=== PATIENT | female | born 1935 | race Caucasian/White ===

== ENCOUNTER 2017-01-27 08:43 | Inpatient (IN) | payer MEDICARE, OTHER ==
[2017-01-27] MEDS ORDERED: Albuterol/Ipratropium 3.0-0.5 MG/3 ML Neb Soln NEB ONE (09:00)
--- NOTE | 2017-01-27 09:00 | EDM.PDOC ---
[id number] Complaint: ABDOMINAL PAIN Time Seen by Provider: 01/27/17 08:50 Source of Information: Reports: Patient History Limitations: Reports: No Limitations - History of Present Illness INITIAL COMMENTS - FREE TEXT/NARRATIVE: History of present illness: []Patient ate [employer] last night and started vomiting she denies any diarrhea or complaints of severe epigastric abdominal pain and shortness of breath. Patient has COPD but ran out of her inhalers. Patient denies any bloody diarrhea,fevers, or chest pain. Review of systems: As per history of present illness and below otherwise all systems reviewed and negative. Past medical history: As per history of present illness and as reviewed below otherwise noncontributory. Surgical history: As per history of present illness and as reviewed below otherwise noncontributory. Social history: No reported history of drug or alcohol abuse. Family history: As per history of present illness and as reviewed below otherwise noncontributory. Physical exam: General: Well developed, well nourished in NAD HEENT: Atraumatic, normocephalic, pupils reactive, negative for conjunctival pallor or scleral icterus, mucous membranes moist, throat clear, neck supple, nontender, trachea midline. Lungs: Clear to auscultation, breath sounds equal bilaterally, chest nontender. Heart: S1S2, regular, negative for clicks, rubs, or JVD. Abdomen: Soft, nondistended, epigastric tenderness rebound or guarding. Negative for masses or hepatosplenomegaly. Negative for costovertebral tenderness. Pelvis: Stable nontender. Genitourinary: Deferred. Rectal: Deferred. Extremities: Atraumatic, negative for cords or calf pain. Neurovascular unremarkable. Neuro: Awake, alert, oriented. Cranial nerves II through XII unremarkable. Cerebellum unremarkable. Motor and sensory unremarkable throughout. Exam nonfocal. Diagnostics: []. Labs chest x-ray and CT abdomen showing acute interstitial edematous pancreatitis that is new. She also has an aortic aneurysm that is unchanged thrombus in it. There is no obstruction noted. Therapeutics: []Patient was hydrated and given pain medicines and antiemetics Impression: []Acute pancreatitis Plan: []Admit for further treatment and hydration. Definitive disposition and diagnosis as appropriate pending reevaluation and review of above. abdomen Pain Score (Numeric/FACES): 10 - Related Data Allergies Allergy/AdvReac Type Severity Reaction Status Date / Time shellfish derived Allergy Cannot Verified 01/27/17 11:07 Remember Home Meds: Home Meds Albuterol [Proventil HFA] 2 puff IH QID PRN 01/27/17 [History] Metoprolol Succinate [Toprol XL] 25 mg PO DAILY 01/27/17 [History] Nitroglycerin [Nitrostat] 0.4 mg SL Q5M PRN 01/27/17 [History] ED ROS GENERAL - Review of Systems Review Of Systems: See Below (See history of present illness) ED EXAM, GI/ABD - Physical Exam Exam: See Below (See history of present illness) Course - Vital Signs Last Recorded V/S: Last Vital Signs Temp 36.6 C 01/27/17 08:57 Pulse 71 01/27/17 11:15 Resp 16 01/27/17 09:38 BP 146/55 H 01/27/17 11:15 Pulse Ox 98 01/27/17 12:18 - Orders/Labs/Meds Orders: Active Orders 24 hr Category Date Time Status EKG Documentation Completion [RC] STAT Care 01/27/17 09:01 Active RT Aerosol Therapy [RC] ASDIRECTED Care 01/27/17 09:00 Active Abdomen Pelvis w Cont [CT] Stat Exams 01/27/17 10:50 Taken Chest 1V Frontal [CR] Stat Exams 01/27/17 09:01 Taken Saline Lock Insert [OM.PC] Stat Oth 01/27/17 09:01 Ordered Medication Orders Albuterol (Ventolin Hfa) 2 gm INH QID PRN PRN Reason: Wheezing Docusate Sodium (Colace) 100 mg PO BID PRN PRN Reason: Constipation Enoxaparin Sodium (Lovenox) 40 mg SUBCUT DAILY [facility] Sodium Chloride (Normal Saline) 1,000 mls @ 100 mls/hr IV ASDIRECTED [facility] Last Admin: 01/27/17 16:29 Dose: 100 mls/hr Metoprolol Succinate (Toprol Xl) 25 mg PO DAILY [facility] Morphine Sulfate (Morphine) 2 mg IVPUSH Q2H PRN PRN Reason: Pain (severe 7-10) Stop: 01/28/17 12:28 Ondansetron HCl (Zofran Odt) 4 mg PO Q6H PRN PRN Reason: nausea, able to take PO Last Admin: 01/27/17 13:34 Dose: 4 mg Ondansetron HCl (Zofran) 8 mg IVPUSH Q8H PRN PRN Reason: Nausea/Vomiting Last Admin: 01/27/17 17:47 Dose: 8 mg Temazepam (Restoril) 15 mg PO BEDTIME PRN PRN Reason: Sleep Labs: Laboratory Tests 01/27/17 01/27/17 01/27/17 Range/Units 09:13 09:22 09:22 WBC 8.85 (4.0-11.0) K/uL RBC 4.97 (4.30-5.90) M/uL Hgb 14.5 (12.0-16.0) g/dL Hct 44.5 (36.0-46.0) % MCV 89.5 (80.0-98.0) fL MCH 29.2 (27.0-32.0) pg MCHC 32.6 (31.0-37.0) g/dL RDW Std Deviation 47.9 (28.0-62.0) fl RDW Coeff of Harpreet 15 (11.0-15.0) % Plt Count 274 (150-400) K/uL MPV 10.20 (7.40-12.00) fL Neut % (Auto) 76.3 (48.0-80.0) % Lymph % (Auto) 15.9 L (16.0-40.0) % Mcdonald % (Auto) 7.3 (0.0-15.0) % Eos % (Auto) 0.3 (0.0-7.0) % Baso % (Auto) 0.2 (0.0-1.5) % Neut # (Auto) 6.7 H (1.4-5.7) K/uL Lymph # (Auto) 1.4 (0.6-2.4) K/uL Mcdonald # (Auto) 0.7 (0.0-0.8) K/uL Eos # (Auto) 0.0 (0.0-0.7) K/uL Baso # (Auto) 0.0 (0.0-0.1) K/uL Nucleated RBC % 0.0 /100WBC Nucleated RBCs # 0 K/uL Sodium 142 (136-146) mmol/L Potassium 4.0 (3.5-5.1) mmol/L Chloride 109 (98-110) mmol/L Carbon Dioxide 24 (21-31) mmol/L BUN 18 (6.0-23.0) mg/dL Creatinine 1.0 (0.6-1.5) mg/dL Est Cr Clr Drug Dosing TNP Estimated GFR (MDRD) 53.5 ml/min Glucose 164 H (60-110) mg/dL Calcium 8.9 (8.8-10.8) mg/dL Total Bilirubin 1.8 H (0.1-1.5) mg/dL AST 716 H (5-40) IU/L ALT 663 H (8-54) IU/L Alkaline Phosphatase 149 (40-150) Troponin I < 0.10 (0.0-0.29) NG/ML B-Natriuretic Peptide (<100) PG/ML Total Protein 6.8 (6.0-8.0) g/dL Albumin 3.9 (3.4-4.8) g/dL Globulin 2.9 (2.0-3.5) g/dL Albumin/Globulin Ratio 1.3 (1.3-2.8) Lipase 6642 H (7-80) U/L 01/27/ Range/Units 09:22 WBC (4.0-11.0) K/uL RBC (4.30-5.90) M/uL Hgb (12.0-16.0) g/dL Hct (36.0-46.0) % MCV (80.0-98.0) fL MCH (27.0-32.0) pg MCHC (31.0-37.0) g/dL RDW Std Deviation (28.0-62.0) fl RDW Coeff of Harpreet (11.0-15.0) % Plt Count (150-400) K/uL MPV (7.40-12.00) fL Neut % (Auto) (48.0-80.0) % Lymph % (Auto) (16.0-40.0) % Mcdonald % (Auto) (0.0-15.0) % Eos % (Auto) (0.0-7.0) % Baso % (Auto) (0.0-1.5) % Neut # (Auto) (1.4-5.7) K/uL Lymph # (Auto) (0.6-2.4) K/uL Mcdonald # (Auto) (0.0-0.8) K/uL Eos # (Auto) (0.0-0.7) K/uL Baso # (Auto) (0.0-0.1) K/uL Nucleated RBC % /100WBC Nucleated RBCs # K/uL Sodium (136-146) mmol/L Potassium (3.5-5.1) mmol/L Chloride (98-110) mmol/L Carbon Dioxide (21-31) mmol/L BUN (6.0-23.0) mg/dL Creatinine (0.6-1.5) mg/dL Est Cr Clr Drug Dosing Estimated GFR (MDRD) ml/min Glucose (60-110) mg/dL Calcium (8.8-10.8) mg/dL Total Bilirubin (0.1-1.5) mg/dL AST (5-40) IU/L ALT (8-54) IU/L Alkaline Phosphatase (40-150) Troponin I (0.0-0.29) NG/ML B-Natriuretic Peptide 70 (<100) PG/ML Total Protein (6.0-8.0) g/dL Albumin (3.4-4.8) g/dL Globulin (2.0-3.5) g/dL Albumin/Globulin Ratio (1.3-2.8) Lipase (7-80) U/L Meds: Medications Generic Name Dose Route Start Last Admin Trade Name Freq PRN Reason Stop Dose Admin Albuterol 2 gm 01/27/17 12:29 Ventolin Hfa INH QID PRN Wheezing Docusate Sodium 100 mg 01/27/17 12:25 Colace PO BID PRN Constipation Enoxaparin Sodium 40 mg 01/28/17 09:00 Lovenox SUBCUT DAILY [facility] Sodium Chloride 1,000 mls @ 100 mls/hr 01/27/17 12:30 01/27/17 16:29 Normal Saline IV 100 mls/hr ASDIRECTED [facility] Administration Metoprolol Succinate 25 mg 01/28/17 09:00 Toprol Xl PO DAILY [facility] Morphine Sulfate 2 mg 01/27/17 12:25 Morphine IVPUSH 01/28/17 12:28 Q2H PRN Pain (severe 7-10) Ondansetron HCl 4 mg 01/27/17 12:25 01/27/17 13:34 Zofran Odt PO 4 mg Q6H PRN Administration nausea, able to take PO Ondansetron HCl 8 mg 01/27/17 14:56 01/27/17 17:47 Zofran IVPUSH 8 mg Q8H PRN Administration Nausea/Vomiting Temazepam 15 mg 01/27/17 12:25 Restoril PO BEDTIME PRN Sleep Discontinued Medications Generic Name Dose Route Start Last Admin Trade Name Freq PRN Reason Stop Dose Admin Albuterol/Ipratropium 3 ml 01/27/17 09:00 01/27/17 09:09 Duoneb 3.0-0.5 Mg/3 Ml NEB 01/27/17 09:01 3 ml ONETIME ONE Administration Famotidine 20 mg 01/27/17 09:02 01/27/17 09:21 Pepcid IVPUSH 01/27/17 09:03 20 mg ONETIME ONE Administration Sodium Chloride 250 mls @ 250 mls/hr 01/27/17 11:00 Normal Saline IV ASDIRECTED [facility] Sodium Chloride 1,000 mls @ 250 mls/hr 01/27/17 11:01 01/27/17 11:02 Normal Saline IV 01/27/17 15:00 250 mls/hr ONETIME ONE Administration Iopamidol 80 ml 01/27/17 12:01 01/27/17 12:02 Isovue-300 (61%) IVPUSH 01/27/17 12:02 80 ml ONETIME ONE Administration Morphine Sulfate 2 mg 01/27/17 10:20 01/27/17 10:36 Morphine IVPUSH 01/27/17 10:21 2 mg ONETIME ONE Administration Ondansetron HCl 4 mg 01/27/17 10:27 01/27/17 10:32 Zofran IVPUSH 01/27/17 10:28 4 mg ONETIME ONE Administration Departure - Departure Time of Disposition: 12:15 Disposition: Admitted As Inpatient 68 Condition: Good Clinical Impression: Acute pancreatitis Qualifiers: Pancreatitis type: unspecified pancreatitis type Acute pancreatitis complication: unspecified Qualified Code(s): K85.90 - Acute pancreatitis without necrosis or infection, unspecified - Discharge Information - My Orders Last 24 Hours: My Active Orders 01/27/17 09:00 RT Aerosol Therapy [RC] ASDIRECTED 01/27/17 09:01 EKG Documentation Completion [RC] STAT Chest 1V Frontal [CR] Stat Saline Lock Insert [OM.PC] Stat 01/27/17 10:50 Abdomen Pelvis w Cont [CT] Stat - Assessment/Plan Last 24 Hours: My Active Orders 01/27/17 09:00 RT Aerosol Therapy [RC] ASDIRECTED 01/27/17 09:01 EKG Documentation Completion [RC] STAT Chest 1V Frontal [CR] Stat Saline Lock Insert [OM.PC] Stat 01/27/17 10:50 Abdomen Pelvis w Cont [CT] Stat
[2017-01-27] MEDS ORDERED: Famotidine 20 MG/2 ML SDV IVPUSH ONE (09:02)
[2017-01-27 09:48] LABS: CHLORIDE,CL 109 mmol/L (98-110); SODIUM,NA 142 mmol/L (136-146)
[2017-01-27] MEDS ORDERED: Morphine 2 MG/ML Syringe IVPUSH ONE (10:20)
[2017-01-27] MEDS ORDERED: Ondansetron 4 MG/2 ML SDV IVPUSH ONE (10:27)
[2017-01-27] MEDS ORDERED: Sodium Chloride 0.9% 250 ML IV SCH (11:00)
[2017-01-27] MEDS ORDERED: Sodium Chloride 0.9% 1,000 ML IV ONE (11:01)
[2017-01-27] MEDS ORDERED: Iopamidol 612 MG/ML 100 ML Bottle IVPUSH ONE (12:01)
[2017-01-27] MEDS ORDERED: Morphine 2 MG/ML Syringe IVPUSH PRN (12:25)
[2017-01-27] MEDS ORDERED: Temazepam 15 MG Cap PO PRN (12:25)
[2017-01-27] MEDS: Ondansetron 4 MG Tab.DIS PO PRN (13:34)
[2017-01-27] MEDS ORDERED: Ondansetron 4 MG/2 ML SDV IVPUSH PRN (14:56)
[2017-01-27] MEDS: Sodium Chloride 0.9% 1,000 ML IV SCH (16:29)
--- NOTE | 2017-01-27 16:30 | PCM.HP ---
H&P History of Present Illness - General Date of Service: 01/27/17 Admit Problem/Dx: Admission Diagnosis/Problem Admission Diagnosis/Problem Pancreatitis due to biliary obstruction Source of Information: Patient History Limitations: Reports: No Limitations - History of Present Illness Initial Comments - Free Text/Narative: The patient is a 81-year-old lady who is presented to the emergency department primarily out of concern for upper abdominal pain. Patient reports that she ate pizza yesterday evening started to vomit. She had no diarrhea. Patient also has severe epigastric pain and some shortness of breath associated. The patient has COPD but she does not believe the shortness of breath as a result of this. The patient also has denied any hematochezia or melena. Patient says that the pain is located primarily in the epigastric area and is described as sharp and stabbing and relates to the right and left side. The patient says that the food is been aggravating and medication seems to have relieved this. Up until yesterday evening patient had been doing well. Patient reports that her has had pancreatitis and she is very familiar with the symptoms. The patient also has denied any fever or chills. The patient has been taking medication for hypertension but no other. The patient has been in her usual state of health and she has no other complaints today. Onset of Symptoms: Reports: Today Duration of Symptoms: Reports: Hour(s):, Getting Worse Location: Reports: Abdomen Quality: Reports: Sharp, Stabbing Severity: Moderate Improves with: Reports: Medication Worsens with: Reports: Eating Context: Reports: Sick Contact Associated Symptoms: Reports: No Other Symptoms abdomen Pain Score (Numeric/FACES): 10 - Related Data Allergies/Adverse Reactions: Allergies Allergy/AdvReac Type Severity Reaction Status Date / Time shellfish derived Allergy Cannot Verified 01/27/17 11:07 Remember Home Medications: Home Meds Albuterol [Proventil HFA] 2 puff IH QID PRN 01/27/17 [History] Metoprolol Succinate [Toprol XL] 25 mg PO DAILY 01/27/17 [History] Nitroglycerin [Nitrostat] 0.4 mg SL Q5M PRN 01/27/17 [History] Past Medical History - Past Health History Medical/Surgical History: Denies Medical/Surgical History HEENT History: Reports: Hard of Hearing, Impaired Vision Other HEENT History: wears glasses Cardiovascular History: Reports: High Cholesterol, Hypertension, NC, Stents Respiratory History: Reports: COPD, Pneumonia, Recurrent, Other (See Below) Other Respiratory History: Frequent URIs Gastrointestinal History: Reports: GERD, GI Bleed Genitourinary History: Reports: None [employer] History: Reports: Musculoskeletal History: Reports: Arthritis Psychiatric History: Reports: Anxiety Endocrine/Metabolic History: Reports: Diabetes, Type II Other Endocrine/Metabolic History: "borderline diabetic' Hematologic History: Reports: Anemia - Past Surgical History GI Surgical History: Reports: None Female Surgical History: Reports: Tubal Ligation Social & Family History - Family History Family Medical History: Noncontributory - Tobacco Use Smoking Status *Q: Former Smoker Years of Tobacco use: 50 Used Tobacco, but Quit: Yes Month Tobacco Last Used: 07/2006 Second Hand Smoke Exposure: No - Caffeine Use Caffeine Use: Reports: Coffee, Tea - Alcohol Use Alcohol Use History: No - Recreational Drug Use Recreational Drug Use: No H&P Review of Systems - Review of Systems: Review Of Systems: See Below General: Reports: Weakness, Decreased Appetite HEENT: Reports: No Symptoms Pulmonary: Reports: Shortness of Breath Cardiovascular: Reports: No Symptoms Gastrointestinal: Reports: Abdominal Pain, Decreased Appetite, Nausea, Vomiting. Denies: Hematochezia, Melena Genitourinary: Reports: No Symptoms Musculoskeletal: Reports: No Symptoms Skin: Reports: No Symptoms Psychiatric: Reports: No Symptoms Neurological: Reports: No Symptoms Hematologic/Lymphatic: Reports: No Symptoms Immunologic: Reports: No Symptoms Exam - Exam Exam: See Below - Vital Signs Vital Signs: Last Vital Signs Temp 36.6 C 01/27/17 08:57 Pulse 71 01/27/17 11:15 Resp 16 01/27/17 09:38 BP 146/55 H 01/27/17 11:15 Pulse Ox 98 01/27/17 12:18 Weight: 90 kg - Exam Quality Assessment: No: Supplemental Oxygen General: Alert, Oriented, Cooperative, Mild Distress HEENT: Conjunctiva Clear, EACs Clear, Mucosa Moist & [place], Nares Patent Neck: Supple, Trachea Midline Lungs: Clear to Auscultation, Normal Respiratory Effort Cardiovascular: Regular Rate, Regular Rhythm GI/Abdominal Exam: Normal Bowel Sounds, Soft, Tender. No: Guarding, Rigid Back Exam: Decreased Range of Motion Extremities: Normal Inspection, No Pedal Edema Skin: Warm, Dry Neurological: Cranial Nerves Intact Neuro Extensive - Mental Status: Alert, Oriented x3 Neuro Extensive - Motor, Sensory, Reflexes: CN II-XII Intact Psychiatric: Alert, Normal Affect - Patient Data Lab Results Last 24 hrs: Laboratory Results - last 24 hr 01/27/17 Range/Units 13:55 Urine Color YELLOW Urine Appearance CLEAR Urine pH 6.0 (5.0-8.0) Ur Specific [place] 1.010 (1.001-1.035) Urine Protein NEGATIVE (NEGATIVE) mg/dL Urine Glucose (UA) NEGATIVE (NEGATIVE) mg/dL Urine Ketones NEGATIVE (NEGATIVE) mg/dL Urine Occult Blood TRACE-LYSED (NEGATIVE) Urine Nitrite NEGATIVE (NEGATIVE) Urine Bilirubin NEGATIVE (NEGATIVE) Urine Urobilinogen 1.0 (<2.0) EU/dL Ur Leukocyte Esterase TRACE (NEGATIVE) Urine RBC 0-2 (0-2/HPF) Urine WBC 0-3 (0-5/HPF) Ur Epithelial Cells FEW (NONE-FEW) Urine Bacteria RARE (NEGATIVE) Result Diagrams: 01/27/17 09:22 01/27/17 09:22 *Q Meaningful Use (ADM) - VTE *Q VTE Criteria *Q: VTE Mechanical Contraindications *Q: At Risk for Falls - VTE Risk Assess *Q Each Risk Factor Represents 1 Point: None Total Score 1 Point Risk Factors: 0 Each Risk Factor Represents 3 Points: Age 75 Years or Greater Total Score 3 Point Risk Factors: 3 Each Risk Factor Represents 5 Points: None Total Score 5 Point Risk Factors: 0 - Stroke *Q Stroke Criteria *Q: - AMI *Q AMI Criteria *Q: - Problem List (1) Pancreatitis SNOMED Code(s): 93961189 ICD Code: K85.90 - ACUTE PANCREATITIS WITHOUT NECROSIS OR INFECTION, UNSP Status: Acute Priority: High Current Visit: Yes Problem Details: Lipase 6600 Qualifiers: Chronicity: acute Pancreatitis type: biliary Acute pancreatitis complication: no infection or necrosis Qualified Code(s): K85.10 - Biliary acute pancreatitis without necrosis or infection (2) Transaminitis SNOMED Code(s): 104514682 ICD Code: R74.0 - NONSPEC ELEV OF LEVELS OF TRANSAMNS & LACTIC ACID DEHYDRGNSE Status: Acute Priority: High Current Visit: Yes (3) COPD (chronic obstructive pulmonary disease) SNOMED Code(s): 69694697 ICD Code: J44.9 - CHRONIC OBSTRUCTIVE PULMONARY DISEASE, UNSPECIFIED Status : Chronic Priority: Medium Current Visit: Yes Qualifiers: COPD type: chronic bronchitis Chronic bronchitis type: simple Qualified Code(s): J41.0 - Simple chronic bronchitis (4) Hypertension SNOMED Code(s): 37179234 ICD Code: I10 - ESSENTIAL (PRIMARY) HYPERTENSION Status: Chronic Priority : Medium Current Visit: Yes Qualifiers: Hypertension type: essential hypertension Qualified Code(s): I10 - Essential (primary) hypertension Problem List Initiated/Reviewed/Updated: Yes Orders Last 24hrs: Active Orders 24 hr Category Date Time Status Patient Status [ADT] Routine ADT 01/27/17 12:18 Active Ambulate [RC] PER UNIT ROUTINE Care 01/27/17 12:27 Active Oxygen Therapy [RC] PRN Care 01/27/17 12:18 Active Up With Assistance [RC] ASDIRECTED Care 01/27/17 12:15 Active VTE/DVT Education [RC] PER UNIT ROUTINE Care 01/27/17 12:18 Active Vital Signs [RC] Q4H Care 01/27/17 12:18 Active Nothing per Oral Now Diet [DIET] Diet 01/27/17 Lunch Active CBC WITH AUTO DIFF [HEME] AM Lab 01/28/17 05:11 Ordered COMPREHENSIVE METABOLIC PN,CMP [CHEM] AM Lab 01/28/17 05:11 Ordered MAGNESIUM [CHEM] AM Lab 01/28/17 05:11 Ordered PHOSPHORUS [CHEM] AM Lab 01/28/17 05:11 Ordered Albuterol [Ventolin HFA] Med 01/27/17 12:29 Active 2 gm INH QID PRN Docusate Sodium [Colace] Med 01/27/17 12:25 Active 100 mg PO BID PRN Enoxaparin [Lovenox] Med 01/28/17 09:00 Active 40 mg SUBCUT DAILY Metoprolol Succinate [Toprol XL] Med 01/28/17 09:00 Active 25 mg PO DAILY Morphine Med 01/27/17 12:25 Active 2 mg IVPUSH Q2H PRN Ondansetron [Zofran ODT] Med 01/27/17 12:25 Active 4 mg PO Q6H PRN Ondansetron [Zofran] Med 01/27/17 14:56 Active 8 mg IVPUSH Q8H PRN Sodium Chloride 0.9% [Normal Saline] 1,000 ml Med 01/27/17 12:30 Active IV ASDIRECTED Temazepam [Restoril] Med 01/27/17 12:25 Active 15 mg PO BEDTIME PRN Resuscitation Status Routine Resus Stat 01/27/17 12:15 Ordered Medication Orders Albuterol (Ventolin Hfa) 2 gm INH QID PRN PRN Reason: Wheezing Docusate Sodium (Colace) 100 mg PO BID PRN PRN Reason: Constipation Enoxaparin Sodium (Lovenox) 40 mg SUBCUT DAILY [facility] Sodium Chloride (Normal Saline) 1,000 mls @ 100 mls/hr IV ASDIRECTED [facility] Last Admin: 01/27/17 16:29 Dose: 100 mls/hr Metoprolol Succinate (Toprol Xl) 25 mg PO DAILY [facility] Morphine Sulfate (Morphine) 2 mg IVPUSH Q2H PRN PRN Reason: Pain (severe 7-10) Stop: 01/28/17 12:28 Ondansetron HCl (Zofran Odt) 4 mg PO Q6H PRN PRN Reason: nausea, able to take PO Last Admin: 01/27/17 13:34 Dose: 4 mg Ondansetron HCl (Zofran) 8 mg IVPUSH Q8H PRN PRN Reason: Nausea/Vomiting Temazepam (Restoril) 15 mg PO BEDTIME PRN PRN Reason: Sleep Assessment/Plan Comment:: January 27, 2017: The patient is a 81-year-old lady who has been admitted for acute onset of pancreatitis. CT scan obtained through the emergency department did not show any obstructive stones or biliary tree issues. With the patient's lipase as high as it is as well as her transaminitis and concerned about neoplastic processes with the patient's pancreas. I've ordered an ultrasound in order to characterize any radio translucent stones which may be present in the gallbladder. If the patient's ALT and AST trends continue along with her lipase the patient may be in need of a MRCP or an ERCP. For the most part the patient will be admitted as an inpatient with IV fluid support, nothing by mouth for now , pain control and monitoring of her enzymes and her blood counts. The patient will also have her vital signs monitored as well. The patient's overall treatment plan will be adjusted as soon as conditions and information indicates.
[2017-01-27] MEDS: Ondansetron 4 MG/2 ML SDV IVPUSH PRN (22:15)
[2017-01-28] MEDS: Sodium Chloride 0.9% 1,000 ML IV SCH ×3 (02:44→22:10)
[2017-01-28 06:28] LABS: CHLORIDE,CL 113 mmol/L (98-110); SODIUM,NA 145 mmol/L (136-146)
[2017-01-28] MEDS: Enoxaparin 40 MG/0.4 ML Syringe SUBCUT SCH (08:26)
[2017-01-28] MEDS: Ondansetron 4 MG/2 ML SDV IVPUSH PRN (08:27)
[2017-01-28] MEDS: Metoprolol Succinate 25 MG Tab.ER PO SCH (08:27)
[2017-01-28] MEDS: Acetaminophen 325 MG Tab PO PRN ×2 (11:44→17:49)
--- NOTE | 2017-01-28 12:31 | PCM.PN ---
- General Info Date of Service: 01/28/17 Admission Dx/Problem (Free Text): Admission Diagnosis/Problem Admission Diagnosis/Problem Pancreatitis due to biliary obstruction Subjective Update: Patient still has some nausea, pain controlled. Patient's family is with her today. Functional Status: Reports: Pain Controlled. Denies: Tolerating Diet - Review of Systems General: Reports: Weakness, Fatigue HEENT: Reports: No Symptoms Pulmonary: Reports: No Symptoms Cardiovascular: Reports: No Symptoms Gastrointestinal: Reports: Abdominal Pain, Nausea Genitourinary: Reports: No Symptoms Musculoskeletal: Reports: No Symptoms Skin: Reports: No Symptoms Neurological: Reports: No Symptoms Psychiatric: Reports: No Symptoms - Patient Data Vitals - most recent: Last Vital Signs Temp 36.4 C 01/28/17 07:00 Pulse 67 01/28/17 08:27 Resp 16 01/28/17 07:00 BP 159/59 H 01/28/17 08:27 Pulse Ox 90 L 01/28/17 07:00 Weight - most recent: 90 kg I&O - last 24 hours: Intake & Output 01/27/17 01/28/17 01/28/17 22:59 06:59 14:59 Intake Total 1020 Output Total 200 350 Balance -200 670 Lab Results last 24 hrs: Laboratory Results - last 24 hr 01/27/17 01/28/17 01/28/17 Range/Units 13:55 05:45 05:45 WBC 9.62 (4.0-11.0) K/uL RBC 4.75 (4.30-5.90) M/uL Hgb 13.5 (12.0-16.0) g/dL Hct 43.8 (36.0-46.0) % MCV 92.2 (80.0-98.0) fL MCH 28.4 (27.0-32.0) pg MCHC 30.8 L (31.0-37.0) g/dL RDW Std Deviation 51.0 (28.0-62.0) fl RDW Coeff of Harpreet 15 (11.0-15.0) % Plt Count 272 (150-400) K/uL MPV 10.60 (7.40-12.00) fL Neut % (Auto) 74.4 (48.0-80.0) % Lymph % (Auto) 18.8 (16.0-40.0) % Smith % (Auto) 6.2 (0.0-15.0) % Eos % (Auto) 0.4 (0.0-7.0) % Baso % (Auto) 0.2 (0.0-1.5) % Neut # (Auto) 7.2 H (1.4-5.7) K/uL Lymph # (Auto) 1.8 (0.6-2.4) K/uL Smith # (Auto) 0.6 (0.0-0.8) K/uL Eos # (Auto) 0.0 (0.0-0.7) K/uL Baso # (Auto) 0.0 (0.0-0.1) K/uL Nucleated RBC % 0.0 /100WBC Nucleated RBCs # 0 K/uL Sodium 145 (136-146) mmol/L Potassium 4.9 (3.5-5.1) mmol/L Chloride 113 H (98-110) mmol/L Carbon Dioxide 25 (21-31) mmol/L BUN 12 (6.0-23.0) mg/dL Creatinine 0.8 (0.6-1.5) mg/dL Est Cr Clr Drug Dosing 49.24 mL/min Estimated GFR (MDRD) > 60.0 ml/min Glucose 121 H (60-110) mg/dL Calcium 8.3 L (8.8-10.8) mg/dL Phosphorus 3.3 (2.4-4.7) mg/dL Magnesium 1.8 (1.5-2.3) mEq/L Total Bilirubin 1.2 (0.1-1.5) mg/dL AST 339 H (5-40) IU/L ALT 507 H (8-54) IU/L Alkaline Phosphatase 168 H (40-150) Total Protein 6.3 (6.0-8.0) g/dL Albumin 3.6 (3.4-4.8) g/dL Globulin 2.7 (2.0-3.5) g/dL Albumin/Globulin Ratio 1.3 (1.3-2.8) Urine Color YELLOW Urine Appearance CLEAR Urine pH 6.0 (5.0-8.0) Ur Specific [place] 1.010 (1.001-1.035) Urine Protein NEGATIVE (NEGATIVE) mg/dL Urine Glucose (UA) NEGATIVE (NEGATIVE) mg/dL Urine Ketones NEGATIVE (NEGATIVE) mg/dL Urine Occult Blood TRACE-LYSED (NEGATIVE) Urine Nitrite NEGATIVE (NEGATIVE) Urine Bilirubin NEGATIVE (NEGATIVE) Urine Urobilinogen 1.0 (<2.0) EU/dL Ur Leukocyte Esterase TRACE (NEGATIVE) Urine RBC 0-2 (0-2/HPF) Urine WBC 0-3 (0-5/HPF) Ur Epithelial Cells FEW (NONE-FEW) Urine Bacteria RARE (NEGATIVE) Med Orders - Current: Current Medications Acetaminophen (Tylenol) 650 mg PO Q6H PRN PRN Reason: Headache Last Admin: 01/28/17 11:44 Dose: 650 mg Albuterol (Ventolin Hfa) 2 gm INH QID PRN PRN Reason: Wheezing Docusate Sodium (Colace) 100 mg PO BID PRN PRN Reason: Constipation Enoxaparin Sodium (Lovenox) 40 mg SUBCUT DAILY [facility] Last Admin: 01/28/17 08:26 Dose: 40 mg Sodium Chloride (Normal Saline) 1,000 mls @ 100 mls/hr IV ASDIRECTED [facility] Last Admin: 01/28/17 11:48 Dose: 100 mls/hr Metoprolol Succinate (Toprol Xl) 25 mg PO DAILY [facility] Last Admin: 01/28/17 08:27 Dose: 25 mg Morphine Sulfate (Morphine) 2 mg IVPUSH Q2H PRN PRN Reason: Pain (severe 7-10) Stop: 01/28/17 12:28 Last Admin: 01/27/17 21:42 Dose: 2 mg Ondansetron HCl (Zofran Odt) 4 mg PO Q6H PRN PRN Reason: nausea, able to take PO Last Admin: 01/27/17 13:34 Dose: 4 mg Ondansetron HCl (Zofran) 4 mg IVPUSH Q4H PRN PRN Reason: Nausea/Vomiting Last Admin: 01/28/17 08:27 Dose: 4 mg Temazepam (Restoril) 15 mg PO BEDTIME PRN PRN Reason: Sleep Discontinued Medications Albuterol/Ipratropium (Duoneb 3.0-0.5 Mg/3 Ml) 3 ml NEB ONETIME ONE Stop: 01/27/17 09:01 Last Admin: 01/27/17 09:09 Dose: 3 ml Famotidine (Pepcid) 20 mg IVPUSH ONETIME ONE Stop: 01/27/17 09:03 Last Admin: 01/27/17 09:21 Dose: 20 mg Sodium Chloride (Normal Saline) 250 mls @ 250 mls/hr IV ASDIRECTED [facility] Sodium Chloride (Normal Saline) 1,000 mls @ 250 mls/hr IV ONETIME ONE Stop: 01/27/17 15:00 Last Admin: 01/27/17 11:02 Dose: 250 mls/hr Iopamidol (Isovue-300 (61%)) 80 ml IVPUSH ONETIME ONE Stop: 01/27/17 12:02 Last Admin: 01/27/17 12:02 Dose: 80 ml Morphine Sulfate (Morphine) 2 mg IVPUSH ONETIME ONE Stop: 01/27/17 10:21 Last Admin: 01/27/17 10:36 Dose: 2 mg Ondansetron HCl (Zofran) 4 mg IVPUSH ONETIME ONE Stop: 01/27/17 10:28 Last Admin: 01/27/17 10:32 Dose: 4 mg Ondansetron HCl (Zofran) 8 mg IVPUSH Q8H PRN PRN Reason: Nausea/Vomiting Last Admin: 01/27/17 17:47 Dose: 8 mg - Exam Quality Assessment: No: supplemental oxygen General: alert, oriented, mild distress HEENT: Pupils equal, Pupils reactive Neck: supple, trachea midline, no thyromegaly Lungs: Clear to Auscultation, Normal Respiratory Effort Cardiovascular: Regular Rate, Regular Rhythm, No Murmurs GI/Abdominal Exam: Normal Bowel Sounds, Soft, No Organomegaly, Tender ( Epigastrium) Back Exam: Decreased Range of Motion Extremities: Non-Tender, No Pedal Edema Skin: warm, dry, intact Neurological: no new focal deficit Psy/Mental Status: alert, normal affect - Problem List & Annotations (1) Pancreatitis SNOMED Code(s): 23491877 Code(s): K85.90 - ACUTE PANCREATITIS WITHOUT NECROSIS OR INFECTION, UNSP Status: Acute Priority: High Current Visit: Yes Qualifiers: Chronicity: acute Pancreatitis type: biliary Acute pancreatitis complication: no infection or necrosis Qualified Code(s): K85.10 - Biliary acute pancreatitis without necrosis or infection Annotation/Comment:: Lipase 6600 (2) Transaminitis SNOMED Code(s): 881240155 Code(s): R74.0 - NONSPEC ELEV OF LEVELS OF TRANSAMNS & LACTIC ACID DEHYDRGNSE Status: Acute Priority: High Current Visit: Yes (3) COPD (chronic obstructive pulmonary disease) SNOMED Code(s): 92603439 Code(s): J44.9 - CHRONIC OBSTRUCTIVE PULMONARY DISEASE, UNSPECIFIED Status : Chronic Priority: Medium Current Visit: Yes Qualifiers: COPD type: chronic bronchitis Chronic bronchitis type: simple Qualified Code(s): J41.0 - Simple chronic bronchitis (4) Hypertension SNOMED Code(s): 32222564 Code(s): I10 - ESSENTIAL (PRIMARY) HYPERTENSION Status: Chronic Priority : Medium Current Visit: Yes Qualifiers: Hypertension type: essential hypertension Qualified Code(s): I10 - Essential (primary) hypertension - Problem List Review Problem List Initiated/Reviewed/Updated: Yes - My Orders Last 24 Hours: My Active Orders 01/27/17 12:15 Up With Assistance [RC] ASDIRECTED Resuscitation Status Routine 01/27/17 12:18 Patient Status [ADT] Routine Oxygen Therapy [RC] PRN VTE/DVT Education [RC] PER UNIT ROUTINE Vital Signs [RC] Q4H 01/27/17 12:25 Docusate Sodium [Colace] 100 mg PO BID PRN Morphine 2 mg IVPUSH Q2H PRN Ondansetron [Zofran ODT] 4 mg PO Q6H PRN Temazepam [Restoril] 15 mg PO BEDTIME PRN 01/27/17 12:27 Ambulate [RC] PER UNIT ROUTINE 01/27/17 12:29 Albuterol [Ventolin HFA] 2 gm INH QID PRN 01/27/17 12:30 Sodium Chloride 0.9% [Normal Saline] 1,000 ml IV ASDIRECTED 01/27/17 21:55 Ondansetron [Zofran] 4 mg IVPUSH Q4H PRN 01/27/17 22:00 Communication Order [RC] ROUTINE 01/28/17 09:00 Enoxaparin [Lovenox] 40 mg SUBCUT DAILY Metoprolol Succinate [Toprol XL] 25 mg PO DAILY 01/28/17 11:12 Acetaminophen [Tylenol] 650 mg PO Q6H PRN 01/28/17 16:39 Abdomen Ltd [US] Routine - Plan Plan:: January 27, 2017: The patient is a 81-year-old lady who has been admitted for acute onset of pancreatitis. CT scan obtained through the emergency department did not show any obstructive stones or biliary tree issues. With the patient's lipase as high as it is as well as her transaminitis and concerned about neoplastic processes with the patient's pancreas. I've ordered an ultrasound in order to characterize any radio translucent stones which may be present in the gallbladder. If the patient's ALT and AST trends continue along with her lipase the patient may be in need of a MRCP or an ERCP. For the most part the patient will be admitted as an inpatient with IV fluid support, nothing by mouth for now , pain control and monitoring of her enzymes and her blood counts. The patient will also have her vital signs monitored as well. The patient's overall treatment plan will be adjusted as soon as conditions and information indicates. January 28, 2017:The patient is a 81-year-old lady who was admitted initially for gallstone pancreatitis. Patient's CT scan of her abdomen and pelvis did not show any gallstones initially. An ultrasound of her right upper quadrant was ordered and plan Rickie report does show gallstones which would be a direct cause of the patient's pancreatitis. Patient denies any alcohol usage. The patient's previous lipase was greater than 6000 and this will be repeated in the morning. I've explained to the patient and the patient's daughter that her goal at this time is to have pain control, IV fluid support and nothing by mouth for now along with control of the patient's nausea. The patient's blood pressure is also controlled today and I have recommended that she use Tylenol with small sips of water as necessary to help with any minor pain that she might be having. Patient likely will have to have referral to surgery once the patient's pancreatitis and transaminitis have normalized. The patient will be continued on IV fluids currently and nothing by mouth except ice chips. I've ordered laboratory testing in the morning and patient will have her treatment plan adjusted as conditions and information indicates. Patient likely will be appropriate for discharge home once asymptomatic and her enzymes have normalized.
[2017-01-29] MEDS: Acetaminophen 325 MG Tab PO PRN ×3 (04:03→21:28)
[2017-01-29 06:35] LABS: CHLORIDE,CL 116 mmol/L (98-110); SODIUM,NA 144 mmol/L (136-146)
[2017-01-29] MEDS: Enoxaparin 40 MG/0.4 ML Syringe SUBCUT SCH (09:04)
[2017-01-29] MEDS: Ondansetron 4 MG Tab.DIS PO PRN (09:04)
[2017-01-29] MEDS: Ondansetron 4 MG/2 ML SDV IVPUSH PRN ×3 (09:13→21:27)
[2017-01-29] MEDS: Docusate Sodium 100 MG Cap PO PRN (09:17)
[2017-01-29] MEDS: Metoprolol Succinate 25 MG Tab.ER PO SCH (09:18)
[2017-01-29] MEDS: Sodium Chloride 0.9% 1,000 ML IV SCH ×2 (09:19→16:47)
--- NOTE | 2017-01-29 09:29 | PCM.PN ---
- General Info Date of Service: 01/29/17 Admission Dx/Problem (Free Text): Admission Diagnosis/Problem Admission Diagnosis/Problem Pancreatitis due to biliary obstruction Subjective Update: Patient sitting up in chair visiting with daughter. She has complaints of headache and some nausea, and just not feeling well this morning. Denies chest pain or SOB. Functional Status: Reports: Pain Controlled, Ambulating, Urinating - Review of Systems General: Reports: No Symptoms. Denies: Fever Pulmonary: Reports: Cough. Denies: Shortness of Breath Cardiovascular: Reports: No Symptoms. Denies: Chest Pain, Palpitations, Edema Gastrointestinal: Reports: Nausea. Denies: Abdominal Pain, Vomiting - Patient Data Vitals - most recent: Last Vital Signs Temp 97.1 F 01/29/17 07:26 Pulse 65 01/29/17 09:18 Resp 18 01/29/17 07:26 BP 100/52 L 01/29/17 09:18 Pulse Ox 90 L 01/29/17 07:26 Weight - most recent: 90 kg I&O - last 24 hours: Intake & Output 01/28/17 01/29/17 01/29/17 22:59 06:59 14:59 Intake Total 1000 40 Output Total 750 Balance 1000 -710 Lab Results last 24 hrs: Laboratory Results - last 24 hr 01/29/17 01/29/17 Range/Units 06:00 06:00 WBC 7.60 (4.0-11.0) K/uL RBC 4.31 (4.30-5.90) M/uL Hgb 12.3 (12.0-16.0) g/dL Hct 40.3 (36.0-46.0) % MCV 93.5 (80.0-98.0) fL MCH 28.5 (27.0-32.0) pg MCHC 30.5 L (31.0-37.0) g/dL RDW Std Deviation 51.5 (28.0-62.0) fl RDW Coeff of Harpreet 15 (11.0-15.0) % Plt Count 229 (150-400) K/uL MPV 10.70 (7.40-12.00) fL Neut % (Auto) 62.4 (48.0-80.0) % Lymph % (Auto) 26.6 (16.0-40.0) % [place] % (Auto) 8.7 (0.0-15.0) % Eos % (Auto) 1.8 (0.0-7.0) % Baso % (Auto) 0.5 (0.0-1.5) % Neut # (Auto) 4.7 (1.4-5.7) K/uL Lymph # (Auto) 2.0 (0.6-2.4) K/uL [place]son # (Auto) 0.7 (0.0-0.8) K/uL Eos # (Auto) 0.1 (0.0-0.7) K/uL Baso # (Auto) 0.0 (0.0-0.1) K/uL Nucleated RBC % 0.0 /100WBC Nucleated RBCs # 0 K/uL Sodium 144 (136-146) mmol/L Potassium 4.0 (3.5-5.1) mmol/L Chloride 116 H (98-110) mmol/L Carbon Dioxide 22 (21-31) mmol/L BUN 10 (6.0-23.0) mg/dL Creatinine 0.7 (0.6-1.5) mg/dL Est Cr Clr Drug Dosing 56.27 mL/min Estimated GFR (MDRD) > 60.0 ml/min Glucose 96 (60-110) mg/dL Calcium 8.0 L (8.8-10.8) mg/dL Phosphorus 2.4 (2.4-4.7) mg/dL Magnesium 1.7 (1.5-2.3) mEq/L Total Bilirubin 0.8 (0.1-1.5) mg/dL AST 121 H (5-40) IU/L ALT 285 H (8-54) IU/L Alkaline Phosphatase 136 (40-150) Total Protein 5.7 L (6.0-8.0) g/dL Albumin 3.2 L (3.4-4.8) g/dL Globulin 2.5 (2.0-3.5) g/dL Albumin/Globulin Ratio 1.3 (1.3-2.8) Lipase 73 (7-80) U/L Med Orders - Current: Current Medications Acetaminophen (Tylenol) 650 mg PO Q6H PRN PRN Reason: Headache Last Admin: 01/29/17 04:03 Dose: 650 mg Albuterol (Ventolin Hfa) 2 gm INH QID PRN PRN Reason: Wheezing Docusate Sodium (Colace) 100 mg PO BID PRN PRN Reason: Constipation Last Admin: 01/29/17 09:17 Dose: 100 mg Enoxaparin Sodium (Lovenox) 40 mg SUBCUT DAILY [facility] Last Admin: 01/29/17 09:04 Dose: 40 mg Sodium Chloride (Normal Saline) 1,000 mls @ 100 mls/hr IV ASDIRECTED [facility] Last Admin: 01/29/17 09:19 Dose: 100 mls/hr Metoprolol Succinate (Toprol Xl) 25 mg PO DAILY [facility] Last Admin: 01/29/17 09:18 Dose: Not Given Ondansetron HCl (Zofran Odt) 4 mg PO Q6H PRN PRN Reason: nausea, able to take PO Last Admin: 01/27/17 13:34 Dose: 4 mg Ondansetron HCl (Zofran) 4 mg IVPUSH Q4H PRN PRN Reason: Nausea/Vomiting Last Admin: 01/29/17 09:13 Dose: 4 mg Temazepam (Restoril) 15 mg PO BEDTIME PRN PRN Reason: Sleep Discontinued Medications Albuterol/Ipratropium (Duoneb 3.0-0.5 Mg/3 Ml) 3 ml NEB ONETIME ONE Stop: 01/27/17 09:01 Last Admin: 01/27/17 09:09 Dose: 3 ml Famotidine (Pepcid) 20 mg IVPUSH ONETIME ONE Stop: 01/27/17 09:03 Last Admin: 01/27/17 09:21 Dose: 20 mg Sodium Chloride (Normal Saline) 250 mls @ 250 mls/hr IV ASDIRECTED [facility] Sodium Chloride (Normal Saline) 1,000 mls @ 250 mls/hr IV ONETIME ONE Stop: 01/27/17 15:00 Last Admin: 01/27/17 11:02 Dose: 250 mls/hr Iopamidol (Isovue-300 (61%)) 80 ml IVPUSH ONETIME ONE Stop: 01/27/17 12:02 Last Admin: 01/27/17 12:02 Dose: 80 ml Morphine Sulfate (Morphine) 2 mg IVPUSH ONETIME ONE Stop: 01/27/17 10:21 Last Admin: 01/27/17 10:36 Dose: 2 mg Morphine Sulfate (Morphine) 2 mg IVPUSH Q2H PRN PRN Reason: Pain (severe 7-10) Stop: 01/28/17 12:28 Last Admin: 01/27/17 21:42 Dose: 2 mg Ondansetron HCl (Zofran) 4 mg IVPUSH ONETIME ONE Stop: 01/27/17 10:28 Last Admin: 01/27/17 10:32 Dose: 4 mg Ondansetron HCl (Zofran) 8 mg IVPUSH Q8H PRN PRN Reason: Nausea/Vomiting Last Admin: 01/27/17 17:47 Dose: 8 mg - Exam General: alert, oriented, cooperative, no acute distress Lungs: Normal Respiratory Effort, Wheezing (throughout lung alvarez) Cardiovascular: Regular Rate, Regular Rhythm, No Murmurs GI/Abdominal Exam: Normal Bowel Sounds, Soft, Non-Tender, No Organomegaly, No Abnormal Bruit, No Mass, Pelvis Stable, Distended. No: Rigid Extremities: Normal Inspection, No Pedal Edema Neurological: no new focal deficit Psy/Mental Status: alert, normal affect, normal mood - Problem List & Annotations (1) Acute pancreatitis SNOMED Code(s): 346008736 Code(s): K85.90 - ACUTE PANCREATITIS WITHOUT NECROSIS OR INFECTION, UNSP Status: Acute Current Visit: Yes Qualifiers: Pancreatitis type: biliary Acute pancreatitis complication: no infection or necrosis Qualified Code(s): K85.10 - Biliary acute pancreatitis without necrosis or infection (2) COPD (chronic obstructive pulmonary disease) SNOMED Code(s): 59148900 Code(s): J44.9 - CHRONIC OBSTRUCTIVE PULMONARY DISEASE, UNSPECIFIED Status : Chronic Priority: Medium Current Visit: Yes Qualifiers: COPD type: chronic bronchitis Chronic bronchitis type: simple Qualified Code(s): J41.0 - Simple chronic bronchitis (3) Hypertension SNOMED Code(s): 13178119 Code(s): I10 - ESSENTIAL (PRIMARY) HYPERTENSION Status: Chronic Priority : Medium Current Visit: Yes Qualifiers: Hypertension type: essential hypertension Qualified Code(s): I10 - Essential (primary) hypertension - Problem List Review Problem List Initiated/Reviewed/Updated: Yes - My Orders Last 24 Hours: My Active Orders 01/29/17 Breakfast Clear Liquid Diet [DIET] - Plan Plan:: This 81 year female admitted with acute pancreatitis secondary to gallstone 1. Pancreatitis: Continue IV fluid resuscitation. Lipase normal today, 73. AST/ ALT improving. I spoke with Dr. Spence, General Surgery, who recommended if patient was improving to discharge home and he will see her this week as outpatient to discuss surgery options. Will advance diet today to CL, monitor tolerance. 2. HTN: Holding BP meds today, some hypotension noted. Asymptomatic. Will monitor. VTE prophylaxis: Lovenox. Dispo: Possible DC in am if continued improvement
[2017-01-29] MEDS: Albuterol 8 GM Inhaler INH PRN (09:33)
--- NOTE | 2017-01-29 12:51 | CR ---
EXAM DATE: 01/27/17 PATIENT'S AGE: 81 Patient: YOBANI VERA Facility: [place], [place] Site . Site : 1935 Study: XRay Chest [id number]/22/2017 9:55:10 AM Ordering Physician: Riki Wood Final Report: HISTORY: Chest pain, shortness of breath. TECHNIQUE: One view of the chest. COMPARISON: 02/07/2007. FINDINGS: There is no lung consolidation or pulmonary edema. No pneumothorax. No moderate or large pleural effusion. Cardiac size is stable. Degenerative changes of the shoulders and spine. IMPRESSION: No acute disease or significant change. Dictated by Tony Garcia MD @ 01/27/2017 10:25:19 AM Dictated by: Tony Garcia MD @ 01/27/2017 10:25:23 (Electronic Signature) Report Signed by Proxy. ALEYDA
--- NOTE | 2017-01-29 12:59 | CT ---
EXAM DATE: 01/27/17 PATIENT'S AGE: 81 Patient: YOBANI VERA Facility: [place], [place] Site . Site : 1935 Study: CT Abdomen/Pelvis W CONT [id number]/22/2017 12:08:14 PM Ordering Physician: Riki Wood Final Report: INDICATION: ABDOMINAL PAIN, VOMITED 15 TIMES SINCE LAST NIGHT HISTORY: Abdominal pain. Frequent vomiting. COMPARISON: CT angiogram 05/20/2013. TECHNIQUE: CT of the abdomen and pelvis. 80 cc of Isovue-300 IV. Coronal/sagittal reconstruction images. FINDINGS: Lung bases: Coronary artery calcifications. No pleural or pericardial effusion. Heart size is normal. There is no acute airspace disease. There is no basilar pneumothorax. Abdomen/pelvis: No inflammatory changes about the gallbladder. No solid hepatic mass. The hepatic morphology is normal. Spleen size is normal. Multiple renal cysts. There is a stable, hyperdense lesion about the posterior cortex of the right kidney, which measures 19 mm on series 201, image 76. There are symmetric nephrograms. There is no solid renal mass. There are inflammatory changes about the anterior para renal space. Uniform enhancement of the pancreas. Pancreatitis should be considered. No drainable peripancreatic fluid collection. No adrenal mass. Spleen size is normal. Urinary bladder is normal. No adnexal mass. Colonic diverticulosis. No findings for diverticulitis. No transition point to indicate a mechanical small bowel or colonic obstruction. There is a fusiform, infrarenal abdominal aortic aneurysm, which contains extensive amount of mural thrombus common calcified plaque. This measures a maximum of 4.1 cm in AP dimension, and up to 4.2 cm in transverse dimensions. There is no retroperitoneal stranding. There is no abdominal or pelvic lymphadenopathy by size criteria. The bone windows demonstrate no lytic or blastic bone lesions. There is spurring present about the apophyseal joints, and at the endplates. On sagittal reconstruction images, there is diffuse degenerative disc disease, with disc height loss and endplate sclerosis. IMPRESSION: 1. Inflammatory changes in the anterior pararenal space. This is suspicious for acute interstitial edematous pancreatitis. This should be correlated with lipase levels. 2. These findings are new when compared with 05/20/2013. There is uniform enhancement of the pancreas, and no drainable collection. 3. Fusiform infrarenal abdominal aortic aneurysm containing a significant amount of mural thrombus. Similar findings were present previously. 4. Numerous renal cysts. Some of the lesions are hyperdense, and may represent hemorrhagic or proteinaceous cysts. Imaging surveillance is suggested. 5. No abdominal/pelvic lymphadenopathy. 6. No small bowel or colonic obstruction. Dictated by Kennedy Jones MD @ 01/27/2017 12:39:25 PM Dictated by: Kennedy Jones MD @ 01/27/2017 12:40:20 (Electronic Signature) Report Signed by Proxy. [facility]
[2017-01-29] MEDS: Albuterol/Ipratropium 3.0-0.5 MG/3 ML Neb Soln NEB SCH ×3 (13:00→23:39)
--- NOTE | 2017-01-29 14:54 | US ---
EXAM DATE: 01/27/17 PATIENT'S AGE: 81 Patient: YOBANI VERA Facility: [place], [place] Site . Site : 1935 Study: US Abdomen [id number]/23/2017 11:18:22 AM Ordering Physician: Maryellen Hemphill Final Report: INDICATION: PANCREATITIS,TRANSAMINITIS, CT SHOWS NO OBSTRUCTING STONES HISTORY: Pancreatitis. COMPARISON: CT of the abdomen and pelvis 01/27/2017. TECHNIQUE: Ultrasound of the abdomen limited. FINDINGS: No peripancreatic fluid collection identified on grayscale imaging. Gallstones. The extrahepatic common duct measures 2 mm at the duong hepatis. No choledocholithiasis. No obstructing mass. There is an abdominal aortic aneurysm containing mural thrombus, which is similar to the recent CT scan. This appears fusiform. It measures 3.6 cm in dimension on grayscale imaging. No solid hepatic mass. No intrahepatic biliary dilatation. IMPRESSION: 1. Gallstones. Positive sonographic Herrera`s sign. The Herrera`s sign may be secondary to pancreatitis rather than cholecystitis. 2. Normal caliber biliary tree. No choledocholithiasis or obstructing mass. 3. Known infrarenal abdominal aortic aneurysm. Dictated by Kennedy Jones MD @ 01/28/2017 12:23:55 PM Dictated by: Kennedy Jones MD @ 01/28/2017 12:24:04 (Electronic Signature) Report Signed by Proxy. ALEYDA
[2017-01-30] MEDS: Sodium Chloride 0.9% 1,000 ML IV SCH (02:24)
[2017-01-30] MEDS: Acetaminophen 325 MG Tab PO PRN ×2 (03:38→09:55)
[2017-01-30] MEDS: Albuterol/Ipratropium 3.0-0.5 MG/3 ML Neb Soln NEB SCH ×2 (06:23→11:24)
[2017-01-30 09:14] LABS: CHLORIDE,CL 115 mmol/L (98-110); SODIUM,NA 144 mmol/L (136-146)
[2017-01-30] MEDS: Metoprolol Succinate 25 MG Tab.ER PO SCH (09:48)
[2017-01-30] MEDS: Enoxaparin 40 MG/0.4 ML Syringe SUBCUT SCH (09:49)
[2017-01-30] MEDS: Docusate Sodium 100 MG Cap PO PRN (09:55)
[2017-01-30] MEDS: Albuterol 8 GM Inhaler INH PRN (10:03)
[2017-01-30] MEDS: Ondansetron 4 MG Tab.DIS PO PRN (12:18)
--- NOTE | 2017-01-30 15:12 | PCM.DCSUM1 ---
Discharge Summary - Hospital Course Brief History: This a 81-year-old lady with pmh of COPD, abdominal aortic aneursym and HTN presented to the emergency department primarily out of concern for upper abdominal pain. Patient reported that she ate pizza the day prior to admission and then started to vomit. She had no diarrhea. Patient also had severe epigastric pain and some shortness of breath associated. The patient also has denied any hematochezia or melena. Patient says that the pain is located primarily in the epigastric area and is described as sharp and stabbing and relates to the right and left side. The patient says that the food is been aggravating and medication seems to have relieved this. Up until yesterday evening patient had been doing well. Patient reports that her has had pancreatitis and she is very familiar with the symptoms. The patient also has denied any fever or chills. The patient has been taking medication for hypertension but no other. The patient has been in her usual state of health and she has no other complaints today. In the ED CBC WNL, lipase elevated to 6642, AST 716 and ALT 663, bilirubin 1.8. CXR negative. Abdominal CT reported inflammatory changes to the anterior pararenal space and uniform enhancement of the pancrease, consider pancreatitis, no inflammatory changes to gallbladder and no stones noted. Fusiform infrarenal abdominal aortic aneurysm containing a significant amount of mural thrombus noted, which was similar to 05/20/2013 imaging. She was admitted for acute pancreatitis. - Discharge Data Discharge Date: 01/30/17 Discharge Disposition: Home, Self-Care 01 Condition: Good - Discharge Diagnosis/Problem(s) (1) Acute pancreatitis SNOMED Code(s): 378948266 ICD Code: K85.90 - ACUTE PANCREATITIS WITHOUT NECROSIS OR INFECTION, UNSP Status: Acute Current Visit: Yes Qualifiers: Pancreatitis type: biliary Acute pancreatitis complication: no infection or necrosis Qualified Code(s): K85.10 - Biliary acute pancreatitis without necrosis or infection (2) COPD (chronic obstructive pulmonary disease) SNOMED Code(s): 74227522 ICD Code: J44.9 - CHRONIC OBSTRUCTIVE PULMONARY DISEASE, UNSPECIFIED Status : Chronic Priority: Medium Current Visit: Yes Qualifiers: COPD type: chronic bronchitis Chronic bronchitis type: simple Qualified Code(s): J41.0 - Simple chronic bronchitis (3) Hypertension SNOMED Code(s): 10374211 ICD Code: I10 - ESSENTIAL (PRIMARY) HYPERTENSION Status: Chronic Priority : Medium Current Visit: Yes Qualifiers: Hypertension type: essential hypertension Qualified Code(s): I10 - Essential (primary) hypertension - Patient Instructions Diet: Heart Healthy Diet (Low fat soft bland diet), GI Soft/Low Residue/Low Fiber Activity: As Tolerated Showering/Bathing: May Shower Notify Provider of: Fever, Increased Pain, Swelling and Redness, Drainage, Nausea and/or Vomiting - Discharge Plan Home Medications: Home Meds Albuterol [Proventil HFA] 2 puff IH QID PRN 01/27/17 [History] Metoprolol Succinate [Toprol XL] 25 mg PO DAILY 01/27/17 [History] Nitroglycerin [Nitrostat] 0.4 mg SL Q5M PRN 01/27/17 [History] Patient Handouts: Acute Pancreatitis Referrals: Al Chase MD [Family Provider] - 02/06/17 2:00 pm Tom Blank MD [Ordering Only Provider] - 01/31/17 2:30 pm - Discharge Summary/Plan Comment DC Time >30 min.: No Discharge Summary/Plan Comment: Discharge Diagnoses: Acute pancreatitis secondary to gallstones COPD Abdominal aortic aneurysm HTN Lisa was admitted and treated with bowel rest and IVF resuscitation. ABdominal ultrasound was completed day 1 of stay, due to no alcohol history or medications to cause pancreatitis. U/S noted gallstones, normal caliber biliary tree, no choledocholithiasis or obstructing mass. Lipase decreased day 2 to normal, 73. Abdominal pain continued to improve. AST/ALT also improved, today they were AST 53, ALT 193 and bilirubin normalized to 0.5. She is tolerating soft diet without increased pain or nausea. She is requesting discharge today, which is appropriate. I did speak with Dr. Spence, general surgeon here who recommended to let the pancreas settle down and he would see her later this week as outpatient. Upon further discussion with patient and daughter, due to comorbidities they would like to be seen in [place]. An appointment was arranged with Dr. Blank for tomorrow January 31 for evaluation. A soft bland low fat diet was recommended upon discharge. She is to return to ED or clinic if concerns should arise. No new prescriptions at this time, continue home medications. - General Info Date of Service: 01/30/17 Admission Dx/Problem (Free Text: Admission Diagnosis/Problem Admission Diagnosis/Problem Pancreatitis due to biliary obstruction Subjective Update: Very happy today and feeling better, tolerated soft diet for lunch and is very eager for discharge today. Denies SOB or chest pain and she is passing flatus. No abdominal pain, slight distension and bloating noted. Functional Status: Reports: Pain Controlled, Tolerating Diet, Ambulating, Urinating - Review of Systems General: Reports: No Symptoms. Denies: Fever, Fatigue Pulmonary: Reports: No Symptoms. Denies: Shortness of Breath, Cough, Sputum Cardiovascular: Reports: No Symptoms. Denies: Chest Pain, Edema Gastrointestinal: Reports: Flatus, Other (some bloating). Denies: Nausea, Vomiting Genitourinary: Reports: No Symptoms. Denies: Dysuria, Frequency, Burning Musculoskeletal: Reports: No Symptoms Skin: Reports: No Symptoms Psychiatric: Reports: No Symptoms - Patient Data Vitals - Most Recent: Last Vital Signs Temp 97.5 F 01/30/17 12:00 Pulse 84 01/30/17 12:00 Resp 18 01/30/17 12:00 BP 150/79 H 01/30/17 12:00 Pulse Ox 94 L 01/30/17 12:00 Weight - Most Recent: 90 kg I&O - Last 24 hours: Intake & Output 01/30/17 01/30/17 01/30/17 06:59 14:59 22:59 Intake Total 1750 Output Total 875 Balance 875 Lab Results - Last 24 hrs: Laboratory Results - last 24 hr 01/30/17 01/30/17 Range/Units 08:33 08:33 WBC 6.15 (4.0-11.0) K/uL RBC 4.24 L (4.30-5.90) M/uL Hgb 12.1 (12.0-16.0) g/dL Hct 39.1 (36.0-46.0) % MCV 92.2 (80.0-98.0) fL MCH 28.5 (27.0-32.0) pg MCHC 30.9 L (31.0-37.0) g/dL RDW Std Deviation 50.9 (28.0-62.0) fl RDW Coeff of Harpreet 15 (11.0-15.0) % Plt Count 232 (150-400) K/uL MPV 10.60 (7.40-12.00) fL Neut % (Auto) 62.0 (48.0-80.0) % Lymph % (Auto) 28.1 (16.0-40.0) % [place] % (Auto) 8.1 (0.0-15.0) % Eos % (Auto) 1.3 (0.0-7.0) % Baso % (Auto) 0.5 (0.0-1.5) % Neut # (Auto) 3.8 (1.4-5.7) K/uL Lymph # (Auto) 1.7 (0.6-2.4) K/uL [place] # (Auto) 0.5 (0.0-0.8) K/uL Eos # (Auto) 0.1 (0.0-0.7) K/uL Baso # (Auto) 0.0 (0.0-0.1) K/uL Nucleated RBC % 0.0 /100WBC Nucleated RBCs # 0 K/uL Sodium 144 (136-146) mmol/L Potassium 3.8 (3.5-5.1) mmol/L Chloride 115 H (98-110) mmol/L Carbon Dioxide 22 (21-31) mmol/L BUN 5 L (6.0-23.0) mg/dL Creatinine 0.8 (0.6-1.5) mg/dL Est Cr Clr Drug Dosing 49.24 mL/min Estimated GFR (MDRD) > 60.0 ml/min Glucose 152 H (60-110) mg/dL Calcium 8.1 L (8.8-10.8) mg/dL Total Bilirubin 0.5 (0.1-1.5) mg/dL AST 53 H (5-40) IU/L ALT 193 H (8-54) IU/L Alkaline Phosphatase 123 (40-150) Total Protein 5.9 L (6.0-8.0) g/dL Albumin 3.4 (3.4-4.8) g/dL Globulin 2.5 (2.0-3.5) g/dL Albumin/Globulin Ratio 1.4 (1.3-2.8) Med Orders - Current: Current Medications Acetaminophen (Tylenol) 650 mg PO Q6H PRN PRN Reason: Headache Last Admin: 01/30/17 09:55 Dose: 650 mg Albuterol (Ventolin Hfa) 2 gm INH QID PRN PRN Reason: Wheezing Last Admin: 01/30/17 10:03 Dose: 2 gm Albuterol/Ipratropium (Duoneb 3.0-0.5 Mg/3 Ml) 3 ml NEB Q6HRRT ISAI Last Admin: 01/30/17 11:24 Dose: 3 ml Docusate Sodium (Colace) 100 mg PO BID PRN PRN Reason: Constipation Last Admin: 01/30/17 09:55 Dose: 100 mg Enoxaparin Sodium (Lovenox) 40 mg SUBCUT DAILY [facility] Last Admin: 01/30/17 09:49 Dose: 40 mg Metoprolol Succinate (Toprol Xl) 25 mg PO DAILY [facility] Last Admin: 01/30/17 09:48 Dose: 25 mg Ondansetron HCl (Zofran Odt) 4 mg PO Q6H PRN PRN Reason: nausea, able to take PO Last Admin: 01/30/17 12:18 Dose: 4 mg Ondansetron HCl (Zofran) 4 mg IVPUSH Q4H PRN PRN Reason: Nausea/Vomiting Last Admin: 01/29/17 21:27 Dose: 4 mg Temazepam (Restoril) 15 mg PO BEDTIME PRN PRN Reason: Sleep Discontinued Medications Albuterol/Ipratropium (Duoneb 3.0-0.5 Mg/3 Ml) 3 ml NEB ONETIME ONE Stop: 01/27/17 09:01 Last Admin: 01/27/17 09:09 Dose: 3 ml Famotidine (Pepcid) 20 mg IVPUSH ONETIME ONE Stop: 01/27/17 09:03 Last Admin: 01/27/17 09:21 Dose: 20 mg Sodium Chloride (Normal Saline) 250 mls @ 250 mls/hr IV ASDIRECTED [facility] Sodium Chloride (Normal Saline) 1,000 mls @ 250 mls/hr IV ONETIME ONE Stop: 01/27/17 15:00 Last Admin: 01/27/17 11:02 Dose: 250 mls/hr Sodium Chloride (Normal Saline) 1,000 mls @ 100 mls/hr IV ASDIRECTED [facility] Last Admin: 01/30/17 02:24 Dose: 100 mls/hr Iopamidol (Isovue-300 (61%)) 80 ml IVPUSH ONETIME ONE Stop: 01/27/17 12:02 Last Admin: 01/27/17 12:02 Dose: 80 ml Morphine Sulfate (Morphine) 2 mg IVPUSH ONETIME ONE Stop: 01/27/17 10:21 Last Admin: 01/27/17 10:36 Dose: 2 mg Morphine Sulfate (Morphine) 2 mg IVPUSH Q2H PRN PRN Reason: Pain (severe 7-10) Stop: 01/28/17 12:28 Last Admin: 01/27/17 21:42 Dose: 2 mg Ondansetron HCl (Zofran) 4 mg IVPUSH ONETIME ONE Stop: 01/27/17 10:28 Last Admin: 01/27/17 10:32 Dose: 4 mg Ondansetron HCl (Zofran) 8 mg IVPUSH Q8H PRN PRN Reason: Nausea/Vomiting Last Admin: 01/27/17 17:47 Dose: 8 mg - Exam General: Reports: Alert, Oriented, Cooperative, No Acute Distress Neck: Reports: Supple, No JVD Lungs: Reports: Clear to Auscultation, Normal Respiratory Effort, Wheezing ( intermittent expiratory, improved from yesterday) Cardiovascular: Reports: Regular Rate, Regular Rhythm, No Murmurs GI/Abdominal Exam: Normal Bowel Sounds, Soft, No Organomegaly, No Mass, Distended Extremities: Normal Inspection, Normal Range of Motion, Non-Tender, No Pedal Edema, Normal Capillary Refill Skin: Reports: Warm, Dry, Intact Neurological: Reports: No New Focal Deficit Psy/Mental Status: Reports: Alert, Normal Affect, Normal Mood *Q Meaningful Use (DIS) - VTE *Q VTE Criteria *Q: VTE Mechanical Contraindications *Q: At Risk for Falls - Stroke *Q Stroke Criteria *Q: - AMI *Q AMI Criteria *Q:
[2017-01-30 16:28] VITALS: BP 148/75
== END 2017-01-30 16:00 | disposition home or self-care (01) | DRG 440 ==
LOC: MW.ED 08:43 → MW.MS 11:16 → UNDOADMIN 11:16 → MW.MS 12:30 → UNDODISIN 01-30 16:00
PROVIDERS: ADMIT Internal Medicine; ATTEND Internal Medicine
DX: K85.90 Acute pancreatitis without necrosis or infection, unspecified (principal); J44.9 Chronic obstructive pulmonary disease, unspecified; K85.10 Biliary acute pancreatitis without necrosis or infection; J41.0 Simple chronic bronchitis; R51 Headache; R74.0 Nonspecific elevation of levels of transaminase and lactic acid dehydrogenase [LDH]; I10 Essential (primary) hypertension; I71.4 Abdominal aortic aneurysm, without rupture; E78.00 Pure hypercholesterolemia, unspecified; I25.10 Atherosclerotic heart disease of native coronary artery without angina pectoris; I25.2 Old myocardial infarction; K21.9 Gastro-esophageal reflux disease without esophagitis; E11.9 Type 2 diabetes mellitus without complications; F41.9 Anxiety disorder, unspecified; Z79.899 Other long term (current) drug therapy; Z95.5 Presence of coronary angioplasty implant and graft; Z87.891 Personal history of nicotine dependence
CPT/HCPCS: 36415; 71010; 80053; 83690; 83880; 84484; 85025; 93005; 94664; 96361; 96374; 96375; 99285; J2270; J2405; J7040; 74177; 74177-26; 76705; 76705-26; 81001; 83735; 84100; 94640; A9270-GY; J1650; Q9967

== ENCOUNTER 2017-02-18 07:29 | Emergency (ER) | payer MEDICARE, OTHER ==
[2017-02-18] MEDS ORDERED: Sodium Chloride 0.9% 2.5 ML Syringe FLUSH PRN (07:58)
[2017-02-18] MEDS ORDERED: Sodium Chloride 0.9% 10 ML Syringe FLUSH PRN (07:58)
[2017-02-18] MEDS ORDERED: Ondansetron 4 MG Tab.DIS PO ONE (07:59)
[2017-02-18] MEDS ORDERED: Alum Hydrox/Mag Hydrox/Simeth 15 ML, Lidocaine 2% 5 ML PO ONE ×2 (07:59)
[2017-02-18] MEDS ORDERED: HYDROmorphone 1 MG/ML Syringe IM ONE (08:01)
[2017-02-18] MEDS ORDERED: HYDROmorphone 1 MG/ML Syringe IVPUSH ONE (08:15)
[2017-02-18] MEDS ORDERED: Ondansetron 4 MG/2 ML SDV IVPUSH ONE (08:17)
[2017-02-18] MEDS ORDERED: Ondansetron 4 MG/2 ML SDV ONE (08:19)
--- NOTE | 2017-02-18 08:19 | EDM.PDOC ---
[id number]: ABDOMINAL PAIN Time Seen by Provider: 02/18/17 07:34 Source of Information: Reports: Patient History Limitations: Reports: No Limitations - History of Present Illness INITIAL COMMENTS - FREE TEXT/NARRATIVE: History of present illness: []Patient is status post cholecystectomy 4 days ago and presents with severe upper abdominal pain. She denies any fevers or vomiting and has been having normal bowel movements. She is nauseated. Patient has been taking Tylenol at home and not using any stronger medications. Patient denies any chest pain or shortness of breath, difficulty urinating or leg pain or swelling. Review of systems: As per history of present illness and below otherwise all systems reviewed and negative. Past medical history: As per history of present illness and as reviewed below otherwise noncontributory. Surgical history: As per history of present illness and as reviewed below otherwise noncontributory. Social history: No reported history of drug or alcohol abuse. Family history: As per history of present illness and as reviewed below otherwise noncontributory. Physical exam: General: Well developed, well nourished in NAD HEENT: Atraumatic, normocephalic, pupils reactive, negative for conjunctival pallor or scleral icterus, mucous membranes moist, throat clear, neck supple, nontender, trachea midline. Lungs: Clear to auscultation, breath sounds equal bilaterally, chest nontender. Heart: S1S2, regular, negative for clicks, rubs, or JVD. Abdomen: Soft, nondistended, moderate upper abdominal tenderness no rebound or guarding. Negative for masses or hepatosplenomegaly. Negative for costovertebral tenderness. Pelvis: Stable nontender. Genitourinary: Deferred. Rectal: Deferred. Extremities: Atraumatic, negative for cords or calf pain. Neurovascular unremarkable. Neuro: Awake, alert, oriented. Cranial nerves II through XII unremarkable. Cerebellum unremarkable. Motor and sensory unremarkable throughout. Exam nonfocal. Diagnostics: []Labs show elevated LFTs with transaminases in the 800s, bilirubin of 4.0 and alkaline phosphatase at 449 and a lipase of 9500. Chest x-ray shows no findings of infiltrate, atelectasis or obvious pneumonia, ultrasound abdomen done which is negative for common bile duct dilatation or stone Therapeutics: []IV hydrated, pain meds and antiemetics given in the ED Impression: []Pancreatitis status post cholecystectomy Plan: []Transfer to [place] to Dr. Vanda Herrera surgery as a direct admit Definitive disposition and diagnosis as appropriate pending reevaluation and review of above. Epigastric Pain Score (Numeric/FACES): 10 - Related Data Allergies Allergy/AdvReac Type Severity Reaction Status Date / Time shellfish derived Allergy Cannot Verified 02/18/17 08:17 Remember Home Meds: Home Meds Albuterol [Proventil HFA] 2 puff IH QID PRN 01/27/17 [History] Metoprolol Succinate [Toprol XL] 25 mg PO DAILY 01/27/17 [History] Nitroglycerin [Nitrostat] 0.4 mg SL Q5M PRN 01/27/17 [History] Past Medical History - Past Health History Medical/Surgical History: Denies Medical/Surgical History HEENT History: Reports: Hard of Hearing, Impaired Vision Other HEENT History: wears glasses Cardiovascular History: Reports: High Cholesterol, Hypertension, [place], Stents Respiratory History: Reports: COPD, Pneumonia, Recurrent, Other (See Below) Other Respiratory History: Frequent URIs Gastrointestinal History: Reports: GERD, GI Bleed Genitourinary History: Reports: None [employer] History: Reports: Musculoskeletal History: Reports: Arthritis Psychiatric History: Reports: Anxiety Endocrine/Metabolic History: Reports: Diabetes, Type II Other Endocrine/Metabolic History: "borderline diabetic' Hematologic History: Reports: Anemia - Past Surgical History GI Surgical History: Reports: None Female Surgical History: Reports: Tubal Ligation Social & Family History - Family History Family Medical History: Noncontributory - Tobacco Use Smoking Status *Q: Former Smoker Years of Tobacco use: 50 Used Tobacco, but Quit: Yes Month Tobacco Last Used: 07/2006 Second Hand Smoke Exposure: No - Caffeine Use Caffeine Use: Reports: Coffee, Tea - Recreational Drug Use Recreational Drug Use: No ED ROS GENERAL - Review of Systems Review Of Systems: See Below (History of present illness:) ED EXAM, GI/ABD - Physical Exam Exam: See Below (History of present illness:) Course - Vital Signs Last Recorded V/S: Last Vital Signs Temp 36.2 C 02/18/17 07:30 Pulse 75 02/18/17 07:30 Resp 16 02/18/17 09:47 BP 178/69 H 02/18/17 09:47 Pulse Ox 96 02/18/17 09:47 - Orders/Labs/Meds Orders: Active Orders 24 hr Category Date Time Status EKG Documentation Completion [RC] STAT Care 02/18/17 07:58 Active Abdomen Ltd [US] Stat Exams 02/18/17 09:06 Taken Chest 1V Frontal [CR] Stat Exams 02/18/17 07:58 Taken UA W/MICROSCOPIC [URIN] Stat Lab 02/18/17 08:41 Uncollected Lactated Ringers [Ringers, Lactated] 1,000 ml Med 02/18/17 10:20 Active IV ONETIME Sodium Chloride 0.9% [Saline Flush] Med 02/18/17 07:58 Active 10 ml FLUSH ASDIRECTED PRN Sodium Chloride 0.9% [Saline Flush] Med 02/18/17 07:58 Active 2.5 ml FLUSH ASDIRECTED PRN Saline Lock Insert [OM.PC] Stat Oth 02/18/17 07:58 Ordered Medication Orders Lactated Ringer's (Ringers, Lactated) 1,000 mls @ 125 mls/hr IV ONETIME ONE Stop: 02/18/17 18:19 Last Admin: 02/18/17 10:29 Dose: 125 mls/hr Sodium Chloride (Saline Flush) 10 ml FLUSH ASDIRECTED PRN PRN Reason: Keep Vein Open Sodium Chloride (Saline Flush) 2.5 ml FLUSH ASDIRECTED PRN PRN Reason: Keep Vein Open Labs: Laboratory Tests 02/18/17 02/18/17 02/18/17 Range/Units 08:35 08:35 08:35 WBC 7.53 (4.0-11.0) K/uL RBC 5.69 (4.30-5.90) M/uL Hgb 16.7 H (12.0-16.0) g/dL Hct 51.2 H (36.0-46.0) % MCV 90.0 (80.0-98.0) fL MCH 29.3 (27.0-32.0) pg MCHC 32.6 (31.0-37.0) g/dL RDW Std Deviation 49.1 (28.0-62.0) fl RDW Coeff of Harpreet 15 (11.0-15.0) % Plt Count 327 (150-400) K/uL MPV 10.80 (7.40-12.00) fL Neut % (Auto) 88.0 H (48.0-80.0) % Lymph % (Auto) 9.2 L (16.0-40.0) % [place] % (Auto) 2.4 (0.0-15.0) % Eos % (Auto) 0.1 (0.0-7.0) % Baso % (Auto) 0.3 (0.0-1.5) % Neut # (Auto) 6.6 H (1.4-5.7) K/uL Lymph # (Auto) 0.7 (0.6-2.4) K/uL [place] # (Auto) 0.2 (0.0-0.8) K/uL Eos # (Auto) 0.0 (0.0-0.7) K/uL Baso # (Auto) 0.0 (0.0-0.1) K/uL Nucleated RBC % 0.0 /100WBC Nucleated RBCs # 0 K/uL Sodium 144 (136-146) mmol/L Potassium 4.1 (3.5-5.1) mmol/L Chloride 108 (98-110) mmol/L Carbon Dioxide 21 (21-31) mmol/L BUN 13 (6.0-23.0) mg/dL Creatinine 0.9 (0.6-1.5) mg/dL Est Cr Clr Drug Dosing 38.25 mL/min Estimated GFR (MDRD) > 60.0 ml/min Glucose 196 H (60-110) mg/dL Calcium 10.0 (8.8-10.8) mg/dL Total Bilirubin 4.0 H (0.1-1.5) mg/dL AST 866 H (5-40) IU/L ALT 816 H (8-54) IU/L Alkaline Phosphatase 449 H (40-150) Troponin I < 0.10 (0.0-0.29) NG/ML Total Protein 8.4 H (6.0-8.0) g/dL Albumin 4.6 (3.4-4.8) g/dL Globulin 3.8 H (2.0-3.5) g/dL Albumin/Globulin Ratio 1.2 L (1.3-2.8) Lipase 9500 H (7-80) U/L Meds: Medications Generic Name Dose Route Start Last Admin Trade Name Fran PRN Reason Stop Dose Admin Lactated Ringer's 1,000 mls @ 125 mls/hr 02/18/17 10:20 02/18/17 10:29 Ringers, Lactated IV 02/18/17 18:19 125 mls/hr ONETIME ONE Administration Sodium Chloride 10 ml 02/18/17 07:58 Saline Flush FLUSH ASDIRECTED PRN Keep Vein Open Sodium Chloride 2.5 ml 02/18/17 07:58 Saline Flush FLUSH ASDIRECTED PRN Keep Vein Open Discontinued Medications Generic Name Dose Route Start Last Admin Trade Name Fran PRN Reason Stop Dose Admin Al Hydroxide/Mg Hydroxide 15 0 ml 02/18/17 07:59 02/18/17 08:05 ml/ Lidocaine HCl 5 ml PO 02/18/17 08:00 1 each ONETIME ONE Administration Hydromorphone HCl 0.5 mg 02/18/17 08:15 02/18/17 08:53 Dilaudid IVPUSH 02/18/17 08:16 0.5 mg ONETIME ONE Administration Hydromorphone HCl 0.5 mg 02/18/17 09:52 02/18/17 10:00 Dilaudid IVPUSH 02/18/17 09:53 0.5 mg NOW STA Administration Sodium Chloride 1,000 mls @ 125 mls/hr 02/18/17 08:48 02/18/17 09:35 Normal Saline IV 02/18/17 16:47 999 mls/hr .Bolus ONE Infusion Ondansetron HCl 4 mg 02/18/17 07:59 02/18/17 08:04 Zofran Odt PO 02/18/17 08:00 4 mg ONETIME ONE Administration Ondansetron HCl 4 mg 02/18/17 08:17 02/18/17 08:20 Zofran IVPUSH 02/18/17 08:18 4 mg ONETIME ONE Administration Ondansetron HCl Confirm 02/18/17 08:19 02/18/17 08:53 Zofran Administered 02/18/17 08:20 Not Given Dose 4 mg .ROUTE .STK-MED ONE Departure - Departure Time of Disposition: 10:56 Disposition: DC/Tfer to Acute Hospital 02 Condition: Good Clinical Impression: Pancreatitis Qualifiers: Chronicity: acute Pancreatitis type: biliary Acute pancreatitis complication: no infection or necrosis Qualified Code(s): K85.10 - Biliary acute pancreatitis without necrosis or infection Post-operative complication Qualifiers: Surgical complication type: unspecified Clinical Impression: (Ruled Out): Postoperative pain of left knee - Discharge Information Forms: ED Department Discharge - My Orders Last 24 Hours: My Active Orders 02/18/17 07:58 EKG Documentation Completion [RC] STAT Chest 1V Frontal [CR] Stat Sodium Chloride 0.9% [Saline Flush] 10 ml FLUSH ASDIRECTED PRN Sodium Chloride 0.9% [Saline Flush] 2.5 ml FLUSH ASDIRECTED PRN Saline Lock Insert [OM.PC] Stat 02/18/17 08:41 UA W/MICROSCOPIC [URIN] Stat 02/18/17 09:06 Abdomen Ltd [US] Stat 02/18/17 10:20 Lactated Ringers [Ringers, Lactated] 1,000 ml IV ONETIME - Assessment/Plan Last 24 Hours: My Active Orders 02/18/17 07:58 EKG Documentation Completion [RC] STAT Chest 1V Frontal [CR] Stat Sodium Chloride 0.9% [Saline Flush] 10 ml FLUSH ASDIRECTED PRN Sodium Chloride 0.9% [Saline Flush] 2.5 ml FLUSH ASDIRECTED PRN Saline Lock Insert [OM.PC] Stat 02/18/17 08:41 UA W/MICROSCOPIC [URIN] Stat 02/18/17 09:06 Abdomen Ltd [US] Stat 02/18/17 10:20 Lactated Ringers [Ringers, Lactated] 1,000 ml IV ONETIME
[2017-02-18] MEDS ORDERED: Sodium Chloride 0.9% 1,000 ML IV ONE (08:48)
[2017-02-18 09:02] LABS: CHLORIDE,CL 108 mmol/L (98-110); SODIUM,NA 144 mmol/L (136-146)
[2017-02-18] MEDS ORDERED: HYDROmorphone 1 MG/ML Syringe IVPUSH STA (09:52)
--- NOTE | 2017-02-18 09:58 | PCM.SN ---
- Free Text/Narrative Note: Called by nursing for PIV access. They have only been able to obtain 24g PIV. Pt has a history of difficult IV access. Ultrasound was used to identify the Lt deep brachial vein. 2in 20g IV catheter was then introduced into the vein under direct vision. Catheter threaded into place with ease. Draws and flushes easily as well. Secured with tape and tegaderm.
[2017-02-18] MEDS ORDERED: Lactated Ringers 1,000 ML IV ONE (10:20)
[2017-02-18 11:11] VITALS: BP 164/58
--- NOTE | 2017-02-19 13:03 | CR ---
EXAM DATE: 02/18/17 PATIENT'S AGE: 81 Patient: YOBANI VERA Facility: [place], [place] Site . Site : 1935 Study: XRay Chest [id number]/13/2017 8:29:48 AM Ordering Physician: Riki Wood Final Report: INDICATION: Shortness of Breath, Epigastric Pain, Cholecystectomy 1 Week Ago. COMPARISON: Comparison 01/27/2017. FINDINGS: A portable AP upright view of the chest was obtained. The cardiac silhouette and pulmonary vasculature are within normal limits. The lungs are clear bilaterally. IMPRESSION: No evidence of acute pulmonary disease. Dictated by Aayush Jackson MD @ 02/18/2017 8:35:10 AM Dictated by: Aayush Jackson MD @ 02/18/2017 08:35:28 (Electronic Signature) Report Signed by Proxy. MTDKristel
--- NOTE | 2017-02-19 13:04 | US ---
EXAM DATE: 02/18/17 PATIENT'S AGE: 81 Patient: YOBANI VERA Facility: [place], [place] Site . Site : 1935 Study: US Abdomen [id number]/13/2017 9:48:58 AM Ordering Physician: Riki Wood Final Report: INDICATION: Elevated liver function tests. TECHNIQUE: Ultrasound abdomen limited. Sonographic images of the right upper quadrant were obtained using pratt-scale and color Doppler images. COMPARISON: On January 28, 2017. FINDINGS: Status post cholecystectomy. No fluid collections or other postoperative complication evident. No biliary dilatation. Common bile duct measures 4 mm. Right kidney is normal. Stable abdominal aortic aneurysm measuring approximately 3.6 cm on today`s exam. IMPRESSION: No specific finding to explain elevated liver function tests. No postoperative complications from a recent cholecystectomy. Dictated by Alexander Canales MD @ 02/18/2017 10:04:24 AM Dictated by: Alexander Canales MD @ 02/18/2017 10:04:32 (Electronic Signature) Report Signed by Proxy. [facility]ITALKristel
== END 2017-02-18 10:34 ==
LOC: MW.ED 07:29
DX: K85.10 Biliary acute pancreatitis without necrosis or infection (principal); K21.9 Gastro-esophageal reflux disease without esophagitis; E11.9 Type 2 diabetes mellitus without complications; E78.00 Pure hypercholesterolemia, unspecified; I10 Essential (primary) hypertension; I25.2 Old myocardial infarction; J44.9 Chronic obstructive pulmonary disease, unspecified; Z87.01 Personal history of pneumonia (recurrent); Z91.013 Allergy to seafood; Z79.899 Other long term (current) drug therapy; Z86.2 Personal history of diseases of the blood and blood-forming organs and certain disorders involving the immune mechanism; Z90.49 Acquired absence of other specified parts of digestive tract
CPT/HCPCS: 36415; 71010; 76705; 80053; 83690; 84484; 85025; 93005; 96361; 96374; 96375; 96376; 99285; A9270; J1170; J2405; J7040; J7120; 36410; 99284

== ENCOUNTER 2017-06-04 13:21 | Inpatient (IN) | payer MEDICARE, OTHER ==
[2017-06-04] MEDS ORDERED: Albuterol/Ipratropium 3.0-0.5 MG/3 ML Neb Soln NEB ONE (13:32)
[2017-06-04] MEDS ORDERED: methylPREDNISolone Sodium Succinate 125 MG/2 ML SDV IVPUSH ONE (13:32)
--- NOTE | 2017-06-04 13:34 | EDM.PDOC ---
ED HPI GENERAL MEDICAL PROBLEM - General Chief Complaint: Respiratory Problem Stated Complaint: SOB Time Seen by Provider: 06/04/17 13:34 Source of Information: Reports: Patient - History of Present Illness INITIAL COMMENTS - FREE TEXT/NARRATIVE: HISTORY AND PHYSICAL: History of present illness: []Patient presents with labored breathing and audible wheeze, she has known history of COPD she has been on prednisone at home she is not on home oxygen generally on arrival she is hypoxic at 86% on room air no fever nausea vomiting diarrhea constipation chest pain shortness breath headache dizziness or palpitation about a urine symptoms post DuoNeb and Solu-Medrol here in the emergency room Post treatment she is able speak full sentences and is comfortable blood requires oxygen at 4 L to maintain O2 sats Review of systems: As per history of present illness and below otherwise all systems reviewed and negative. Past medical history: As per history of present illness and as reviewed below otherwise noncontributory. Surgical history: As per history of present illness and as reviewed below otherwise noncontributory. Social history: No reported history of drug or alcohol abuse. Family history: As per history of present illness and as reviewed below otherwise noncontributory. Physical exam: HEENT: Atraumatic, normocephalic, pupils reactive, negative for conjunctival pallor or scleral icterus, mucous membranes moist, throat clear, neck supple, nontender, trachea midline. Lungs: Clear to auscultation, breath sounds equal bilaterally, chest nontender. Heart: S1S2, regular, negative for clicks, rubs, or JVD. Abdomen: Soft, nondistended, nontender. Negative for masses or hepatosplenomegaly. Negative for costovertebral tenderness. Pelvis: Stable nontender. Genitourinary: Deferred. Rectal: Deferred. Extremities: Atraumatic, negative for cords or calf pain. Neurovascular unremarkable. Neuro: Awake, alert, oriented. Cranial nerves II through XII unremarkable. Cerebellum unremarkable. Motor and sensory unremarkable throughout. Exam nonfocal. Diagnostics: []Lab as below EKG Chest 1 view Therapeutics: []Normal saline 1 25 mL per hour EKG Chest 1 view Impression: Hypoxia []Shortness of breath COPD exacerbation Definitive disposition and diagnosis as appropriate pending reevaluation and review of above. - Related Data Allergies Allergy/AdvReac Type Severity Reaction Status Date / Time shellfish derived Allergy Cannot Verified 06/04/17 13:30 Remember Home Meds: Home Meds Albuterol [Proventil HFA] 2 puff IH QID PRN 01/27/17 [History] Metoprolol Succinate [Toprol XL] 25 mg PO DAILY 01/27/17 [History] Nitroglycerin [Nitrostat] 0.4 mg SL Q5M PRN 01/27/17 [History] Aspirin 162 mg PO DAILY 06/04/17 [History] Multivitamin [Multivitamins] 1 tab PO DAILY 06/04/17 [History] atorvaSTATin [Lipitor] 20 mg PO DAILY 06/04/17 [History] Past Medical History - Past Health History Medical/Surgical History: Denies Medical/Surgical History HEENT History: Reports: Hard of Hearing, Impaired Vision Other HEENT History: wears glasses Cardiovascular History: Reports: High Cholesterol, Hypertension, [place], Stents Respiratory History: Reports: COPD, Pneumonia, Recurrent, Other (See Below) Other Respiratory History: Frequent URIs Gastrointestinal History: Reports: GERD, GI Bleed Genitourinary History: Reports: None 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: Musculoskeletal History: Reports: Arthritis Psychiatric History: Reports: Anxiety Endocrine/Metabolic History: Reports: Diabetes, Type II Other Endocrine/Metabolic History: "borderline diabetic' Hematologic History: Reports: Anemia - Past Surgical History GI Surgical History: Reports: None Female Surgical History: Reports: Tubal Ligation Social & Family History - Family History Family Medical History: Noncontributory - Tobacco Use Smoking Status *Q: Former Smoker Years of Tobacco use: 50 Used Tobacco, but Quit: Yes Month Tobacco Last Used: 07/2006 Second Hand Smoke Exposure: No - Caffeine Use Caffeine Use: Reports: Coffee, Tea - Recreational Drug Use Recreational Drug Use: No ED ROS GENERAL - Review of Systems Review Of Systems: ROS reveals no pertinent complaints other than HPI. ED EXAM, GENERAL - Physical Exam Exam: See Below Course - Vital Signs Last Recorded V/S: Last Vital Signs Temp 97.6 F 06/04/17 13:26 Pulse 85 06/04/17 13:26 Resp 32 H 06/04/17 13:26 BP 187/89 H 06/04/17 13:26 Pulse Ox 86 L 06/04/17 13:26 - Orders/Labs/Meds Orders: Active Orders 24 hr Category Date Time Status EKG Documentation Completion [RC] STAT Care 06/04/17 13:32 Active RT Aerosol Therapy [RC] ASDIRECTED Care 06/04/17 13:33 Active Chest 2V [CR] Stat Exams 06/04/17 13:32 Taken Sodium Chloride 0.9% [Normal Saline] 1,000 ml Med 06/04/17 13:45 Active IV STAT Medication Orders Sodium Chloride (Normal Saline) 1,000 mls @ 125 mls/hr IV STAT ISAI Labs: Laboratory Tests 06/04/17 06/04/17 06/04/17 Range/Units 13:42 13:42 13:42 WBC 10.46 (4.0-11.0) K/uL RBC 4.97 (4.30-5.90) M/uL Hgb 14.8 (12.0-16.0) g/dL Hct 45.5 (36.0-46.0) % MCV 91.5 (80.0-98.0) fL MCH 29.8 (27.0-32.0) pg MCHC 32.5 (31.0-37.0) g/dL RDW Std Deviation 51.1 (28.0-62.0) fl RDW Coeff of Harpreet 15 (11.0-15.0) % Plt Count 316 (150-400) K/uL MPV 10.60 (7.40-12.00) fL Neut % (Auto) 56.8 (48.0-80.0) % Lymph % (Auto) 28.4 (16.0-40.0) % [place] % (Auto) 7.0 (0.0-15.0) % Eos % (Auto) 7.1 H (0.0-7.0) % Baso % (Auto) 0.7 (0.0-1.5) % Neut # (Auto) 6.0 H (1.4-5.7) K/uL Lymph # (Auto) 3.0 H (0.6-2.4) K/uL [place] # (Auto) 0.7 (0.0-0.8) K/uL Eos # (Auto) 0.7 (0.0-0.7) K/uL Baso # (Auto) 0.1 (0.0-0.1) K/uL Nucleated RBC % 0.0 /100WBC Nucleated RBCs # 0 K/uL INR 0.93 (0.86-1.11) Sodium 141 (136-146) mmol/L Potassium 4.2 (3.5-5.1) mmol/L Chloride 108 (98-110) mmol/L Carbon Dioxide 23 (21-31) mmol/L BUN 16 (6.0-23.0) mg/dL Creatinine 0.8 (0.6-1.5) mg/dL Est Cr Clr Drug Dosing 43.03 mL/min Estimated GFR (MDRD) > 60.0 ml/min Glucose 119 H (60-110) mg/dL Calcium 9.5 (8.8-10.8) mg/dL Total Bilirubin 1.0 (0.1-1.5) mg/dL AST 19 (5-40) IU/L ALT 23 (8-54) IU/L Alkaline Phosphatase 97 (40-150) Creatine Kinase 62 (9-236) IU/L CK-MB (CK-2) 2.6 (0-6.6) ng/ml Troponin I < 0.10 (0.0-0.29) NG/ML B-Natriuretic Peptide (<100) PG/ML Total Protein 7.2 (6.0-8.0) g/dL Albumin 4.1 (3.4-4.8) g/dL Globulin 3.1 (2.0-3.5) g/dL Albumin/Globulin Ratio 1.3 (1.3-2.8) 06/04/17 Range/Units 13:42 WBC (4.0-11.0) K/uL RBC (4.30-5.90) M/uL Hgb (12.0-16.0) g/dL Hct (36.0-46.0) % MCV (80.0-98.0) fL MCH (27.0-32.0) pg MCHC (31.0-37.0) g/dL RDW Std Deviation (28.0-62.0) fl RDW Coeff of Harpreet (11.0-15.0) % Plt Count (150-400) K/uL MPV (7.40-12.00) fL Neut % (Auto) (48.0-80.0) % Lymph % (Auto) (16.0-40.0) % [place] % (Auto) (0.0-15.0) % Eos % (Auto) (0.0-7.0) % Baso % (Auto) (0.0-1.5) % Neut # (Auto) (1.4-5.7) K/uL Lymph # (Auto) (0.6-2.4) K/uL [place] # (Auto) (0.0-0.8) K/uL Eos # (Auto) (0.0-0.7) K/uL Baso # (Auto) (0.0-0.1) K/uL Nucleated RBC % /100WBC Nucleated RBCs # K/uL INR (0.86-1.11) Sodium (136-146) mmol/L Potassium (3.5-5.1) mmol/L Chloride (98-110) mmol/L Carbon Dioxide (21-31) mmol/L BUN (6.0-23.0) mg/dL Creatinine (0.6-1.5) mg/dL Est Cr Clr Drug Dosing mL/min Estimated GFR (MDRD) ml/min Glucose (60-110) mg/dL Calcium (8.8-10.8) mg/dL Total Bilirubin (0.1-1.5) mg/dL AST (5-40) IU/L ALT (8-54) IU/L Alkaline Phosphatase (40-150) Creatine Kinase (9-236) IU/L CK-MB (CK-2) (0-6.6) ng/ml Troponin I (0.0-0.29) NG/ML B-Natriuretic Peptide 202 H (<100) PG/ML Total Protein (6.0-8.0) g/dL Albumin (3.4-4.8) g/dL Globulin (2.0-3.5) g/dL Albumin/Globulin Ratio (1.3-2.8) Meds: Medications Generic Name Dose Route Start Last Admin Trade Name Freq PRN Reason Stop Dose Admin Sodium Chloride 1,000 mls @ 125 mls/hr 06/04/17 13:45 Normal Saline IV STAT ISAI Discontinued Medications Generic Name Dose Route Start Last Admin Trade Name Freq PRN Reason Stop Dose Admin Albuterol/Ipratropium 3 ml 06/04/17 13:32 06/04/17 13:57 Duoneb 3.0-0.5 Mg/3 Ml NEB 06/04/17 13:33 3 ml ONETIME ONE Administration Methylprednisolone Sodium Succinate 125 mg 06/04/17 13:32 06/04/17 14:15 Solu-Medrol IVPUSH 06/04/17 13:33 125 mg ONETIME ONE Administration Departure - Departure Time of Disposition: 14:25 Disposition: Admitted As Inpatient 68 Condition: Fair Clinical Impression: COPD exacerbation - Discharge Information Forms: ED Department Discharge - My Orders Last 24 Hours: My Active Orders 06/04/17 13:32 EKG Documentation Completion [RC] STAT Chest 2V [CR] Stat 06/04/17 13:33 RT Aerosol Therapy [RC] ASDIRECTED 06/04/17 13:45 Sodium Chloride 0.9% [Normal Saline] 1,000 ml IV STAT - Assessment/Plan Last 24 Hours: My Active Orders 06/04/17 13:32 EKG Documentation Completion [RC] STAT Chest 2V [CR] Stat 06/04/17 13:33 RT Aerosol Therapy [RC] ASDIRECTED 06/04/17 13:45 Sodium Chloride 0.9% [Normal Saline] 1,000 ml IV STAT
[2017-06-04] MEDS ORDERED: Sodium Chloride 0.9% 1,000 ML IV SCH (13:45)
[2017-06-04 14:14] LABS: CHLORIDE,CL 108 mmol/L (98-110); SODIUM,NA 141 mmol/L (136-146)
--- NOTE | 2017-06-04 14:39 | CR ---
EXAMINATION: Two-view chest (PA and Lateral views). HISTORY: Shortness of breath. FINDINGS: The trachea is midline. The cardiomediastinal silhouette is within normal limits. No pulmonary infilt rates, effusions or pneumothorax. Osseous structures appear osteopenic. Mild thoracic kyphosis. IMPRESSION: No acute cardiopulmonary process.
[2017-06-04] MEDS ORDERED: Magnesium Sulfate/Water 2 GM in Premix Bag 1 BAG IV ONE (15:47)
[2017-06-04] MEDS ORDERED: Ondansetron 4 MG/2 ML SDV IVPUSH PRN (15:48)
[2017-06-04] MEDS ORDERED: Acetaminophen 325 MG Tab PO PRN (15:48)
[2017-06-04] MEDS ORDERED: Levofloxacin/Dextrose 5%-Water 750 MG in Premix Bag 1 BAG IV SCH (16:15)
--- NOTE | 2017-06-04 16:21 | PCM.HP ---
H&P History of Present Illness - General Date of Service: 06/04/17 Admit Problem/Dx: COPD exacerbation Source of Information: Patient History Limitations: Reports: No Limitations - History of Present Illness Initial Comments - Free Text/Narative: This 81 year old female with pmh of COPD, AAA and HTN presented to the ED with dypsnea which started this morning around 3 am. She reports she recently was on a steroid taper and possibly antibiotic from Dr Chase and finished these about 1 week ago. She denies chest pain, but has some SOB which is improved after IV Solu-medrol and Duoneb. She was noted to be hypoxic upon arrival to the ED and unable to speak much due to dyspnea. She reports green phlegm recently, no fevers at home, maybe some sinus congestion and "full head" but no sore throat or ear pain. No Chest pain, no abdominal pain or diarrhea. 3 months ago (February 20 2017) she was transferred to [facility] for acute pancreatitis after gallbladder removal for gallstones causing pancreatitis. On the admission, she was noted to have acute respiratory failure after receiving dilaudid LUMBER STRAIGHTENED and placed on Bipap. They felt this was due to the narcotics and poor pulmonary function. She was discharge a couple days later. In the ED no leukocytosis noted, Eosinophols elevated, BNP 202 BMP WNL. CXR negative for infiltrates. BP elevated on admission, 187/89 RR32, but when I visited her, RR normalized to 20s. She was treated with Solu-medrol and Duonebs with improvement in the ED. She will be admitted with failed outpatient management of COPD exacerbation, possible hospital acquired pneumonia due to admission 3 months ago in ICU. PCP, Dr Chase - Related Data Allergies/Adverse Reactions: Allergies Allergy/AdvReac Type Severity Reaction Status Date / Time Opioids - Morphine Analogues Allergy Severe Respiratory Verified 06/04/17 15:59 Depression shellfish derived Allergy Cannot Verified 06/04/17 13:30 Remember Home Medications: Home Meds Albuterol [Proventil HFA] 2 puff IH QID PRN 01/27/17 [History] Metoprolol Succinate [Toprol XL] 25 mg PO DAILY 01/27/17 [History] Nitroglycerin [Nitrostat] 0.4 mg SL Q5M PRN 01/27/17 [History] Aspirin 162 mg PO DAILY 06/04/17 [History] Multivitamin [Multivitamins] 1 tab PO DAILY 06/04/17 [History] atorvaSTATin [Lipitor] 20 mg PO DAILY 06/04/17 [History] Past Medical History - Past Health History Medical/Surgical History: Denies Medical/Surgical History HEENT History: Reports: Hard of Hearing, Impaired Vision Other HEENT History: wears glasses Cardiovascular History: Reports: High Cholesterol, Hypertension, [place], Stents. Denies: Afib, Blood Clots/VTE/DVT, Heart Failure Respiratory History: Reports: COPD, Pneumonia, Recurrent, Other (See Below) Other Respiratory History: Frequent URIs Gastrointestinal History: Reports: GERD, GI Bleed Genitourinary History: Reports: None. 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: Musculoskeletal History: Reports: Arthritis Psychiatric History: Reports: Anxiety Endocrine/Metabolic History: Reports: Diabetes, Type II, Obesity/BMI 30+ Other Endocrine/Metabolic History: "borderline diabetic' Hematologic History: Reports: Anemia - Past Surgical History GI Surgical History: Reports: Cholecystectomy (4 months ago, laproscopic due to gallstone pancreatitis) Female Surgical History: Reports: Tubal Ligation Social & Family History - Family History Family Medical History: Noncontributory - Tobacco Use Smoking Status *Q: Former Smoker Years of Tobacco use: 50 Used Tobacco, but Quit: Yes Month Tobacco Last Used: 07/2006 Second Hand Smoke Exposure: No - Caffeine Use Caffeine Use: Reports: Coffee, Tea - Recreational Drug Use Recreational Drug Use: No H&P Review of Systems - Review of Systems: Review Of Systems: See Below General: Reports: Malaise. Denies: Fever, Chills HEENT: Reports: Sinus Congestion. Denies: Ear Pain, Headaches, Sore Throat Pulmonary: Reports: Shortness of Breath, Wheezing, Cough, Sputum (green phlegm) . Denies: Hemoptysis Cardiovascular: Reports: No Symptoms. Denies: Chest Pain, Palpitations, Edema Gastrointestinal: Reports: No Symptoms. Denies: Abdominal Pain, Black Stool, Bloody Stool, Constipation, Diarrhea, Nausea, Vomiting Genitourinary: Reports: Frequency, Urgency. Denies: Dysuria, Burning, Pain Musculoskeletal: Reports: No Symptoms Psychiatric: Reports: No Symptoms. Denies: Confusion Neurological: Reports: No Symptoms. Denies: Confusion Hematologic/Lymphatic: Reports: No Symptoms Immunologic: Reports: No Symptoms Exam - Exam Exam: See Below - Vital Signs Vital Signs: Last Vital Signs Temp 97.6 F 06/04/17 13:26 Pulse 85 06/04/17 13:26 Resp 32 H 06/04/17 13:26 BP 187/89 H 06/04/17 13:26 Pulse Ox 86 L 06/04/17 13:26 Weight: 90.718 kg - Exam Quality Assessment: Supplemental Oxygen, DVT Prophylaxis General: Alert, Oriented, Cooperative HEENT: Conjunctiva Clear, Mucosa Moist & [place], Posterior Pharynx Clear Neck: Supple, Trachea Midline, 2 Lungs: Decreased Breath Sounds, Rhonchi, Wheezing Cardiovascular: Regular Rate, Regular Rhythm, Normal S1, Normal S2 GI/Abdominal Exam: Normal Bowel Sounds, Soft, Non-Tender, No Organomegaly, No Distention Back Exam: Normal Inspection, Full Range of Motion, NT Extremities: Normal Inspection, Normal Range of Motion, Non-Tender, No Pedal Edema, Normal Capillary Refill Neuro Extensive - Mental Status: Alert, Oriented x3, Normal Mood/Affect, Normal Cognition Neuro Extensive - Motor, Sensory, Reflexes: CN II-XII Intact Psychiatric: Alert, Normal Affect, Normal Mood - Patient Data Result Diagrams: 06/04/17 13:42 06/04/17 13:42 *Q Meaningful Use (ADM) - VTE *Q VTE Criteria *Q: - Stroke *Q Stroke Criteria *Q: - AMI *Q AMI Criteria *Q: - Problem List (1) Hypoxia SNOMED Code(s): 940959901 ICD Code: R09.02 - HYPOXEMIA Status: Acute Current Visit: Yes (2) COPD exacerbation SNOMED Code(s): 344943360447357 ICD Code: J44.1 - CHRONIC OBSTRUCTIVE PULMONARY DISEASE W (ACUTE) EXACERBATION Status: Acute Current Visit: Yes (3) Hypertension SNOMED Code(s): 69711214 ICD Code: I10 - ESSENTIAL (PRIMARY) HYPERTENSION Status: Chronic Priority : Medium Current Visit: No Qualifiers: Hypertension type: essential hypertension Qualified Code(s): I10 - Essential (primary) hypertension (4) Abdominal aortic aneurysm (AAA) SNOMED Code(s): 631456233 ICD Code: I71.4 - ABDOMINAL AORTIC ANEURYSM, WITHOUT RUPTURE Status: Chronic Current Visit: Yes Qualifiers: Presence of rupture: without rupture Qualified Code(s): I71.4 - Abdominal aortic aneurysm, without rupture (5) Hx of pancreatitis SNOMED Code(s): 11061829068168 ICD Code: Z87.19 - PERSONAL HISTORY OF OTHER DISEASES OF THE DIGESTIVE SYSTEM Status: Chronic Current Visit: Yes Problem Details: gallstone induced Problem List Initiated/Reviewed/Updated: Yes Orders Last 24hrs: Active Orders 24 hr Category Date Time Status Intake and Output [RC] QSHIFT Care 06/04/17 15:48 Ordered Oxygen Therapy [RC] PRN Care 06/04/17 15:48 Ordered RT Aerosol Therapy [RC] ASDIRECTED Care 06/04/17 15:49 Ordered Up With Assistance [RC] ASDIRECTED Care 06/04/17 15:48 Ordered VTE/DVT Education [RC] PER UNIT ROUTINE Care 06/04/17 15:48 Ordered Vital Signs [RC] Q4H Care 06/04/17 15:48 Ordered Respiratory Care Assess and Treatment [CONS] Routine Cons 06/04/17 15:48 Ordered 2 Gram Sodium Diet [DIET] Diet 06/04/17 Dinner Ordered BASIC METABOLIC PANEL,BMP [CHEM] AM Lab 06/05/17 05:11 Ordered BASIC METABOLIC PANEL,BMP [CHEM] AM Lab 06/06/17 05:11 Ordered BASIC METABOLIC PANEL,BMP [CHEM] AM Lab 06/07/17 05:11 Ordered CBC WITH AUTO DIFF [HEME] AM Lab 06/05/17 05:11 Ordered CBC WITH AUTO DIFF [HEME] AM Lab 06/06/17 05:11 Ordered CBC WITH AUTO DIFF [HEME] AM Lab 06/07/17 05:11 Ordered CULTURE SPUTUM + SMEAR [RM] Routine Lab 06/04/17 16:02 Uncollected INFLUENZA A+B AG SCREEN [RM] Routine Lab 06/04/17 16:06 Uncollected UA W/MICROSCOPIC [URIN] Routine Lab 06/04/17 16:06 Uncollected Acetaminophen [Tylenol] Med 06/04/17 15:48 Ordered 650 mg PO Q4H PRN Albuterol/Ipratropium [DuoNeb 3.0-0.5 MG/3 ML] Med 06/04/17 18:00 Ordered 3 ml NEB Q4HRRT Aspirin Med 06/05/17 09:00 Ordered 162 mg PO DAILY Heparin Sodium Med 06/04/17 21:00 Ordered 5,000 units SUBCUT Q12HR Levofloxacin/Dextrose 5%-Water [Levaquin in D5W 750 MG/ Med 06/04/17 16:15 Ordered 150 ML] 750 mg Premix Bag 1 bag IV Q24H Magnesium Sulfate/Water [Magnesium Sulfate 2 GM in Med 06/04/17 15:47 Ordered Water 50 ML] 2 gm Premix Bag 1 bag IV ONETIME Metoprolol Succinate [Toprol XL] Med 06/05/17 09:00 Ordered 25 mg PO DAILY Multivitamin [Multivitamins] Med 06/05/17 09:00 Ordered 1 tab PO DAILY atorvaSTATin [Lipitor] Med 06/05/17 09:00 Ordered 20 mg PO DAILY methylPREDNISolone Sod Succ [Solu-MEDROL] Med 06/04/17 19:30 Ordered 80 mg IVPUSH Q6H Resuscitation Status Routine Resus Stat 06/04/17 15:48 Ordered Medication Orders Acetaminophen (Tylenol) 650 mg PO Q4H PRN PRN Reason: Pain (mild 1-3) Albuterol/Ipratropium (Duoneb 3.0-0.5 Mg/3 Ml) 3 ml NEB Q4HRRT ISAI Heparin Sodium (Porcine) (Heparin Sodium) 5,000 units SUBCUT Q12HR ISAI Magnesium Sulfate 2 gm/ Premix 50 mls @ 50 mls/hr IV ONETIME ONE Stop: 06/04/17 16:46 Levofloxacin/Dextrose 750 mg/ (Premix) 150 mls @ 100 mls/hr IV Q48H ISAI Methylprednisolone Sodium Succinate (Solu-Medrol) 80 mg IVPUSH Q6H ISAI Assessment/Plan Comment:: This 81 year old female admitted with hypoxia and COPD exacerbation 1. COPD exacerbation: reports improved since arrival to ED. easily talking and respiratory rate much improved. Will treat with Iv Solumedrol 80 mg IV Q6 hr, monitor and will decrease tomorrow. Will continue with Duonebs every 4 hours and Oxygen as needed to keep sats 88% or higher. Encourage IS. Will also give Magnesium 2 gm IV due to elevated eosinophils, question asthma component? 2. HTN: Elevated initially on admission, likely due to hypoxia. Better upon arrival to floor 133/66. Continue Metoprolol. 3. CAD: stable. Continue ASA and lipitor. VTE prophylaxis: Heparin Q12h. Dispo: 2-3 days pending improvement.
[2017-06-04] MEDS ORDERED: Nitroglycerin 0.4 MG Tab.SL SL PRN (16:36)
[2017-06-04] MEDS ORDERED: hydrALAZINE 20 MG/ML SDV IVPUSH PRN (16:36)
[2017-06-04] MEDS: Albuterol/Ipratropium 3.0-0.5 MG/3 ML Neb Soln NEB SCH ×2 (18:10→21:40)
[2017-06-04] MEDS ORDERED: methylPREDNISolone Sodium Succinate 125 MG/2 ML SDV IVPUSH SCH (19:30)
[2017-06-04] MEDS: methylPREDNISolone Sodium Succinate 40 MG/1 ML SDV IVPUSH SCH (21:05)
[2017-06-04] MEDS: Heparin Sodium 5,000 Units/ML Vial SUBCUT SCH (21:05)
[2017-06-05] MEDS: methylPREDNISolone Sodium Succinate 40 MG/1 ML SDV IVPUSH SCH ×3 (01:38→21:00)
[2017-06-05] MEDS: Albuterol/Ipratropium 3.0-0.5 MG/3 ML Neb Soln NEB SCH ×6 (01:38→21:52)
[2017-06-05 05:49] LABS: CHLORIDE,CL 107 mmol/L (98-110); SODIUM,NA 141 mmol/L (136-146)
[2017-06-05] MEDS: Heparin Sodium 5,000 Units/ML Vial SUBCUT SCH ×2 (08:09→21:00)
[2017-06-05] MEDS: Multivitamins with Iron/Calcium/Folic Acid/Minerals Tab PO SCH (08:10)
[2017-06-05] MEDS: Aspirin 81 MG Tab.Chew PO SCH (08:10)
[2017-06-05] MEDS: atorvaSTATin 20 MG Tab PO SCH (08:10)
[2017-06-05] MEDS: Metoprolol Succinate 25 MG Tab.ER PO SCH (08:10)
--- NOTE | 2017-06-05 09:33 | PCM.PN ---
- General Info Date of Service: 06/05/17 Admission Dx/Problem (Free Text): COPD exacerbation Subjective Update: Sitting up in the chair and givng her self a sponge bath. Very happy and delightful. Feeling "75-85%" better today. Scant SOB, little bit of a cough, with scant phlegm production. No chest pain or abdominal pain. Functional Status: Reports: Pain Controlled, Tolerating Diet, Ambulating, Urinating - Review of Systems General: Denies: Fever, Malaise HEENT: Reports: No Symptoms. Denies: Sore Throat, Rhinitis Pulmonary: Reports: Shortness of Breath (scant much improved from yesterday. ) Cardiovascular: Reports: No Symptoms. Denies: Chest Pain Gastrointestinal: Reports: No Symptoms. Denies: Abdominal Pain, Nausea, Vomiting Genitourinary: Reports: No Symptoms. Denies: Dysuria, Frequency, Burning Neurological: Reports: No Symptoms. Denies: Confusion Psychiatric: Reports: No Symptoms. Denies: Confusion - Patient Data Vitals - Most Recent: Last Vital Signs Temp 98.9 F 06/05/17 07:45 Pulse 76 06/05/17 08:10 Resp 20 06/05/17 07:45 BP 126/66 06/05/17 08:10 Pulse Ox 95 06/05/17 07:45 Weight - Most Recent: 90.718 kg I&O - Last 24 Hours: Intake & Output 06/04/17 06/05/17 06/05/17 22:59 06:59 14:59 Intake Total 400 850 Output Total 0 900 Balance 400 -50 Lab Results Last 24 Hours: Laboratory Results - last 24 hr 06/04/17 06/05/17 06/05/17 Range/Units 23:00 05:14 05:14 WBC 10.53 (4.0-11.0) K/uL RBC 4.76 (4.30-5.90) M/uL Hgb 13.8 (12.0-16.0) g/dL Hct 43.1 (36.0-46.0) % MCV 90.5 (80.0-98.0) fL MCH 29.0 (27.0-32.0) pg MCHC 32.0 (31.0-37.0) g/dL RDW Std Deviation 50.1 (28.0-62.0) fl RDW Coeff of Harpreet 15 (11.0-15.0) % Plt Count 306 (150-400) K/uL MPV 10.60 (7.40-12.00) fL Neut % (Auto) 92.0 H (48.0-80.0) % Lymph % (Auto) 7.5 L (16.0-40.0) % [place] % (Auto) 0.4 (0.0-15.0) % Eos % (Auto) 0.0 (0.0-7.0) % Baso % (Auto) 0.1 (0.0-1.5) % Neut # (Auto) 9.7 H (1.4-5.7) K/uL Lymph # (Auto) 0.8 (0.6-2.4) K/uL [place] # (Auto) 0.0 (0.0-0.8) K/uL Eos # (Auto) 0.0 (0.0-0.7) K/uL Baso # (Auto) 0.0 (0.0-0.1) K/uL Nucleated RBC % 0.0 /100WBC Nucleated RBCs # 0 K/uL Sodium 141 (136-146) mmol/L Potassium 4.3 (3.5-5.1) mmol/L Chloride 107 (98-110) mmol/L Carbon Dioxide 24 (21-31) mmol/L BUN 19 (6.0-23.0) mg/dL Creatinine 0.8 (0.6-1.5) mg/dL Est Cr Clr Drug Dosing 44.06 mL/min Estimated GFR (MDRD) > 60.0 ml/min Glucose 195 H (60-110) mg/dL Calcium 9.2 (8.8-10.8) mg/dL Urine Color YELLOW Urine Appearance CLEAR Urine pH 5.5 (5.0-8.0) Ur Specific [place] 1.010 (1.001-1.035) Urine Protein NEGATIVE (NEGATIVE) mg/dL Urine Glucose (UA) NEGATIVE (NEGATIVE) mg/dL Urine Ketones NEGATIVE (NEGATIVE) mg/dL Urine Occult Blood SMALL H (NEGATIVE) Urine Nitrite NEGATIVE (NEGATIVE) Urine Bilirubin NEGATIVE (NEGATIVE) Urine Urobilinogen 0.2 (<2.0) EU/dL Ur Leukocyte Esterase NEGATIVE (NEGATIVE) Urine RBC 1-2 (0-2/HPF) Urine WBC 0-1 (0-5/HPF) Ur Epithelial Cells FEW (NONE-FEW) Urine Bacteria FEW (NEGATIVE) [place] Results Last 24 Hours: Microbiology 06/04/17 20:00 Gram Stain - Preliminary Sputum - Expectorated 06/04/17 19:35 Influenza Type A Antigen Screen - Final Nasopharyngeal Swab NEGATIVE INFLUENZA A VIRUS AG Influenza Type B Antigen Screen - Final NEGATIVE INFLUENZA B VIRUS AG Med Orders - Current: Current Medications Acetaminophen (Tylenol) 650 mg PO Q4H PRN PRN Reason: Pain (mild 1-3) Albuterol/Ipratropium (Duoneb 3.0-0.5 Mg/3 Ml) 3 ml NEB Q4HRRT [facility] Last Admin: 06/05/17 06:33 Dose: 3 ml Aspirin (Aspirin) 162 mg PO DAILY [facility] Last Admin: 06/05/17 08:10 Dose: 162 mg Atorvastatin Calcium (Lipitor) 20 mg PO DAILY [facility] Last Admin: 06/05/17 08:10 Dose: 20 mg Heparin Sodium (Porcine) (Heparin Sodium) 5,000 units SUBCUT Q12HR [facility] Last Admin: 06/05/17 08:09 Dose: 5,000 units Hydralazine HCl (Apresoline) 20 mg IVPUSH Q4H PRN PRN Reason: htn Levofloxacin/Dextrose 750 mg/ (Premix) 150 mls @ 100 mls/hr IV Q48H [facility] Last Admin: 06/04/17 18:19 Dose: 100 mls/hr Methylprednisolone Sodium Succinate (Solu-Medrol) 80 mg IVPUSH Q6H [facility] Last Admin: 06/05/17 08:10 Dose: 80 mg Metoprolol Succinate (Toprol Xl) 25 mg PO DAILY [facility] Last Admin: 06/05/17 08:10 Dose: 25 mg Multivitamins/Minerals (Thera M Plus) 1 tab PO DAILY [facility] Last Admin: 06/05/17 08:10 Dose: 1 tab Nitroglycerin (Nitrostat) 0.4 mg SL Q5M PRN PRN Reason: Chest Pain Discontinued Medications Albuterol/Ipratropium (Duoneb 3.0-0.5 Mg/3 Ml) 3 ml NEB ONETIME ONE Stop: 06/04/17 13:33 Last Admin: 06/04/17 13:57 Dose: 3 ml Sodium Chloride (Normal Saline) 1,000 mls @ 125 mls/hr IV STAT [facility] Last Admin: 06/04/17 15:32 Dose: 125 mls/hr Magnesium Sulfate 2 gm/ Premix 50 mls @ 50 mls/hr IV ONETIME ONE Stop: 06/04/17 16:46 Last Admin: 06/04/17 17:00 Dose: 50 mls/hr Methylprednisolone Sodium Succinate (Solu-Medrol) 125 mg IVPUSH ONETIME ONE Stop: 06/04/17 13:33 Last Admin: 06/04/17 14:15 Dose: 125 mg Methylprednisolone Sodium Succinate (Solu-Medrol) 80 mg IVPUSH Q6H [facility] Ondansetron HCl (Zofran) 4 mg IVPUSH Q4H PRN PRN Reason: Nausea - Exam Quality Assessment: No: Supplemental Oxygen (92% on RA.) General: Alert, Oriented, Cooperative, No Acute Distress Neck: Supple Lungs: Clear to Auscultation, Normal Respiratory Effort, Wheezing (scant ) Cardiovascular: Regular Rate, Regular Rhythm GI/Abdominal Exam: Normal Bowel Sounds, Soft, Non-Tender, No Organomegaly, No Distention, No Abnormal Bruit, No Mass, Pelvis Stable Extremities: Normal Inspection, Normal Range of Motion, Non-Tender, No Pedal Edema, Normal Capillary Refill Psy/Mental Status: Alert, Normal Affect, Normal Mood - Problem List & Annotations (1) Hypoxia SNOMED Code(s): 314167310 Code(s): R09.02 - HYPOXEMIA Status: Acute Current Visit: Yes (2) COPD exacerbation SNOMED Code(s): 489212042141041 Code(s): J44.1 - CHRONIC OBSTRUCTIVE PULMONARY DISEASE W (ACUTE) EXACERBATION Status: Acute Current Visit: Yes (3) Hypertension SNOMED Code(s): 91499959 Code(s): I10 - ESSENTIAL (PRIMARY) HYPERTENSION Status: Chronic Priority : Medium Current Visit: No Qualifiers: Hypertension type: essential hypertension Qualified Code(s): I10 - Essential (primary) hypertension (4) Abdominal aortic aneurysm (AAA) SNOMED Code(s): 299486957 Code(s): I71.4 - ABDOMINAL AORTIC ANEURYSM, WITHOUT RUPTURE Status: Chronic Current Visit: Yes Qualifiers: Presence of rupture: without rupture Qualified Code(s): I71.4 - Abdominal aortic aneurysm, without rupture (5) Hx of pancreatitis SNOMED Code(s): 98520940601801 Code(s): Z87.19 - PERSONAL HISTORY OF OTHER DISEASES OF THE DIGESTIVE SYSTEM Status: Chronic Current Visit: Yes Annotation/Comment:: gallstone induced - Problem List Review Problem List Initiated/Reviewed/Updated: Yes - My Orders Last 24 Hours: My Active Orders 06/04/17 15:48 Intake and Output [RC] Q12H Oxygen Therapy [RC] PRN Up With Assistance [RC] ASDIRECTED VTE/DVT Education [RC] PER UNIT ROUTINE Vital Signs [RC] Q4H Respiratory Care Assess and Treatment [CONS] Routine Acetaminophen [Tylenol] 650 mg PO Q4H PRN Resuscitation Status Routine 06/04/17 15:49 RT Aerosol Therapy [RC] ASDIRECTED 06/04/17 16:15 Levofloxacin/Dextrose 5%-Water [Levaquin in D5W 750 MG/150 ML] 750 mg Premix Bag 1 bag IV Q48H 06/04/17 18:00 Albuterol/Ipratropium [DuoNeb 3.0-0.5 MG/3 ML] 3 ml NEB Q4HRRT 06/04/17 20:00 CULTURE SPUTUM + SMEAR [RM] Routine 06/04/17 21:00 Heparin Sodium 5,000 units SUBCUT Q12HR 06/04/17 Dinner 2 Gram Sodium Diet [DIET] 06/05/17 09:00 Aspirin 162 mg PO DAILY Metoprolol Succinate [Toprol XL] 25 mg PO DAILY Multivitamins w-Iron/Ca/FA/Min [Thera M Plus] 1 tab PO DAILY atorvaSTATin [Lipitor] 20 mg PO DAILY 06/06/17 05:11 BASIC METABOLIC PANEL,BMP [CHEM] AM CBC WITH AUTO DIFF [HEME] AM 06/07/17 05:11 BASIC METABOLIC PANEL,BMP [CHEM] AM CBC WITH AUTO DIFF [HEME] AM - Plan Plan:: This 81 year old female admitted with hypoxia and COPD exacerbation 1. COPD exacerbation: Improving. Continues to be able to easily talk. Will decrease Iv Solumedrol 40 mg IV q12h hr, monitor. Will add Advair. Will continue with Duonebs every 4 hours and Oxygen as needed to keep sats 88% or higher. Encourage IS. Covering with Levaquin for possible HCAP due to recent hospitalization in [place] 3 months ago. Sputum gram stain gram pos cocci pairs and chains. Will monitor. 2. HTN: Controlled. Continue Metoprolol. 3. CAD: stable. Continue ASA and lipitor. VTE prophylaxis: Heparin Q12h. Dispo: Possible DC in am.
[2017-06-05] MEDS: Fluticasone/Salmeterol 250-50 MCG Inhalation Powder 14/Diskus INH SCH ×2 (11:24→21:51)
[2017-06-06] MEDS: Albuterol/Ipratropium 3.0-0.5 MG/3 ML Neb Soln NEB SCH ×3 (02:23→10:12)
[2017-06-06 05:31] LABS: CHLORIDE,CL 108 mmol/L (98-110); SODIUM,NA 142 mmol/L (136-146)
--- NOTE | 2017-06-06 09:04 | PCM.DCSUM1 ---
Discharge Summary - Hospital Course Brief History: This 81 year old female with pmh of COPD, AAA and HTN presented to the ED with dypsnea which started this morning around 3 am. She reports she recently was on a steroid taper and possibly antibiotic from Dr Chase and finished these about 1 week ago. She denies chest pain, but has some SOB which is improved after IV Solu-medrol and Duoneb. She was noted to be hypoxic upon arrival to the ED and unable to speak much due to dyspnea. She reports green phlegm recently, no fevers at home, maybe some sinus congestion and "full head" but no sore throat or ear pain. No Chest pain, no abdominal pain or diarrhea. 3 months ago (February 20 2017) she was transferred to [place] for acute pancreatitis after gallbladder removal for gallstones causing pancreatitis. On the admission, she was noted to have acute respiratory failure after receiving dilaudid [employer]ATOR and placed on Bipap. They felt this was due to the narcotics and poor pulmonary function. She was discharge a couple days later. In the ED no leukocytosis noted, Eosinophols elevated, BNP 202 BMP WNL. CXR negative for infiltrates. BP elevated on admission, 187/89 RR32, but when I visited her, RR normalized to 20s. She was treated with Solu-medrol and Duonebs with improvement in the ED. She will be admitted with failed outpatient management of COPD exacerbation, possible hospital acquired pneumonia due to admission 3 months ago in ICU. - Discharge Data Discharge Date: 06/06/17 Discharge Disposition: Home, Self-Care 01 Condition: Good - Discharge Diagnosis/Problem(s) (1) Hypoxia SNOMED Code(s): 736205151 ICD Code: R09.02 - HYPOXEMIA Status: Acute Current Visit: Yes (2) COPD exacerbation SNOMED Code(s): 921848368385955 ICD Code: J44.1 - CHRONIC OBSTRUCTIVE PULMONARY DISEASE W (ACUTE) EXACERBATION Status: Acute Current Visit: Yes (3) Hypertension SNOMED Code(s): 10112049 ICD Code: I10 - ESSENTIAL (PRIMARY) HYPERTENSION Status: Chronic Priority : Medium Current Visit: No Qualifiers: Hypertension type: essential hypertension Qualified Code(s): I10 - Essential (primary) hypertension (4) Abdominal aortic aneurysm (AAA) SNOMED Code(s): 209067150 ICD Code: I71.4 - ABDOMINAL AORTIC ANEURYSM, WITHOUT RUPTURE Status: Chronic Current Visit: Yes Qualifiers: Presence of rupture: without rupture Qualified Code(s): I71.4 - Abdominal aortic aneurysm, without rupture (5) Hx of pancreatitis SNOMED Code(s): 54920608100757 ICD Code: Z87.19 - PERSONAL HISTORY OF OTHER DISEASES OF THE DIGESTIVE SYSTEM Status: Chronic Current Visit: Yes Problem Details: gallstone induced - Patient Summary/Data Consults: Consultations 06/04/17 15:48 Respiratory Care Assess and Treatment [CONS] Routine - Patient Instructions Diet: Heart Healthy Diet Activity: As Tolerated, Rest and Relax Today Showering/Bathing: November Shower Notify Provider of: Fever, Increased Pain, Swelling and Redness, Drainage, Nausea and/or Vomiting - Discharge Plan Prescriptions/Med Rec: Fluticasone Propionate [Flonase] 1 gm NASBOTH DAILY #1 bottle Fluticasone/Salmeterol [Advair 250-50 Diskus] 1 each IH BID #1 disk.w.dev Levofloxacin [Levaquin] 750 mg PO Q48H #2 tablet predniSONE 10 mg PO .TAPER #30 tablet Home Medications: Home Meds Albuterol [Proventil HFA] 2 puff IH QID PRN 01/27/17 [History] Metoprolol Succinate [Toprol XL] 25 mg PO DAILY 01/27/17 [History] Nitroglycerin [Nitrostat] 0.4 mg SL Q5M PRN 01/27/17 [History] Aspirin 162 mg PO DAILY 06/04/17 [History] Multivitamin [Multivitamins] 1 tab PO DAILY 06/04/17 [History] atorvaSTATin [Lipitor] 20 mg PO DAILY 06/04/17 [History] Fluticasone Propionate [Flonase] 1 gm NASBOTH DAILY #1 bottle 06/06/17 [Rx] Fluticasone/Salmeterol [Advair 250-50 Diskus] 1 each IH BID #1 disk.w.dev [Rx] Levofloxacin [Levaquin] 750 mg PO Q48H #2 tablet 06/06/17 [Rx] predniSONE 10 mg PO .TAPER #30 tablet 06/06/17 [Rx] Patient Handouts: Chronic Obstructive Pulmonary Disease Exacerbation, Easy-to- Read, Fluticasone; Salmeterol inhalation powder, Hypoxemia, Fluticasone nasal spray, Levofloxacin tablets, Prednisone tablets Referrals: Yasmin Singh, PLYCOR OPERATOR [Nurse Practitioner] - 06/13/17 11:00 am - Discharge Summary/Plan Comment DC Time >30 min.: No Discharge Summary/Plan Comment: Admission Diagnoses COPD exacerbation Hypoxia Hx AAA HTN Discharge Diagnoses COPD exacerbation Hx AAA HTN Lisa was admitted and treated with Solu-medrol IV whcih was slowly decreased. She was off oxygen in 12 hours after admission feeling much better. She was treated with Levaquin due to green sputum and recent admission in [place] for respiratory failure on Bipap. She has improved greatly over the last 24 hours. Leukocytosis noted today, likely reactive from Solu-medrol. She will be continued on Levaquin for 2 more days with Q48hr dosing. She was also started on Advair diskus for maintenance therapy for COPD. She will also be sent home on Prednisone taper. She has requested to change providers and will be scheduled at [facility] for follow up. She was encouraged to have [place] send her clinic records to [facility]. She is to return to the ED or clinic if concerns should arise. - General Info Date of Service: 06/06/17 Admission Dx/Problem (Free Text: COPD exacerbation Subjective Update: Feeling great today, has her baseline intermittent SOB. No wheezing today. Requesting to be discharged home. NO chest pain or palpitations. Functional Status: Reports: Pain Controlled, Tolerating Diet, Ambulating, Urinating - Review of Systems General: Reports: No Symptoms. Denies: Fever Pulmonary: Reports: Shortness of Breath (at baseline) Cardiovascular: Reports: No Symptoms. Denies: Chest Pain, Palpitations Gastrointestinal: Reports: No Symptoms. Denies: Abdominal Pain, Nausea, Vomiting Genitourinary: Reports: No Symptoms. Denies: Dysuria, Frequency, Burning Neurological: Reports: No Symptoms. Denies: Confusion Psychiatric: Reports: No Symptoms. Denies: Confusion - Patient Data Vitals - Most Recent: Last Vital Signs Temp 97.0 F 06/06/17 04:00 Pulse 68 06/06/17 04:00 Resp 16 06/06/17 04:00 BP 144/61 H 06/06/17 04:00 Pulse Ox 93 L 06/06/17 04:00 Weight - Most Recent: 90.718 kg I&O - Last 24 hours: Intake & Output 06/05/17 06/06/17 06/06/17 22:59 06:59 14:59 Intake Total 1280 340 Output Total 1000 1500 Balance 280 -1160 Lab Results - Last 24 hrs: Laboratory Results - last 24 hr 06/06/17 06/06/17 Range/Units 04:57 04:57 WBC 19.54 H (4.0-11.0) K/uL RBC 4.86 (4.30-5.90) M/uL Hgb 14.3 (12.0-16.0) g/dL Hct 44.1 (36.0-46.0) % MCV 90.7 (80.0-98.0) fL MCH 29.4 (27.0-32.0) pg MCHC 32.4 (31.0-37.0) g/dL RDW Std Deviation 51.2 (28.0-62.0) fl RDW Coeff of Harpreet 16 H (11.0-15.0) % Plt Count 314 (150-400) K/uL MPV 10.50 (7.40-12.00) fL Neut % (Auto) 90.7 H (48.0-80.0) % Lymph % (Auto) 7.1 L (16.0-40.0) % [place] % (Auto) 2.1 (0.0-15.0) % Eos % (Auto) 0.0 (0.0-7.0) % Baso % (Auto) 0.1 (0.0-1.5) % Neut # (Auto) 17.7 H (1.4-5.7) K/uL Lymph # (Auto) 1.4 (0.6-2.4) K/uL [place] # (Auto) 0.4 (0.0-0.8) K/uL Eos # (Auto) 0.0 (0.0-0.7) K/uL Baso # (Auto) 0.0 (0.0-0.1) K/uL Nucleated RBC % 0.0 /100WBC Nucleated RBCs # 0 K/uL Sodium 142 (136-146) mmol/L Potassium 5.1 (3.5-5.1) mmol/L Chloride 108 (98-110) mmol/L Carbon Dioxide 24 (21-31) mmol/L BUN 32 H (6.0-23.0) mg/dL Creatinine 0.9 (0.6-1.5) mg/dL Est Cr Clr Drug Dosing 39.17 mL/min Estimated GFR (MDRD) > 60.0 ml/min Glucose 170 H (60-110) mg/dL Calcium 9.4 (8.8-10.8) mg/dL [facility] Results - Last 24 hrs: Microbiology 06/04/17 20:00 Gram Stain - Final Sputum - Expectorated Med Orders - Current: Current Medications Acetaminophen (Tylenol) 650 mg PO Q4H PRN PRN Reason: Pain (mild 1-3) Last Admin: 06/05/17 12:44 Dose: 650 mg Albuterol/Ipratropium (Duoneb 3.0-0.5 Mg/3 Ml) 3 ml NEB Q4HRRT [facility] Last Admin: 06/06/17 06:48 Dose: 3 ml Aspirin (Aspirin) 162 mg PO DAILY [facility] Last Admin: 06/05/17 08:10 Dose: 162 mg Atorvastatin Calcium (Lipitor) 20 mg PO DAILY [facility] Last Admin: 06/05/17 08:10 Dose: 20 mg Fluticasone Propionate (Flonase) 1 gm NASBOTH DAILY [facility] Heparin Sodium (Porcine) (Heparin Sodium) 5,000 units SUBCUT Q12HR [facility] Last Admin: 06/05/17 21:00 Dose: 5,000 units Levofloxacin/Dextrose 750 mg/ (Premix) 150 mls @ 100 mls/hr IV Q48H [facility] Last Admin: 06/04/17 18:19 Dose: 100 mls/hr Methylprednisolone Sodium Succinate (Solu-Medrol) 40 mg IVPUSH Q12H [facility] Last Admin: 06/05/17 21:00 Dose: 40 mg Metoprolol Succinate (Toprol Xl) 25 mg PO DAILY [facility] Last Admin: 06/05/17 08:10 Dose: 25 mg Multivitamins/Minerals (Thera M Plus) 1 tab PO DAILY [facility] Last Admin: 06/05/17 08:10 Dose: 1 tab Nitroglycerin (Nitrostat) 0.4 mg SL Q5M PRN PRN Reason: Chest Pain Fluticasone/Salmeterol (Advair Diskus 250-50) 1 puff INH BID [facility] Last Admin: 06/05/17 21:51 Dose: Not Given Discontinued Medications Albuterol/Ipratropium (Duoneb 3.0-0.5 Mg/3 Ml) 3 ml NEB ONETIME ONE Stop: 06/04/17 13:33 Last Admin: 06/04/17 13:57 Dose: 3 ml Hydralazine HCl (Apresoline) 20 mg IVPUSH Q4H PRN PRN Reason: htn Sodium Chloride (Normal Saline) 1,000 mls @ 125 mls/hr IV STAT [facility] Last Admin: 06/04/17 15:32 Dose: 125 mls/hr Magnesium Sulfate 2 gm/ Premix 50 mls @ 50 mls/hr IV ONETIME ONE Stop: 06/04/17 16:46 Last Admin: 06/04/17 17:00 Dose: 50 mls/hr Methylprednisolone Sodium Succinate (Solu-Medrol) 125 mg IVPUSH ONETIME ONE Stop: 06/04/17 13:33 Last Admin: 06/04/17 14:15 Dose: 125 mg Methylprednisolone Sodium Succinate (Solu-Medrol) 80 mg IVPUSH Q6H [facility] Methylprednisolone Sodium Succinate (Solu-Medrol) 80 mg IVPUSH Q6H [facility] Last Admin: 06/05/17 08:10 Dose: 80 mg Ondansetron HCl (Zofran) 4 mg IVPUSH Q4H PRN PRN Reason: Nausea - Exam General: Reports: Alert, Oriented, Cooperative, No Acute Distress Lungs: Reports: Clear to Auscultation, Normal Respiratory Effort, Wheezing ( scant) Cardiovascular: Reports: Regular Rate, Regular Rhythm GI/Abdominal Exam: Normal Bowel Sounds, Soft, Non-Tender, No Organomegaly, No Distention, No Abnormal Bruit, No Mass, Pelvis Stable Neurological: Reports: No New Focal Deficit Psy/Mental Status: Reports: Alert, Normal Affect, Normal Mood *Q Meaningful Use (DIS) - VTE *Q VTE Criteria *Q: - Stroke *Q Stroke Criteria *Q: - AMI *Q AMI Criteria *Q:
[2017-06-06 09:08] VITALS: BP 144/95
[2017-06-06] MEDS: Heparin Sodium 5,000 Units/ML Vial SUBCUT SCH (09:14)
[2017-06-06] MEDS ORDERED: Fluticasone Propionate Nasal Spray 16 GM Bottle NASBOTH SCH (09:15)
[2017-06-06] MEDS: methylPREDNISolone Sodium Succinate 40 MG/1 ML SDV IVPUSH SCH (09:15)
[2017-06-06] MEDS: Multivitamins with Iron/Calcium/Folic Acid/Minerals Tab PO SCH (09:15)
[2017-06-06] MEDS: Aspirin 81 MG Tab.Chew PO SCH (09:15)
[2017-06-06] MEDS: atorvaSTATin 20 MG Tab PO SCH (09:16)
[2017-06-06] MEDS: Metoprolol Succinate 25 MG Tab.ER PO SCH (09:17)
[2017-06-06] MEDS: Fluticasone/Salmeterol 250-50 MCG Inhalation Powder 14/Diskus INH SCH (09:23)
== END 2017-06-06 11:15 | disposition home or self-care (01) | DRG 192 ==
LOC: MW.ED 13:21 → MW.MS 14:26 → UNDOADMIN 15:25 → UNDODISIN 06-06 11:15
PROVIDERS: ADMIT Internal Medicine; ATTEND Internal Medicine
DX: J44.1 Chronic obstructive pulmonary disease with (acute) exacerbation (principal); R09.02 Hypoxemia; I10 Essential (primary) hypertension; I71.4 Abdominal aortic aneurysm, without rupture; E78.00 Pure hypercholesterolemia, unspecified; I25.10 Atherosclerotic heart disease of native coronary artery without angina pectoris; E11.9 Type 2 diabetes mellitus without complications; F41.9 Anxiety disorder, unspecified; Z87.891 Personal history of nicotine dependence; I25.2 Old myocardial infarction; Z87.19 Personal history of other diseases of the digestive system; Z79.899 Other long term (current) drug therapy; Z95.5 Presence of coronary angioplasty implant and graft
CPT/HCPCS: 71020; 80053; 82550; 82553; 83880; 84484; 85025; 85610; 94640; 96374; 99285; J2930; 36415; 80048; 81001; 87070; 87205; 87804; 93005; 96361; A9270-GY; J1644; J1956; J2920; J3475; J7040

== ENCOUNTER 2017-06-29 11:39 | Emergency (ER) | payer MEDICARE, OTHER ==
--- NOTE | 2017-06-29 12:08 | EDM.PDOC ---
ED HPI GENERAL MEDICAL PROBLEM - General Chief Complaint: Lower Extremity Injury/Pain Stated Complaint: SWOLLEN FOOT Time Seen by Provider: 06/29/17 12:01 Source of Information: Reports: Patient History Limitations: Reports: No Limitations - History of Present Illness INITIAL COMMENTS - FREE TEXT/NARRATIVE: HISTORY AND PHYSICAL: History of present illness: Patient is a 81-year-old female who presents to the emergency room today with complaints of left lateral foot swelling and redness 3 days. She states that she noticed slight redness and swelling that has increased over the last 3 days and is now tender to palpation. She denies any recent injury or trauma. She states she recently was placed on prednisone for a pneumonia. Review of systems: As per history of present illness and below otherwise all systems reviewed and negative. Past medical history: As per history of present illness and as reviewed below otherwise noncontributory. Surgical history: As per history of present illness and as reviewed below otherwise noncontributory. Social history: No reported history of drug or alcohol abuse. Family history: As per history of present illness and as reviewed below otherwise noncontributory. Physical exam: General: Well-developed and well-nourished 81-year-old female. Alert and oriented. Appears in no acute distress. Alert and oriented. HEENT: Atraumatic, normocephalic, pupils reactive, negative for conjunctival pallor or scleral icterus, mucous membranes moist, throat clear, neck supple, nontender, trachea midline. Lungs: Clear to auscultation, breath sounds equal bilaterally, chest nontender. Heart: S1S2, regular, negative for clicks, rubs, or JVD. Abdomen: Soft, nondistended, nontender. Negative for masses or hepatosplenomegaly. Negative for costovertebral tenderness. Pelvis: Stable nontender. Genitourinary: Deferred. Rectal: Deferred. Extremities: Atraumatic, full range of motion without difficulty or deficits, negative for cords or calf pain. Tenderness to the left lateral foot into the malleolus and callcaneous. No Foot drop. Neurovascular unremarkable. Skin: +2 edema the left ankle and foot. Erythema noted to the left lateral foot into the ankle him a, skin temperature same as rest of body. Neuro: Awake, alert, oriented. Cranial nerves II through XII unremarkable. Cerebellum unremarkable. Motor and sensory unremarkable throughout. Exam nonfocal. CBC, CMP, x-ray are normal. Uric acid is slightly elevated. Did discuss these lab results with the patient. Although the uric acid slightly elevated, I will treat with indomethacin. We discussed signs and symptoms that would prompt her to come back to the emergency room. I did sprain this to both patient and son who is at bedside. Both voice understanding and are agreeable to plan of care. Both deny any questions at this time. Diagnostics: CBC,CMP, Uric Acid, xray Therapeutics: Elevate Impression: Cellulitis, hyperuricemia Plan: 1. Keep your left lower extremity elevated, this will help decrease the swelling. 2. Take your antibiotic as prescribed. This has been electronically sent to your pharmacy, should be available for pickup. If your redness, swelling and pain should increase please return to the emergency room, you may need admission for IV antibiotics. 3. Tylenol and/or ibuprofen as needed for pain management. 4. Follow up with her primary caregiver in the next 1-2 days. Return to the ED as needed and as discussed. Definitive disposition and diagnosis as appropriate pending reevaluation and review of above. Left Feet Pain Score (Numeric/FACES): 4 - Related Data Allergies Allergy/AdvReac Type Severity Reaction Status Date / Time Opioids - Morphine Analogues Allergy Severe Respiratory Verified 06/29/17 11:51 Depression shellfish derived Allergy Cannot Verified 06/29/17 11:51 Remember Home Meds: Home Meds Albuterol [Proventil HFA] 2 puff IH QID PRN 01/27/17 [History] Metoprolol Succinate [Toprol XL] 25 mg PO DAILY 01/27/17 [History] Nitroglycerin [Nitrostat] 0.4 mg SL Q5M PRN 01/27/17 [History] Aspirin 162 mg PO DAILY 06/04/17 [History] Multivitamin [Multivitamins] 1 tab PO DAILY 06/04/17 [History] atorvaSTATin [Lipitor] 20 mg PO DAILY 06/04/17 [History] Fluticasone Propionate [Flonase] 1 gm NASBOTH DAILY #1 bottle 06/06/17 [Rx] Fluticasone/Salmeterol [Advair 250-50 Diskus] 1 each IH BID #1 disk.w.dev [Rx] predniSONE 10 mg PO .TAPER #30 tablet 06/06/17 [Rx] Aspirin 81 mg PO DAILY 06/29/17 [History] Indomethacin [Indocin] 25 mg PO BIDMEALS 10 Days #20 cap 06/29/17 [Rx] Sulfamethoxazole/Trimethoprim [Bactrim Ds Tablet] 1 each PO BID 10 Days #20 tablet 06/29/17 [Rx] Past Medical History - Past Health History Medical/Surgical History: Denies Medical/Surgical History HEENT History: Reports: Hard of Hearing, Impaired Vision Other HEENT History: wears glasses Cardiovascular History: Reports: High Cholesterol, Hypertension, [place], Stents Respiratory History: Reports: COPD, Pneumonia, Recurrent, Other (See Below) Other Respiratory History: Frequent URIs Gastrointestinal History: Reports: GERD, GI Bleed Genitourinary History: Reports: None 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: Musculoskeletal History: Reports: Arthritis Neurological History: Reports: None Psychiatric History: Reports: Anxiety Endocrine/Metabolic History: Reports: Diabetes, Type II, Obesity/BMI 30+ Other Endocrine/Metabolic History: "borderline diabetic' Hematologic History: Reports: Anemia Immunologic History: Reports: None Oncologic (Cancer) History: Reports: None Dermatologic History: Reports: None - Infectious Disease History Infectious Disease History: Reports: Measles, Mumps - Past Surgical History Head Surgeries/Procedures: Reports: None Respiratory Surgical History: Reports: None GI Surgical History: Reports: Cholecystectomy Female Surgical History: Reports: Tubal Ligation Endocrine Surgical History: Reports: None Neurological Surgical History: Reports: None Musculoskeletal Surgical History: Reports: None Oncologic Surgical History: Reports: None Dermatological Surgical History: Reports: None Social & Family History - Family History Family Medical History: Noncontributory - Tobacco Use Smoking Status *Q: Never Smoker Years of Tobacco use: 50 Used Tobacco, but Quit: Yes Month Tobacco Last Used: 07/2006 Second Hand Smoke Exposure: No - Caffeine Use Caffeine Use: Reports: Coffee - Recreational Drug Use Recreational Drug Use: No Review of Systems - Review of Systems Review Of Systems: ROS reveals no pertinent complaints other than HPI. ED EXAM, GENERAL - Physical Exam Exam: See Below (See dictation) Course - Vital Signs Last Recorded V/S: Last Vital Signs Temp 97.7 F 06/29/17 11:51 Pulse 68 06/29/17 11:51 Resp 18 06/29/17 11:51 BP 149/70 H 06/29/17 11:51 Pulse Ox 92 L 06/29/17 11:51 - Orders/Labs/Meds Orders: Active Orders 24 hr Category Date Time Status Foot 2V Lt [CR] Stat Exams 06/29/17 12:00 Taken Labs: Laboratory Tests 06/29/17 06/29/17 Range/Units 12:13 12:13 WBC 6.90 (4.0-11.0) K/uL RBC 4.64 (4.30-5.90) M/uL Hgb 13.8 (12.0-16.0) g/dL Hct 42.3 (36.0-46.0) % MCV 91.2 (80.0-98.0) fL MCH 29.7 (27.0-32.0) pg MCHC 32.6 (31.0-37.0) g/dL RDW Std Deviation 51.3 (28.0-62.0) fl RDW Coeff of Harpreet 16 H (11.0-15.0) % Plt Count 282 (150-400) K/uL MPV 10.40 (7.40-12.00) fL Add Manual Diff YES Neutrophils % (Manual) 54 (48.0-80.0) % Lymphocytes % (Manual) 24 (16.0-40.0) % Monocytes % (Manual) 10 (0.0-15.0) % Eosinophils % (Manual) 10 H (0.0-7.0) % Basophils % (Manual) 2 H (0.0-1.5) % Nucleated RBC % 0.0 /100WBC Absolute Seg Neuts 3.7 (1.4-5.7) Lymphocytes # (Manual) 1.7 (0.6-2.4) Monocytes # (Manual) 0.7 (0.0-0.8) Eosinophils # (Manual) 0.7 (0.0-0.7) Basophils # (Manual) 0.1 (0.0-0.1) Nucleated RBCs # 0 K/uL Sodium 144 (136-146) mmol/L Potassium 5.0 (3.5-5.1) mmol/L Chloride 109 (98-110) mmol/L Carbon Dioxide 27 (21-31) mmol/L BUN 16 (6.0-23.0) mg/dL Creatinine 0.9 (0.6-1.5) mg/dL Est Cr Clr Drug Dosing 38.25 mL/min Estimated GFR (MDRD) > 60.0 ml/min Glucose 101 (60-110) mg/dL Uric Acid 7.3 H (2.1-6.2) mg/dL Calcium 9.4 (8.8-10.8) mg/dL Total Bilirubin 1.0 (0.1-1.5) mg/dL AST 16 (5-40) IU/L ALT 21 (8-54) IU/L Alkaline Phosphatase 91 (40-150) Total Protein 6.6 (6.0-8.0) g/dL Albumin 4.0 (3.4-4.8) g/dL Globulin 2.6 (2.0-3.5) g/dL Albumin/Globulin Ratio 1.5 (1.3-2.8) Departure - Departure Time of Disposition: 13:11 Disposition: Home, Self-Care 01 Clinical Impression: Hyperuricemia Cellulitis Qualifiers: Site of cellulitis: extremity Site of cellulitis of extremity: lower extremity Laterality: left Qualified Code(s): L03.116 - Cellulitis of left lower limb - Discharge Information Prescriptions: Indomethacin [Indocin] 25 mg PO BIDMEALS 10 Days #20 cap Sulfamethoxazole/Trimethoprim [Bactrim Ds Tablet] 1 each PO BID 10 Days #20 tablet Referrals: PCP,None [Primary Care Provider] - Forms: ED Department Discharge Additional Instructions: My general discharge The following information is given to patients seen in the emergency department who are being discharged to home. This information is to outline your options for follow-up care. We provide all patients seen in our emergency department with a follow-up referral. The need for follow-up, as well as the timing and circumstances, are variable depending upon the specifics of your emergency department visit. If you don't have a primary care physician on staff, we will provide you with a referral. We always advise you to contact your personal physician following an emergency department visit to inform them of the circumstance of the visit and for follow-up with them and/or the need for any referrals to a consulting specialist. The emergency department will also refer you to a specialist when appropriate. This referral assures that you have the opportunity for follow-up care with a specialist. All of these measure are taken in an effort to provide you with optimal care, which includes your follow-up. Under all circumstances we always encourage you to contact your private physician who remains a resource for coordinating your care. When calling for follow-up care, please make the office aware that this follow-up is from your recent emergency room visit. If for any reason you are refused follow-up, please contact the [facility] Emergency Department at and asked to speak to the emergency department charge nurse. [facility] [address] [place] [id number] 1. Keep your left lower extremity elevated, this will help decrease the swelling. 2. Take your antibiotic as prescribed. This has been electronically sent to your pharmacy, should be available for pickup. If your redness, swelling and pain should increase please return to the emergency room, you may need admission for IV antibiotics. 3. Tylenol and/or ibuprofen as needed for pain management. 4. Follow up with her primary caregiver in the next 1-2 days. Return to the ED as needed and as discussed. - My Orders Last 24 Hours: My Active Orders 06/29/17 12:00 Foot 2V Lt [CR] Stat - Assessment/Plan Last 24 Hours: My Active Orders 06/29/17 12:00 Foot 2V Lt [CR] Stat
[2017-06-29 12:50] LABS: CHLORIDE,CL 109 mmol/L (98-110); SODIUM,NA 144 mmol/L (136-146)
[2017-06-29 13:22] VITALS: BP 144/60
--- NOTE | 2017-06-29 18:23 | CR ---
EXAM DATE: 06/29/17 PATIENT'S AGE: 81 Patient: YOBANI VERA Facility: [place], [place] Site . Site : 1935 Study: XRay Extremity Left FOOT [id number] 12:35:26 PM Ordering Physician: Doctor Smalls Final Report: INDICATION: Pain and swelling TECHNIQUE: 2 views left foot COMPARISON: None FINDINGS: Bones: Alignment is normal. No fractures. Plantar calcaneal spurring. Joint spaces: Unremarkable. Soft tissues: Soft tissue edema dorsal to the foot and ankle. IMPRESSION: Soft tissue edema dorsal to the foot and ankle. Dictated by Bud Sanchez MD @ 06/29/2017 1:10:23 PM Dictated by: Bud Sanchez MD @ 06/29/2017 13:10:41 (Electronic Signature) Report Signed by Proxy. MTDKristel
== END 2017-06-29 13:20 | disposition home or self-care (01) ==
LOC: MW.ED 11:39
DX: L03.116 Cellulitis of left lower limb (principal); E79.0 Hyperuricemia without signs of inflammatory arthritis and tophaceous disease; I10 Essential (primary) hypertension; E78.00 Pure hypercholesterolemia, unspecified; J44.9 Chronic obstructive pulmonary disease, unspecified; K21.9 Gastro-esophageal reflux disease without esophagitis; E11.9 Type 2 diabetes mellitus without complications; Z87.891 Personal history of nicotine dependence; Z79.82 Long term (current) use of aspirin; Z79.899 Other long term (current) drug therapy; Z91.013 Allergy to seafood; Z88.5 Allergy status to narcotic agent
CPT/HCPCS: 36415; 73620-26-LT; 73620-LT; 80053; 84550; 85025; 99283

== ENCOUNTER 2017-07-26 13:53 | Observation (INO) | payer MEDICARE, OTHER ==
[2017-07-26] MEDS ORDERED: Sodium Chloride 0.9% 10 ML Syringe FLUSH PRN (13:57)
[2017-07-26] MEDS ORDERED: Albuterol/Ipratropium 3.0-0.5 MG/3 ML Neb Soln NEB ONE (13:57)
[2017-07-26] MEDS ORDERED: Sodium Chloride 0.9% 2.5 ML Syringe FLUSH PRN (13:57)
--- NOTE | 2017-07-26 13:59 | EDM.PDOC ---
ED HPI GENERAL MEDICAL PROBLEM - General Chief Complaint: Respiratory Problem Stated Complaint: SOB Time Seen by Provider: 07/26/17 13:54 Source of Information: Reports: Patient History Limitations: Reports: No Limitations - History of Present Illness INITIAL COMMENTS - FREE TEXT/NARRATIVE: HISTORY AND PHYSICAL: History of present illness: Patient is a 81-year-old female who presents to the emergency room today with complaints of headache and difficulty breathing. States last night she went to bed with a headache and had taken some aspirin [id number], woke up this morning with the pain still present. Did have increased difficulty breathing and proceeded to do a nebulizer treatment and her Advair Diskus with minimal relief. Has a history of COPD, AAA, hypertension and pancreatitis. Was recently admitted to the hospital for pneumonia/COPD exacerbation on 06/04/2017. She reports that she feels that she has not "completely gotten over it" since her discharge. Doctors with Dr [facility], currently on an oral antibiotic. Denies any chest pain, abdominal pain, nausea, vomiting or diarrhea. Denies any fever or chills. Eating and drinking appropriately. Review of systems: As per history of present illness and below otherwise all systems reviewed and negative. Past medical history: As per history of present illness and as reviewed below otherwise noncontributory. Surgical history: As per history of present illness and as reviewed below otherwise noncontributory. Social history: No reported history of drug or alcohol abuse. Family history: As per history of present illness and as reviewed below otherwise noncontributory. Physical exam: Gen.: Well-developed and well-nourished 81-year-old female. Alert and oriented. Able to speak in full sentences without shortness of breath. Appears in no acute distress. HEENT: Atraumatic, normocephalic, pupils reactive, negative for conjunctival pallor or scleral icterus, mucous membranes moist, throat clear, neck supple, nontender, trachea midline. Lungs: Inspiratory and expiratory wheezing noted to all lung alvarez, breath sounds equal bilaterally, chest nontender. Heart: S1S2, regular, negative for clicks, rubs, or JVD. Abdomen: Soft, nondistended, nontender. Negative for masses or hepatosplenomegaly. Negative for costovertebral tenderness. Pelvis: Stable nontender. Genitourinary: Deferred. Rectal: Deferred. Extremities: Atraumatic, negative for cords or calf pain. Neurovascular unremarkable. Neuro: Awake, alert, oriented. Cranial nerves II through XII unremarkable. Cerebellum unremarkable. Motor and sensory unremarkable throughout. Exam nonfocal. Upon arrival the patient's oxygen saturation is 88% on room air. She does not use home O2 with her COPD. Currently at 95% on 2 L per nasal cannula. Patient was unsure of the medication she was currently taking. Nursing staff was able to talk with the pharmacist at her pharmacy and it is noted that she is taking Keflex 3 times a day, currently. Patient is unable to keep her saturation 90% on room air. Labs have returned and x-ray does not show a pneumonia. Dr. Colindres was consulted on this patient and discussed her case with him. He is agreeable to admitting this patient for observation for a COPD exacerbation. Patient is aware and agreeable to plan of care. Denies any further questions at this time. Diagnostics: CBC, CMP, BNP, 2 view chest x-ray, troponin, EKG Therapeutics: Betsyu-Francesca Barker Impression: COPD exacerbation versus pneumonia Plan: Observation admission to [facility] for COPD exacerbation Definitive disposition and diagnosis as appropriate pending reevaluation and review of above. Duration: Day(s):, Chronic Headache Pain Score (Numeric/FACES): 8 - Related Data Allergies Allergy/AdvReac Type Severity Reaction Status Date / Time Opioids - Morphine Analogues Allergy Severe Respiratory Verified 07/26/17 14:11 Depression shellfish derived Allergy Cannot Verified 07/26/17 14:11 Remember Home Meds: Home Meds Albuterol [Proventil HFA] 2 puff IH QID PRN 01/27/17 [History] Metoprolol Succinate [Toprol XL] 25 mg PO DAILY 01/27/17 [History] Nitroglycerin [Nitrostat] 0.4 mg SL Q5M PRN 01/27/17 [History] Multivitamin [Multivitamins] 1 tab PO DAILY 06/04/17 [History] atorvaSTATin [Lipitor] 20 mg PO DAILY 06/04/17 [History] Fluticasone/Salmeterol [Advair 250-50 Diskus] 14 each IH BID 07/26/17 [History] Past Medical History - Past Health History Medical/Surgical History: Denies Medical/Surgical History HEENT History: Reports: Hard of Hearing, Impaired Vision Other HEENT History: wears glasses Cardiovascular History: Reports: High Cholesterol, Hypertension, [place], Stents Respiratory History: Reports: COPD, Pneumonia, Recurrent, Other (See Below) Other Respiratory History: Frequent URIs Gastrointestinal History: Reports: GERD, GI Bleed Genitourinary History: Reports: None 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: Musculoskeletal History: Reports: Arthritis Neurological History: Reports: None Psychiatric History: Reports: Anxiety Endocrine/Metabolic History: Reports: Diabetes, Type II, Obesity/BMI 30+ Other Endocrine/Metabolic History: "borderline diabetic' Hematologic History: Reports: Anemia Immunologic History: Reports: None Oncologic (Cancer) History: Reports: None Dermatologic History: Reports: None - Infectious Disease History Infectious Disease History: Reports: Measles, Mumps - Past Surgical History Head Surgeries/Procedures: Reports: None Respiratory Surgical History: Reports: None GI Surgical History: Reports: Cholecystectomy Female Surgical History: Reports: Tubal Ligation Endocrine Surgical History: Reports: None Neurological Surgical History: Reports: None Musculoskeletal Surgical History: Reports: None Oncologic Surgical History: Reports: None Dermatological Surgical History: Reports: None Social & Family History - Family History Family Medical History: Noncontributory - Tobacco Use Smoking Status *Q: Never Smoker Years of Tobacco use: 50 Used Tobacco, but Quit: Yes Month Tobacco Last Used: 07/2006 Second Hand Smoke Exposure: No - Caffeine Use Caffeine Use: Reports: Coffee - Recreational Drug Use Recreational Drug Use: No ED ROS GENERAL - Review of Systems Review Of Systems: ROS reveals no pertinent complaints other than HPI. ED EXAM, GENERAL - Physical Exam Exam: See Below (See dictation) Course - Vital Signs Last Recorded V/S: Last Vital Signs Temp 98.5 F 07/26/17 14:07 Pulse 79 07/26/17 14:07 Resp 22 H 07/26/17 14:07 BP 164/85 H 07/26/17 14:07 Pulse Ox 88 L 07/26/17 14:07 - Orders/Labs/Meds Orders: Active Orders 24 hr Category Date Time Status Admission Status [Patient Status] [ADT] Stat ADT 07/26/17 16:22 Ordered EKG Documentation Completion [RC] STAT Care 07/26/17 13:57 Active Oxygen Therapy, ED [RC] ASDIRECTED Care 07/26/17 13:57 Active RT Aerosol Therapy [RC] ASDIRECTED Care 07/26/17 13:57 Active Sodium Chloride 0.9% [Saline Flush] Med 07/26/17 13:57 Active 10 ml FLUSH ASDIRECTED PRN Sodium Chloride 0.9% [Saline Flush] Med 07/26/17 13:57 Active 2.5 ml FLUSH ASDIRECTED PRN Saline Lock Insert [OM.PC] Stat Oth 07/26/17 13:57 Ordered Medication Orders Sodium Chloride (Saline Flush) 10 ml FLUSH ASDIRECTED PRN PRN Reason: Keep Vein Open Sodium Chloride (Saline Flush) 2.5 ml FLUSH ASDIRECTED PRN PRN Reason: Keep Vein Open Labs: Laboratory Tests 07/26/17 07/26/17 07/26/17 Range/Units 14:22 14:22 14:22 WBC 7.66 (4.0-11.0) K/uL RBC 4.84 (4.30-5.90) M/uL Hgb 14.2 (12.0-16.0) g/dL Hct 43.5 (36.0-46.0) % MCV 89.9 (80.0-98.0) fL MCH 29.3 (27.0-32.0) pg MCHC 32.6 (31.0-37.0) g/dL RDW Std Deviation 48.3 (28.0-62.0) fl RDW Coeff of Harpreet 15 (11.0-15.0) % Plt Count 300 (150-400) K/uL MPV 10.10 (7.40-12.00) fL Neut % (Auto) 49.2 (48.0-80.0) % Lymph % (Auto) 33.2 (16.0-40.0) % Merrick % (Auto) 7.0 (0.0-15.0) % Eos % (Auto) 9.4 H (0.0-7.0) % Baso % (Auto) 1.2 (0.0-1.5) % Neut # (Auto) 3.8 (1.4-5.7) K/uL Lymph # (Auto) 2.5 H (0.6-2.4) K/uL Merrick # (Auto) 0.5 (0.0-0.8) K/uL Eos # (Auto) 0.7 (0.0-0.7) K/uL Baso # (Auto) 0.1 (0.0-0.1) K/uL Nucleated RBC % 0.0 /100WBC Nucleated RBCs # 0 K/uL Sodium 142 (136-146) mmol/L Potassium 4.2 (3.5-5.1) mmol/L Chloride 108 (98-110) mmol/L Carbon Dioxide 23 (21-31) mmol/L BUN 11 (6.0-23.0) mg/dL Creatinine 0.8 (0.6-1.5) mg/dL Est Cr Clr Drug Dosing 43.03 mL/min Estimated GFR (MDRD) > 60.0 ml/min Glucose 116 H (60-110) mg/dL Calcium 9.7 (8.8-10.8) mg/dL Total Bilirubin 0.8 (0.1-1.5) mg/dL AST 15 (5-40) IU/L ALT 15 (8-54) IU/L Alkaline Phosphatase 100 (40-150) Troponin I (0.0-0.29) NG/ML B-Natriuretic Peptide 259 H (<100) PG/ML Total Protein 7.3 (6.0-8.0) g/dL Albumin 4.2 (3.4-4.8) g/dL Globulin 3.1 (2.0-3.5) g/dL Albumin/Globulin Ratio 1.4 (1.3-2.8) 07/26/17 Range/Units 14:22 WBC (4.0-11.0) K/uL RBC (4.30-5.90) M/uL Hgb (12.0-16.0) g/dL Hct (36.0-46.0) % MCV (80.0-98.0) fL MCH (27.0-32.0) pg MCHC (31.0-37.0) g/dL RDW Std Deviation (28.0-62.0) fl RDW Coeff of Harpreet (11.0-15.0) % Plt Count (150-400) K/uL MPV (7.40-12.00) fL Neut % (Auto) (48.0-80.0) % Lymph % (Auto) (16.0-40.0) % Merrick % (Auto) (0.0-15.0) % Eos % (Auto) (0.0-7.0) % Baso % (Auto) (0.0-1.5) % Neut # (Auto) (1.4-5.7) K/uL Lymph # (Auto) (0.6-2.4) K/uL Merrick # (Auto) (0.0-0.8) K/uL Eos # (Auto) (0.0-0.7) K/uL Baso # (Auto) (0.0-0.1) K/uL Nucleated RBC % /100WBC Nucleated RBCs # K/uL Sodium (136-146) mmol/L Potassium (3.5-5.1) mmol/L Chloride (98-110) mmol/L Carbon Dioxide (21-31) mmol/L BUN (6.0-23.0) mg/dL Creatinine (0.6-1.5) mg/dL Est Cr Clr Drug Dosing mL/min Estimated GFR (MDRD) ml/min Glucose (60-110) mg/dL Calcium (8.8-10.8) mg/dL Total Bilirubin (0.1-1.5) mg/dL AST (5-40) IU/L ALT (8-54) IU/L Alkaline Phosphatase (40-150) Troponin I < 0.10 (0.0-0.29) NG/ML B-Natriuretic Peptide (<100) PG/ML Total Protein (6.0-8.0) g/dL Albumin (3.4-4.8) g/dL Globulin (2.0-3.5) g/dL Albumin/Globulin Ratio (1.3-2.8) Meds: Medications Generic Name Dose Route Start Last Admin Trade Name Freq PRN Reason Stop Dose Admin Sodium Chloride 10 ml 07/26/17 13:57 Saline Flush FLUSH ASDIRECTED PRN Keep Vein Open Sodium Chloride 2.5 ml 07/26/17 13:57 Saline Flush FLUSH ASDIRECTED PRN Keep Vein Open Discontinued Medications Generic Name Dose Route Start Last Admin Trade Name Freq PRN Reason Stop Dose Admin Albuterol/Ipratropium 3 ml 07/26/17 13:57 07/26/17 15:03 Duoneb 3.0-0.5 Mg/3 Ml NEB 07/26/17 13:58 3 ml ONETIME ONE Administration Ketorolac Tromethamine 30 mg 07/26/17 15:12 07/26/17 15:26 Toradol IVPUSH 07/26/17 15:13 30 mg ONETIME ONE Administration Methylprednisolone Sodium Succinate 125 mg 07/26/17 14:30 07/26/17 15:28 Solu-Medrol IVPUSH 07/26/17 14:31 125 mg ONETIME ONE Administration Departure - Departure Time of Disposition: 16:26 Disposition: Refer to Observation Clinical Impression: COPD exacerbation - Discharge Information Referrals: PCP,None [Primary Care Provider] - Forms: ED Department Discharge - My Orders Last 24 Hours: My Active Orders 07/26/17 13:57 EKG Documentation Completion [RC] STAT Oxygen Therapy, ED [RC] ASDIRECTED RT Aerosol Therapy [RC] ASDIRECTED Sodium Chloride 0.9% [Saline Flush] 10 ml FLUSH ASDIRECTED PRN Sodium Chloride 0.9% [Saline Flush] 2.5 ml FLUSH ASDIRECTED PRN Saline Lock Insert [OM.PC] Stat 07/26/17 16:22 Admission Status [Patient Status] [ADT] Stat - Assessment/Plan Last 24 Hours: My Active Orders 07/26/17 13:57 EKG Documentation Completion [RC] STAT Oxygen Therapy, ED [RC] ASDIRECTED RT Aerosol Therapy [RC] ASDIRECTED Sodium Chloride 0.9% [Saline Flush] 10 ml FLUSH ASDIRECTED PRN Sodium Chloride 0.9% [Saline Flush] 2.5 ml FLUSH ASDIRECTED PRN Saline Lock Insert [OM.PC] Stat 07/26/17 16:22 Admission Status [Patient Status] [ADT] Stat
[2017-07-26] MEDS ORDERED: methylPREDNISolone Sodium Succinate 125 MG/2 ML SDV IVPUSH ONE (14:30)
[2017-07-26 14:55] LABS: CHLORIDE,CL 108 mmol/L (98-110); SODIUM,NA 142 mmol/L (136-146)
[2017-07-26] MEDS ORDERED: Ketorolac 30 MG/ML SDV IVPUSH ONE (15:12)
--- NOTE | 2017-07-26 16:15 | CR ---
EXAMINATION: Two-view chest (PA and Lateral views). HISTORY: Shortness of breath. Comparison: 06/04/2017. FINDINGS: The trachea is midline. The cardiomediastinal silhouette is stable. No pulmonary infiltrates, effusio ns or pneumothorax. Osseous structures appear osteopenic. Degenerative changes noted within the shoulders bilaterally. IMPRESSION: No acute cardiopulmonary process.
--- NOTE | 2017-07-26 17:16 | PCM.HP ---
H&P History of Present Illness - General Date of Service: 07/26/17 Admit Problem/Dx: Admission Diagnosis/Problem Admission Diagnosis/Problem Chronic obstructive pulmonary disease with acute exacerbation Source of Information: Patient History Limitations: Reports: No Limitations - History of Present Illness Initial Comments - Free Text/Narative: This 81 year old female with pmh of COPD, CAD, AAA, HTN and gallstone pancreatitis presented to the ED with complaints of SOB and cough. She was admitted around [facility] and reports she just hasn't felt completely better since. She saw Dr Coyne on July 19, in which she had no respiratory complaints at all. She was started on Keflex TID for erythema noted to her L ankle. She reports she was given this for pneumonia. She does confirm her ankle was a little red and swollen but is since better. She reports she has had a cough, with SOB, light green phlegm. She denies chest pain. Some sinus congestion, headaches and generally not feeling well. She reports some ladies at the [place], where she lives, have influenza. She reports she did get vaccinated for influenza this year. She denies abdominal pain, urinary symptoms diarrhea or constipation. In the ED, no leukocytosis was noted, BMP WNL, CXR was negative. She was noted to be hypoxic at 88% on RA, she was placed on 2 L NC and has been satting mid 90s. She was unable to be weaned from oxygen after Duonebs and Solumedrol. She was given Toradol 30 mg for headache, which she reports is nearly gone now. She will be admitted for dypsnea and hypoxia, suspected mild COPD exacerbation. PCP, Dr Coyne. Headache Pain Score (Numeric/FACES): 8 - Related Data Allergies/Adverse Reactions: Allergies Allergy/AdvReac Type Severity Reaction Status Date / Time Opioids - Morphine Analogues Allergy Severe Respiratory Verified 07/26/17 14:11 Depression shellfish derived Allergy Cannot Verified 07/26/17 14:11 Remember Home Medications: Home Meds Albuterol [Proventil HFA] 2 puff IH QID PRN 01/27/17 [History] Metoprolol Succinate [Toprol XL] 25 mg PO DAILY 01/27/17 [History] Nitroglycerin [Nitrostat] 0.4 mg SL Q5M PRN 01/27/17 [History] Multivitamin [Multivitamins] 1 tab PO DAILY 06/04/17 [History] atorvaSTATin [Lipitor] 20 mg PO DAILY 06/04/17 [History] Fluticasone/Salmeterol [Advair 250-50 Diskus] 14 each IH BID 07/26/17 [History] Past Medical History - Past Health History Medical/Surgical History: Denies Medical/Surgical History HEENT History: Reports: Hard of Hearing, Impaired Vision Other HEENT History: wears glasses Cardiovascular History: Reports: High Cholesterol, Hypertension, [place], Stents Respiratory History: Reports: COPD, Pneumonia, Recurrent, Other (See Below) Other Respiratory History: Frequent URIs Gastrointestinal History: Reports: GERD, GI Bleed Genitourinary History: Reports: None VALVE SETTER History: Reports: Musculoskeletal History: Reports: Arthritis Neurological History: Reports: None Psychiatric History: Reports: Anxiety Endocrine/Metabolic History: Reports: Diabetes, Type II, Obesity/BMI 30+ Other Endocrine/Metabolic History: "borderline diabetic' Hematologic History: Reports: Anemia Immunologic History: Reports: None Oncologic (Cancer) History: Reports: None Dermatologic History: Reports: None - Infectious Disease History Infectious Disease History: Reports: Measles, Mumps - Past Surgical History Head Surgeries/Procedures: Reports: None Respiratory Surgical History: Reports: None GI Surgical History: Reports: Cholecystectomy Female Surgical History: Reports: Tubal Ligation Endocrine Surgical History: Reports: None Neurological Surgical History: Reports: None Musculoskeletal Surgical History: Reports: None Oncologic Surgical History: Reports: None Dermatological Surgical History: Reports: None Social & Family History - Family History Family Medical History: Noncontributory - Tobacco Use Smoking Status *Q: Never Smoker Years of Tobacco use: 50 Used Tobacco, but Quit: Yes Month Tobacco Last Used: 07/2006 Second Hand Smoke Exposure: No - Caffeine Use Caffeine Use: Reports: Coffee - Recreational Drug Use Recreational Drug Use: No H&P Review of Systems - Review of Systems: Review Of Systems: See Below General: Reports: Malaise HEENT: Reports: Headaches, Sinus Congestion. Denies: Ear Pain, Sore Throat, Vertigo, Visual Changes Pulmonary: Reports: Shortness of Breath, Wheezing, Cough, Sputum (light green) Cardiovascular: Reports: No Symptoms. Denies: Chest Pain, Palpitations, Edema, Lightheadedness Gastrointestinal: Reports: No Symptoms. Denies: Abdominal Pain, Black Stool, Bloody Stool, Nausea, Vomiting Genitourinary: Reports: No Symptoms. Denies: Dysuria, Frequency, Burning, Pain , Urgency Musculoskeletal: Reports: No Symptoms Skin: Reports: No Symptoms Neurological: Reports: No Symptoms. Denies: Confusion Hematologic/Lymphatic: Reports: No Symptoms Immunologic: Reports: No Symptoms Exam - Exam Exam: See Below - Vital Signs Vital Signs: Last Vital Signs Temp 98.5 F 07/26/17 14:07 Pulse 79 07/26/17 14:07 Resp 22 H 07/26/17 14:07 BP 164/85 H 07/26/17 14:07 Pulse Ox 96 07/26/17 14:30 Weight: 90.718 kg - Exam Quality Assessment: Supplemental Oxygen, DVT Prophylaxis General: Alert, Oriented, Cooperative HEENT: Conjunctiva Clear, Mucosa Moist & [place], Posterior Pharynx Clear Neck: Supple, Trachea Midline, Full Range of Motion. No: Lymphadenopathy Lungs: Normal Respiratory Effort, Wheezing (scant wheezing to upper lung alvarez) Cardiovascular: Regular Rate, Regular Rhythm, Normal S1, Normal S2. No: Irregular Rhythm, Systolic Murmur GI/Abdominal Exam: Normal Bowel Sounds, Soft, Non-Tender, No Organomegaly, No Distention, No Abnormal Bruit, No Mass, Pelvis Stable Extremities: Normal Inspection, Normal Range of Motion, Non-Tender, Normal Capillary Refill, Pedal Edema (Scant to +1 edema to bilateral lower legs.) Neuro Extensive - Mental Status: Alert, Oriented x3, Normal Mood/Affect, Normal Cognition Neuro Extensive - Motor, Sensory, Reflexes: CN II-XII Intact, Normal Gait, Normal Reflexes Psychiatric: Alert, Normal Affect, Normal Mood - Patient Data Lab Results Last 24 hrs: Laboratory Results - last 24 hr 07/26/17 07/26/17 07/26/17 Range/Units 14:22 14:22 14:22 WBC 7.66 (4.0-11.0) K/uL RBC 4.84 (4.30-5.90) M/uL Hgb 14.2 (12.0-16.0) g/dL Hct 43.5 (36.0-46.0) % MCV 89.9 (80.0-98.0) fL MCH 29.3 (27.0-32.0) pg MCHC 32.6 (31.0-37.0) g/dL RDW Std Deviation 48.3 (28.0-62.0) fl RDW Coeff of Harpreet 15 (11.0-15.0) % Plt Count 300 (150-400) K/uL MPV 10.10 (7.40-12.00) fL Neut % (Auto) 49.2 (48.0-80.0) % Lymph % (Auto) 33.2 (16.0-40.0) % [place] % (Auto) 7.0 (0.0-15.0) % Eos % (Auto) 9.4 H (0.0-7.0) % Baso % (Auto) 1.2 (0.0-1.5) % Neut # (Auto) 3.8 (1.4-5.7) K/uL Lymph # (Auto) 2.5 H (0.6-2.4) K/uL [place] # (Auto) 0.5 (0.0-0.8) K/uL Eos # (Auto) 0.7 (0.0-0.7) K/uL Baso # (Auto) 0.1 (0.0-0.1) K/uL Nucleated RBC % 0.0 /100WBC Nucleated RBCs # 0 K/uL Sodium 142 (136-146) mmol/L Potassium 4.2 (3.5-5.1) mmol/L Chloride 108 (98-110) mmol/L Carbon Dioxide 23 (21-31) mmol/L BUN 11 (6.0-23.0) mg/dL Creatinine 0.8 (0.6-1.5) mg/dL Est Cr Clr Drug Dosing 43.03 mL/min Estimated GFR (MDRD) > 60.0 ml/min Glucose 116 H (60-110) mg/dL Calcium 9.7 (8.8-10.8) mg/dL Total Bilirubin 0.8 (0.1-1.5) mg/dL AST 15 (5-40) IU/L ALT 15 (8-54) IU/L Alkaline Phosphatase 100 (40-150) Troponin I (0.0-0.29) NG/ML B-Natriuretic Peptide 259 H (<100) PG/ML Total Protein 7.3 (6.0-8.0) g/dL Albumin 4.2 (3.4-4.8) g/dL Globulin 3.1 (2.0-3.5) g/dL Albumin/Globulin Ratio 1.4 (1.3-2.8) 07/26/17 Range/Units 14:22 WBC (4.0-11.0) K/uL RBC (4.30-5.90) M/uL Hgb (12.0-16.0) g/dL Hct (36.0-46.0) % MCV (80.0-98.0) fL MCH (27.0-32.0) pg MCHC (31.0-37.0) g/dL RDW Std Deviation (28.0-62.0) fl RDW Coeff of Harpreet (11.0-15.0) % Plt Count (150-400) K/uL MPV (7.40-12.00) fL Neut % (Auto) (48.0-80.0) % Lymph % (Auto) (16.0-40.0) % [place] % (Auto) (0.0-15.0) % Eos % (Auto) (0.0-7.0) % Baso % (Auto) (0.0-1.5) % Neut # (Auto) (1.4-5.7) K/uL Lymph # (Auto) (0.6-2.4) K/uL [place] # (Auto) (0.0-0.8) K/uL Eos # (Auto) (0.0-0.7) K/uL Baso # (Auto) (0.0-0.1) K/uL Nucleated RBC % /100WBC Nucleated RBCs # K/uL Sodium (136-146) mmol/L Potassium (3.5-5.1) mmol/L Chloride (98-110) mmol/L Carbon Dioxide (21-31) mmol/L BUN (6.0-23.0) mg/dL Creatinine (0.6-1.5) mg/dL Est Cr Clr Drug Dosing mL/min Estimated GFR (MDRD) ml/min Glucose (60-110) mg/dL Calcium (8.8-10.8) mg/dL Total Bilirubin (0.1-1.5) mg/dL AST (5-40) IU/L ALT (8-54) IU/L Alkaline Phosphatase (40-150) Troponin I < 0.10 (0.0-0.29) NG/ML B-Natriuretic Peptide (<100) PG/ML Total Protein (6.0-8.0) g/dL Albumin (3.4-4.8) g/dL Globulin (2.0-3.5) g/dL Albumin/Globulin Ratio (1.3-2.8) Result Diagrams: 07/26/17 14:22 07/26/17 14:22 *Q Meaningful Use (ADM) - VTE *Q VTE Criteria *Q: - Stroke *Q Stroke Criteria *Q: - AMI *Q AMI Criteria *Q: - Problem List (1) Hypoxia SNOMED Code(s): 712004521 ICD Code: R09.02 - HYPOXEMIA Status: Acute Current Visit: No (2) COPD exacerbation SNOMED Code(s): 554013138909182 ICD Code: J44.1 - CHRONIC OBSTRUCTIVE PULMONARY DISEASE W (ACUTE) EXACERBATION Status: Acute Current Visit: Yes (3) CAD (coronary artery disease) SNOMED Code(s): 16630480 ICD Code: I25.10 - ATHSCL HEART DISEASE OF [place] CORONARY ARTERY W/O ANG PCTRS Status: Chronic Current Visit: Yes Qualifiers: Coronary Disease-Associated Artery/Lesion type: [place] artery [place] vs. transplanted heart: [place] heart Associated angina: without angina Qualified Code(s): I25.10 - Atherosclerotic heart disease of [place] coronary artery without angina pectoris (4) Hypertension SNOMED Code(s): 22927950 ICD Code: I10 - ESSENTIAL (PRIMARY) HYPERTENSION Status: Chronic Priority : Medium Current Visit: No Qualifiers: Hypertension type: essential hypertension Qualified Code(s): I10 - Essential (primary) hypertension (5) Hx of pancreatitis SNOMED Code(s): 12214547629072 ICD Code: Z87.19 - PERSONAL HISTORY OF OTHER DISEASES OF THE DIGESTIVE SYSTEM Status: Chronic Current Visit: No Problem Details: gallstone induced (6) Abdominal aortic aneurysm (AAA) SNOMED Code(s): 898159525 ICD Code: I71.4 - ABDOMINAL AORTIC ANEURYSM, WITHOUT RUPTURE Status: Chronic Current Visit: No Qualifiers: Presence of rupture: without rupture Qualified Code(s): I71.4 - Abdominal aortic aneurysm, without rupture Problem List Initiated/Reviewed/Updated: Yes Orders Last 24hrs: Active Orders 24 hr Category Date Time Status Admission Status [Patient Status] [ADT] Stat ADT 07/26/17 16:22 Active EKG Documentation Completion [RC] STAT Care 07/26/17 13:57 Active Oxygen Therapy, ED [RC] ASDIRECTED Care 07/26/17 13:57 Active RT Aerosol Therapy [RC] ASDIRECTED Care 07/26/17 13:57 Active INFLUENZA A+B AG SCREEN [RM] Stat Lab 07/26/17 17:04 Ordered Sodium Chloride 0.9% [Saline Flush] Med 07/26/17 13:57 Active 10 ml FLUSH ASDIRECTED PRN Sodium Chloride 0.9% [Saline Flush] Med 07/26/17 13:57 Active 2.5 ml FLUSH ASDIRECTED PRN Saline Lock Insert [OM.PC] Stat Oth 07/26/17 13:57 Ordered Medication Orders Sodium Chloride (Saline Flush) 10 ml FLUSH ASDIRECTED PRN PRN Reason: Keep Vein Open Sodium Chloride (Saline Flush) 2.5 ml FLUSH ASDIRECTED PRN PRN Reason: Keep Vein Open Assessment/Plan Comment:: This 81 year old female admitted with mild COPD exacerbation, hypoxia and dyspnea 1. Mild COPD exacerbation: No suspected pneumonia. Influenza negative. Cover with Prednisone 40 mg daily PO, Duonebs and attempt to wean oxygen as possible. Continue Advair. 2. HTN: Stable, Continue Metoprolol XL 3. CAD: Stable, continue statin. VTE prophylaxis: Lovenox Dispo: 2 days pending improvement
[2017-07-26] MEDS ORDERED: Albuterol 0.083% 2.5 MG/3 ML Neb Soln NEB PRN (17:28)
[2017-07-26] MEDS ORDERED: Acetaminophen 325 MG Tab PO PRN (17:28)
[2017-07-26] MEDS: Albuterol/Ipratropium 3.0-0.5 MG/3 ML Neb Soln NEB SCH ×2 (18:58→21:46)
[2017-07-26] MEDS: Fluticasone/Salmeterol 250-50 MCG Inhalation Powder 14/Diskus INH SCH (21:45)
[2017-07-27] MEDS: Albuterol/Ipratropium 3.0-0.5 MG/3 ML Neb Soln NEB SCH ×3 (02:36→09:48)
[2017-07-27 06:39] LABS: CHLORIDE,CL 109 mmol/L (98-110); SODIUM,NA 140 mmol/L (136-146)
[2017-07-27] MEDS ORDERED: predniSONE 20 MG Tab PO SCH (08:00)
[2017-07-27] MEDS ORDERED: Enoxaparin 30 MG/0.3 ML Syringe SUBCUT SCH (09:00)
[2017-07-27] MEDS ORDERED: atorvaSTATin 20 MG Tab PO SCH (09:00)
[2017-07-27] MEDS ORDERED: Multivitamins with Iron/Calcium/Folic Acid/Minerals Tab PO SCH (09:00)
[2017-07-27] MEDS ORDERED: Metoprolol Succinate 25 MG Tab.ER PO SCH (09:00)
--- NOTE | 2017-07-27 10:36 | PCM.DCSUM1 ---
Discharge Summary - Hospital Course Brief History: This 81 year old female with pmh of COPD, CAD, AAA, HTN and gallstone pancreatitis presented to the ED with complaints of SOB and cough. She was admitted around [facility] and reports she just hasn't felt completely better since. She saw Dr Coyne on July 19, in which she had no respiratory complaints at all. She was started on Keflex TID for erythema noted to her L ankle. She reports she was given this for pneumonia. She does confirm her ankle was a little red and swollen but is since better. She reports she has had a cough, with SOB, light green phlegm. She denies chest pain. Some sinus congestion, headaches and generally not feeling well. She reports some ladies at the [place], where she lives, have influenza. She reports she did get vaccinated for influenza this year. She denies abdominal pain, urinary symptoms diarrhea or constipation. In the ED, no leukocytosis was noted, BMP WNL, CXR was negative. She was noted to be hypoxic at 88% on RA, she was placed on 2 L NC and has been satting mid 90s. She was unable to be weaned from oxygen after Duonebs and Solumedrol. She was given Toradol 30 mg for headache, which she reports is nearly gone now. She will be admitted for dypsnea and hypoxia, suspected mild COPD exacerbation. - Discharge Data Discharge Date: 07/27/17 Discharge Disposition: Home, Self-Care 01 Condition: Good - Discharge Diagnosis/Problem(s) (1) Hypoxia SNOMED Code(s): 831553639 ICD Code: R09.02 - HYPOXEMIA Status: Acute Current Visit: No (2) COPD exacerbation SNOMED Code(s): 530705115923162 ICD Code: J44.1 - CHRONIC OBSTRUCTIVE PULMONARY DISEASE W (ACUTE) EXACERBATION Status: Acute Current Visit: Yes (3) CAD (coronary artery disease) SNOMED Code(s): 10350245 ICD Code: I25.10 - ATHSCL HEART DISEASE OF [place] CORONARY ARTERY W/O ANG PCTRS Status: Chronic Current Visit: Yes Qualifiers: Coronary Disease-Associated Artery/Lesion type: [place] artery [place] vs. transplanted heart: [place] heart Associated angina: without angina Qualified Code(s): I25.10 - Atherosclerotic heart disease of [place] coronary artery without angina pectoris (4) Hypertension SNOMED Code(s): 10020664 ICD Code: I10 - ESSENTIAL (PRIMARY) HYPERTENSION Status: Chronic Priority : Medium Current Visit: No Qualifiers: Hypertension type: essential hypertension Qualified Code(s): I10 - Essential (primary) hypertension (5) Hx of pancreatitis SNOMED Code(s): 90743903978346 ICD Code: Z87.19 - PERSONAL HISTORY OF OTHER DISEASES OF THE DIGESTIVE SYSTEM Status: Chronic Current Visit: No Problem Details: gallstone induced (6) Abdominal aortic aneurysm (AAA) SNOMED Code(s): 541371238 ICD Code: I71.4 - ABDOMINAL AORTIC ANEURYSM, WITHOUT RUPTURE Status: Chronic Current Visit: No Qualifiers: Presence of rupture: without rupture Qualified Code(s): I71.4 - Abdominal aortic aneurysm, without rupture - Patient Instructions Diet: Heart Healthy Diet Activity: As Tolerated, No Strenuous Activities Driving: May Drive Today Showering/Bathing: May Shower Notify Provider of: Fever, Increased Pain, Swelling and Redness, Drainage, Nausea and/or Vomiting - Discharge Plan Prescriptions/Med Rec: Cephalexin [Keflex] 500 mg PO Q8H #1 cap Prednisone [IJD: predniSONE] 40 mg PO WITHBREAKFAST #10 tablet Home Medications: Home Meds Albuterol [Proventil HFA] 2 puff IH QID PRN 01/27/17 [History] Metoprolol Succinate [Toprol XL] 25 mg PO DAILY 01/27/17 [History] Nitroglycerin [Nitrostat] 0.4 mg SL Q5M PRN 01/27/17 [History] Multivitamin [Multivitamins] 1 tab PO DAILY 06/04/17 [History] atorvaSTATin [Lipitor] 20 mg PO DAILY 06/04/17 [History] Fluticasone/Salmeterol [Advair 250-50 Diskus] 14 each IH BID 07/26/17 [History] Cephalexin [Keflex] 500 mg PO Q8H #1 cap 07/27/17 [Rx] Prednisone [IJD: predniSONE] 40 mg PO WITHBREAKFAST #10 tablet 07/27/17 [Rx] Referrals: Son Coyne MD [Physician] - (1 week) - Discharge Summary/Plan Comment DC Time >30 min.: No Discharge Summary/Plan Comment: Discharge Diagnoses: Mild COPD exacerbation HTN CAD Hx AAA Lisa was admitted and monitored overnight due to some mild hypoxia noted in the ED, 88%. ED provider felt she should be monitored. CXR negative for pneumonia. Patient was treated with Duonebs and weaned off oxygen. THis morning she was 93-95% on RA and requesting to be discharged home. She is feeling much better and feels she is ready for discharge. She reports she has PFTs scheduled with through Dr Coyne after her last appointment with him on july 19. She will be sent home on Prednison 40 mg x 5 days only, due to mild dyspnea and wheezing noted. She is to continue Keflex Dr Coyne ordered for erythema to L ankle, which is nearly gone now. She denies any concerns at this time. Daughter , Genevieve, at bedside also has no questions. She is to return to PCP in 1 week for follow up and encouraged to return to ED or clinic if concerns should arise. - General Info Date of Service: 07/27/17 Admission Dx/Problem (Free Text: Admission Diagnosis/Problem Admission Diagnosis/Problem Chronic obstructive pulmonary disease with acute exacerbation Subjective Update: Sitting in recliner, has no compaints, except that she wants to be discharged. Denies chest pain or SOB. little cough and sinus congestion, but that is all. Functional Status: Reports: Pain Controlled, Tolerating Diet, Ambulating, Urinating - Review of Systems General: Reports: No Symptoms. Denies: Fever HEENT: Reports: Sinus Congestion. Denies: Headaches, Sore Throat, Visual Changes Pulmonary: Reports: No Symptoms. Denies: Shortness of Breath, Cough, Sputum Cardiovascular: Reports: No Symptoms. Denies: Chest Pain, Palpitations, Edema Gastrointestinal: Reports: No Symptoms. Denies: Abdominal Pain, Nausea, Vomiting Genitourinary: Reports: No Symptoms. Denies: Dysuria, Frequency, Burning Neurological: Reports: No Symptoms. Denies: Confusion Psychiatric: Reports: No Symptoms. Denies: Confusion - Patient Data Vitals - Most Recent: Last Vital Signs Temp 97.4 F 07/27/17 08:17 Pulse 88 07/27/17 08:17 Resp 22 H 07/27/17 08:17 BP 130/55 L 07/27/17 08:17 Pulse Ox 95 07/27/17 08:17 Weight - Most Recent: 88.3 kg I&O - Last 24 hours: Intake & Output 07/26/17 07/27/17 07/27/17 22:59 06:59 14:59 Intake Total 150 Output Total 850 Balance -700 Lab Results - Last 24 hrs: Laboratory Results - last 24 hr 07/27/17 07/27/17 Range/Units 06:05 06:05 WBC 7.97 (4.0-11.0) K/uL RBC 4.30 (4.30-5.90) M/uL Hgb 12.3 (12.0-16.0) g/dL Hct 38.4 (36.0-46.0) % MCV 89.3 (80.0-98.0) fL MCH 28.6 (27.0-32.0) pg MCHC 32.0 (31.0-37.0) g/dL RDW Std Deviation 48.0 (28.0-62.0) fl RDW Coeff of Harpreet 15 (11.0-15.0) % Plt Count 311 (150-400) K/uL MPV 10.00 (7.40-12.00) fL Neut % (Auto) 85.6 H (48.0-80.0) % Lymph % (Auto) 12.3 L (16.0-40.0) % [place] % (Auto) 2.0 (0.0-15.0) % Eos % (Auto) 0.0 (0.0-7.0) % Baso % (Auto) 0.1 (0.0-1.5) % Neut # (Auto) 6.8 H (1.4-5.7) K/uL Lymph # (Auto) 1.0 (0.6-2.4) K/uL [place] # (Auto) 0.2 (0.0-0.8) K/uL Eos # (Auto) 0.0 (0.0-0.7) K/uL Baso # (Auto) 0.0 (0.0-0.1) K/uL Nucleated RBC % 0.0 /100WBC Nucleated RBCs # 0 K/uL Sodium 140 (136-146) mmol/L Potassium 4.4 (3.5-5.1) mmol/L Chloride 109 (98-110) mmol/L Carbon Dioxide 21 (21-31) mmol/L BUN 19 (6.0-23.0) mg/dL Creatinine 0.9 (0.6-1.5) mg/dL Est Cr Clr Drug Dosing 38.25 mL/min Estimated GFR (MDRD) > 60.0 ml/min Glucose 198 H (60-110) mg/dL Calcium 9.3 (8.8-10.8) mg/dL LESTER Results - Last 24 hrs: Microbiology 07/26/17 17:10 Influenza Type A Antigen Screen - Final Nasopharyngeal Swab NEGATIVE INFLUENZA A VIRUS AG Influenza Type B Antigen Screen - Final NEGATIVE INFLUENZA B VIRUS AG Med Orders - Current: Current Medications Acetaminophen (Tylenol) 650 mg PO Q4H PRN PRN Reason: Pain (mild 1-3) Albuterol (Proventil Neb Soln) 2.5 mg NEB Q2HR PRN PRN Reason: Shortness Of Breath/wheezing Albuterol/Ipratropium (Duoneb 3.0-0.5 Mg/3 Ml) 3 ml NEB Q4HRRT [facility] Last Admin: 07/27/17 09:48 Dose: 3 ml Atorvastatin Calcium (Lipitor) 20 mg PO DAILY [facility] Last Admin: 07/27/17 08:07 Dose: 20 mg Enoxaparin Sodium (Lovenox) 30 mg SUBCUT DAILY [facility] Last Admin: 07/27/17 08:07 Dose: 30 mg Metoprolol Succinate (Toprol Xl) 25 mg PO DAILY [facility] Last Admin: 07/27/17 08:06 Dose: 25 mg Multivitamins/Minerals (Thera M Plus) 1 tab PO DAILY [facility] Last Admin: 07/27/17 08:06 Dose: 1 tab Prednisone (Prednisone) 40 mg PO WITHBREAKFAST [facility] Last Admin: 07/27/17 08:07 Dose: 40 mg Fluticasone/Salmeterol (Advair Diskus 250-50) 1 puff INH BID [facility] Last Admin: 07/26/17 21:45 Dose: 1 inhalation Sodium Chloride (Saline Flush) 10 ml FLUSH ASDIRECTED PRN PRN Reason: Keep Vein Open Sodium Chloride (Saline Flush) 2.5 ml FLUSH ASDIRECTED PRN PRN Reason: Keep Vein Open Discontinued Medications Albuterol/Ipratropium (Duoneb 3.0-0.5 Mg/3 Ml) 3 ml NEB ONETIME ONE Stop: 07/26/17 13:58 Last Admin: 07/26/17 15:03 Dose: 3 ml Ketorolac Tromethamine (Toradol) 30 mg IVPUSH ONETIME ONE Stop: 07/26/17 15:13 Last Admin: 07/26/17 15:26 Dose: 30 mg Methylprednisolone Sodium Succinate (Solu-Medrol) 125 mg IVPUSH ONETIME ONE Stop: 07/26/17 14:31 Last Admin: 07/26/17 15:28 Dose: 125 mg - Exam Quality Assessment: Denies: Supplemental Oxygen General: Reports: Alert, Oriented, Cooperative, No Acute Distress Lungs: Reports: Clear to Auscultation, Normal Respiratory Effort Cardiovascular: Reports: Regular Rate, Regular Rhythm GI/Abdominal Exam: Normal Bowel Sounds, Soft, Non-Tender, No Organomegaly, No Distention, No Abnormal Bruit, No Mass, Pelvis Stable Back Exam: Reports: Normal Inspection, Full Range of Motion Extremities: Normal Inspection, Normal Range of Motion, Non-Tender, No Pedal Edema, Normal Capillary Refill Neurological: Reports: No New Focal Deficit Psy/Mental Status: Reports: Alert, Normal Affect, Normal Mood *Q Meaningful Use (DIS) - VTE *Q VTE Criteria *Q: - Stroke *Q Stroke Criteria *Q: - AMI *Q AMI Criteria *Q:
[2017-07-27] MEDS: Fluticasone/Salmeterol 250-50 MCG Inhalation Powder 14/Diskus INH SCH (11:25)
[2017-07-27 11:40] VITALS: BP 112/80
== END 2017-07-27 13:05 | disposition home or self-care (01) ==
LOC: MW.ED 13:53 → MW.MS 16:22
PROVIDERS: ADMIT Family Medicine; ATTEND Family Medicine
DX: J44.1 Chronic obstructive pulmonary disease with (acute) exacerbation (principal); R09.02 Hypoxemia; I25.10 Atherosclerotic heart disease of native coronary artery without angina pectoris; I71.4 Abdominal aortic aneurysm, without rupture; I10 Essential (primary) hypertension; E78.00 Pure hypercholesterolemia, unspecified; I25.2 Old myocardial infarction; K21.9 Gastro-esophageal reflux disease without esophagitis; M19.90 Unspecified osteoarthritis, unspecified site; F41.9 Anxiety disorder, unspecified; E11.9 Type 2 diabetes mellitus without complications; E66.9 Obesity, unspecified; Z68.30 Body mass index [BMI] 30.0-30.9, adult; Z87.19 Personal history of other diseases of the digestive system; Z79.899 Other long term (current) drug therapy; Z79.51 Long term (current) use of inhaled steroids; Z88.5 Allergy status to narcotic agent; Z91.013 Allergy to seafood; Z95.5 Presence of coronary angioplasty implant and graft; Z90.49 Acquired absence of other specified parts of digestive tract; Z98.51 Tubal ligation status
CPT/HCPCS: 36415; 71046; 80048; 80053; 83880; 84484; 85025; 87804; 94640; 96374; 96375; 99285; A9270; J1650; J1885; J2930; 96372; 99284; G0378

== ENCOUNTER 2017-10-08 12:08 | Emergency (ER) | payer MEDICARE, OTHER ==
[2017-10-08] MEDS ORDERED: Aspirin 81 MG Tab.Chew PO ONE (12:58)
--- NOTE | 2017-10-08 12:59 | EDM.PDOC ---
ED HPI GENERAL MEDICAL PROBLEM - General Chief Complaint: Respiratory Problem Stated Complaint: SOB Time Seen by Provider: 10/08/17 12:45 Source of Information: Reports: Patient History Limitations: Reports: No Limitations - History of Present Illness INITIAL COMMENTS - FREE TEXT/NARRATIVE: HISTORY AND PHYSICAL: History of present illness: [Patient comes to ER accompanied by a female family member. She complains of cough and chest tightness. Has been having symptoms fairly constantly for the past 3 days, gradually worsening during that time. No radiation of chest tightness. No pain in her neck, shoulder or down her left arm. Has not taken any medications for her symptoms. Has a history of COPD and has been prescribed several inhalers. She can't remember which inhaler she should be using and when. Was hospitalized in Jul 2017 for a COPD exacerbation. History of 2 prior ND's. Has recently established care w/ Dr. Coyne, and is to be scheduled for some upcoming breathing tests. Feels a tightness and pressure in the middle of her chest, which she describes as a feeling of someone sitting on her chest. Has had some wheezing and SOA. No fever or chills. No runny nose or sore throat. Is having a cough, that is primarily dry and hacking. No pain w/ taking a deep breath. Denies abd pain, nausea, vomiting. No constipation or diarrhea. No change in bowel or bladder. No new muscle aches or joint pain. ] Review of systems: As per history of present illness and below otherwise all systems reviewed and negative. Past medical history: As per history of present illness and as reviewed below otherwise noncontributory. Surgical history: As per history of present illness and as reviewed below otherwise noncontributory. Social history: No reported history of drug or alcohol abuse. Family history: As per history of present illness and as reviewed below otherwise noncontributory. Physical exam: HEENT: Atraumatic, normocephalic. Oral mucous members are pink and moist. Neck supple, no lymphadenopathy. Lungs: Clear to auscultation, breath sounds equal bilaterally, chest nontender. Heart: S1S2, regular rate and rhythm. No murmurs. Abdomen: Soft, nondistended, nontender. Negative for masses or hepatosplenomegaly. Negative for costovertebral tenderness. Pelvis: Stable nontender. Genitourinary: Deferred. Rectal: Deferred. Extremities: Atraumatic, negative for cords or calf pain. No cyanosis or edema. Neurovascular unremarkable. Neuro: Awake, alert, oriented. Motor and sensory unremarkable throughout. Exam nonfocal. Diagnostics: [CBC, CMP, troponin, chest x-ray, INR/PTT, EKG] Therapeutics: [2 DuoNeb treatments] Impression: [Viral bronchitis COPD] Plan: [Patient's wheezing resolved after 2 DuoNeb treatments. She feels like she can breathe more deeply and easier. She will follow-up with Dr. waldrop the next couple of days. We'll have her take prednisone 40 mg daily for the next 5 days. Resume Advair twice a day. Rx is written for albuterol inhaler #1 sig 1-2 puffs every 4-6 hours as needed for cough/wheezing/shortness of breath, 0 refills. All of her questions are answered and concerns are addressed. She is in agreement with today's discussion.] Definitive disposition and diagnosis as appropriate pending reevaluation and review of above. - Related Data Allergies Allergy/AdvReac Type Severity Reaction Status Date / Time Opioids - Morphine Analogues Allergy Severe Respiratory Verified 10/08/17 12:18 Depression shellfish derived Allergy Cannot Verified 10/08/17 12:18 Remember Home Meds: Home Meds Albuterol [Proventil HFA] 2 puff IH QID PRN 01/27/17 [History] Metoprolol Succinate [Toprol XL] 25 mg PO DAILY 01/27/17 [History] Nitroglycerin [Nitrostat] 0.4 mg SL Q5M PRN 01/27/17 [History] Multivitamin [Multivitamins] 1 tab PO DAILY 06/04/17 [History] atorvaSTATin [Lipitor] 20 mg PO DAILY 06/04/17 [History] Fluticasone/Salmeterol [Advair 250-50 Diskus] 14 each IH BID 07/26/17 [History] Cephalexin [Keflex] 500 mg PO Q8H #1 cap 07/27/17 [Rx] Albuterol [Ventolin HFA] 1 puff INH Q4H PRN #1 puff 10/08/17 [Rx] Prednisone [IMW: predniSONE] 40 mg PO WITHBREAKFAST #10 tab 10/08/17 [Rx] Past Medical History - Past Health History Medical/Surgical History: Denies Medical/Surgical History HEENT History: Reports: Hard of Hearing, Impaired Vision Other HEENT History: wears eyeglasses and bilateral hearing aids and dentures Cardiovascular History: Reports: High Cholesterol, Hypertension, ND, Stents Other Cardiovascular History: x2 ND, 3 stents Respiratory History: Reports: COPD, Pneumonia, Recurrent, Other (See Below) Other Respiratory History: Frequent URIs Gastrointestinal History: Reports: GERD, GI Bleed Other Gastrointestinal History: Patient denies both Genitourinary History: Reports: None HAT COPYIST History: Reports: Musculoskeletal History: Reports: Arthritis, Osteoporosis Neurological History: Reports: None Psychiatric History: Reports: Anxiety Endocrine/Metabolic History: Reports: Diabetes, Type II, Obesity/BMI 30+ Other Endocrine/Metabolic History: "borderline diabetic'- patient denies Hematologic History: Reports: Anemia Immunologic History: Reports: None Oncologic (Cancer) History: Reports: None Dermatologic History: Reports: None - Infectious Disease History Infectious Disease History: Reports: Measles, Mumps - Past Surgical History Head Surgeries/Procedures: Reports: None Cardiovascular Surgical History: Reports: Carotid Stents Respiratory Surgical History: Reports: None GI Surgical History: Reports: Cholecystectomy Female Surgical History: Reports: Tubal Ligation Endocrine Surgical History: Reports: None Neurological Surgical History: Reports: None Musculoskeletal Surgical History: Reports: None Oncologic Surgical History: Reports: None Dermatological Surgical History: Reports: None Social & Family History - Family History Family Medical History: Noncontributory - Tobacco Use Smoking Status *Q: Former Smoker Years of Tobacco use: 40 Used Tobacco, but Quit: Yes Month/Year Tobacco Last Used: 2007 Second Hand Smoke Exposure: No - Caffeine Use Caffeine Use: Reports: Coffee, Soda, Tea - Recreational Drug Use Recreational Drug Use: No ED ROS GENERAL - Review of Systems Review Of Systems: ROS reveals no pertinent complaints other than HPI. ED EXAM, GENERAL - Physical Exam Exam: See Below Course - Vital Signs Last Recorded V/S: Last Vital Signs Temp 98.1 F 10/08/17 12:12 Pulse 65 10/08/17 15:02 Resp 18 10/08/17 15:02 BP 146/50 H 10/08/17 15:02 Pulse Ox 96 10/08/17 15:02 - Orders/Labs/Meds Labs: Laboratory Tests 10/08/17 10/08/17 10/08/17 Range/Units 13:16 13:16 13:16 WBC 7.03 (4.0-11.0) K/uL RBC 4.77 (4.30-5.90) M/uL Hgb 13.9 (12.0-16.0) g/dL Hct 43.4 (36.0-46.0) % MCV 91.0 (80.0-98.0) fL MCH 29.1 (27.0-32.0) pg MCHC 32.0 (31.0-37.0) g/dL RDW Std Deviation 50.7 (28.0-62.0) fl RDW Coeff of Harpreet 15 (11.0-15.0) % Plt Count 317 (150-400) K/uL MPV 10.00 (7.40-12.00) fL Neut % (Auto) 53.3 (48.0-80.0) % Lymph % (Auto) 34.4 (16.0-40.0) % Bleckley % (Auto) 6.4 (0.0-15.0) % Eos % (Auto) 4.8 (0.0-7.0) % Baso % (Auto) 1.1 (0.0-1.5) % Neut # (Auto) 3.7 (1.4-5.7) K/uL Lymph # (Auto) 2.4 (0.6-2.4) K/uL Bleckley # (Auto) 0.5 (0.0-0.8) K/uL Eos # (Auto) 0.3 (0.0-0.7) K/uL Baso # (Auto) 0.1 (0.0-0.1) K/uL Nucleated RBC % 0.0 /100WBC Nucleated RBCs # 0 K/uL INR 0.95 Sodium 141 (136-145) mmol/L Potassium 4.5 (3.5-5.1) mmol/L Chloride 107 (98-107) mmol/L Carbon Dioxide 26.7 (21.0-32.0) mmol/L BUN 14 (7.0-18.0) mg/dL Creatinine 0.9 (0.6-1.0) mg/dL Est Cr Clr Drug Dosing 38.25 mL/min Estimated GFR (MDRD) > 60.0 ml/min Glucose 101 (74-106) mg/dL Calcium 9.3 (8.5-10.1) mg/dL Total Bilirubin 0.7 (0.2-1.0) mg/dL AST 23 (15-37) IU/L ALT 28 (14-63) IU/L Alkaline Phosphatase 87 (46-116) U/L Troponin I < 0.050 (0.000-0.056) ng/mL Total Protein 7.1 (6.4-8.2) g/dL Albumin 3.7 (3.4-5.0) g/dL Globulin 3.4 (2.0-3.5) g/dL Albumin/Globulin Ratio 1.1 L (1.3-2.8) Meds: Medications Discontinued Medications Generic Name Dose Route Start Last Admin Trade Name Freq PRN Reason Stop Dose Admin Albuterol/Ipratropium 3 ml 10/08/17 13:46 10/08/17 14:47 Duoneb 3.0-0.5 Mg/3 Ml NEB 10/08/17 13:47 3 ml ONETIME ONE Administration Albuterol/Ipratropium 3 ml 10/08/17 14:32 10/08/17 14:48 Duoneb 3.0-0.5 Mg/3 Ml NEB 10/08/17 14:33 3 ml ONETIME ONE Administration Aspirin 324 mg 10/08/17 12:58 10/08/17 13:12 Aspirin PO 10/08/17 12:59 324 mg ONETIME ONE Administration Departure - Departure Time of Disposition: 14:40 Disposition: Home, Self-Care 01 Condition: Good Clinical Impression: Bronchitis - Discharge Information Prescriptions: Albuterol [Ventolin HFA] 1 puff INH Q4H PRN #1 puff PRN Reason: Wheezing Prednisone [IMW: predniSONE] 40 mg PO WITHBREAKFAST #10 tab Instructions: Acute Bronchitis, Adult Referrals: Son Coyne MD [Physician] - 10/12/17 11:30 am (Please arrive to your appointment 15 min early to check in. ) Forms: ED Department Discharge Additional Instructions: The following information is given to patients seen in the emergency department who are being discharged to home. This information is to outline your options for follow-up care. We provide all patients seen in our emergency department with a follow-up referral. The need for follow-up, as well as the timing and circumstances, are variable depending upon the specifics of your emergency department visit. If you don't have a primary care physician on staff, we will provide you with a referral. We always advise you to contact your personal physician following an emergency department visit to inform them of the circumstance of the visit and for follow-up with them and/or the need for any referrals to a consulting specialist. The emergency department will also refer you to a specialist when appropriate. This referral assures that you have the opportunity for follow-up care with a specialist. All of these measure are taken in an effort to provide you with optimal care, which includes your follow-up. Under all circumstances we always encourage you to contact your private physician who remains a resource for coordinating your care. When calling for follow-up care, please make the office aware that this follow-up is from your recent emergency room visit. If for any reason you are refused follow-up, please contact the [facility] emergency department at and asked to speak to the emergency department charge nurse. [facility] [address] [place] [id number] Follow-up with your primary care provider at the clinic listed above this week. Take albuterol inhaler as we discussed, prednisone as prescribed. Return to ER as needed as discussed.
--- NOTE | 2017-10-08 13:46 | CR ---
EXAMINATION: Two-view chest (PA and Lateral views). HISTORY: Recurrent pneumonia. Comparison: 07/26/2017 FINDINGS: The trachea is midline. The cardiomediastinal silhouette is stable. No pulmonary infiltrates, effusio ns or pneumothorax. Osseous structures appear osteopenic. IMPRESSION: No acute cardiopulmonary process.
[2017-10-08 13:53] LABS: CHLORIDE,CL 107 mmol/L (98-107); SODIUM,NA 141 mmol/L (136-145)
[2017-10-08] MEDS: Albuterol/Ipratropium 3.0-0.5 MG/3 ML Neb Soln NEB ONE ×2 (13:54→14:47)
[2017-10-08] MEDS ORDERED: Albuterol/Ipratropium 3.0-0.5 MG/3 ML Neb Soln NEB ONE (14:32)
[2017-10-08 17:28] VITALS: BP 146/50
== END 2017-10-08 15:02 | disposition home or self-care (01) ==
LOC: MW.ED 12:08
DX: J44.0 Chronic obstructive pulmonary disease with (acute) lower respiratory infection (principal); J20.8 Acute bronchitis due to other specified organisms; B97.89 Other viral agents as the cause of diseases classified elsewhere; E78.00 Pure hypercholesterolemia, unspecified; I10 Essential (primary) hypertension; I25.2 Old myocardial infarction; E11.9 Type 2 diabetes mellitus without complications; Z88.5 Allergy status to narcotic agent; Z91.013 Allergy to seafood; Z79.899 Other long term (current) drug therapy; Z87.891 Personal history of nicotine dependence
CPT/HCPCS: 36415; 71046; 80053; 84484; 85025; 85610; 93005; 94640; 99285; A9270; 99283

== ENCOUNTER 2018-01-22 20:28 | Observation (INO) | payer MEDICARE, OTHER ==
[2018-01-22] MEDS ORDERED: methylPREDNISolone Sodium Succinate 125 MG/2 ML SDV IVPUSH ONE (20:43)
[2018-01-22] MEDS ORDERED: Albuterol/Ipratropium 3.0-0.5 MG/3 ML Neb Soln NEB ONE ×2 (20:43→22:14)
[2018-01-22] MEDS ORDERED: Sodium Chloride 0.9% 2.5 ML Syringe FLUSH PRN ×2 (20:44→23:16)
[2018-01-22] MEDS ORDERED: Sodium Chloride 0.9% 10 ML Syringe FLUSH PRN ×2 (20:44→23:16)
[2018-01-22] MEDS ORDERED: Sodium Chloride 0.9% 1,000 ML IV SCH (20:45)
--- NOTE | 2018-01-22 20:50 | EDM.PDOC ---
ED HPI GENERAL MEDICAL PROBLEM - General Chief Complaint: Respiratory Problem Stated Complaint: SHORT OF BREATH Time Seen by Provider: 01/22/18 20:37 - History of Present Illness INITIAL COMMENTS - FREE TEXT/NARRATIVE: HISTORY AND PHYSICAL: History of present illness: The patient is an 82-year-old female who follows at [facility] and has a long-standing history of COPD but is not oxygen dependent, hypercholesterolemia and pancreatitis prior to her gallbladder removal and presents with complaints of 3 days of increasing shortness of breath cough productive of green phlegm and throat discomfort with the cough. The patient denies any abdominal pain vomiting or diarrhea and has had no fevers with this. The patient says that she uses her nebulizer treatments only as needed but over the last few days she has been doing it 3-4 times a day. She only takes prednisone when she has a flareup she is not on it chronically. She has no chest pain no flank pain no neck pain. She does have a headache from coughing. She did not see her provider for these symptoms. She came in tonight because she felt more short of breath and earlier today. She has no leg pain or swelling. Review of systems: As per history of present illness and below otherwise all systems reviewed and negative. Past medical history: As per history of present illness and as reviewed below otherwise noncontributory. Surgical history: As per history of present illness and as reviewed below otherwise noncontributory. Social history: No reported history of drug or alcohol abuse. Family history: As per history of present illness and as reviewed below otherwise noncontributory. Physical exam: General: Well-developed well-nourished overweight female who is nontoxic. She is not febrile and her O2 sat on room air on arrival was 88%. She is speaking in full sentences but is slightly breathless with activities. HEENT: Atraumatic, normocephalic, pupils reactive, negative for conjunctival pallor or scleral icterus, mucous membranes moist, throat clear of exudates but there is some oropharyngeal erythema, uvula is midline, there is no cervical adenopathy or nuchal rigidity, neck supple, nontender, trachea midline. Lungs: Clear to auscultation with scattered coarse breath sounds and rhonchi as well as some scattered wheezing, breath sounds equal bilaterally, chest nontender. Heart: S1S2, regular rhythm is highly tachycardic rate on my evaluation but no overt murmur Abdomen: Soft, nondistended, nontender. Negative for masses or hepatosplenomegaly. Negative for costovertebral tenderness. Pelvis: Stable nontender. Genitourinary: Deferred. Rectal: Deferred. Extremities: Atraumatic, negative for cords or calf pain. Neurovascular unremarkable. Pedal edema or leg asymmetry Neuro: Awake, alert, oriented. Cranial nerves II through XII unremarkable. Cerebellum unremarkable. Motor and sensory unremarkable throughout. Exam nonfocal. Skin: There is no evidence of any diaphoresis and turgor is normal Diagnostics: EKG chest x-ray CBC CMP troponin UA urine culture if indicated lactic acid rapid strep Therapeutics: IV O2 monitor gentle IV fluids duo neb Solu-Medrol Rocephin 2215: Case was discussed with the hospitalist Dr. Sow accepts the patient for observation admission and would like a dose of Rocephin to be given here. Patient is aware of disposition plan and is agreeable. She says she is feeling better but I will give her another DuoNeb here for transfer to the floor. Impression: COPD exacerbation Definitive disposition and diagnosis as appropriate pending reevaluation and review of above. Chest Pain Score (Numeric/FACES): 5 - Related Data Allergies Allergy/AdvReac Type Severity Reaction Status Date / Time Opioids - Morphine Analogues Allergy Severe Respiratory Verified 10/08/17 12:18 Depression shellfish derived Allergy Cannot Verified 10/08/17 12:18 Remember Home Meds: Home Meds Albuterol [Proventil HFA] 2 puff IH QID PRN 01/27/17 [History] Metoprolol Succinate [Toprol XL] 25 mg PO DAILY 01/27/17 [History] Nitroglycerin [Nitrostat] 0.4 mg SL Q5M PRN 01/27/17 [History] Multivitamin [Multivitamins] 1 tab PO DAILY 06/04/17 [History] atorvaSTATin [Lipitor] 20 mg PO DAILY 06/04/17 [History] Fluticasone/Salmeterol [Advair 250-50 Diskus] 14 each IH BID 07/26/17 [History] cephALEXin [Keflex] 500 mg PO Q8H #1 cap 07/27/17 [Rx] Albuterol [Ventolin HFA] 1 puff INH Q4H PRN #1 puff 10/08/17 [Rx] Prednisone [IMW: predniSONE] 40 mg PO WITHBREAKFAST #10 tab 10/08/17 [Rx] Past Medical History - Past Health History Medical/Surgical History: Denies Medical/Surgical History HEENT History: Reports: Hard of Hearing, Impaired Vision Other HEENT History: wears eyeglasses and bilateral hearing aids Cardiovascular History: Reports: High Cholesterol, Hypertension, MD, Stents Other Cardiovascular History: x2 MD, 3 stents Respiratory History: Reports: COPD, Pneumonia, Recurrent, Other (See Below) Other Respiratory History: Frequent URIs Gastrointestinal History: Reports: GERD, GI Bleed Other Gastrointestinal History: Patient denies both Genitourinary History: Reports: None 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: Reports: Musculoskeletal History: Reports: Arthritis Neurological History: Reports: None Psychiatric History: Reports: Anxiety Endocrine/Metabolic History: Reports: Diabetes, Type II, Obesity/BMI 30+ Other Endocrine/Metabolic History: "borderline diabetic'- patient denies Hematologic History: Reports: Anemia Immunologic History: Reports: None Oncologic (Cancer) History: Reports: None Dermatologic History: Reports: None - Infectious Disease History Infectious Disease History: Reports: Measles, Mumps - Past Surgical History Cardiovascular Surgical History: Reports: Carotid Stents Social & Family History - Family History Family Medical History: Noncontributory - Caffeine Use Caffeine Use: Reports: Coffee, Tea ED ROS GENERAL - Review of Systems Review Of Systems: ROS reveals no pertinent complaints other than HPI. ED EXAM, GENERAL - Physical Exam Exam: See Below (see Dictation) Course - Vital Signs Last Recorded V/S: Last Vital Signs Temp 37.3 C 01/22/18 21:10 Pulse 92 01/22/18 21:10 Resp 30 H 01/22/18 21:10 BP 107/50 L 01/22/18 21:10 Pulse Ox 96 01/22/18 21:10 - Orders/Labs/Meds Orders: Active Orders 24 hr Category Date Time Status Patient Status [ADT] Stat ADT 01/22/18 22:16 Ordered Cardiac Monitoring [RC] . DIRECTED Care 01/22/18 20:43 Active EKG Documentation Completion [RC] STAT Care 01/22/18 20:43 Active Oxygen Therapy, ED [RC] ASDIRECTED Care 01/22/18 20:43 Active Pulse Oximetry [RC] ASDIRECTED Care 01/22/18 20:43 Active RT Aerosol Therapy [RC] ASDIRECTED Care 01/22/18 20:44 Active RT Aerosol Therapy [RC] ASDIRECTED Care 01/22/18 22:14 Active Chest 2V [CR] Stat Exams 01/22/18 20:43 Taken CULTURE STREP A CONFIRMATION [] Stat Lab 01/22/18 21:15 Results STREP SCRN A RAPID W CULT CONF [RM] Stat Lab 01/22/18 21:15 Ordered UA W/MICROSCOPIC [URIN] Stat Lab 01/22/18 20:43 Ordered Sodium Chloride 0.9% [Normal Saline] 1,000 ml Med 01/22/18 20:45 Active IV ASDIRECTED Sodium Chloride 0.9% [Saline Flush] Med 01/22/18 20:44 Active 10 ml FLUSH ASDIRECTED PRN Sodium Chloride 0.9% [Saline Flush] Med 01/22/18 20:44 Active 2.5 ml FLUSH ASDIRECTED PRN cefTRIAXone [Rocephin in Dextrose,Iso-Osm 1 GM/50 ML] 1 Med 01/22/18 22:15 Ordered gm Premix Bag 1 bag IV ONETIME Saline Lock Insert [OM.PC] Stat Oth 01/22/18 20:43 Ordered Medication Orders Sodium Chloride (Normal Saline) 1,000 mls @ 83 mls/hr IV ASDIRECTED ISAI Last Admin: 01/22/18 21:08 Dose: 83 mls/hr Ceftriaxone Sodium/Dextrose 1 (gm/ Premix) 50 mls @ 100 mls/hr IV ONETIME ONE Stop: 01/22/18 22:44 Sodium Chloride (Saline Flush) 10 ml FLUSH ASDIRECTED PRN PRN Reason: Keep Vein Open Sodium Chloride (Saline Flush) 2.5 ml FLUSH ASDIRECTED PRN PRN Reason: Keep Vein Open Labs: Laboratory Tests 01/22/18 01/22/18 01/22/18 Range/Units 20:48 20:48 20:48 WBC 13.46 H (4.0-11.0) K/uL RBC 4.68 (4.30-5.90) M/uL Hgb 13.4 (12.0-16.0) g/dL Hct 41.4 (36.0-46.0) % MCV 88.5 (80.0-98.0) fL MCH 28.6 (27.0-32.0) pg MCHC 32.4 (31.0-37.0) g/dL RDW Std Deviation 51.4 (28.0-62.0) fl RDW Coeff of Harpreet 16 H (11.0-15.0) % Plt Count 286 (150-400) K/uL MPV 10.20 (7.40-12.00) fL Neut % (Auto) 73.2 (48.0-80.0) % Lymph % (Auto) 14.3 L (16.0-40.0) % Mcleod % (Auto) 11.2 (0.0-15.0) % Eos % (Auto) 1.0 (0.0-7.0) % Baso % (Auto) 0.3 (0.0-1.5) % Neut # (Auto) 9.9 H (1.4-5.7) K/uL Lymph # (Auto) 1.9 (0.6-2.4) K/uL Mcleod # (Auto) 1.5 H (0.0-0.8) K/uL Eos # (Auto) 0.1 (0.0-0.7) K/uL Baso # (Auto) 0.0 (0.0-0.1) K/uL Nucleated RBC % 0.0 /100WBC Nucleated RBCs # 0 K/uL Lactate 1.0 (0.20-2.00) mmol/L Sodium 139 (136-145) mmol/L Potassium 3.7 (3.5-5.1) mmol/L Chloride 105 (98-107) mmol/L Carbon Dioxide 21.9 (21.0-32.0) mmol/L BUN 9 (7.0-18.0) mg/dL Creatinine 1.0 (0.6-1.0) mg/dL Est Cr Clr Drug Dosing 33.86 mL/min Estimated GFR (MDRD) 53.3 ml/min Glucose 155 H (74-106) mg/dL Calcium 8.7 (8.5-10.1) mg/dL Total Bilirubin 1.4 H (0.2-1.0) mg/dL AST 22 (15-37) IU/L ALT 32 (14-63) IU/L Alkaline Phosphatase 101 (46-116) U/L Troponin I < 0.050 (0.000-0.056) ng/mL Total Protein 7.1 (6.4-8.2) g/dL Albumin 3.2 L (3.4-5.0) g/dL Globulin 3.9 H (2.0-3.5) g/dL Albumin/Globulin Ratio 0.8 L (1.3-2.8) Meds: Medications Generic Name Dose Route Start Last Admin Trade Name Freq PRN Reason Stop Dose Admin Sodium Chloride 1,000 mls @ 83 mls/hr 01/22/18 20:45 01/22/18 21:08 Normal Saline IV 83 mls/hr ASDIRECTED ISAI Administration Ceftriaxone Sodium/Dextrose 1 50 mls @ 100 mls/hr 01/22/18 22:15 gm/ Premix IV 01/22/18 22:44 ONETIME ONE Sodium Chloride 10 ml 01/22/18 20:44 Saline Flush FLUSH ASDIRECTED PRN Keep Vein Open Sodium Chloride 2.5 ml 01/22/18 20:44 Saline Flush FLUSH ASDIRECTED PRN Keep Vein Open Discontinued Medications Generic Name Dose Route Start Last Admin Trade Name Freq PRN Reason Stop Dose Admin Albuterol/Ipratropium 3 ml 01/22/18 20:43 01/22/18 21:00 Duoneb 3.0-0.5 Mg/3 Ml NEB 01/22/18 20:44 3 ml ONETIME ONE Administration Albuterol/Ipratropium 3 ml 01/22/18 22:14 Duoneb 3.0-0.5 Mg/3 Ml NEB 01/22/18 22:15 ONETIME ONE Methylprednisolone Sodium Succinate 125 mg 01/22/18 20:43 01/22/18 21:11 Solu-Medrol IVPUSH 01/22/18 20:44 125 mg ONETIME ONE Administration Departure - Departure Time of Disposition: 22:18 Disposition: Refer to Observation Condition: Good Clinical Impression: COPD with exacerbation - Discharge Information Referrals: PCP,None [Primary Care Provider] - Forms: ED Department Discharge - My Orders Last 24 Hours: My Active Orders 01/22/18 20:43 Cardiac Monitoring [RC] . DIRECTED EKG Documentation Completion [RC] STAT Oxygen Therapy, ED [RC] ASDIRECTED Pulse Oximetry [RC] ASDIRECTED Chest 2V [CR] Stat UA W/MICROSCOPIC [URIN] Stat Saline Lock Insert [OM.PC] Stat 01/22/18 20:44 RT Aerosol Therapy [RC] ASDIRECTED Sodium Chloride 0.9% [Saline Flush] 10 ml FLUSH ASDIRECTED PRN Sodium Chloride 0.9% [Saline Flush] 2.5 ml FLUSH ASDIRECTED PRN 01/22/18 20:45 Sodium Chloride 0.9% [Normal Saline] 1,000 ml IV ASDIRECTED 01/22/18 21:15 CULTURE STREP A CONFIRMATION [RM] Stat STREP SCRN A RAPID W CULT CONF [RM] Stat 01/22/18 22:14 RT Aerosol Therapy [RC] ASDIRECTED 01/22/18 22:15 cefTRIAXone [Rocephin in Dextrose,Iso-Osm 1 GM/50 ML] 1 gm Premix Bag 1 bag IV ONETIME 01/22/18 22:16 Patient Status [ADT] Stat - Assessment/Plan Last 24 Hours: My Active Orders 01/22/18 20:43 Cardiac Monitoring [RC] . DIRECTED EKG Documentation Completion [RC] STAT Oxygen Therapy, ED [RC] ASDIRECTED Pulse Oximetry [RC] ASDIRECTED Chest 2V [CR] Stat UA W/MICROSCOPIC [URIN] Stat Saline Lock Insert [OM.PC] Stat 01/22/18 20:44 RT Aerosol Therapy [RC] ASDIRECTED Sodium Chloride 0.9% [Saline Flush] 10 ml FLUSH ASDIRECTED PRN Sodium Chloride 0.9% [Saline Flush] 2.5 ml FLUSH ASDIRECTED PRN 01/22/18 20:45 Sodium Chloride 0.9% [Normal Saline] 1,000 ml IV ASDIRECTED 01/22/18 21:15 CULTURE STREP A CONFIRMATION [RM] Stat STREP SCRN A RAPID W CULT CONF [RM] Stat 01/22/18 22:14 RT Aerosol Therapy [RC] ASDIRECTED 01/22/18 22:15 cefTRIAXone [Rocephin in Dextrose,Iso-Osm 1 GM/50 ML] 1 gm Premix Bag 1 bag IV ONETIME 01/22/18 22:16 Patient Status [ADT] Stat
[2018-01-22 21:25] LABS: CHLORIDE,CL 105 mmol/L (98-107); SODIUM,NA 139 mmol/L (136-145)
[2018-01-22] MEDS ORDERED: cefTRIAXone 1 GM in Premix Bag 1 BAG IV ONE (22:15)
[2018-01-22] MEDS ORDERED: Albuterol/Ipratropium 3.0-0.5 MG/3 ML Neb Soln NEB PRN (23:16)
[2018-01-23] MEDS ORDERED: Azithromycin 250 MG Tab PO SCH (07:30)
--- NOTE | 2018-01-23 07:31 | PCM.HP ---
H&P History of Present Illness - General Date of Service: 01/23/18 Admit Problem/Dx: Admission Diagnosis/Problem Admission Diagnosis/Problem COPD, Mild chronic obstructive pulmonary disease Source of Information: Patient, Old Records History Limitations: Reports: No Limitations - History of Present Illness Initial Comments - Free Text/Narative: This 82 year old female with pmh of COPD, CAD, AAA, and HTN presented to the ED with complaints of increasing/worsening SOB. She reports she got a cold about a week ago and the shortness of breath slowly increased. She felt like last night it got worse and she felt she needed evaluation. She is not oxygen dependent at home. She recently was on Prednisone taper and Azithromycin and finished this course approximately 2 weeks ago. She denies fevers, but reports dry sore throat , productive cough with green phlegm, and dyspnea. No chest pain or palpitations. No abdominal pain, no diarrhea or black or bloody BMs. She has been taking inhalers as prescribed as well as increasing her use of Duonebs without much relief. She recently had PFT in 11/2017, showing COPD. She denies ever getting referral to pulmonary rehab. In the ED slightly leukocytosis noted at 13,460, BMP WNL. UA negative. Strep negative. CXR negative. She was noted to be tachypneic with sats low 90s. She was placed on 2 L NC and treated with Rocephin as well as Duoneb and SOlumedrol. She reported some improvement after Duoneb. She was admitted observation for COPD exacerbation. PCP, Dr Chase. Chest Pain Score (Numeric/FACES): 5 - Related Data Allergies/Adverse Reactions: Allergies Allergy/AdvReac Type Severity Reaction Status Date / Time Opioids - Morphine Analogues Allergy Severe Respiratory Verified 10/08/17 12:18 Depression shellfish derived Allergy Cannot Verified 10/08/17 12:18 Remember Home Medications: Home Meds Nitroglycerin [Nitrostat] 0.4 mg SL Q5M PRN 01/27/17 [History] Multivitamin [Multivitamins] 1 tab PO DAILY 06/04/17 [History] Albuterol [Ventolin HFA] 1 puff INH Q4H PRN #1 puff 10/08/17 [Rx] Ascorbic Acid [Vitamin C] 500 mg PO DAILY 01/22/18 [History] Aspirin 2 tab PO DAILY 01/22/18 [History] Cholecalciferol (Vitamin D3) [Vitamin D3] 1 cap PO DAILY 01/22/18 [History] Polyvinyl Alcohol/Povidone/Pf [Refresh Classic Eye Drops] 1 each OP DAILY [History] Fluticasone Propionate [Flovent Diskus] 50 mcg NASBOTH DAILY 01/23/18 [History] Glycopyrrolate/Formoterol Fum [Bevespi Aerosphere Inhaler] 10.7 gm IH BID [History] Metoprolol Succinate 25 mg PO DAILY 01/23/18 [History] Umeclidinium Brm/Vilanterol Tr [Anoro Ellipta 62.5-25 Mcg INH] 1 each IH DAILY 01/23/18 [History] atorvaSTATin Calcium [Atorvastatin Calcium] 1 tab DAILY 01/23/18 [History] Past Medical History - Past Health History Medical/Surgical History: Denies Medical/Surgical History HEENT History: Reports: Hard of Hearing, Impaired Vision Other HEENT History: wears eyeglasses and bilateral hearing aids Cardiovascular History: Reports: High Cholesterol, Hypertension, CT (x2), Stents (x3) Respiratory History: Reports: Asthma, COPD, Pneumonia, Recurrent, Other (See Below) Other Respiratory History: Frequent URIs Gastrointestinal History: Reports: Pancreatitis (gallstone,) Genitourinary History: Reports: Other (See Below) Other Genitourinary History: "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 Denies: CVA, TIA Psychiatric History: Reports: None Endocrine/Metabolic History: Reports: Obesity/BMI 30+. Denies: Diabetes, Type II Hematologic History: Reports: Anemia Immunologic History: Reports: None Oncologic (Cancer) History: Reports: None Dermatologic History: Reports: None - Infectious Disease History Infectious Disease History: Reports: Influenza, Measles, Mumps - Past Surgical History Head Surgeries/Procedures: Reports: None HEENT Surgical History: Reports: None Cardiovascular Surgical History: Reports: Carotid Stents Respiratory Surgical History: Reports: None GI Surgical History: Reports: Cholecystectomy, Colonoscopy Female Surgical History: Reports: Tubal Ligation Endocrine Surgical History: Reports: None Neurological Surgical History: Reports: None Musculoskeletal Surgical History: Reports: None Dermatological Surgical History: Reports: None Social & Family History - Family History Family Medical History: Noncontributory - Tobacco Use Smoking Status *Q: Former Smoker Years of Tobacco use: 50 Used Tobacco, but Quit: Yes Month/Year Tobacco Last Used: 11 yeras ago Second Hand Smoke Exposure: No - Caffeine Use Caffeine Use: Reports: Coffee, Tea - Recreational Drug Use Recreational Drug Use: No - Living Situation & Occupation Living situation: Reports: Occupation: Retired H&P Review of Systems - Review of Systems: Review Of Systems: See Below General: Reports: Malaise. Denies: Fever, Chills HEENT: Reports: Headaches, Sore Throat. Denies: Ear Pain, Sinus Congestion Pulmonary: Reports: Shortness of Breath, Wheezing, Cough, Sputum (green). Denies: Hemoptysis Cardiovascular: Reports: No Symptoms. Denies: Chest Pain, Palpitations, Edema Gastrointestinal: Reports: No Symptoms. Denies: Abdominal Pain, Black Stool, Bloody Stool, Nausea, Vomiting Genitourinary: Reports: No Symptoms. Denies: Dysuria, Frequency, Burning Musculoskeletal: Reports: No Symptoms Skin: Reports: No Symptoms Psychiatric: Reports: No Symptoms Neurological: Reports: No Symptoms Hematologic/Lymphatic: Reports: No Symptoms Immunologic: Reports: No Symptoms Exam - Exam Exam: See Below - Vital Signs Vital Signs: Last Vital Signs Temp 96.8 F 01/23/18 04:00 Pulse 81 01/23/18 04:00 Resp 20 01/23/18 04:00 BP 146/69 H 01/23/18 04:00 Pulse Ox 90 L 01/23/18 04:00 Weight: 90.7 kg - Exam Quality Assessment: Supplemental Oxygen (2 L NC) General: Alert, Oriented, Cooperative HEENT: Conjunctiva Clear, Mucosa Moist & [place], Pupils Reactive Neck: Supple, Trachea Midline Lungs: Normal Respiratory Effort, Decreased Breath Sounds (throughout), Wheezing (scant expiratory). No: Crackles Cardiovascular: Regular Rate, Regular Rhythm, Normal S1, Normal S2. No: Systolic Murmur GI/Abdominal Exam: Normal Bowel Sounds, Soft, Non-Tender Back Exam: Normal Inspection, Full Range of Motion Extremities: Normal Inspection, Normal Range of Motion, Non-Tender, No Pedal Edema Neurological: Cranial Nerves Intact Neuro Extensive - Mental Status: Alert, Oriented x3 Neuro Extensive - Motor, Sensory, Reflexes: CN II-XII Intact Psychiatric: Alert, Normal Affect, Normal Mood - Patient Data Lab Results Last 24 hrs: Laboratory Results - last 24 hr 01/22/18 01/22/18 01/22/18 Range/Units 20:48 20:48 20:48 WBC 13.46 H (4.0-11.0) K/uL RBC 4.68 (4.30-5.90) M/uL Hgb 13.4 (12.0-16.0) g/dL Hct 41.4 (36.0-46.0) % MCV 88.5 (80.0-98.0) fL MCH 28.6 (27.0-32.0) pg MCHC 32.4 (31.0-37.0) g/dL RDW Std Deviation 51.4 (28.0-62.0) fl RDW Coeff of Harpreet 16 H (11.0-15.0) % Plt Count 286 (150-400) K/uL MPV 10.20 (7.40-12.00) fL Neut % (Auto) 73.2 (48.0-80.0) % Lymph % (Auto) 14.3 L (16.0-40.0) % Grand % (Auto) 11.2 (0.0-15.0) % Eos % (Auto) 1.0 (0.0-7.0) % Baso % (Auto) 0.3 (0.0-1.5) % Neut # (Auto) 9.9 H (1.4-5.7) K/uL Lymph # (Auto) 1.9 (0.6-2.4) K/uL Grand # (Auto) 1.5 H (0.0-0.8) K/uL Eos # (Auto) 0.1 (0.0-0.7) K/uL Baso # (Auto) 0.0 (0.0-0.1) K/uL Nucleated RBC % 0.0 /100WBC Nucleated RBCs # 0 K/uL Lactate 1.0 (0.20-2.00) mmol/L Sodium 139 (136-145) mmol/L Potassium 3.7 (3.5-5.1) mmol/L Chloride 105 (98-107) mmol/L Carbon Dioxide 21.9 (21.0-32.0) mmol/L BUN 9 (7.0-18.0) mg/dL Creatinine 1.0 (0.6-1.0) mg/dL Est Cr Clr Drug Dosing 33.86 mL/min Estimated GFR (MDRD) 53.3 ml/min Glucose 155 H (74-106) mg/dL Calcium 8.7 (8.5-10.1) mg/dL Total Bilirubin 1.4 H (0.2-1.0) mg/dL AST 22 (15-37) IU/L ALT 32 (14-63) IU/L Alkaline Phosphatase 101 (46-116) U/L Troponin I < 0.050 (0.000-0.056) ng/mL Total Protein 7.1 (6.4-8.2) g/dL Albumin 3.2 L (3.4-5.0) g/dL Globulin 3.9 H (2.0-3.5) g/dL Albumin/Globulin Ratio 0.8 L (1.3-2.8) Urine Color Urine Appearance Urine pH (5.0-8.0) Ur Specific Leo (1.001-1.035) Urine Protein (NEGATIVE) mg/dL Urine Glucose (UA) (NEGATIVE) mg/dL Urine Ketones (NEGATIVE) mg/dL Urine Occult Blood (NEGATIVE) Urine Nitrite (NEGATIVE) Urine Bilirubin (NEGATIVE) Urine Urobilinogen (<2.0) EU/dL Ur Leukocyte Esterase (NEGATIVE) Urine RBC (0-2/HPF) Urine WBC (0-5/HPF) Ur Epithelial Cells (NONE-FEW) Urine Bacteria (NEGATIVE) 01/23/18 01/23/18 01/23/18 Range/Units 05:20 05:20 06:00 WBC 11.82 H (4.0-11.0) K/uL RBC 4.54 (4.30-5.90) M/uL Hgb 13.1 (12.0-16.0) g/dL Hct 40.6 (36.0-46.0) % MCV 89.4 (80.0-98.0) fL MCH 28.9 (27.0-32.0) pg MCHC 32.3 (31.0-37.0) g/dL RDW Std Deviation 51.3 (28.0-62.0) fl RDW Coeff of Harpreet 16 H (11.0-15.0) % Plt Count 287 (150-400) K/uL MPV 10.30 (7.40-12.00) fL Neut % (Auto) 92.2 H (48.0-80.0) % Lymph % (Auto) 6.9 L (16.0-40.0) % Grand % (Auto) 0.8 (0.0-15.0) % Eos % (Auto) 0.0 (0.0-7.0) % Baso % (Auto) 0.1 (0.0-1.5) % Neut # (Auto) 10.9 H (1.4-5.7) K/uL Lymph # (Auto) 0.8 (0.6-2.4) K/uL Grand # (Auto) 0.1 (0.0-0.8) K/uL Eos # (Auto) 0.0 (0.0-0.7) K/uL Baso # (Auto) 0.0 (0.0-0.1) K/uL Nucleated RBC % 0.0 /100WBC Nucleated RBCs # 0 K/uL Lactate (0.20-2.00) mmol/L Sodium 140 (136-145) mmol/L Potassium 4.8 (3.5-5.1) mmol/L Chloride 106 (98-107) mmol/L Carbon Dioxide 27.2 (21.0-32.0) mmol/L BUN 12 (7.0-18.0) mg/dL Creatinine 1.0 (0.6-1.0) mg/dL Est Cr Clr Drug Dosing 33.90 mL/min Estimated GFR (MDRD) 53.3 ml/min Glucose 244 H (74-106) mg/dL Calcium 9.0 (8.5-10.1) mg/dL Total Bilirubin (0.2-1.0) mg/dL AST (15-37) IU/L ALT (14-63) IU/L Alkaline Phosphatase (46-116) U/L Troponin I (0.000-0.056) ng/mL Total Protein (6.4-8.2) g/dL Albumin (3.4-5.0) g/dL Globulin (2.0-3.5) g/dL Albumin/Globulin Ratio (1.3-2.8) Urine Color YELLOW Urine Appearance CLEAR Urine pH 6.0 (5.0-8.0) Ur Specific Leo <= 1.005 (1.001-1.035) Urine Protein NEGATIVE (NEGATIVE) mg/dL Urine Glucose (UA) NEGATIVE (NEGATIVE) mg/dL Urine Ketones NEGATIVE (NEGATIVE) mg/dL Urine Occult Blood TRACE-INTACT (NEGATIVE) Urine Nitrite NEGATIVE (NEGATIVE) Urine Bilirubin NEGATIVE (NEGATIVE) Urine Urobilinogen 0.2 (<2.0) EU/dL Ur Leukocyte Esterase SMALL (NEGATIVE) Urine RBC 2-3 (0-2/HPF) Urine WBC 2-4 (0-5/HPF) Ur Epithelial Cells RARE (NONE-FEW) Urine Bacteria FEW (NEGATIVE) Result Diagrams: 01/23/18 05:20 01/23/18 05:20 Jeffrey Results Last 24 hrs: Microbiology 01/22/18 21:15 Group A Streptococcus Rapid Screen - Final Throat NEGATIVE STREP A SCREEN *Q Meaningful Use (ADM) - VTE Risk Assess *Q Each Risk Factor Represents 1 Point: Obesity ( BMI > 25 kg/m2), Abnormal Pulmonary Function (COPD) Total Score 1 Point Risk Factors: 2 Each Risk Factor Represents 2 Points: None Total Score 2 Point Risk Factors: 0 Each Risk Factor Represents 3 Points: Age 75 Years or Greater Total Score 3 Point Risk Factors: 3 Each Risk Factor Represents 5 Points: None Total Score 5 Point Risk Factors: 0 Venous Thromboembolism Risk Factor Score *Q: 5 - Problem List (1) COPD with exacerbation SNOMED Code(s): 534593395 ICD Code: J44.1 - CHRONIC OBSTRUCTIVE PULMONARY DISEASE W (ACUTE) EXACERBATION Status: Acute Current Visit: Yes (2) Abdominal aortic aneurysm (AAA) SNOMED Code(s): 885175773 ICD Code: I71.4 - ABDOMINAL AORTIC ANEURYSM, WITHOUT RUPTURE Status: Chronic Current Visit: No Qualifiers: Presence of rupture: without rupture Qualified Code(s): I71.4 - Abdominal aortic aneurysm, without rupture (3) CAD (coronary artery disease) SNOMED Code(s): 02909854 ICD Code: I25.10 - ATHSCL HEART DISEASE OF [place] CORONARY ARTERY W/O ANG PCTRS Status: Chronic Current Visit: No Qualifiers: Coronary Disease-Associated Artery/Lesion type: [place] artery [place] vs. transplanted heart: [place] heart Associated angina: without angina Qualified Code(s): I25.10 - Atherosclerotic heart disease of [place] coronary artery without angina pectoris (4) Hx of pancreatitis SNOMED Code(s): 06231661612981 ICD Code: Z87.19 - PERSONAL HISTORY OF OTHER DISEASES OF THE DIGESTIVE SYSTEM Status: Chronic Current Visit: No Problem Details: gallstone induced (5) Hypertension SNOMED Code(s): 53427514 ICD Code: I10 - ESSENTIAL (PRIMARY) HYPERTENSION Status: Chronic Priority : Medium Current Visit: No Qualifiers: Hypertension type: essential hypertension Qualified Code(s): I10 - Essential (primary) hypertension (6) Hx of myocardial infarction SNOMED Code(s): 306495437 ICD Code: I25.2 - OLD MYOCARDIAL INFARCTION Status: Chronic Current Visit : Yes Problem List Initiated/Reviewed/Updated: Yes Orders Last 24hrs: Active Orders 24 hr Category Date Time Status Patient Status [ADT] Stat ADT 01/22/18 22:16 Active Cardiac Monitoring [RC] . DIRECTED Care 01/22/18 20:43 Active EKG Documentation Completion [RC] STAT Care 01/22/18 20:43 Active Oxygen Therapy, ED [RC] ASDIRECTED Care 01/22/18 20:43 Active Pulse Oximetry [RC] ASDIRECTED Care 01/22/18 20:43 Active RT Aerosol Therapy [RC] ASDIRECTED Care 01/22/18 20:44 Active RT Aerosol Therapy [RC] ASDIRECTED Care 01/22/18 22:14 Active RT Aerosol Therapy [RC] ASDIRECTED Care 01/22/18 23:18 Active Regular Diet [DIET] Diet 01/23/18 Breakfast Active Chest 2V [CR] Stat Exams 01/22/18 20:43 Taken CULTURE STREP A CONFIRMATION [RM] Stat Lab 01/22/18 21:15 Results STREP SCRN A RAPID W CULT CONF [RM] Stat Lab 01/22/18 21:15 Ordered UA W/MICROSCOPIC [URIN] Stat Lab 01/23/18 06:00 Ordered Albuterol/Ipratropium [DuoNeb 3.0-0.5 MG/3 ML] Med 01/22/18 23:16 Active 3 ml NEB Q4HRRT PRN Sodium Chloride 0.9% [Saline Flush] Med 01/22/18 20:44 Active 10 ml FLUSH ASDIRECTED PRN Sodium Chloride 0.9% [Saline Flush] Med 01/22/18 23:16 Active 10 ml FLUSH ASDIRECTED PRN Sodium Chloride 0.9% [Saline Flush] Med 01/22/18 20:44 Active 2.5 ml FLUSH ASDIRECTED PRN Sodium Chloride 0.9% [Saline Flush] Med 01/22/18 23:16 Active 2.5 ml FLUSH ASDIRECTED PRN methylPREDNISolone Sod Succ [Solu-MEDROL] Med 01/23/18 07:30 Ordered 60 mg IVPUSH Q6H Convert IV to Saline Lock [OM.PC] Routine Oth 01/22/18 23:16 Ordered Saline Lock Insert [OM.PC] Stat Oth 01/22/18 20:43 Ordered Medication Orders Albuterol/Ipratropium (Duoneb 3.0-0.5 Mg/3 Ml) 3 ml NEB Q4HRRT PRN PRN Reason: Shortness of Breath Methylprednisolone Sodium Succinate (Solu-Medrol) 60 mg IVPUSH Q6H ISAI Sodium Chloride (Saline Flush) 10 ml FLUSH ASDIRECTED PRN PRN Reason: Keep Vein Open Sodium Chloride (Saline Flush) 2.5 ml FLUSH ASDIRECTED PRN PRN Reason: Keep Vein Open Sodium Chloride (Saline Flush) 10 ml FLUSH ASDIRECTED PRN PRN Reason: Keep Vein Open Sodium Chloride (Saline Flush) 2.5 ml FLUSH ASDIRECTED PRN PRN Reason: Keep Vein Open Assessment/Plan Comment:: THis 82 year old female admitted with acute COPD exacerbation with suspected URI. 1. COPD exacerbation: Feels improved this morning, leukocytosis mildly improved overnight. Will continue Solumedrol 60 mg IV Q6hrs today and monitor. Continues on 2 L NC with sats mid to low 90s, wean to keep sat 88% or greater. Continue Home inhalers, daughter is bringing in to verify with Med rec. Recently had PFT and does qualify for pulmonary rehab, discussed this with daughter and Lisa this morning, will recommend referral to Dr Chase. We also discussed COPD diagnoses and disease progression for over 30 minutes with Lisa and daughter. Due to green phlegm, will conitnue antibiotics. Will start Levaquin 750 PO Q48hrs. CXR did not show consolidation. 2. Hyperglycemia: Will check A1c. Given steroids, which maybe causing elevated blood sugars. Will Monitor BS before meals and start low dose SSI with Novolog while on IV steroid. 3. HTN: Continue Metoprolol XL 4. CAD: Stable, Continue ASA and statin. VTE prophylaxis: Lovenox. Dispo: 1-2 days pending improvement.
[2018-01-23] MEDS ORDERED: Ondansetron 4 MG/2 ML SDV IVPUSH PRN (07:32)
[2018-01-23] MEDS ORDERED: Acetaminophen 325 MG Tab PO PRN (07:32)
[2018-01-23] MEDS: methylPREDNISolone Sodium Succinate 125 MG/2 ML SDV IVPUSH SCH ×3 (08:07→21:04)
[2018-01-23] MEDS: Enoxaparin 40 MG/0.4 ML Syringe SUBCUT SCH (08:10)
--- NOTE | 2018-01-23 10:12 | CR ---
EXAM DATE: 01/22/18 PATIENT'S AGE: 82 Patient: YOBANI VERA Facility: [place], [place] Site . Site : [id number] Study: XRay Chest [id number]/[id number] 10:01:23 PM Ordering Physician: Darren Gallegos Final Report: INDICATION: Cough TECHNIQUE: Chest 2 views. COMPARISON: October 08, 2017 FINDINGS: Stable cardiomediastinal silhouette. No new focal infiltrate, effusion, or pneumothorax. Osteopenia. Mild to moderate degenerative changes in the thoracic spine. IMPRESSION: No sign of acute disease. Dictated by Ayana Gutierrez MD @ Jan 22 2018 10:11PM (Electronic Signature) Report Signed by Proxy. ALEYDA
[2018-01-23] MEDS ORDERED: Nitroglycerin 0.4 MG Tab.SL SL PRN (10:15)
[2018-01-23] MEDS ORDERED: Cholecalciferol (Vitamin D3) 1,000 Unit Tab PO SCH (10:30)
[2018-01-23] MEDS ORDERED: Fluticasone/Salmeterol 250-50 MCG Inhalation Powder 14/Diskus INH SCH (10:30)
[2018-01-23] MEDS ORDERED: Levofloxacin 250 MG Tab PO SCH (10:45)
[2018-01-23] MEDS: Albuterol/Ipratropium 3.0-0.5 MG/3 ML Neb Soln NEB SCH ×4 (11:09→23:20)
[2018-01-23] MEDS: Ascorbic Acid 500 MG Tab PO SCH (11:13)
[2018-01-23] MEDS: Aspirin 81 MG Tab.Chew PO SCH (11:13)
[2018-01-23] MEDS: Insulin Aspart 100 Units/ML 3 ML Pen SUBCUT SCH ×2 (11:55→17:46)
[2018-01-23] MEDS: Polyvinyl Alcohol 1.4% Ophth Soln 15 ML Bottle EYEBOTH SCH (13:05)
[2018-01-23] MEDS ORDERED: guaiFENesin 100 MG/5 ML Soln 10 ML UD Cup PO PRN (13:57)
[2018-01-23] MEDS ORDERED: Albuterol 8 GM Inhaler INH PRN (16:57)
[2018-01-23] MEDS ORDERED: atorvaSTATin 20 MG Tab PO SCH (21:00)
[2018-01-23] MEDS: Glycopyrrolate/Formoterol Fum [Bevespi Aerosphere Inhaler] INH SCH (21:11)
[2018-01-24] MEDS ORDERED: Aspirin 81 MG Tab.Chew PO ONE (01:40)
[2018-01-24] MEDS: methylPREDNISolone Sodium Succinate 125 MG/2 ML SDV IVPUSH SCH ×2 (02:22→06:55)
[2018-01-24] MEDS: Albuterol/Ipratropium 3.0-0.5 MG/3 ML Neb Soln NEB SCH ×3 (02:23→10:43)
[2018-01-24] MEDS: Insulin Aspart 100 Units/ML 3 ML Pen SUBCUT SCH ×2 (02:43→07:04)
[2018-01-24] MEDS: Enoxaparin 40 MG/0.4 ML Syringe SUBCUT SCH (06:54)
[2018-01-24 07:39] VITALS: BP 132/61
[2018-01-24] MEDS: Ascorbic Acid 500 MG Tab PO SCH (08:36)
[2018-01-24] MEDS: Aspirin 81 MG Tab.Chew PO SCH (08:37)
[2018-01-24] MEDS: Polyvinyl Alcohol 1.4% Ophth Soln 15 ML Bottle EYEBOTH SCH (08:37)
[2018-01-24] MEDS ORDERED: atorvaSTATin 20 MG Tab PO SCH (09:00)
[2018-01-24] MEDS ORDERED: Cholecalciferol (Vitamin D3) 1,000 Unit Tab PO SCH (09:00)
[2018-01-24] MEDS ORDERED: Metoprolol Succinate 25 MG Tab.ER PO SCH (09:00)
[2018-01-24] MEDS ORDERED: Multivitamins with Iron/Calcium/Folic Acid/Minerals Tab PO SCH (09:00)
[2018-01-24] MEDS ORDERED: Benzonatate 100 MG Cap PO PRN (09:02)
[2018-01-24] MEDS ORDERED: Fluticasone Propionate Nasal Spray 16 GM Bottle NASBOTH SCH (09:15)
[2018-01-24] MEDS: Glycopyrrolate/Formoterol Fum [Bevespi Aerosphere Inhaler] INH SCH (09:31)
--- NOTE | 2018-01-24 09:45 | PCM.DCSUM1 ---
Discharge Summary - Hospital Course Brief History: This 82 year old female with pmh of COPD, CAD, AAA, and HTN presented to the ED with complaints of increasing/worsening SOB. She reports she got a cold about a week ago and the shortness of breath slowly increased. She felt like last night it got worse and she felt she needed evaluation. She is not oxygen dependent at home. She recently was on Prednisone taper and Azithromycin and finished this course approximately 2 weeks ago. She denies fevers, but reports dry sore throat, productive cough with green phlegm, and dyspnea. No chest pain or palpitations. No abdominal pain, no diarrhea or black or bloody BMs. She has been taking inhalers as prescribed as well as increasing her use of Duonebs without much relief. She recently had PFT in 11/2017, showing COPD. She denies ever getting referral to pulmonary rehab. In the ED slightly leukocytosis noted at 13,460, BMP WNL. UA negative. Strep negative. CXR negative. She was noted to be tachypneic with sats low 90s. She was placed on 2 L NC and treated with Rocephin as well as Duoneb and SOlumedrol. She reported some improvement after Duoneb. She was admitted observation for COPD exacerbation. PCP, Dr Chase. Diagnosis: Stroke: No - Discharge Data Discharge Date: 01/24/18 Discharge Disposition: Home, Self-Care 01 Condition: Good - Discharge Diagnosis/Problem(s) (1) COPD with exacerbation SNOMED Code(s): 803787918 ICD Code: J44.1 - CHRONIC OBSTRUCTIVE PULMONARY DISEASE W (ACUTE) EXACERBATION Status: Acute Current Visit: Yes (2) Abdominal aortic aneurysm (AAA) SNOMED Code(s): 210804390 ICD Code: I71.4 - ABDOMINAL AORTIC ANEURYSM, WITHOUT RUPTURE Status: Chronic Current Visit: No Qualifiers: Presence of rupture: without rupture Qualified Code(s): I71.4 - Abdominal aortic aneurysm, without rupture (3) CAD (coronary artery disease) SNOMED Code(s): 49089006 ICD Code: I25.10 - ATHSCL HEART DISEASE OF [place] CORONARY ARTERY W/O ANG PCTRS Status: Chronic Current Visit: No Qualifiers: Coronary Disease-Associated Artery/Lesion type: [place] artery [place] vs. transplanted heart: [place] heart Associated angina: without angina Qualified Code(s): I25.10 - Atherosclerotic heart disease of [place] coronary artery without angina pectoris (4) Hx of pancreatitis SNOMED Code(s): 06770144000310 ICD Code: Z87.19 - PERSONAL HISTORY OF OTHER DISEASES OF THE DIGESTIVE SYSTEM Status: Chronic Current Visit: No Problem Details: gallstone induced (5) Hypertension SNOMED Code(s): 95700884 ICD Code: I10 - ESSENTIAL (PRIMARY) HYPERTENSION Status: Chronic Priority : Medium Current Visit: No Qualifiers: Hypertension type: essential hypertension Qualified Code(s): I10 - Essential (primary) hypertension (6) Hx of myocardial infarction SNOMED Code(s): 728398990 ICD Code: I25.2 - OLD MYOCARDIAL INFARCTION Status: Chronic Current Visit : Yes - Patient Instructions Diet: Heart Healthy Diet, Diabetic Diet Activity: As Tolerated Showering/Bathing: May Shower Notify Provider of: Fever, Increased Pain - Discharge Plan *PRESCRIPTION DRUG MONITORING PROGRAM REVIEWED*: Not Applicable *COPY OF PRESCRIPTION DRUG MONITORING REPORT IN PATIENT RAVI: Not Applicable Prescriptions/Med Rec: Albuterol [Ventolin HFA] 1 puff INH Q4H PRN #1 puff PRN Reason: Wheezing Glycopyrrolate/Formoterol Fum [Bevespi Aerosphere Inhaler] 1 inh IH BID #1 hfa.aer.ad guaiFENesin [Robitussin] 200 mg PO Q4H PRN #1 bottle PRN Reason: Cough Levofloxacin [Levaquin] 750 mg PO Q48H #2 tablet predniSONE [Prednisone] 10 - 40 mg PO DAILY #30 tablet Home Medications: Home Meds Nitroglycerin [Nitrostat] 0.4 mg SL Q5M PRN 01/27/17 [History] Multivitamin [Multivitamins] 1 tab PO DAILY 06/04/17 [History] Ascorbic Acid [Vitamin C] 500 mg PO DAILY 01/22/18 [History] Aspirin 2 tab PO DAILY 01/22/18 [History] Cholecalciferol (Vitamin D3) [Vitamin D3] 1 cap PO DAILY 01/22/18 [History] Polyvinyl Alcohol/Povidone/Pf [Refresh Classic Eye Drops] 1 each OP DAILY [History] Fluticasone Propionate [Flovent] 50 mcg NASBOTH DAILY 01/23/18 [History] Metoprolol Succinate 25 mg PO DAILY 01/23/18 [History] atorvaSTATin Calcium [Atorvastatin Calcium] 1 tab DAILY 01/23/18 [History] Albuterol [Ventolin HFA] 1 puff INH Q4H PRN #1 puff 01/24/18 [Rx] Fluticasone Propionate [Flonase] 1 spray NASBOTH DAILY #0 bottle 01/24/18 [Rx] Glycopyrrolate/Formoterol Fum [Bevespi Aerosphere Inhaler] 1 inh IH BID #1 hfa.aer.ad 01/24/18 [Rx] Levofloxacin [Levaquin] 750 mg PO Q48H #2 tablet 01/24/18 [Rx] guaiFENesin [Robitussin] 200 mg PO Q4H PRN #1 bottle 01/24/18 [Rx] predniSONE [Prednisone] 10 - 40 mg PO DAILY #30 tablet 01/24/18 [Rx] Patient Handouts: Chronic Obstructive Pulmonary Disease Exacerbation, Easy-to- Read, Guaifenesin; Pseudoephedrine tablets or capsules, Levofloxacin tablets, Albuterol; Ipratropium solution for inhalation, Prednisone tablets, Glycopyrrolate; Formoterol inhalation aerosol Referrals: Danitza Welsh NP [Ordering Only Provider] - 02/01/18 3:30 pm - Discharge Summary/Plan Comment DC Time >30 min.: No Discharge Summary/Plan Comment: Discharge Diagnoses: COPD exacerbation CAD Hx [place] HX AAA Borderline, diet controlled DM type 2 Lisa was admitted observation for COPD exacerbation. She was treated with IV Solumedrol x 1 day. Wheezing and dyspnea improved. Continues to have productive cough, which is yellow now and slightly sore throat. She was weaned off oxygen and is currently sating mid 90s on RA. She reports feeling better and is very eager to be discharged today. LS have improved. She will be switched to PO Prednisone taper for 2 weeks, and will finish a 5 day course of Levaquin. She denies shortness of breath or chest pain today. No other concerns. She is to continue inhalers at home. She was encouraged to attend Pulmonary Rehab, but will need referral from PCP. She is aware of this. She is to return to the ED or clinic if concerns should arise. Follow up with PCP in 1 week. - General Info Date of Service: 01/24/18 Admission Dx/Problem (Free Text: Admission Diagnosis/Problem Admission Diagnosis/Problem COPD, Mild chronic obstructive pulmonary disease Subjective Update: Sitting up in chair, "i am ready to go home today." Denies chest pain or SOB. Cough is better, but still slightly productive. Currently on room air sating mid 90s. Functional Status: Reports: Pain Controlled, Tolerating Diet, Ambulating, Urinating - Review of Systems General: Reports: No Symptoms. Denies: Fever, Malaise HEENT: Reports: Sore Throat. Denies: Headaches, Rhinitis, Visual Changes Pulmonary: Reports: Cough, Sputum (yellow). Denies: Shortness of Breath Cardiovascular: Reports: No Symptoms. Denies: Chest Pain, Palpitations, Orthopnea, Edema Gastrointestinal: Reports: No Symptoms. Denies: Abdominal Pain, Nausea, Vomiting Genitourinary: Reports: No Symptoms. Denies: Dysuria, Frequency, Burning Musculoskeletal: Reports: No Symptoms Neurological: Reports: No Symptoms Psychiatric: Reports: No Symptoms - Patient Data Vitals - Most Recent: Last Vital Signs Temp 98.2 F 01/24/18 07:38 Pulse 100 01/24/18 08:37 Resp 18 01/24/18 07:38 BP 132/61 01/24/18 08:37 Pulse Ox 94 L 01/24/18 07:38 Weight - Most Recent: 90.7 kg I&O - Last 24 hours: Intake & Output 01/23/18 01/24/18 01/24/18 22:59 06:59 14:59 Intake Total 720 880 Output Total 1050 1100 Balance -330 -220 Lab Results - Last 24 hrs: Laboratory Results - last 24 hr 01/23/18 01/23/18 01/23/18 Range/Units 05:20 11:34 16:01 WBC (4.0-11.0) K/uL RBC (4.30-5.90) M/uL Hgb (12.0-16.0) g/dL Hct (36.0-46.0) % MCV (80.0-98.0) fL MCH (27.0-32.0) pg MCHC (31.0-37.0) g/dL RDW Std Deviation (28.0-62.0) fl RDW Coeff of Harpreet (11.0-15.0) % Plt Count (150-400) K/uL MPV (7.40-12.00) fL Neut % (Auto) (48.0-80.0) % Lymph % (Auto) (16.0-40.0) % [place] % (Auto) (0.0-15.0) % Eos % (Auto) (0.0-7.0) % Baso % (Auto) (0.0-1.5) % Neut # (Auto) (1.4-5.7) K/uL Lymph # (Auto) (0.6-2.4) K/uL [place] # (Auto) (0.0-0.8) K/uL Eos # (Auto) (0.0-0.7) K/uL Baso # (Auto) (0.0-0.1) K/uL Nucleated RBC % /100WBC Nucleated RBCs # K/uL Sodium (136-145) mmol/L Potassium (3.5-5.1) mmol/L Chloride (98-107) mmol/L Carbon Dioxide (21.0-32.0) mmol/L BUN (7.0-18.0) mg/dL Creatinine (0.6-1.0) mg/dL Est Cr Clr Drug Dosing mL/min Estimated GFR (MDRD) ml/min Glucose (74-106) mg/dL POC Glucose 155 H 201 H (60-110) mg/dL Hemoglobin A1c 6.8 H (4.5-6.2) % Calcium (8.5-10.1) mg/dL 01/24/18 01/24/18 01/24/18 Range/Units 02:27 05:23 05:23 WBC 16.39 H (4.0-11.0) K/uL RBC 4.38 (4.30-5.90) M/uL Hgb 12.4 (12.0-16.0) g/dL Hct 38.0 (36.0-46.0) % MCV 86.8 (80.0-98.0) fL MCH 28.3 (27.0-32.0) pg MCHC 32.6 (31.0-37.0) g/dL RDW Std Deviation 48.9 (28.0-62.0) fl RDW Coeff of Harpreet 15 (11.0-15.0) % Plt Count 354 (150-400) K/uL MPV 10.10 (7.40-12.00) fL Neut % (Auto) 87.7 H (48.0-80.0) % Lymph % (Auto) 7.1 L (16.0-40.0) % [place] % (Auto) 5.1 (0.0-15.0) % Eos % (Auto) 0.0 (0.0-7.0) % Baso % (Auto) 0.1 (0.0-1.5) % Neut # (Auto) 14.4 H (1.4-5.7) K/uL Lymph # (Auto) 1.2 (0.6-2.4) K/uL [place] # (Auto) 0.8 (0.0-0.8) K/uL Eos # (Auto) 0.0 (0.0-0.7) K/uL Baso # (Auto) 0.0 (0.0-0.1) K/uL Nucleated RBC % 0.0 /100WBC Nucleated RBCs # 0 K/uL Sodium 134 L (136-145) mmol/L Potassium 4.0 (3.5-5.1) mmol/L Chloride 101 (98-107) mmol/L Carbon Dioxide 20.7 L (21.0-32.0) mmol/L BUN 29 H (7.0-18.0) mg/dL Creatinine 1.2 H (0.6-1.0) mg/dL Est Cr Clr Drug Dosing 28.25 mL/min Estimated GFR (MDRD) 43.2 ml/min Glucose 326 H (74-106) mg/dL POC Glucose 327 H (60-110) mg/dL Hemoglobin A1c (4.5-6.2) % Calcium 9.5 (8.5-10.1) mg/dL [facility] Results - Last 24 hrs: Microbiology 01/22/18 21:15 Quick Strep Confirmation Culture - Final Throat NO GROUP A STREP ISOLATED Group A Streptococcus Rapid Screen - Final NEGATIVE STREP A SCREEN Med Orders - Current: Current Medications Acetaminophen (Tylenol) 650 mg PO Q4H PRN PRN Reason: Pain Albuterol (Ventolin Hfa) 8 gm INH Q4H PRN PRN Reason: Wheezing Albuterol/Ipratropium (Duoneb 3.0-0.5 Mg/3 Ml) 3 ml NEB Q4HRRT [facility] Last Admin: 01/24/18 06:34 Dose: 3 ml Artificial Tears (Liquitears 1.4% Ophth Soln) 1 ml EYEBOTH DAILY [facility] Last Admin: 01/24/18 08:37 Dose: 1 drop Ascorbic Acid (Vitamin C) 500 mg PO DAILY [facility] Last Admin: 01/24/18 08:36 Dose: 500 mg Aspirin (Aspirin) 81 mg PO DAILY [facility] Last Admin: 01/24/18 08:37 Dose: 81 mg Atorvastatin Calcium (Lipitor) 20 mg PO DAILY [facility] Last Admin: 01/24/18 08:37 Dose: 20 mg Benzonatate (Tessalon Perles) 100 mg PO TID PRN PRN Reason: Cough Last Admin: 01/24/18 09:33 Dose: 100 mg Cholecalciferol (Vitamin D3) 1,000 units PO DAILY [facility] Last Admin: 01/24/18 08:37 Dose: 1,000 units Enoxaparin Sodium (Lovenox) 40 mg SUBCUT Q24H [facility] Last Admin: 01/24/18 06:54 Dose: 40 mg Fluticasone Propionate (Flonase) 0 gm NASBOTH DAILY [facility] Last Admin: 01/24/18 09:31 Dose: 1 spr Guaifenesin (Robitussin) 200 mg PO Q4H PRN PRN Reason: Cough Insulin Aspart (Novolog) 0 unit SUBCUT TIDAC [facility]; Protocol Last Admin: 01/24/18 07:04 Dose: 3 unit Levofloxacin (Levaquin) 750 mg PO Q48H [facility] Last Admin: 01/23/18 11:55 Dose: 750 mg Methylprednisolone Sodium Succinate (Solu-Medrol) 60 mg IVPUSH Q12H [facility] Metoprolol Succinate (Toprol Xl) 25 mg PO DAILY [facility] Last Admin: 01/24/18 08:37 Dose: 25 mg Multivitamins/Minerals (Thera M Plus) 1 tab PO DAILY [facility] Last Admin: 01/24/18 08:36 Dose: 1 tab Nitroglycerin (Nitrostat) 0.4 mg SL Q5M PRN PRN Reason: Chest Pain Ondansetron HCl (Zofran) 4 mg IVPUSH Q4H PRN PRN Reason: Nausea Glycopyrrolate/Formoterol Fum [ Bevespi Aerosphere Inhaler] 1 each INH BID [facility] Last Admin: 01/24/18 09:31 Dose: 1 each Sodium Chloride (Saline Flush) 10 ml FLUSH ASDIRECTED PRN PRN Reason: Keep Vein Open Sodium Chloride (Saline Flush) 2.5 ml FLUSH ASDIRECTED PRN PRN Reason: Keep Vein Open Discontinued Medications Albuterol/Ipratropium (Duoneb 3.0-0.5 Mg/3 Ml) 3 ml NEB ONETIME ONE Stop: 01/22/18 20:44 Last Admin: 01/22/18 21:00 Dose: 3 ml Albuterol/Ipratropium (Duoneb 3.0-0.5 Mg/3 Ml) 3 ml NEB ONETIME ONE Stop: 01/22/18 22:15 Last Admin: 01/22/18 22:18 Dose: 3 ml Albuterol/Ipratropium (Duoneb 3.0-0.5 Mg/3 Ml) 3 ml NEB Q4HRRT PRN PRN Reason: Shortness of Breath Aspirin (Aspirin) 81 mg PO ONETIME ONE Stop: 01/24/18 01:41 Last Admin: 01/24/18 02:23 Dose: 81 mg Atorvastatin Calcium (Lipitor) 20 mg PO BEDTIME [facility] Last Admin: 01/23/18 21:05 Dose: 20 mg Azithromycin (Zithromax) 500 mg PO Q24H [facility] Cholecalciferol (Vitamin D3) 1 units PO DAILY [facility] Last Admin: 01/23/18 11:13 Dose: 1,000 units Sodium Chloride (Normal Saline) 1,000 mls @ 83 mls/hr IV ASDIRECTED [facility] Last Admin: 01/22/18 21:08 Dose: 83 mls/hr Ceftriaxone Sodium/Dextrose 1 (gm/ Premix) 50 mls @ 100 mls/hr IV ONETIME ONE Stop: 01/22/18 22:44 Last Admin: 01/22/18 22:28 Dose: 100 mls/hr Methylprednisolone Sodium Succinate (Solu-Medrol) 125 mg IVPUSH ONETIME ONE Stop: 01/22/18 20:44 Last Admin: 01/22/18 21:11 Dose: 125 mg Methylprednisolone Sodium Succinate (Solu-Medrol) 60 mg IVPUSH Q6H [facility] Last Admin: 01/24/18 06:55 Dose: 60 mg Fluticasone/Salmeterol (Advair Diskus 250-50) 1 puff INH BID [facility] Last Admin: 01/23/18 14:07 Dose: Not Given Sodium Chloride (Saline Flush) 10 ml FLUSH ASDIRECTED PRN PRN Reason: Keep Vein Open Sodium Chloride (Saline Flush) 2.5 ml FLUSH ASDIRECTED PRN PRN Reason: Keep Vein Open - Exam Quality Assessment: Reports: DVT Prophylaxis. Denies: Supplemental Oxygen General: Reports: Alert, Oriented, Cooperative, No Acute Distress Neck: Reports: Supple Lungs: Reports: Clear to Auscultation, Normal Respiratory Effort. Denies: Wheezing Cardiovascular: Reports: Regular Rate, Regular Rhythm GI/Abdominal Exam: Normal Bowel Sounds, Soft, Non-Tender Back Exam: Reports: Normal Inspection, Full Range of Motion Extremities: Normal Inspection, Normal Range of Motion, Non-Tender Neurological: Reports: No New Focal Deficit Psy/Mental Status: Reports: Alert, Normal Affect, Normal Mood
[2018-01-24] MEDS ORDERED: methylPREDNISolone Sodium Succinate 125 MG/2 ML SDV IVPUSH SCH (18:00)
== END 2018-01-24 10:40 | disposition home or self-care (01) ==
LOC: MW.ED 20:28 → MW.MS 22:16
PROVIDERS: ADMIT Internal Medicine; ATTEND Internal Medicine
DX: J44.1 Chronic obstructive pulmonary disease with (acute) exacerbation (principal); I10 Essential (primary) hypertension; E66.9 Obesity, unspecified; E78.00 Pure hypercholesterolemia, unspecified; I25.10 Atherosclerotic heart disease of native coronary artery without angina pectoris; I25.2 Old myocardial infarction; Z87.891 Personal history of nicotine dependence; Z87.19 Personal history of other diseases of the digestive system; Z86.79 Personal history of other diseases of the circulatory system; Z79.82 Long term (current) use of aspirin; Z79.51 Long term (current) use of inhaled steroids; Z79.899 Other long term (current) drug therapy; Z88.5 Allergy status to narcotic agent; Z91.013 Allergy to seafood; Z95.5 Presence of coronary angioplasty implant and graft
CPT/HCPCS: 36415; 71046; 80048; 80053; 81001; 82962; 83036; 83605; 84484; 85025; 87081; 87880; 93005; 94640; 96361; 96365; 96375; 99285; A9270; J0696; J1650; J1815; J2930; J7040

== ENCOUNTER 2018-03-12 13:36 | Observation (INO) | payer MEDICARE, OTHER ==
--- NOTE | 2018-03-12 13:45 | EDM.PDOC ---
ED HPI GENERAL MEDICAL PROBLEM - General Stated Complaint: BREATHING HARD AND COUPHING Time Seen by Provider: 03/12/18 13:45 Source of Information: Reports: Patient History Limitations: Reports: No Limitations - History of Present Illness INITIAL COMMENTS - FREE TEXT/NARRATIVE: HISTORY AND PHYSICAL: History of present illness: Patient is an 82-year-old female who presents to the emergency room today with complaints of cough and dyspnea 1 week. She states that she has a history of pneumonia and is concerned that she may have pneumonia again. She states she tried to get an appointment at the clinic but was unable to get in a timely manner. She denies any fever, chills, chest pain. Denies any abdominal pain, nausea, vomiting, dysuria, diarrhea or constipation. Patient has a past medical history of hypertension, [place] with stent placement, COPD, recurrent pneumonia and upper respiratory infections. Review of systems: As per history of present illness and below otherwise all systems reviewed and negative. Past medical history: As per history of present illness and as reviewed below otherwise noncontributory. Surgical history: As per history of present illness and as reviewed below otherwise noncontributory. Social history: No reported history of drug or alcohol abuse. Family history: As per history of present illness and as reviewed below otherwise noncontributory. Physical exam: General: Well-developed and well-nourished 82-year-old female. Alert and oriented. Nontoxic appearing and in no acute distress. HEENT: Atraumatic, normocephalic, pupils equal and reactive bilaterally, negative for conjunctival pallor or scleral icterus, mucous membranes moist, throat clear, neck supple, nontender, trachea midline. No drooling or trismus noted. No meningeal signs Lungs: Inspiratory and expiratory wheezing noted throughout, breath sounds equal bilaterally, chest nontender. Heart: S1S2, regular rate and rhythm without overt murmur Abdomen: Soft, nondistended, nontender. Negative for masses or hepatosplenomegaly. Negative for costovertebral tenderness. Pelvis: Stable nontender. Genitourinary: Deferred. Rectal: Deferred. Skin: Intact, warm, dry. No lesions or rashes noted. Extremities: Atraumatic, negative for cords or calf pain. Neurovascular unremarkable. Neuro: Awake, alert, oriented. Cranial nerves II through XII unremarkable. Cerebellum unremarkable. Motor and sensory unremarkable throughout. Exam nonfocal. Notes: Patient is sitting in a forward seated position to catch her breath. Upon arrival her oxygen saturation was 86-88% on room air. She did go up to 92% with 2 L of oxygen. Does not use home oxygen. Patient states she feels somewhat improved after the DuoNeb. Lab work is unremarkable. X-ray shows no evidence of pneumonia or infiltrate. Oxygen saturation is 94 on 3L per NC. When placed on room air the patient does drop to 88%. Unable to get oxygen saturation above 90 she does become fatigued with exertion. Dr Kamara/Helen 's consult did on this case. Agreeable to keeping the patient for observation. Patient is agreeable and denies any further questions or concerns at this time. Diagnostics: CBC, CMP, troponin, EKG, 2 view chest, blood cultures Therapeutics: Solu-Medrol, DuoNeb Impression: Hypoxia COPD exacerbation Plan: Observation admission to Med/Surg Definitive disposition and diagnosis as appropriate pending reevaluation and review of above. Duration: Day(s): Location: Reports: Chest chest Pain Score (Numeric/FACES): 6 - Related Data Allergies Allergy/AdvReac Type Severity Reaction Status Date / Time Opioids - Morphine Analogues Allergy Severe Respiratory Verified 03/12/18 13:43 Depression shellfish derived Allergy Cannot Verified 03/12/18 13:43 Remember Home Meds: Home Meds Nitroglycerin [Nitrostat] 0.4 mg SL Q5M PRN 01/27/17 [History] Multivitamin [Multivitamins] 1 tab PO DAILY 06/04/17 [History] Ascorbic Acid [Vitamin C] 500 mg PO DAILY 01/22/18 [History] Aspirin 162 mg PO DAILY 01/22/18 [History] Cholecalciferol (Vitamin D3) [Vitamin D3] 1,000 unit PO DAILY 01/22/18 [History] Polyvinyl Alcohol/Povidone/Pf [Refresh Classic Eye Drops] 1 each EYEBOTH DAILY 01/22/18 [History] Metoprolol Succinate 25 mg PO DAILY 01/23/18 [History] atorvaSTATin Calcium [Atorvastatin Calcium] 20 mg PO DAILY 01/23/18 [History] Fluticasone Propionate [Flonase] 1 spray NASBOTH DAILY #0 bottle 01/24/18 [Rx] Acetaminophen 1,000 mg PO Q6H PRN 03/12/18 [History] Albuterol [Ventolin HFA] 2 puff INH Q4H PRN 03/12/18 [History] Past Medical History - Past Health History Medical/Surgical History: Denies Medical/Surgical History HEENT History: Reports: Hard of Hearing, Impaired Vision Other HEENT History: wears eyeglasses and bilateral hearing aids Cardiovascular History: Reports: High Cholesterol, Hypertension, [place] (x2), Stents (x3) Other Cardiovascular History: x2 [place], 3 stents Respiratory History: Reports: Asthma, COPD, Pneumonia, Recurrent, Other (See Below) Other Respiratory History: Frequent URIs Gastrointestinal History: Reports: Pancreatitis (gallstone,) Other Gastrointestinal History: Patient denies both Genitourinary History: Reports: Other (See Below) Other Genitourinary History: "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 Denies: CVA, TIA Psychiatric History: Reports: None Endocrine/Metabolic History: Reports: Obesity/BMI 30+. Denies: Diabetes, Type II Other Endocrine/Metabolic History: "borderline diabetic'- patient denies Hematologic History: Reports: Anemia Immunologic History: Reports: None Oncologic (Cancer) History: Reports: None Dermatologic History: Reports: None - Infectious Disease History Infectious Disease History: Reports: Influenza, Measles, Mumps - Past Surgical History Head Surgeries/Procedures: Reports: None HEENT Surgical History: Reports: None Cardiovascular Surgical History: Reports: Carotid Stents Respiratory Surgical History: Reports: None GI Surgical History: Reports: Cholecystectomy, Colonoscopy Female Surgical History: Reports: Tubal Ligation Endocrine Surgical History: Reports: None Neurological Surgical History: Reports: None Musculoskeletal Surgical History: Reports: None Dermatological Surgical History: Reports: None Social & Family History - Family History Family Medical History: Noncontributory - Caffeine Use Caffeine Use: Reports: Coffee, Tea - Living Situation & Occupation Living situation: Reports: Occupation: Retired ED ROS GENERAL - Review of Systems Review Of Systems: ROS reveals no pertinent complaints other than HPI. ED EXAM, GENERAL - Physical Exam Exam: See Below (See dictation) Course - Vital Signs Last Recorded V/S: Last Vital Signs Temp 97.4 F 03/12/18 13:43 Pulse 76 03/12/18 14:20 Resp 27 H 03/12/18 13:43 BP 151/103 H 03/12/18 13:43 Pulse Ox 91 L 03/12/18 14:20 - Orders/Labs/Meds Orders: Active Orders 24 hr Category Date Time Status Admission Status [Patient Status] [ADT] Stat ADT 03/12/18 15:42 Ordered RT Aerosol Therapy [RC] ASDIRECTED Care 03/12/18 13:47 Active B-TYPE NATRIURETIC PEPTIDE,BNP [CHEM] Stat Lab 03/12/18 15:19 Ordered CULTURE BLOOD [BC] Stat Lab 03/12/18 14:00 Received CULTURE BLOOD [BC] Stat Lab 03/12/18 14:13 Received Blood Culture x2 Reflex Set [OM.PC] Stat Oth 03/12/18 13:48 Ordered Labs: Laboratory Tests 03/12/18 03/12/18 Range/Units 14:00 14:00 WBC 9.15 (4.0-11.0) K/uL RBC 5.15 (4.30-5.90) M/uL Hgb 14.7 (12.0-16.0) g/dL Hct 45.9 (36.0-46.0) % MCV 89.1 (80.0-98.0) fL MCH 28.5 (27.0-32.0) pg MCHC 32.0 (31.0-37.0) g/dL RDW Std Deviation 55.2 (28.0-62.0) fl RDW Coeff of Harpreet 17 H (11.0-15.0) % Plt Count 282 (150-400) K/uL MPV 10.20 (7.40-12.00) fL Neut % (Auto) 41.0 L (48.0-80.0) % Lymph % (Auto) 34.4 (16.0-40.0) % Hughes % (Auto) 6.8 (0.0-15.0) % Eos % (Auto) 16.9 H (0.0-7.0) % Baso % (Auto) 0.9 (0.0-1.5) % Neut # (Auto) 3.8 (1.4-5.7) K/uL Lymph # (Auto) 3.2 H (0.6-2.4) K/uL Hughes # (Auto) 0.6 (0.0-0.8) K/uL Eos # (Auto) 1.6 H (0.0-0.7) K/uL Baso # (Auto) 0.1 (0.0-0.1) K/uL Nucleated RBC % 0.0 /100WBC Nucleated RBCs # 0 K/uL Sodium 141 (136-145) mmol/L Potassium 4.5 (3.5-5.1) mmol/L Chloride 107 (98-107) mmol/L Carbon Dioxide 26.6 (21.0-32.0) mmol/L BUN 11 (7.0-18.0) mg/dL Creatinine 0.8 (0.6-1.0) mg/dL Est Cr Clr Drug Dosing 42.32 mL/min Estimated GFR (MDRD) > 60.0 ml/min Glucose 110 H (74-106) mg/dL Calcium 9.3 (8.5-10.1) mg/dL Total Bilirubin 1.1 H (0.2-1.0) mg/dL AST 28 (15-37) IU/L ALT 40 (14-63) IU/L Alkaline Phosphatase 107 (46-116) U/L Troponin I < 0.050 (0.000-0.056) ng/mL Total Protein 7.6 (6.4-8.2) g/dL Albumin 4.1 (3.4-5.0) g/dL Globulin 3.5 (2.0-3.5) g/dL Albumin/Globulin Ratio 1.2 L (1.3-2.8) Meds: Medications Discontinued Medications Generic Name Dose Route Start Last Admin Trade Name Tristonq PRN Reason Stop Dose Admin Albuterol/Ipratropium 3 ml 03/12/18 13:47 03/12/18 14:19 Duoneb 3.0-0.5 Mg/3 Ml NEB 03/12/18 13:48 3 ml ONETIME ONE Administration Methylprednisolone Sodium Succinate 125 mg 03/12/18 13:47 03/12/18 14:22 Solu-Medrol IVPUSH 03/12/18 13:48 125 mg ONETIME ONE Administration Departure - Departure Time of Disposition: 15:47 Disposition: Refer to Observation Clinical Impression: COPD exacerbation, Hypoxia - Discharge Information Referrals: PCP,None [Primary Care Provider] - - My Orders Last 24 Hours: My Active Orders 03/12/18 13:47 RT Aerosol Therapy [RC] ASDIRECTED 03/12/18 13:48 Blood Culture x2 Reflex Set [OM.PC] Stat 03/12/18 14:00 CULTURE BLOOD [BC] Stat 03/12/18 14:13 CULTURE BLOOD [BC] Stat 03/12/18 15:19 B-TYPE NATRIURETIC PEPTIDE,BNP [CHEM] Stat 03/12/18 15:42 Admission Status [Patient Status] [ADT] Stat - Assessment/Plan Last 24 Hours: My Active Orders 03/12/18 13:47 RT Aerosol Therapy [RC] ASDIRECTED 03/12/18 13:48 Blood Culture x2 Reflex Set [OM.PC] Stat 03/12/18 14:00 CULTURE BLOOD [BC] Stat 03/12/18 14:13 CULTURE BLOOD [BC] Stat 03/12/18 15:19 B-TYPE NATRIURETIC PEPTIDE,BNP [CHEM] Stat 03/12/18 15:42 Admission Status [Patient Status] [ADT] Stat
[2018-03-12] MEDS ORDERED: Albuterol/Ipratropium 3.0-0.5 MG/3 ML Neb Soln NEB ONE (13:47)
[2018-03-12] MEDS ORDERED: methylPREDNISolone Sodium Succinate 125 MG/2 ML SDV IVPUSH ONE (13:47)
[2018-03-12 13:51] VITALS: BP 151/103
[2018-03-12 14:48] LABS: CHLORIDE,CL 107 mmol/L (98-107); SODIUM,NA 141 mmol/L (136-145)
--- NOTE | 2018-03-12 14:49 | CR ---
EXAMINATION: Two-view chest (PA and Lateral views). HISTORY: Dyspnea. FINDINGS: The trachea is midline. The cardiomediastinal silhouette is within normal limits. No pulmonary infilt rates, effusions or pneumothorax. Osseous structures appears osteopenic. IMPRESSION: No acute cardiopulmonary process.
[2018-03-12] MEDS ORDERED: Sodium Chloride 0.9% 2.5 ML Syringe FLUSH PRN (15:51)
[2018-03-12] MEDS ORDERED: Albuterol/Ipratropium 3.0-0.5 MG/3 ML Neb Soln NEB PRN (15:51)
[2018-03-12] MEDS ORDERED: Sodium Chloride 0.9% 10 ML Syringe FLUSH PRN (15:51)
[2018-03-12] MEDS ORDERED: Acetaminophen 325 MG Tab PO PRN (15:51)
[2018-03-12] MEDS ORDERED: Enoxaparin 40 MG/0.4 ML Syringe SUBCUT SCH (16:00)
[2018-03-12] MEDS ORDERED: methylPREDNISolone Sodium Succinate 125 MG/2 ML SDV IVPUSH SCH (16:00)
--- NOTE | 2018-03-12 16:02 | PCM.HP ---
H&P History of Present Illness - General Admit Problem/Dx: Admission Diagnosis/Problem Admission Diagnosis/Problem Hypoxia chest Pain Score (Numeric/FACES): 6 - Related Data Allergies/Adverse Reactions: Allergies Allergy/AdvReac Type Severity Reaction Status Date / Time Opioids - Morphine Analogues Allergy Severe Respiratory Verified 03/12/18 13:43 Depression shellfish derived Allergy Cannot Verified 03/12/18 13:43 Remember Home Medications: Home Meds Nitroglycerin [Nitrostat] 0.4 mg SL Q5M PRN 01/27/17 [History] Multivitamin [Multivitamins] 1 tab PO DAILY 06/04/17 [History] Ascorbic Acid [Vitamin C] 500 mg PO DAILY 01/22/18 [History] Aspirin 162 mg PO DAILY 01/22/18 [History] Cholecalciferol (Vitamin D3) [Vitamin D3] 1,000 unit PO DAILY 01/22/18 [History] Polyvinyl Alcohol/Povidone/Pf [Refresh Classic Eye Drops] 1 each EYEBOTH DAILY 01/22/18 [History] Metoprolol Succinate 25 mg PO DAILY 01/23/18 [History] atorvaSTATin Calcium [Atorvastatin Calcium] 20 mg PO DAILY 01/23/18 [History] Fluticasone Propionate [Flonase] 1 spray NASBOTH DAILY #0 bottle 01/24/18 [Rx] Acetaminophen 1,000 mg PO Q6H PRN 03/12/18 [History] Albuterol [Ventolin HFA] 2 puff INH Q4H PRN 03/12/18 [History] Past Medical History - Past Health History Medical/Surgical History: Denies Medical/Surgical History HEENT History: Reports: Hard of Hearing, Impaired Vision Other HEENT History: wears eyeglasses and bilateral hearing aids Cardiovascular History: Reports: High Cholesterol, Hypertension, [place] (x2), Stents (x3) Other Cardiovascular History: x2 [place], 3 stents Respiratory History: Reports: Asthma, COPD, Pneumonia, Recurrent, Other (See Below) Other Respiratory History: Frequent URIs Gastrointestinal History: Reports: Pancreatitis (gallstone,) Other Gastrointestinal History: Patient denies both Genitourinary History: Reports: Other (See Below) Other Genitourinary History: "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 Denies: CVA, TIA Psychiatric History: Reports: None Endocrine/Metabolic History: Reports: Obesity/BMI 30+. Denies: Diabetes, Type II Other Endocrine/Metabolic History: "borderline diabetic'- patient denies Hematologic History: Reports: Anemia Immunologic History: Reports: None Oncologic (Cancer) History: Reports: None Dermatologic History: Reports: None - Infectious Disease History Infectious Disease History: Reports: Influenza, Measles, Mumps - Past Surgical History Head Surgeries/Procedures: Reports: None HEENT Surgical History: Reports: None Cardiovascular Surgical History: Reports: Carotid Stents Respiratory Surgical History: Reports: None GI Surgical History: Reports: Cholecystectomy, Colonoscopy Female Surgical History: Reports: Tubal Ligation Endocrine Surgical History: Reports: None Neurological Surgical History: Reports: None Musculoskeletal Surgical History: Reports: None Dermatological Surgical History: Reports: None Social & Family History - Family History Family Medical History: Noncontributory - Tobacco Use Smoking Status *Q: Never Smoker Second Hand Smoke Exposure: No - Caffeine Use Caffeine Use: Reports: Coffee, Tea - Recreational Drug Use Recreational Drug Use: No - Living Situation & Occupation Living situation: Reports: Occupation: Retired Exam - Vital Signs Vital Signs: Last Vital Signs Temp 36.3 C 03/12/18 13:43 Pulse 76 03/12/18 14:20 Resp 27 H 03/12/18 13:43 BP 151/103 H 03/12/18 13:43 Pulse Ox 91 L 03/12/18 14:20 Weight: 90.718 kg - Patient Data Lab Results Last 24 hrs: Laboratory Results - last 24 hr 03/12/18 03/12/18 03/12/18 Range/Units 14:00 14:00 14:00 WBC 9.15 (4.0-11.0) K/uL RBC 5.15 (4.30-5.90) M/uL Hgb 14.7 (12.0-16.0) g/dL Hct 45.9 (36.0-46.0) % MCV 89.1 (80.0-98.0) fL MCH 28.5 (27.0-32.0) pg MCHC 32.0 (31.0-37.0) g/dL RDW Std Deviation 55.2 (28.0-62.0) fl RDW Coeff of Harpreet 17 H (11.0-15.0) % Plt Count 282 (150-400) K/uL MPV 10.20 (7.40-12.00) fL Neut % (Auto) 41.0 L (48.0-80.0) % Lymph % (Auto) 34.4 (16.0-40.0) % Grant % (Auto) 6.8 (0.0-15.0) % Eos % (Auto) 16.9 H (0.0-7.0) % Baso % (Auto) 0.9 (0.0-1.5) % Neut # (Auto) 3.8 (1.4-5.7) K/uL Lymph # (Auto) 3.2 H (0.6-2.4) K/uL Grant # (Auto) 0.6 (0.0-0.8) K/uL Eos # (Auto) 1.6 H (0.0-0.7) K/uL Baso # (Auto) 0.1 (0.0-0.1) K/uL Nucleated RBC % 0.0 /100WBC Nucleated RBCs # 0 K/uL Sodium 141 (136-145) mmol/L Potassium 4.5 (3.5-5.1) mmol/L Chloride 107 (98-107) mmol/L Carbon Dioxide 26.6 (21.0-32.0) mmol/L BUN 11 (7.0-18.0) mg/dL Creatinine 0.8 (0.6-1.0) mg/dL Est Cr Clr Drug Dosing 42.32 mL/min Estimated GFR (MDRD) > 60.0 ml/min Glucose 110 H (74-106) mg/dL Calcium 9.3 (8.5-10.1) mg/dL Total Bilirubin 1.1 H (0.2-1.0) mg/dL AST 28 (15-37) IU/L ALT 40 (14-63) IU/L Alkaline Phosphatase 107 (46-116) U/L Troponin I < 0.050 (0.000-0.056) ng/mL B-Natriuretic Peptide 130 H (<100) PG/ML Total Protein 7.6 (6.4-8.2) g/dL Albumin 4.1 (3.4-5.0) g/dL Globulin 3.5 (2.0-3.5) g/dL Albumin/Globulin Ratio 1.2 L (1.3-2.8) Result Diagrams: 03/12/18 14:00 03/12/18 14:00 Orders Last 24hrs: Active Orders 24 hr Category Date Time Status Admission Status [Patient Status] [ADT] Stat ADT 03/12/18 15:42 Active Height and Weight [RC] UPON Care 03/12/18 15:51 Ordered Intake and Output [RC] QSHIFT Care 03/12/18 15:51 Ordered Oxygen Therapy [RC] PRN Care 03/12/18 15:51 Ordered Pulse Oximetry [RC] CONTINUOUS Care 03/12/18 15:51 Ordered RT Aerosol Therapy [RC] ASDIRECTED Care 03/12/18 13:47 Active RT Aerosol Therapy [RC] ASDIRECTED Care 03/12/18 15:56 Ordered Up With Assistance [RC] ASDIRECTED Care 03/12/18 15:51 Ordered VTE/DVT Education [RC] PER UNIT ROUTINE Care 03/12/18 15:51 Ordered Vital Signs [RC] Q4H Care 03/12/18 15:51 Ordered Regular Diet [DIET] Diet 03/12/18 Breakfast Ordered CBC WITH AUTO DIFF [HEME] AM Lab 03/13/18 05:11 Ordered COMPREHENSIVE METABOLIC PN,CMP [CHEM] AM Lab 03/13/18 05:11 Ordered CULTURE BLOOD [BC] Stat Lab 03/12/18 14:00 Received CULTURE BLOOD [BC] Stat Lab 03/12/18 14:13 Received Acetaminophen [Tylenol] Med 03/12/18 15:51 Ordered 650 mg PO Q4H PRN Albuterol/Ipratropium [DuoNeb 3.0-0.5 MG/3 ML] Med 03/12/18 15:51 Ordered 3 ml NEB Q4HRRT PRN Enoxaparin [Lovenox] Med 03/12/18 16:00 Ordered 40 mg SUBCUT Q24H Sodium Chloride 0.9% [Saline Flush] Med 03/12/18 15:51 Ordered 10 ml FLUSH ASDIRECTED PRN Sodium Chloride 0.9% [Saline Flush] Med 03/12/18 15:51 Ordered 2.5 ml FLUSH ASDIRECTED PRN methylPREDNISolone Sod Succ [Solu-MEDROL] Med 03/12/18 16:00 Ordered 125 mg IVPUSH Q8H Blood Culture x2 Reflex Set [OM.PC] Stat Ot 03/12/18 13:48 Ordered Peripheral IV Insertion Adult [OM.PC] Routine Oth 03/12/18 15:51 Ordered Saline Lock Insert [OM.PC] Routine Oth 03/12/18 15:51 Ordered Medication Orders Acetaminophen (Tylenol) 650 mg PO Q4H PRN PRN Reason: Pain (Mild 1-3)/fever Albuterol/Ipratropium (Duoneb 3.0-0.5 Mg/3 Ml) 3 ml NEB Q4HRRT PRN PRN Reason: Shortness Of Breath/wheezing Enoxaparin Sodium (Lovenox) 40 mg SUBCUT Q24H ISAI Methylprednisolone Sodium Succinate (Solu-Medrol) 125 mg IVPUSH Q8H ISAI Sodium Chloride (Saline Flush) 10 ml FLUSH ASDIRECTED PRN PRN Reason: Keep Vein Open Sodium Chloride (Saline Flush) 2.5 ml FLUSH ASDIRECTED PRN PRN Reason: Keep Vein Open
== END 2018-03-12 17:01 ==
LOC: MW.ED 13:36 → MW.MS 15:42
PROVIDERS: ADMIT Internal Medicine; ATTEND Internal Medicine
DX: R09.02 Hypoxemia (principal); J44.1 Chronic obstructive pulmonary disease with (acute) exacerbation; I10 Essential (primary) hypertension; M19.90 Unspecified osteoarthritis, unspecified site; D64.9 Anemia, unspecified; E78.00 Pure hypercholesterolemia, unspecified; E66.9 Obesity, unspecified; Z68.37 Body mass index [BMI] 37.0-37.9, adult; Z79.82 Long term (current) use of aspirin; Z79.899 Other long term (current) drug therapy; Z88.5 Allergy status to narcotic agent; Z91.013 Allergy to seafood
CPT/HCPCS: 36415; 71046; 80053; 83880; 84484; 85025; 87040; 94640; 96374; 99285; J2930; J7620-GY

== ENCOUNTER 2019-09-02 13:20 | Observation (INO) | payer MEDICARE, OTHER ==
--- NOTE | 2019-09-02 14:45 | CR ---
Chest: 2 views of the chest were obtained. Comparison: Prior chest x-ray of 03/12/18. Heart size at the upper limits normal. Upper mediastinum is normal. Questionable small nodule within the right lung base. Lungs otherwise are clear but slightly hyperinflated. Bony structures are osteopenic. Mild compression deformity is seen with the lower thoracic spine which is stable. Impression: 1. Lungs are slightly hyperinflated which appears stable from prior chest x-ray. 2. Questionable small nodule within the right lung base as an interval change from previous exam. 3. Nothing acute is otherwise seen on 2 view chest x-ray. Diagnostic code #3 This report was dictated in [place] Standard Time
[2019-09-02] MEDS ORDERED: Albuterol/Ipratropium 3.0-0.5 MG/3 ML Neb Soln NEB ONE (14:56)
[2019-09-02] MEDS ORDERED: predniSONE 20 MG Tab PO ONE (15:23)
--- NOTE | 2019-09-02 15:34 | EDM.PDOC ---
ED HPI GENERAL MEDICAL PROBLEM - General Chief Complaint: Respiratory Problem Stated Complaint: SHORT OF BREATH Time Seen by Provider: 09/02/19 13:32 Source of Information: Reports: Patient History Limitations: Reports: No Limitations - History of Present Illness INITIAL COMMENTS - FREE TEXT/NARRATIVE: 3-year-old female history of COPD CAD presenting to ER for cough. For the last month the patient feels like her asthma/COPD has been acting up. Finished a prednisone course prescribed by her doctor, her symptoms have persisted. Due to the persistence of the symptoms she decided to get rechecked. Denies chest pain. denies any leg swelling. States that this feels like her regular asthma COPD except that it has lasted longer. Denies any hemoptysis. denies Has any fever. - Related Data Allergies Allergy/AdvReac Type Severity Reaction Status Date / Time Opioids - Morphine Analogues Allergy Severe Respiratory Verified 09/02/19 13:29 Depression shellfish derived Allergy Cannot Verified 09/02/19 13:29 Remember Home Meds: Home Meds Albuterol [Ventolin HFA] 1 - 2 puff INH Q4H PRN 09/02/19 [History] Ascorbate Calcium [Vitamin C] 1 tab PO DAILY 09/02/19 [History] Aspirin 81 mg PO DAILY 09/02/19 [History] Budesonide/Formoterol [Symbicort 160-4.5 MCG] 2 puff INH BID 09/02/19 [History] Carboxymethylcellulose Sodium [Refresh Plus 0.5%] 2 drop EYEBOTH BID 09/02/19 [ History] Metoprolol Succinate [Toprol XL] 25 mg PO DAILY 09/02/19 [History] Multivitamin [Multivitamins] 1 tab PO DAILY 09/02/19 [History] Nitroglycerin 1 tab PO ASDIRECTED PRN 09/02/19 [History] atorvaSTATin [Lipitor] 20 mg PO DAILY 09/02/19 [History] Past Medical History - Past Health History Medical/Surgical History: Denies Medical/Surgical History HEENT History: Reports: Hard of Hearing, Impaired Vision Other HEENT History: wears eyeglasses and bilateral hearing aids Cardiovascular History: Reports: High Cholesterol, Hypertension, [place], Stents Other Cardiovascular History: x2 [place], 3 stents Respiratory History: Reports: Asthma, COPD, Pneumonia, Recurrent, Other (See Below) Other Respiratory History: Frequent URIs Gastrointestinal History: Reports: Pancreatitis Other Gastrointestinal History: Patient denies both Genitourinary History: Reports: Other (See Below) Other Genitourinary History: "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" [employer] History: Reports: Musculoskeletal History: Reports: Arthritis Neurological History: Reports: CVA Psychiatric History: Reports: None Endocrine/Metabolic History: Reports: Obesity/BMI 30+ Other Endocrine/Metabolic History: "borderline diabetic'- patient denies Hematologic History: Reports: Anemia Immunologic History: Reports: None Oncologic (Cancer) History: Reports: None Dermatologic History: Reports: None - Infectious Disease History Infectious Disease History: Reports: Influenza, Measles, Mumps - Past Surgical History Head Surgeries/Procedures: Reports: None HEENT Surgical History: Reports: None Cardiovascular Surgical History: Reports: Carotid Stents Respiratory Surgical History: Reports: None GI Surgical History: Reports: Cholecystectomy, Colonoscopy Female Surgical History: Reports: Tubal Ligation Endocrine Surgical History: Reports: None Neurological Surgical History: Reports: None Musculoskeletal Surgical History: Reports: None Dermatological Surgical History: Reports: None Social & Family History - Family History Family Medical History: Noncontributory - Tobacco Use Smoking Status *Q: Former Smoker Used Tobacco, but Quit: Yes Month/Year Tobacco Last Used: 12 years - Caffeine Use Caffeine Use: Reports: Coffee, Tea - Recreational Drug Use Recreational Drug Use: No - Living Situation & Occupation Living situation: Reports: Occupation: Retired ED ROS GENERAL - Review of Systems Review Of Systems: See Below Constitutional: Reports: No Symptoms HEENT: Reports: No Symptoms Respiratory: Reports: Shortness of Breath, Cough Cardiovascular: Reports: No Symptoms Endocrine: Reports: No Symptoms GI/Abdominal: Reports: No Symptoms : Reports: No Symptoms Musculoskeletal: Reports: No Symptoms Skin: Reports: No Symptoms Neurological: Reports: No Symptoms Psychiatric: Reports: No Symptoms Hematologic/Lymphatic: Reports: No Symptoms Immunologic: Reports: No Symptoms ED EXAM, GENERAL - Physical Exam Exam: See Below Exam Limited By: No Limitations General Appearance: Alert Throat/Mouth: Normal Inspection Head: Atraumatic Neck: Normal Inspection Respiratory/Chest: No Respiratory Distress, Wheezing Cardiovascular: Normal Peripheral Pulses, Regular Rate, Rhythm, No Edema, No Gallop, No JVD, No Murmur, No Rub GI/Abdominal: Soft, Non-Tender (Female) Exam: Deferred Rectal (Female) Exam: Deferred Back Exam: Normal Inspection, Full Range of Motion Extremities: Normal Inspection, No Pedal Edema Neurological: Alert, Oriented, Normal Cognition, Normal Gait Psychiatric: Normal Affect Skin Exam: Warm EKG INTERPRETATION Rhythm: NSR QRS: Normal ST-T: Normal QT: Normal Course - Vital Signs Last Recorded V/S: Last Vital Signs Temp 96.5 F L 09/02/19 13:26 Pulse 55 L 09/02/19 16:52 Resp 28 H 09/02/19 13:26 BP 139/69 09/02/19 16:52 Pulse Ox 93 L 09/02/19 16:52 - Orders/Labs/Meds Orders: Active Orders 24 hr Category Date Time Status Cardiac Monitoring [RC] . DIRECTED Care 09/02/19 14:04 Active EKG 12 Lead [EKG Documentation Completion] [RC] ROUTINE Care 09/02/19 13:54 Active RT Aerosol Therapy [RC] ASDIRECTED Care 09/02/19 14:56 Active Labs: Laboratory Tests 09/02/19 09/02/19 09/02/19 Range/Units 15:20 15:20 15:20 WBC 9.06 (4.0-11.0) K/uL RBC 4.95 (4.30-5.90) M/uL Hgb 14.4 (12.0-16.0) g/dL Hct 46.5 H (36.0-46.0) % MCV 93.9 (80.0-98.0) fL MCH 29.1 (27.0-32.0) pg MCHC 31.0 (31.0-37.0) g/dL RDW Std Deviation 54.6 (28.0-62.0) fl RDW Coeff of Harpreet 16 H (11.0-15.0) % Plt Count 278 (150-400) K/uL MPV 10.50 (7.40-12.00) fL Neut % (Auto) 59.7 (48.0-80.0) % Lymph % (Auto) 30.5 (16.0-40.0) % [place] % (Auto) 6.6 (0.0-15.0) % Eos % (Auto) 2.5 (0.0-7.0) % Baso % (Auto) 0.7 (0.0-1.5) % Neut # (Auto) 5.4 (1.4-5.7) K/uL Lymph # (Auto) 2.8 H (0.6-2.4) K/uL [place] # (Auto) 0.6 (0.0-0.8) K/uL Eos # (Auto) 0.2 (0.0-0.7) K/uL Baso # (Auto) 0.1 (0.0-0.1) K/uL Nucleated RBC % 0.0 /100WBC Nucleated RBCs # 0 K/uL Sodium 146 H (136-145) mmol/L Potassium 5.3 H (3.5-5.1) mmol/L Chloride 109 H (98-107) mmol/L Carbon Dioxide 27.6 (21.0-32.0) mmol/L BUN 16 (7.0-18.0) mg/dL Creatinine 0.9 (0.6-1.0) mg/dL Est Cr Clr Drug Dosing 38.77 mL/min Estimated GFR (MDRD) > 60.0 ml/min Glucose 103 (74-106) mg/dL Calcium 9.5 (8.5-10.1) mg/dL Total Bilirubin 0.6 (0.2-1.0) mg/dL AST 20 (15-37) IU/L ALT 31 (14-63) IU/L Alkaline Phosphatase 99 (46-116) U/L Troponin I < 0.050 (0.000-0.056) ng/mL B-Natriuretic Peptide 238 H (<100) PG/ML Total Protein 7.2 (6.4-8.2) g/dL Albumin 3.8 (3.4-5.0) g/dL Globulin 3.4 (2.6-4.0) g/dL Albumin/Globulin Ratio 1.1 (0.9-1.6) Meds: Medications Discontinued Medications Generic Name Dose Route Start Last Admin Trade Name Freq PRN Reason Stop Dose Admin Albuterol/Ipratropium 3 ml 09/02/19 14:56 09/02/19 15:12 Duoneb 3.0-0.5 Mg/3 Ml NEB 09/02/19 14:57 3 ml ONETIME ONE Administration Prednisone 40 mg 09/02/19 15:23 09/02/19 15:30 Prednisone PO 09/02/19 15:24 40 mg ONETIME ONE Administration - Re-Assessments/Exams Free Text/Narrative Re-Assessment/Exam: 09/02/19 17:04 She still feeling some shortness of breath does not really feel improved from when she received a prednisone. Her EKG was without any ischemic changes. Troponin negative. BNP slightly elevated. CXR no pneumonia. Patient will be admitted for COPD work-up rule out CHF. Plan was discussed with the patient. Patient discussed with Dr. Toussaint. Departure - Departure Time of Disposition: 17:08 Disposition: Admitted As Inpatient 68 Clinical Impression: Dyspnea, Exacerbation of asthma - Discharge Information Referrals: PCP,Unknown [Primary Care Provider] - Forms: ED Department Discharge Sepsis Event Note - Evaluation Sepsis Screening Result: No Definite Risk - Focused Exam Vital Signs: Vital Signs Temp Pulse Resp BP Pulse Ox 09/02/19 16:52 55 L 139/69 93 L 09/02/19 13:26 96.5 F L 78 28 H 150/78 H 96 Date Exam was Performed: 09/02/19 Time Exam was Performed: 17:10 - My Orders Last 24 Hours: My Active Orders 09/02/19 13:54 EKG 12 Lead [EKG Documentation Completion] [RC] ROUTINE 09/02/19 14:04 Cardiac Monitoring [RC] . DIRECTED 09/02/19 14:56 RT Aerosol Therapy [RC] ASDIRECTED - Assessment/Plan Last 24 Hours: My Active Orders 09/02/19 13:54 EKG 12 Lead [EKG Documentation Completion] [RC] ROUTINE 09/02/19 14:04 Cardiac Monitoring [RC] . DIRECTED 09/02/19 14:56 RT Aerosol Therapy [RC] ASDIRECTED
[2019-09-02 15:49] LABS: BLOOD UREA NITROGEN,BUN 16 mg/dL (7.0-18.0); CARBON DIOXIDE,CO2 27.6 mmol/L (21.0-32.0); CHLORIDE,CL 109 mmol/L (98-107); GLUCOSE RANDOM 103 mg/dL (74-106); POTASSIUM,K 5.3 mmol/L (3.5-5.1); SODIUM,NA 146 mmol/L (136-145)
[2019-09-02] MEDS ORDERED: Ketorolac 30 MG/ML SDV IV PRN (17:34)
[2019-09-02] MEDS ORDERED: Docusate Sodium 100 MG Cap PO PRN (17:34)
[2019-09-02] MEDS ORDERED: Ondansetron 4 MG/2 ML SDV IVPUSH PRN (17:34)
[2019-09-02] MEDS ORDERED: Polyethylene Glycol 3350 Powder 17 GM Packet PO PRN (17:34)
[2019-09-02] MEDS ORDERED: Ondansetron 4 MG Tab.DIS PO PRN (17:34)
[2019-09-02] MEDS ORDERED: Ibuprofen 600 MG Tab PO PRN (17:34)
[2019-09-02] MEDS ORDERED: Albuterol/Ipratropium 3.0-0.5 MG/3 ML Neb Soln NEB PRN (17:38)
[2019-09-02] MEDS ORDERED: Enoxaparin 40 MG/0.4 ML Syringe SUBCUT SCH (17:45)
[2019-09-02] MEDS ORDERED: Azithromycin 500 MG Vial IV SCH (17:45)
--- NOTE | 2019-09-02 17:51 | PCM.HP.2 ---
H&P History of Present Illness - General Date of Service: 09/02/19 Admit Problem/Dx: Admission Diagnosis/Problem Admission Diagnosis/Problem Dyspnea - History of Present Illness Initial Comments - Free Text/Narative: 83 y/o female with history of CAD, stroke, COPD who presented to the ER complaining of worsening shortness of breath. Patient states that for the past 2 weeks she has been more short of breath with chest tightness, wheezing. Has been using her inhaler more often and she is having productive cough. No fevers. No palpitations, abdominal pain, dysuria, diarrhea. No worsening swelling. She does endorse urinary frequency in the past couple of weeks. No smoking or alcohol. Lives here in [place]. Uses a walker for balance issues. In the ER she received prednisone 40 mg PO once and duoneb treatment. Chest xray did not show any infiltrates. - Related Data Allergies/Adverse Reactions: Allergies Allergy/AdvReac Type Severity Reaction Status Date / Time Opioids - Morphine Analogues Allergy Severe Respiratory Verified 09/02/19 13:29 Depression shellfish derived Allergy Cannot Verified 09/02/19 13:29 Remember Home Medications: Home Meds Albuterol [Ventolin HFA] 1 - 2 puff INH Q4H PRN 09/02/19 [History] Ascorbate Calcium [Vitamin C] 1 tab PO DAILY 09/02/19 [History] Aspirin 81 mg PO DAILY 09/02/19 [History] Budesonide/Formoterol [Symbicort 160-4.5 MCG] 2 puff INH BID 09/02/19 [History] Carboxymethylcellulose Sodium [Refresh Plus 0.5%] 2 drop EYEBOTH BID 09/02/19 [ History] Metoprolol Succinate [Toprol XL] 25 mg PO DAILY 09/02/19 [History] Multivitamin [Multivitamins] 1 tab PO DAILY 09/02/19 [History] Nitroglycerin 1 tab PO ASDIRECTED PRN 09/02/19 [History] atorvaSTATin [Lipitor] 20 mg PO DAILY 09/02/19 [History] Past Medical History - Past Health History Medical/Surgical History: Denies Medical/Surgical History HEENT History: Reports: Hard of Hearing, Impaired Vision Other HEENT History: wears eyeglasses and bilateral hearing aids Cardiovascular History: Reports: High Cholesterol, Hypertension, [place], Stents Other Cardiovascular History: x2 [place], 3 stents Respiratory History: Reports: Asthma, COPD, Pneumonia, Recurrent, Other (See Below) Other Respiratory History: Frequent URIs Gastrointestinal History: Reports: Pancreatitis Other Gastrointestinal History: Patient denies both Genitourinary History: Reports: Other (See Below) Other Genitourinary History: "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" [employer] History: Reports: Musculoskeletal History: Reports: Arthritis Neurological History: Reports: CVA Psychiatric History: Reports: None Endocrine/Metabolic History: Reports: Obesity/BMI 30+ Other Endocrine/Metabolic History: "borderline diabetic'- patient denies Hematologic History: Reports: Anemia Immunologic History: Reports: None Oncologic (Cancer) History: Reports: None Dermatologic History: Reports: None - Infectious Disease History Infectious Disease History: Reports: Influenza, Measles, Mumps - Past Surgical History Head Surgeries/Procedures: Reports: None HEENT Surgical History: Reports: None Cardiovascular Surgical History: Reports: Carotid Stents Respiratory Surgical History: Reports: None GI Surgical History: Reports: Cholecystectomy, Colonoscopy Female Surgical History: Reports: Tubal Ligation Endocrine Surgical History: Reports: None Neurological Surgical History: Reports: None Musculoskeletal Surgical History: Reports: None Dermatological Surgical History: Reports: None Social & Family History - Family History Family Medical History: Noncontributory - Tobacco Use Smoking Status *Q: Former Smoker Used Tobacco, but Quit: Yes Month/Year Tobacco Last Used: 12 years - Caffeine Use Caffeine Use: Reports: Coffee, Tea - Recreational Drug Use Recreational Drug Use: No - Living Situation & Occupation Living situation: Reports: Occupation: Retired H&P Review of Systems - Review of Systems: Review Of Systems: Comprehensive ROS is negative, except as noted in HPI. Exam - Exam Exam: See Below - Vital Signs Vital Signs: Last Vital Signs Temp 35.8 C L 09/02/19 13:26 Pulse 55 L 09/02/19 16:52 Resp 28 H 09/02/19 13:26 BP 139/69 09/02/19 16:52 Pulse Ox 93 L 09/02/19 16:52 Weight: 90.718 kg - Exam General: Alert, Oriented, Cooperative HEENT: Mucosa Moist & Roots Lungs: Clear to Auscultation, Normal Respiratory Effort, Decreased Breath Sounds , Other (wheezing upper lung alvarez, no crackles) Cardiovascular: Regular Rate, Regular Rhythm GI/Abdominal Exam: Normal Bowel Sounds, Soft, Non-Tender, No Distention Extremities: Normal Inspection, No Pedal Edema Skin: Warm, Dry Neuro Extensive - Mental Status: Alert, Oriented x3 - Patient Data Lab Results Last 24 hrs: Laboratory Results - last 24 hr 09/02/19 09/02/19 09/02/19 Range/Units 15:20 15:20 15:20 WBC 9.06 (4.0-11.0) K/uL RBC 4.95 (4.30-5.90) M/uL Hgb 14.4 (12.0-16.0) g/dL Hct 46.5 H (36.0-46.0) % MCV 93.9 (80.0-98.0) fL MCH 29.1 (27.0-32.0) pg MCHC 31.0 (31.0-37.0) g/dL RDW Std Deviation 54.6 (28.0-62.0) fl RDW Coeff of Harpreet 16 H (11.0-15.0) % Plt Count 278 (150-400) K/uL MPV 10.50 (7.40-12.00) fL Neut % (Auto) 59.7 (48.0-80.0) % Lymph % (Auto) 30.5 (16.0-40.0) % [place] % (Auto) 6.6 (0.0-15.0) % Eos % (Auto) 2.5 (0.0-7.0) % Baso % (Auto) 0.7 (0.0-1.5) % Neut # (Auto) 5.4 (1.4-5.7) K/uL Lymph # (Auto) 2.8 H (0.6-2.4) K/uL [place] # (Auto) 0.6 (0.0-0.8) K/uL Eos # (Auto) 0.2 (0.0-0.7) K/uL Baso # (Auto) 0.1 (0.0-0.1) K/uL Nucleated RBC % 0.0 /100WBC Nucleated RBCs # 0 K/uL Sodium 146 H (136-145) mmol/L Potassium 5.3 H (3.5-5.1) mmol/L Chloride 109 H (98-107) mmol/L Carbon Dioxide 27.6 (21.0-32.0) mmol/L BUN 16 (7.0-18.0) mg/dL Creatinine 0.9 (0.6-1.0) mg/dL Est Cr Clr Drug Dosing 38.77 mL/min Estimated GFR (MDRD) > 60.0 ml/min Glucose 103 (74-106) mg/dL Calcium 9.5 (8.5-10.1) mg/dL Total Bilirubin 0.6 (0.2-1.0) mg/dL AST 20 (15-37) IU/L ALT 31 (14-63) IU/L Alkaline Phosphatase 99 (46-116) U/L Troponin I < 0.050 (0.000-0.056) ng/mL B-Natriuretic Peptide 238 H (<100) PG/ML Total Protein 7.2 (6.4-8.2) g/dL Albumin 3.8 (3.4-5.0) g/dL Globulin 3.4 (2.6-4.0) g/dL Albumin/Globulin Ratio 1.1 (0.9-1.6) Result Diagrams: 09/02/19 15:20 09/02/19 15:20 Sepsis Event Note - Evaluation Sepsis Screening Result: No Definite Risk - Focused Exam Vital Signs: Vital Signs Temp Pulse Resp BP Pulse Ox 09/02/19 16:52 55 L 139/69 93 L 09/02/19 13:26 35.8 C L 78 28 H 150/78 H 96 Date Exam was Performed: 09/02/19 Time Exam was Performed: 17:45 Problem List Initiated/Reviewed/Updated: Yes Orders Last 24hrs: Active Orders 24 hr Category Date Time Status Admission Status [Patient Status] [ADT] Stat ADT 09/02/19 17:19 Active Cardiac Monitoring [RC] . DIRECTED Care 09/02/19 14:04 Active EKG 12 Lead [EKG Documentation Completion] [RC] ROUTINE Care 09/02/19 13:54 Active Intake and Output [RC] QSHIFT Care 09/02/19 17:35 Active Oxygen Therapy [RC] PRN Care 09/02/19 17:34 Active RT Aerosol Therapy [RC] ASDIRECTED Care 09/02/19 14:56 Active RT Aerosol Therapy [RC] ASDIRECTED Care 09/02/19 17:38 Active Up ad Eboni [RC] ASDIRECTED Care 09/02/19 17:34 Active VTE/DVT Education [RC] PER UNIT ROUTINE Care 09/02/19 17:34 Active Vital Signs [RC] Q4H Care 09/02/19 17:34 Active Regular Diet [DIET] Diet 09/02/19 Dinner Active CBC WITH AUTO DIFF [HEME] AM Lab 09/03/19 05:11 Ordered CBC WITH AUTO DIFF [HEME] AM Lab 09/04/19 05:11 Ordered COMPREHENSIVE METABOLIC PN,CMP [CHEM] AM Lab 09/03/19 05:11 Ordered COMPREHENSIVE METABOLIC PN,CMP [CHEM] AM Lab 09/04/19 05:11 Ordered INFLUENZA A+B AG SCREEN [RM] Stat Lab 09/02/19 17:39 Ordered UA RFX LESTER AND CULT IF INDIC [URIN] Routine Lab 09/02/19 17:37 Ordered Acetaminophen [Tylenol] Med 09/02/19 17:34 Active 650 mg PO Q4H PRN Albuterol/Ipratropium [DuoNeb 3.0-0.5 MG/3 ML] Med 09/02/19 17:38 Active 3 ml NEB Q4HRRT PRN Aspirin Med 09/03/19 09:00 Active 81 mg PO DAILY Azithromycin [Zithromax] Med 09/02/19 17:45 Active 250 mg IV Q24H Budesonide/Formoterol [Symbicort 160-4.5 MCG] Med 09/02/19 21:00 Ordered DOSE gm INH BID Carboxymethylcellulose Sodium [Refresh Plus 0.5%] Med 09/02/19 21:00 Ordered DOSE each EYEBOTH BID Docusate Sodium [Colace] Med 09/02/19 17:34 Active 100 mg PO BID PRN Enoxaparin [Lovenox] Med 09/02/19 17:45 Active 40 mg SUBCUT Q24H Ibuprofen [Motrin] Med 09/02/19 17:34 Active 600 mg PO Q6H PRN Ketorolac [Toradol] Med 09/02/19 17:34 Active 15 mg IV Q6H PRN Metoprolol Succinate [Toprol XL] Med 09/03/19 09:00 Active 25 mg PO DAILY Ondansetron [Zofran ODT] Med 09/02/19 17:34 Active 4 mg PO Q4H PRN Ondansetron [Zofran] Med 09/02/19 17:34 Active 4 mg IVPUSH Q4H PRN atorvaSTATin [Lipitor] Med 09/03/19 09:00 Active 20 mg PO DAILY methylPREDNISolone Sod Succ [Solu-MEDROL] Med 09/02/19 21:00 Active 40 mg IVPUSH BID polyethylene glycoL 3350 [MiraLAX] Med 09/02/19 17:34 Active 17 gm PO DAILY PRN Resuscitation Status Routine Resus Stat 09/02/19 17:34 Ordered Medication Orders Acetaminophen (Tylenol) 650 mg PO Q4H PRN PRN Reason: Pain (Mild 1-3)/fever Albuterol/Ipratropium (Duoneb 3.0-0.5 Mg/3 Ml) 3 ml NEB Q4HRRT PRN PRN Reason: Wheezing Artificial Tears (Refresh Plus 0.5%) each EYEBOTH BID [facility] Aspirin (Aspirin) 81 mg PO DAILY [facility] Atorvastatin Calcium (Lipitor) 20 mg PO DAILY [facility] Azithromycin (Zithromax) 250 mg IV Q24H [facility] Budesonide/Formoterol Fumarate (Symbicort 160-4.5 Mcg) gm INH BID [facility] Docusate Sodium (Colace) 100 mg PO BID PRN PRN Reason: Constipation Enoxaparin Sodium (Lovenox) 40 mg SUBCUT Q24H [facility] Ibuprofen (Motrin) 600 mg PO Q6H PRN PRN Reason: Pain (mild 1-3) Ketorolac Tromethamine (Toradol) 15 mg IV Q6H PRN PRN Reason: Pain (moderate 4-6) Methylprednisolone Sodium Succinate (Solu-Medrol) 40 mg IVPUSH BID [facility] Metoprolol Succinate (Toprol Xl) 25 mg PO DAILY [facility] Ondansetron HCl (Zofran Odt) 4 mg PO Q4H PRN PRN Reason: nausea, able to take PO Ondansetron HCl (Zofran) 4 mg IVPUSH Q4H PRN PRN Reason: Nausea Polyethylene Glycol (Miralax) 17 gm PO DAILY PRN PRN Reason: Constipation Assessment/Plan Comment:: A: 1. Acute COPD exacerbation 2. Hyperkalemia 3. PMH CAD, COPD P: 1. Will treat for acute COPD exacerbation. Methylprednisolone 40mg IV BID, Azithromycin, Duonebs. Will trend troponins due to cardiac history. Will check UA to evaluate for any UTI. Will continue home meds. Dispo: 1-2 days.
[2019-09-02] MEDS ORDERED: Albuterol 0.083% 2.5 MG/3 ML Neb Soln NEB ONE (17:54)
[2019-09-02] MEDS ORDERED: Azithromycin 250 MG in Sodium Chloride 0.9% 250 ML IV SCH ×2 (19:45→20:00)
[2019-09-02] MEDS: methylPREDNISolone Sodium Succinate 40 MG/1 ML SDV IVPUSH SCH (20:21)
[2019-09-02] MEDS: Carboxymethylcellulose Sodium 0.5% Ophth Soln 0.4 ML UD Box of 30 EYEBOTH SCH (20:23)
[2019-09-02] MEDS: Budesonide/Formoterol 160-4.5 MCG/Puff 6 GM Inhaler INH SCH (20:23)
[2019-09-03 04:38] LABS: CARBON DIOXIDE,CO2 23.6 mmol/L (21.0-32.0); POTASSIUM,K 4.7 mmol/L (3.5-5.1)
[2019-09-03 08:47] LABS: HEMOGLOBIN A1C 6.4 % (4.5-6.2)
[2019-09-03] MEDS ORDERED: atorvaSTATin 20 MG Tab PO SCH (09:00)
[2019-09-03] MEDS ORDERED: Aspirin 81 MG Tab.Chew PO SCH (09:00)
[2019-09-03] MEDS ORDERED: Metoprolol Succinate 25 MG Tab.ER PO SCH (09:00)
[2019-09-03] MEDS: Acetaminophen 325 MG Tab PO PRN ×2 (09:34→15:23)
[2019-09-03] MEDS: Carboxymethylcellulose Sodium 0.5% Ophth Soln 0.4 ML UD Box of 30 EYEBOTH SCH (09:40)
[2019-09-03] MEDS: methylPREDNISolone Sodium Succinate 40 MG/1 ML SDV IVPUSH SCH (09:41)
[2019-09-03] MEDS: Budesonide/Formoterol 160-4.5 MCG/Puff 6 GM Inhaler INH SCH (09:42)
[2019-09-03] MEDS ORDERED: Insulin Aspart 100 Units/ML 3 ML Pen SUBCUT SCH (11:30)
--- NOTE | 2019-09-03 13:13 | PCM.DCSUM1 ---
<Julio César Grace - Last Filed: 09/03/19 14:59> Discharge Summary - Hospital Course Free Text/Narrative:: 83 y/o female with history of COPD, CAD s/p stent placement, strokes who presented to the ER with worsening shortness of breath. Admitted for acute COPD exacerbation. Started on azithromycin, steroids, duonebs. Did well over night. Her symptoms had improved significant but still mildly short of breath with ambulation. She was discharged home on Azithromycin, prednisone and home oxygen since she did not pass oxygen trial. She was advised to follow-up with PCP in 1- 2 weeks. - Discharge Data Discharge Date: 09/03/19 Discharge Disposition: Home, Self-Care 01 Condition: Stable - Referral to Home Health Primary Care Physician: PCP Unknown - Patient Instructions Diet: Heart Healthy Diet, Drink 8-10+ Glasses/Day Activity: As Tolerated Notify Provider of: Fever, Increased Pain, Swelling and Redness, Nausea and/or Vomiting - Discharge Plan *PRESCRIPTION DRUG MONITORING PROGRAM REVIEWED*: Not Applicable *COPY OF PRESCRIPTION DRUG MONITORING REPORT IN PATIENT RAVI: Not Applicable Prescriptions/Med Rec: Azithromycin 250 mg PO DAILY 5 Days #5 tablet predniSONE 20 mg PO WITHBREAKFAST 5 Days #5 tab Home Medications: Home Meds Albuterol [Ventolin HFA] 1 - 2 puff INH Q4H PRN 09/02/19 [History] Ascorbate Calcium [Vitamin C] 1 tab PO DAILY 09/02/19 [History] Aspirin 81 mg PO DAILY 09/02/19 [History] Budesonide/Formoterol [Symbicort 160-4.5 MCG] 2 puff INH BID 09/02/19 [History] Carboxymethylcellulose Sodium [Refresh Plus 0.5%] 2 drop EYEBOTH BID 09/02/19 [ History] Metoprolol Succinate [Toprol XL] 25 mg PO DAILY 09/02/19 [History] Multivitamin [Multivitamins] 1 tab PO DAILY 09/02/19 [History] Nitroglycerin 1 tab PO ASDIRECTED PRN 09/02/19 [History] atorvaSTATin [Lipitor] 20 mg PO DAILY 09/02/19 [History] Azithromycin 250 mg PO DAILY 5 Days #5 tablet 09/03/19 [Rx] predniSONE 20 mg PO WITHBREAKFAST 5 Days #5 tab 09/03/19 [Rx] Patient Handouts: Chronic Obstructive Pulmonary Disease Exacerbation, Azithromycin tablets, Prednisone tablets Forms: ED Department Discharge Referrals: PCP,Unknown [Primary Care Provider] - (Dr. Chase) Al Chase MD [Ordering Only Provider] - 09/16/19 9:30 am (Dr. Chase at [facility]) - Discharge Summary/Plan Comment DC Time >30 min.: No - Patient Data Vitals - Most Recent: Last Vital Signs Temp 36.2 C 09/03/19 08:00 Pulse 66 09/03/19 09:38 Resp 20 09/03/19 08:00 BP 177/75 H 09/03/19 09:38 Pulse Ox 92 L 09/03/19 08:00 Weight - Most Recent: 93.7 kg I&O - Last 24 hours: Intake & Output 09/02/19 09/03/19 09/03/19 22:59 06:59 14:59 Intake Total 250 1040 Output Total 1400 Balance 250 -360 Lab Results - Last 24 hrs: Laboratory Results - last 24 hr 09/02/19 09/02/19 09/02/19 Range/Units 15:20 15:20 15:20 WBC 9.06 (4.0-11.0) K/uL RBC 4.95 (4.30-5.90) M/uL Hgb 14.4 (12.0-16.0) g/dL Hct 46.5 H (36.0-46.0) % MCV 93.9 (80.0-98.0) fL MCH 29.1 (27.0-32.0) pg MCHC 31.0 (31.0-37.0) g/dL RDW Std Deviation 54.6 (28.0-62.0) fl RDW Coeff of Harpreet 16 H (11.0-15.0) % Plt Count 278 (150-400) K/uL MPV 10.50 (7.40-12.00) fL Neut % (Auto) 59.7 (48.0-80.0) % Lymph % (Auto) 30.5 (16.0-40.0) % Hitchcock % (Auto) 6.6 (0.0-15.0) % Eos % (Auto) 2.5 (0.0-7.0) % Baso % (Auto) 0.7 (0.0-1.5) % Neut # (Auto) 5.4 (1.4-5.7) K/uL Lymph # (Auto) 2.8 H (0.6-2.4) K/uL Hitchcock # (Auto) 0.6 (0.0-0.8) K/uL Eos # (Auto) 0.2 (0.0-0.7) K/uL Baso # (Auto) 0.1 (0.0-0.1) K/uL Nucleated RBC % 0.0 /100WBC Nucleated RBCs # 0 K/uL Sodium 146 H (136-145) mmol/L Potassium 5.3 H (3.5-5.1) mmol/L Chloride 109 H (98-107) mmol/L Carbon Dioxide 27.6 (21.0-32.0) mmol/L BUN 16 (7.0-18.0) mg/dL Creatinine 0.9 (0.6-1.0) mg/dL Est Cr Clr Drug Dosing 38.77 mL/min Estimated GFR (MDRD) > 60.0 ml/min Glucose 103 (74-106) mg/dL POC Glucose (60-110) mg/dL Hemoglobin A1c (4.5-6.2) % Calcium 9.5 (8.5-10.1) mg/dL Magnesium (1.8-2.4) mg/dL Total Bilirubin 0.6 (0.2-1.0) mg/dL AST 20 (15-37) IU/L ALT 31 (14-63) IU/L Alkaline Phosphatase 99 (46-116) U/L Troponin I < 0.050 (0.000-0.056) ng/mL B-Natriuretic Peptide 238 H (<100) PG/ML Total Protein 7.2 (6.4-8.2) g/dL Albumin 3.8 (3.4-5.0) g/dL Globulin 3.4 (2.6-4.0) g/dL Albumin/Globulin Ratio 1.1 (0.9-1.6) Triglycerides (0-200) mg/dL Cholesterol (50-200) mg/dL LDL Cholesterol, Calc (60-180) mg/dL VLDL Cholesterol (5-55) mg/dL HDL Cholesterol (40-60) mg/dL Cholesterol/HDL Ratio (3.3-6.0) Urine Color Urine Appearance Urine pH (5.0-8.0) Ur Specific [place] (1.001-1.035) Urine Protein (NEGATIVE) mg/dL Urine Glucose (UA) (NEGATIVE) mg/dL Urine Ketones (NEGATIVE) mg/dL Urine Occult Blood (NEGATIVE) Urine Nitrite (NEGATIVE) Urine Bilirubin (NEGATIVE) Urine Urobilinogen (<2.0) EU/dL Ur Leukocyte Esterase (NEGATIVE) 09/02/19 09/02/19 09/02/19 Range/Units 18:11 19:49 19:49 WBC (4.0-11.0) K/uL RBC (4.30-5.90) M/uL Hgb (12.0-16.0) g/dL Hct (36.0-46.0) % MCV (80.0-98.0) fL MCH (27.0-32.0) pg MCHC (31.0-37.0) g/dL RDW Std Deviation (28.0-62.0) fl RDW Coeff of Harpreet (11.0-15.0) % Plt Count (150-400) K/uL MPV (7.40-12.00) fL Neut % (Auto) (48.0-80.0) % Lymph % (Auto) (16.0-40.0) % Hitchcock % (Auto) (0.0-15.0) % Eos % (Auto) (0.0-7.0) % Baso % (Auto) (0.0-1.5) % Neut # (Auto) (1.4-5.7) K/uL Lymph # (Auto) (0.6-2.4) K/uL [place] # (Auto) (0.0-0.8) K/uL Eos # (Auto) (0.0-0.7) K/uL Baso # (Auto) (0.0-0.1) K/uL Nucleated RBC % /100WBC Nucleated RBCs # K/uL Sodium (136-145) mmol/L Potassium (3.5-5.1) mmol/L Chloride (98-107) mmol/L Carbon Dioxide (21.0-32.0) mmol/L BUN (7.0-18.0) mg/dL Creatinine (0.6-1.0) mg/dL Est Cr Clr Drug Dosing mL/min Estimated GFR (MDRD) ml/min Glucose (74-106) mg/dL POC Glucose (60-110) mg/dL Hemoglobin A1c (4.5-6.2) % Calcium (8.5-10.1) mg/dL Magnesium 2.3 (1.8-2.4) mg/dL Total Bilirubin (0.2-1.0) mg/dL AST (15-37) IU/L ALT (14-63) IU/L Alkaline Phosphatase (46-116) U/L Troponin I < 0.050 (0.000-0.056) ng/mL B-Natriuretic Peptide (<100) PG/ML Total Protein (6.4-8.2) g/dL Albumin (3.4-5.0) g/dL Globulin (2.6-4.0) g/dL Albumin/Globulin Ratio (0.9-1.6) Triglycerides (0-200) mg/dL Cholesterol (50-200) mg/dL LDL Cholesterol, Calc (60-180) mg/dL VLDL Cholesterol (5-55) mg/dL HDL Cholesterol (40-60) mg/dL Cholesterol/HDL Ratio (3.3-6.0) Urine Color YELLOW Urine Appearance CLEAR Urine pH 6.0 (5.0-8.0) Ur Specific [place] 1.015 (1.001-1.035) Urine Protein NEGATIVE (NEGATIVE) mg/dL Urine Glucose (UA) NEGATIVE (NEGATIVE) mg/dL Urine Ketones NEGATIVE (NEGATIVE) mg/dL Urine Occult Blood NEGATIVE (NEGATIVE) Urine Nitrite NEGATIVE (NEGATIVE) Urine Bilirubin NEGATIVE (NEGATIVE) Urine Urobilinogen 0.2 (<2.0) EU/dL Ur Leukocyte Esterase NEGATIVE (NEGATIVE) 09/03/19 09/03/19 09/03/19 Range/Units 03:05 03:05 03:05 WBC 7.72 (4.0-11.0) K/uL RBC 4.76 (4.30-5.90) M/uL Hgb 13.6 (12.0-16.0) g/dL Hct 44.3 (36.0-46.0) % MCV 93.1 (80.0-98.0) fL MCH 28.6 (27.0-32.0) pg MCHC 30.7 L (31.0-37.0) g/dL RDW Std Deviation 54.3 (28.0-62.0) fl RDW Coeff of Harpreet 16 H (11.0-15.0) % Plt Count 279 (150-400) K/uL MPV 10.50 (7.40-12.00) fL Neut % (Auto) 86.9 H (48.0-80.0) % Lymph % (Auto) 12.6 L (16.0-40.0) % Hitchcock % (Auto) 0.4 (0.0-15.0) % Eos % (Auto) 0.0 (0.0-7.0) % Baso % (Auto) 0.1 (0.0-1.5) % Neut # (Auto) 6.7 H (1.4-5.7) K/uL Lymph # (Auto) 1.0 (0.6-2.4) K/uL [place] # (Auto) 0.0 (0.0-0.8) K/uL Eos # (Auto) 0.0 (0.0-0.7) K/uL Baso # (Auto) 0.0 (0.0-0.1) K/uL Nucleated RBC % 0.0 /100WBC Nucleated RBCs # 0 K/uL Sodium 145 (136-145) mmol/L Potassium 4.7 (3.5-5.1) mmol/L Chloride 110 H (98-107) mmol/L Carbon Dioxide 23.6 (21.0-32.0) mmol/L BUN 23 H (7.0-18.0) mg/dL Creatinine 1.0 (0.6-1.0) mg/dL Est Cr Clr Drug Dosing 34.90 mL/min Estimated GFR (MDRD) 53.2 ml/min Glucose 182 H (74-106) mg/dL POC Glucose (60-110) mg/dL Hemoglobin A1c (4.5-6.2) % Calcium 9.1 (8.5-10.1) mg/dL Magnesium (1.8-2.4) mg/dL Total Bilirubin (0.2-1.0) mg/dL AST (15-37) IU/L ALT (14-63) IU/L Alkaline Phosphatase (46-116) U/L Troponin I < 0.050 (0.000-0.056) ng/mL B-Natriuretic Peptide (<100) PG/ML Total Protein (6.4-8.2) g/dL Albumin (3.4-5.0) g/dL Globulin (2.6-4.0) g/dL Albumin/Globulin Ratio (0.9-1.6) Triglycerides (0-200) mg/dL Cholesterol (50-200) mg/dL LDL Cholesterol, Calc (60-180) mg/dL VLDL Cholesterol (5-55) mg/dL HDL Cholesterol (40-60) mg/dL Cholesterol/HDL Ratio (3.3-6.0) Urine Color Urine Appearance Urine pH (5.0-8.0) Ur Specific [place] (1.001-1.035) Urine Protein (NEGATIVE) mg/dL Urine Glucose (UA) (NEGATIVE) mg/dL Urine Ketones (NEGATIVE) mg/dL Urine Occult Blood (NEGATIVE) Urine Nitrite (NEGATIVE) Urine Bilirubin (NEGATIVE) Urine Urobilinogen (<2.0) EU/dL Ur Leukocyte Esterase (NEGATIVE) 09/03/19 09/03/19 09/03/19 Range/Units 03:05 03:05 10:09 WBC (4.0-11.0) K/uL RBC (4.30-5.90) M/uL Hgb (12.0-16.0) g/dL Hct (36.0-46.0) % MCV (80.0-98.0) fL MCH (27.0-32.0) pg MCHC (31.0-37.0) g/dL RDW Std Deviation (28.0-62.0) fl RDW Coeff of Harpreet (11.0-15.0) % Plt Count (150-400) K/uL MPV (7.40-12.00) fL Neut % (Auto) (48.0-80.0) % Lymph % (Auto) (16.0-40.0) % [place]cock % (Auto) (0.0-15.0) % Eos % (Auto) (0.0-7.0) % Baso % (Auto) (0.0-1.5) % Neut # (Auto) (1.4-5.7) K/uL Lymph # (Auto) (0.6-2.4) K/uL [place] # (Auto) (0.0-0.8) K/uL Eos # (Auto) (0.0-0.7) K/uL Baso # (Auto) (0.0-0.1) K/uL Nucleated RBC % /100WBC Nucleated RBCs # K/uL Sodium (136-145) mmol/L Potassium (3.5-5.1) mmol/L Chloride (98-107) mmol/L Carbon Dioxide (21.0-32.0) mmol/L BUN (7.0-18.0) mg/dL Creatinine (0.6-1.0) mg/dL Est Cr Clr Drug Dosing mL/min Estimated GFR (MDRD) ml/min Glucose (74-106) mg/dL POC Glucose 114 H (60-110) mg/dL Hemoglobin A1c 6.4 H (4.5-6.2) % Calcium (8.5-10.1) mg/dL Magnesium (1.8-2.4) mg/dL Total Bilirubin (0.2-1.0) mg/dL AST (15-37) IU/L ALT (14-63) IU/L Alkaline Phosphatase (46-116) U/L Troponin I (0.000-0.056) ng/mL B-Natriuretic Peptide (<100) PG/ML Total Protein (6.4-8.2) g/dL Albumin (3.4-5.0) g/dL Globulin (2.6-4.0) g/dL Albumin/Globulin Ratio (0.9-1.6) Triglycerides 67 (0-200) mg/dL Cholesterol 198 (50-200) mg/dL LDL Cholesterol, Calc 132 (60-180) mg/dL VLDL Cholesterol 13 (5-55) mg/dL HDL Cholesterol 53 (40-60) mg/dL Cholesterol/HDL Ratio 3.7 (3.3-6.0) Urine Color Urine Appearance Urine pH (5.0-8.0) Ur Specific [place] (1.001-1.035) Urine Protein (NEGATIVE) mg/dL Urine Glucose (UA) (NEGATIVE) mg/dL Urine Ketones (NEGATIVE) mg/dL Urine Occult Blood (NEGATIVE) Urine Nitrite (NEGATIVE) Urine Bilirubin (NEGATIVE) Urine Urobilinogen (<2.0) EU/dL Ur Leukocyte Esterase (NEGATIVE) 09/03/19 Range/Units 11:41 WBC (4.0-11.0) K/uL RBC (4.30-5.90) M/uL Hgb (12.0-16.0) g/dL Hct (36.0-46.0) % MCV (80.0-98.0) fL MCH (27.0-32.0) pg MCHC (31.0-37.0) g/dL RDW Std Deviation (28.0-62.0) fl RDW Coeff of Harpreet (11.0-15.0) % Plt Count (150-400) K/uL MPV (7.40-12.00) fL Neut % (Auto) (48.0-80.0) % Lymph % (Auto) (16.0-40.0) % [place] % (Auto) (0.0-15.0) % Eos % (Auto) (0.0-7.0) % Baso % (Auto) (0.0-1.5) % Neut # (Auto) (1.4-5.7) K/uL Lymph # (Auto) (0.6-2.4) K/uL [place] # (Auto) (0.0-0.8) K/uL Eos # (Auto) (0.0-0.7) K/uL Baso # (Auto) (0.0-0.1) K/uL Nucleated RBC % /100WBC Nucleated RBCs # K/uL Sodium (136-145) mmol/L Potassium (3.5-5.1) mmol/L Chloride (98-107) mmol/L Carbon Dioxide (21.0-32.0) mmol/L BUN (7.0-18.0) mg/dL Creatinine (0.6-1.0) mg/dL Est Cr Clr Drug Dosing mL/min Estimated GFR (MDRD) ml/min Glucose (74-106) mg/dL POC Glucose 103 (60-110) mg/dL Hemoglobin A1c (4.5-6.2) % Calcium (8.5-10.1) mg/dL Magnesium (1.8-2.4) mg/dL Total Bilirubin (0.2-1.0) mg/dL AST (15-37) IU/L ALT (14-63) IU/L Alkaline Phosphatase (46-116) U/L Troponin I (0.000-0.056) ng/mL B-Natriuretic Peptide (<100) PG/ML Total Protein (6.4-8.2) g/dL Albumin (3.4-5.0) g/dL Globulin (2.6-4.0) g/dL Albumin/Globulin Ratio (0.9-1.6) Triglycerides (0-200) mg/dL Cholesterol (50-200) mg/dL LDL Cholesterol, Calc (60-180) mg/dL VLDL Cholesterol (5-55) mg/dL HDL Cholesterol (40-60) mg/dL Cholesterol/HDL Ratio (3.3-6.0) Urine Color Urine Appearance Urine pH (5.0-8.0) Ur Specific [place] (1.001-1.035) Urine Protein (NEGATIVE) mg/dL Urine Glucose (UA) (NEGATIVE) mg/dL Urine Ketones (NEGATIVE) mg/dL Urine Occult Blood (NEGATIVE) Urine Nitrite (NEGATIVE) Urine Bilirubin (NEGATIVE) Urine Urobilinogen (<2.0) EU/dL Ur Leukocyte Esterase (NEGATIVE) LESTER Results - Last 24 hrs: Microbiology 09/02/19 18:11 Influenza Type A Antigen Screen - Final Nasopharyngeal Swab NEGATIVE INFLUENZA A VIRUS AG REFERENCE RANGE: NEGATIVE Influenza Type B Antigen Screen - Final NEGATIVE INFLUENZA B VIRUS AG REFERENCE RANGE: NEGATIVE Med Orders - Current: Current Medications Acetaminophen (Tylenol) 650 mg PO Q4H PRN PRN Reason: Pain (Mild 1-3)/fever Last Admin: 09/03/19 09:34 Dose: 650 mg Albuterol/Ipratropium (Duoneb 3.0-0.5 Mg/3 Ml) 3 ml NEB Q4HRRT PRN PRN Reason: Wheezing Artificial Tears (Refresh Plus 0.5%) 1 each EYEBOTH BID [facility] Last Admin: 09/03/19 09:40 Dose: 1 each Aspirin (Aspirin) 81 mg PO DAILY [facility] Last Admin: 09/03/19 09:39 Dose: 81 mg Atorvastatin Calcium (Lipitor) 20 mg PO DAILY [facility] Last Admin: 09/03/19 09:36 Dose: 20 mg Docusate Sodium (Colace) 100 mg PO BID PRN PRN Reason: Constipation Enoxaparin Sodium (Lovenox) 40 mg SUBCUT Q24H [facility] Last Admin: 09/02/19 18:57 Dose: 40 mg Azithromycin 250 mg/ Sodium (Chloride) 250 mls @ 250 mls/hr IV Q24H [facility] Last Admin: 09/02/19 20:22 Dose: 250 mls/hr Ibuprofen (Motrin) 600 mg PO Q6H PRN PRN Reason: Pain (mild 1-3) Insulin Aspart (Novolog) 0 unit SUBCUT TIDAC [facility]; Protocol Last Admin: 09/03/19 12:45 Dose: Not Given Ketorolac Tromethamine (Toradol) 15 mg IV Q6H PRN PRN Reason: Pain (moderate 4-6) Methylprednisolone Sodium Succinate (Solu-Medrol) 40 mg IVPUSH BID [facility] Last Admin: 09/03/19 09:41 Dose: 40 mg Metoprolol Succinate (Toprol Xl) 25 mg PO DAILY [facility] Last Admin: 09/03/19 09:38 Dose: 25 mg Ondansetron HCl (Zofran Odt) 4 mg PO Q4H PRN PRN Reason: nausea, able to take PO Ondansetron HCl (Zofran) 4 mg IVPUSH Q4H PRN PRN Reason: Nausea Budesonide/Formoterol 160-4.5 Mcg/Puff 6 Gm Inhaler 2 each INH BID [facility] Last Admin: 09/03/19 09:42 Dose: Not Given Polyethylene Glycol (Miralax) 17 gm PO DAILY PRN PRN Reason: Constipation Discontinued Medications Albuterol (Proventil Neb Soln) 2.5 mg NEB ONETIME ONE Stop: 09/02/19 17:55 Last Admin: 09/02/19 20:23 Dose: 2.5 mg Albuterol/Ipratropium (Duoneb 3.0-0.5 Mg/3 Ml) 3 ml NEB ONETIME ONE Stop: 09/02/19 14:57 Last Admin: 09/02/19 15:12 Dose: 3 ml Azithromycin (Zithromax) 250 mg IV Q24H [facility] Last Admin: 09/02/19 21:50 Dose: Not Given Azithromycin 250 mg/ Sodium (Chloride) 250 mls @ 250 mls/hr IV ONETIME [facility] Prednisone (Prednisone) 40 mg PO ONETIME ONE Stop: 09/02/19 15:24 Last Admin: 09/02/19 15:30 Dose: 40 mg <Zeke Cervantes J - Last Filed: 09/06/19 13:28> Discharge Summary - Referral to Home Health Primary Care Physician: PCP Unknown - Patient Data Vitals - Most Recent: Last Vital Signs Temp 36.9 C 09/03/19 16:00 Pulse 76 09/03/19 16:00 Resp 20 09/03/19 16:00 BP 151/68 H 09/03/19 16:00 Pulse Ox 91 L 09/03/19 16:00 Med Orders - Current: Current Medications Discontinued Medications Acetaminophen (Tylenol) 650 mg PO Q4H PRN PRN Reason: Pain (Mild 1-3)/fever Last Admin: 09/03/19 15:23 Dose: 650 mg Albuterol (Proventil Neb Soln) 2.5 mg NEB ONETIME ONE Stop: 09/02/19 17:55 Last Admin: 09/02/19 20:23 Dose: 2.5 mg Albuterol/Ipratropium (Duoneb 3.0-0.5 Mg/3 Ml) 3 ml NEB ONETIME ONE Stop: 09/02/19 14:57 Last Admin: 09/02/19 15:12 Dose: 3 ml Albuterol/Ipratropium (Duoneb 3.0-0.5 Mg/3 Ml) 3 ml NEB Q4HRRT PRN PRN Reason: Wheezing Artificial Tears (Refresh Plus 0.5%) 1 each EYEBOTH BID [facility] Last Admin: 09/03/19 09:40 Dose: 1 each Aspirin (Aspirin) 81 mg PO DAILY [facility] Last Admin: 09/03/19 09:39 Dose: 81 mg Atorvastatin Calcium (Lipitor) 20 mg PO DAILY [facility] Last Admin: 09/03/19 09:36 Dose: 20 mg Azithromycin (Zithromax) 250 mg IV Q24H [facility] Last Admin: 09/02/19 21:50 Dose: Not Given Docusate Sodium (Colace) 100 mg PO BID PRN PRN Reason: Constipation Enoxaparin Sodium (Lovenox) 40 mg SUBCUT Q24H [facility] Last Admin: 09/02/19 18:57 Dose: 40 mg Azithromycin 250 mg/ Sodium (Chloride) 250 mls @ 250 mls/hr IV ONETIME [facility] Azithromycin 250 mg/ Sodium (Chloride) 250 mls @ 250 mls/hr IV Q24H [facility] Last Admin: 09/02/19 20:22 Dose: 250 mls/hr Ibuprofen (Motrin) 600 mg PO Q6H PRN PRN Reason: Pain (mild 1-3) Insulin Aspart (Novolog) 0 unit SUBCUT TIDAC [facility]; Protocol Last Admin: 09/03/19 12:45 Dose: Not Given Ketorolac Tromethamine (Toradol) 15 mg IV Q6H PRN PRN Reason: Pain (moderate 4-6) Methylprednisolone Sodium Succinate (Solu-Medrol) 40 mg IVPUSH BID [facility] Last Admin: 09/03/19 09:41 Dose: 40 mg Metoprolol Succinate (Toprol Xl) 25 mg PO DAILY [facility] Last Admin: 09/03/19 09:38 Dose: 25 mg Ondansetron HCl (Zofran Odt) 4 mg PO Q4H PRN PRN Reason: nausea, able to take PO Ondansetron HCl (Zofran) 4 mg IVPUSH Q4H PRN PRN Reason: Nausea Budesonide/Formoterol 160-4.5 Mcg/Puff 6 Gm Inhaler 2 each INH BID [facility] Last Admin: 09/03/19 09:42 Dose: Not Given Polyethylene Glycol (Miralax) 17 gm PO DAILY PRN PRN Reason: Constipation Prednisone (Prednisone) 40 mg PO ONETIME ONE Stop: 09/02/19 15:24 Last Admin: 09/02/19 15:30 Dose: 40 mg - Free Text/Narrative Note: I have seen and examined the patient with the resident. I have discussed the findings and treatment plan with the resident. I agree with the assessment and plan as outlined in the following note.
[2019-09-03 16:08] VITALS: BP 151/68; PULSE 76
== END 2019-09-03 17:27 | disposition home or self-care (01) ==
LOC: MW.ED 13:20 → MW.MS 17:19
PROVIDERS: ADMIT Student in an Organized Health Care Education/Training Program; ATTEND Student in an Organized Health Care Education/Training Program
DX: J44.1 Chronic obstructive pulmonary disease with (acute) exacerbation (principal); E87.5 Hyperkalemia; I25.10 Atherosclerotic heart disease of native coronary artery without angina pectoris; E78.00 Pure hypercholesterolemia, unspecified; I10 Essential (primary) hypertension; E66.9 Obesity, unspecified; Z87.891 Personal history of nicotine dependence; Z79.82 Long term (current) use of aspirin; Z79.899 Other long term (current) drug therapy; Z88.5 Allergy status to narcotic agent; Z91.013 Allergy to seafood; Z68.36 Body mass index [BMI] 36.0-36.9, adult
CPT/HCPCS: 36415; 71046; 80048; 80053; 80061; 81003; 82962; 83036; 83735; 83880; 84484; 85025; 87804; 93005; 93306; 96365; 96372; 96375; 96376; 99285; A9270; G0378; J0456; J1650; J2920; J7050; J7620-GY

== ENCOUNTER 2021-02-12 08:12 | Emergency (ER) | payer MEDICARE, OTHER ==
[2021-02-12] MEDS ORDERED: Sodium Chloride 0.9% 2.5 ML Syringe FLUSH PRN (09:16)
[2021-02-12] MEDS ORDERED: Sodium Chloride 0.9% 10 ML Syringe FLUSH PRN (09:16)
--- NOTE | 2021-02-12 09:19 | EDM.PDOC ---
ED HPI GENERAL MEDICAL PROBLEM - General Chief Complaint: ENT Problem Stated Complaint: difficulty breathing Time Seen by Provider: 02/12/21 08:46 - History of Present Illness INITIAL COMMENTS - FREE TEXT/NARRATIVE: History of present illness: [] The patient has been sick for 4 days. She is sore throat headache and cough. She went to walk-in and was started on doxycycline and prednisone 4 days ago. She is getting worse. The cough and tightness in her chest is the worst part. She has also dyspnea on exertion and green phlegm. She continues to have a headache and sore throat. The patient smoked for 40 years. She has a history of COPD and 2 prior heart attacks. Review of systems: As per history of present illness and below otherwise all systems reviewed and negative. Past medical history: As per history of present illness and as reviewed below otherwise noncontributory. Surgical history: As per history of present illness and as reviewed below otherwise noncontributory. Social history: No reported history of drug or alcohol abuse. Family history: As per history of present illness and as reviewed below otherwise noncontributory. Physical exam: Constitutional - well developed, well-nourished and in no acute distress HEENT -TMs normal. Hyperemic tonsillar pillars. Normocephalic, no evidence of trauma - external nose and mouth normal - no mass in neck and no JVD - mucosae moist EYES - full EOM, PERRL, no icterus - no evidence of inflammation, injection, or drainage Respiratory -diminished breath sounds throughout with prolonged expiratory phase of respiration. Otherwise no respiratory distress, equal bilateral expansion, lungs clear to auscultation but diminished Cardiovascular - Regular Rhythm with S1 and S2 appreciated and no murmur, gallop or rub. GI - abdomen soft without distension or organomegaly - normal bowel sounds - no guard or rebound Musculoskeletal no gross deformity of long bones or joints - no tenderness, swelling or edema Neurologic - Alert and oriented times four - CN II-XII grossly intact - motor sensory and coordination symmetrically normal Psychiatric - appropriate mood and affect with normal thought content Hematologic - No petechiae or purpura - mucosa appropriate color and sclera not pale - normal nail bed color and refill Integument - no rash or evidence of trauma - normal turgor Diagnostics: [] Therapeutics: [] Impression: [] Plan: [] Definitive disposition and diagnosis as appropriate pending reevaluation and review of above. 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: Acetaminophen headache Pain Score (Numeric/FACES): 10 - Related Data Allergies Allergy/AdvReac Type Severity Reaction Status Date / Time Opioids - Morphine Analogues Allergy Severe Respiratory Verified 02/12/21 08:31 Depression shellfish derived Allergy Cannot Verified 02/12/21 08:31 Remember Home Meds: Home Meds Albuterol [Ventolin HFA] 1 - 2 puff INH Q4H PRN 09/02/19 [History] Ascorbate Calcium [Vitamin C] 1 tab PO DAILY 09/02/19 [History] Aspirin 81 mg PO DAILY 09/02/19 [History] Budesonide/Formoterol [Symbicort 160-4.5 MCG] 2 puff INH BID 09/02/19 [History] Carboxymethylcellulose Sodium [Refresh Plus 0.5%] 2 drop EYEBOTH BID 09/02/19 [History] Metoprolol Succinate [Toprol XL] 25 mg PO DAILY 09/02/19 [History] Multivitamin [Multivitamins] 1 tab PO DAILY 09/02/19 [History] Nitroglycerin 1 tab PO ASDIRECTED PRN 09/02/19 [History] atorvaSTATin [Lipitor] 20 mg PO DAILY 09/02/19 [History] predniSONE 20 mg PO WITHBREAKFAST 5 Days #5 tab 09/03/19 [Rx] Doxycycline Hyclate 100 mg PO BID 02/12/21 [History] Past Medical History - Past Health History Medical/Surgical History: Denies Medical/Surgical History HEENT History: Reports: Cataract, Hard of Hearing, Impaired Vision Other HEENT History: wears eyeglasses and bilateral hearing aids Cardiovascular History: Reports: High Cholesterol, Hypertension, CT, Stents, Other (See Below) Other Cardiovascular History: x2 CT, 3 stents, aortic aneurysm Respiratory History: Reports: Asthma, COPD, Pneumonia, Recurrent, Other (See Below) Other Respiratory History: Frequent URIs Gastrointestinal History: Reports: Pancreatitis Other Gastrointestinal History: Patient denies both Genitourinary History: Reports: Other (See Below) Other Genitourinary History: "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" 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: Musculoskeletal History: Reports: Arthritis Neurological History: Reports: CVA Psychiatric History: Reports: None Endocrine/Metabolic History: Reports: Obesity/BMI 30+ Other Endocrine/Metabolic History: "borderline diabetic' Hematologic History: Reports: Anemia Immunologic History: Reports: None Oncologic (Cancer) History: Reports: None Dermatologic History: Reports: None - Infectious Disease History Infectious Disease History: Reports: Influenza, Measles - Past Surgical History Head Surgeries/Procedures: Reports: None HEENT Surgical History: Reports: Cataract Surgery Cardiovascular Surgical History: Reports: Carotid Stents Respiratory Surgical History: Reports: None GI Surgical History: Reports: Cholecystectomy, Colonoscopy Female Surgical History: Reports: Tubal Ligation Endocrine Surgical History: Reports: None Neurological Surgical History: Reports: None Musculoskeletal Surgical History: Reports: None Oncologic Surgical History: Reports: None Dermatological Surgical History: Reports: None Social & Family History - Family History Family Medical History: No Pertinent Family History - Tobacco Use Tobacco Use Status *Q: Former Tobacco User Used Tobacco, but Quit: Yes Month/Year Tobacco Last Used: pt states 13 years ago - Caffeine Use Caffeine Use: Reports: Coffee, Soda, Tea - Recreational Drug Use Recreational Drug Use: No - Living Situation & Occupation Living situation: Reports: Occupation: Retired ED ROS GENERAL - Review of Systems Review Of Systems: Comprehensive ROS is negative, except as noted in HPI. ED EXAM, GENERAL - Physical Exam Exam: See Below Free Text/Narrative:: My physical exam is in the HPI #1 Interpretation EKG Interpretation Comments: EKG done at 9:27 AM sinus rhythm heart rate 64 [place] interval [address] [place] [address] and T impression normal EKG Course - Vital Signs Text/Narrative:: Because she may have been adequately treated for strep without a test initially and the doxycycline probably would neutralize her ability to discover strep now I decided to give her [place] Bicillin and otherwise have her continue her same medicines. Last Recorded V/S: Last Vital Signs Temp 36.9 C 02/12/21 08:36 Pulse 66 02/12/21 09:50 Resp 20 02/12/21 09:50 BP 183/125 H 02/12/21 09:50 Pulse Ox 92 L 02/12/21 09:50 - Orders/Labs/Meds Orders: Active Orders 24 hr Category Date Time Status EKG Documentation Completion [RC] AM Care 02/12/21 09:16 Active Penicillin G Benzathine [Bicillin L-A] Med 02/12/21 11:06 Once 1.2 millunits IM ONETIME ONE Sodium Chloride 0.9% [Saline Flush] Med 02/12/21 09:16 Active 10 ml FLUSH ASDIRECTED PRN Sodium Chloride 0.9% [Saline Flush] Med 02/12/21 09:16 Active 2.5 ml FLUSH ASDIRECTED PRN Saline Lock Insert [OM.PC] Stat Oth 02/12/21 09:16 Ordered Medication Orders Sodium Chloride (Sodium Chloride 0.9% 10 Ml Syringe) 10 ml FLUSH ASDIRECTED PRN PRN Reason: Keep Vein Open Last Admin: 02/12/21 10:36 Dose: 10 ml Documented by: SUZANNE Sodium Chloride (Sodium Chloride 0.9% 2.5 Ml Syringe) 2.5 ml FLUSH ASDIRECTED PRN PRN Reason: Keep Vein Open Last Admin: 02/12/21 10:37 Dose: 2.5 ml Documented by: SUZANNE Labs: Laboratory Tests 02/12/21 02/12/21 02/12/21 Range/Units 09:42 09:42 09:45 WBC 7.09 (4.0-11.0) K/uL RBC 4.69 (4.30-5.90) M/uL Hgb 13.8 (12.0-16.0) g/dL Hct 43.0 (36.0-46.0) % MCV 91.7 (80.0-98.0) fL MCH 29.4 (27.0-32.0) pg MCHC 32.1 (31.0-37.0) g/dL RDW Std Deviation 51.5 (28.0-62.0) fl RDW Coeff of Harpreet 15 (11.0-15.0) % Plt Count 269 (150-400) K/uL MPV 10.40 (7.40-12.00) fL Neut % (Auto) 81.3 H (48.0-80.0) % Lymph % (Auto) 14.2 L (16.0-40.0) % [place] % (Auto) 4.1 (0.0-15.0) % Eos % (Auto) 0.0 (0.0-7.0) % Baso % (Auto) 0.4 (0.0-1.5) % Neut # (Auto) 5.8 H (1.4-5.7) K/uL Lymph # (Auto) 1.0 (0.6-2.4) K/uL [place] # (Auto) 0.3 (0.0-0.8) K/uL Eos # (Auto) 0.0 (0.0-0.7) K/uL Baso # (Auto) 0.0 (0.0-0.1) K/uL Nucleated RBC % 0.0 /100WBC Nucleated RBCs # 0 K/uL Sodium 142 (136-145) mmol/L Potassium 4.9 (3.5-5.1) mmol/L Chloride 108 H (98-107) mmol/L Carbon Dioxide 26.9 (21.0-32.0) mmol/L BUN 19 H (7.0-18.0) mg/dL Creatinine 1.0 (0.6-1.0) mg/dL Est Cr Clr Drug Dosing 30.62 mL/min Estimated GFR (MDRD) 53.0 ml/min Glucose 146 H (74-106) mg/dL Calcium 9.0 (8.5-10.1) mg/dL Total Bilirubin 0.5 (0.2-1.0) mg/dL AST 23 (15-37) IU/L ALT 35 (14-63) IU/L Alkaline Phosphatase 107 (46-116) U/L Troponin I < 0.050 (0.000-0.056) ng/mL Total Protein 6.9 (6.4-8.2) g/dL Albumin 3.6 (3.4-5.0) g/dL Globulin 3.3 (2.6-4.0) g/dL Albumin/Globulin Ratio 1.1 (0.9-1.6) Influenza Type A RNA NEGATIVE (NEGATIVE) Influenza Type B RNA NEGATIVE (NEGATIVE) SARS-CoV-2 RNA (ILANA) NEGATIVE (NEGATIVE) Meds: Medications Generic Name Dose Route Start Last Admin Trade Name Freq PRN Reason Stop Dose Admin Sodium Chloride 10 ml 02/12/21 09:16 02/12/21 10:36 Sodium Chloride 0.9% 10 Ml Syringe FLUSH 10 ml ASDIRECTED PRN Administration Keep Vein Open Sodium Chloride 2.5 ml 02/12/21 09:16 02/12/21 10:37 Sodium Chloride 0.9% 2.5 Ml Syringe FLUSH 2.5 ml ASDIRECTED PRN Administration Keep Vein Open Discontinued Medications Generic Name Dose Route Start Last Admin Trade Name Fran PRN Reason Stop Dose Admin Naproxen 500 mg 02/12/21 10:25 02/12/21 10:36 Naproxen 500 Mg Tab PO 02/12/21 10:26 500 mg ONETIME ONE Administration Departure - Departure Time of Disposition: 11:20 Disposition: Home, Self-Care 01 Condition: Good Clinical Impression: Pharyngitis, Bronchitis - Discharge Information Instructions: Acute Bronchitis, Adult, [id number], Pharyngitis Referrals: Al Chase MD [Primary Care Provider] - Forms: ED Department Discharge Additional Instructions: The [place] Bicillin will cover any strep that might not have been covered by doxycycline. Continue to doxycycline and steroids. Return if worse. Drink plenty of fluids. [facility] - Primary Care [address] [place] [id number] [place] [address] The following information is given to patients seen in the emergency department who are being discharged to home. This information is to outline your options for follow-up care. We provide all patients seen in our emergency department with a follow-up referral. The need for follow-up, as well as the timing and circumstances, are variable depending upon the specifics of your emergency department visit. If you don't have a primary care physician on staff, we will provide you with a referral. We always advise you to contact your personal physician following an emergency department visit to inform them of the circumstance of the visit and for follow-up with them and/or the need for any referrals to a consulting specialist. The emergency department will also refer you to a specialist when appropriate. This referral assures that you have the opportunity for follow-up care with a specialist. All of these measure are taken in an effort to provide you with optimal care, which includes your follow-up. Under all circumstances we always encourage you to contact your private ph ysician who remains a resource for coordinating your care. When calling for follow-up care, please make the office aware that this follow-up is from your recent emergency room visit. If for any reason you are refused follow-up, please contact the [facility] Emergency Department at and asked to speak to the emergency department charge nurse. Sepsis Event Note (ED) - Evaluation Sepsis Screening Result: No Definite Risk - Focused Exam Vital Signs: Vital Signs Temp Pulse Resp BP Pulse Ox 02/12/21 09:50 66 20 183/125 H 92 L 02/12/21 08:47 68 22 H 184/85 H 92 L 02/12/21 08:36 36.9 C 69 24 H 186/85 H 92 L - My Orders Last 24 Hours: My Active Orders 02/12/21 09:16 EKG Documentation Completion [RC] AM Sodium Chloride 0.9% [Saline Flush] 10 ml FLUSH ASDIRECTED PRN Sodium Chloride 0.9% [Saline Flush] 2.5 ml FLUSH ASDIRECTED PRN Saline Lock Insert [OM.PC] Stat 02/12/21 11:06 Penicillin G Benzathine [Bicillin L-A] 1.2 millunits IM ONETIME ONE - Assessment/Plan Last 24 Hours: My Active Orders 02/12/21 09:16 EKG Documentation Completion [RC] AM Sodium Chloride 0.9% [Saline Flush] 10 ml FLUSH ASDIRECTED PRN Sodium Chloride 0.9% [Saline Flush] 2.5 ml FLUSH ASDIRECTED PRN Saline Lock Insert [OM.PC] Stat 02/12/21 11:06 Penicillin G Benzathine [Bicillin L-A] 1.2 millunits IM ONETIME ONE
--- NOTE | 2021-02-12 10:00 | CR ---
INDICATION: Chest tightness. Sore throat. TECHNIQUE: Portable upright AP view of the chest. COMPARISON: 12/30/2020. FINDINGS: Stable cardiac, mediastinal and hilar contours. Stable prominence of the central pulmonary arteries likely related to pulmonary artery hypertension. No appreciable airspace opacities to suggest pneumonia. No pleural fluid is identified on this single view study. No pneumothorax. IMPRESSION: No radiographic signs of acute cardiopulmonary disease. Dictated by Boris Horn MD @ 02/12/2021 9:59:17 AM Dictated by: Boris Horn MD @ 02/12/2021 09:59:19 (Electronically Signed)
[2021-02-12 10:17] LABS: BLOOD UREA NITROGEN,BUN 19 mg/dL (7.0-18.0); CARBON DIOXIDE,CO2 26.9 mmol/L (21.0-32.0); CHLORIDE,CL 108 mmol/L (98-107); GLUCOSE RANDOM 146 mg/dL (74-106); POTASSIUM,K 4.9 mmol/L (3.5-5.1); SODIUM,NA 142 mmol/L (136-145)
[2021-02-12] MEDS ORDERED: Naproxen 500 MG Tab PO ONE (10:25)
[2021-02-12 10:27] LABS: CORONAVIRUS COVID-19 NAA NEGATIVE (NEGATIVE); INFLUENZA A NAA NEGATIVE (NEGATIVE); INFLUENZA B NAA NEGATIVE (NEGATIVE)
[2021-02-12] MEDS ORDERED: Penicillin G Benzathine 1,200,000 Units/2 ML Syringe IM ONE (11:06)
[2021-02-12 12:01] VITALS: BP 188/85; PULSE 61
== END 2021-02-12 12:04 | disposition home or self-care (01) ==
LOC: MW.ED 08:12
DX: J40 Bronchitis, not specified as acute or chronic (principal); J02.9 Acute pharyngitis, unspecified; E78.00 Pure hypercholesterolemia, unspecified; I10 Essential (primary) hypertension; I25.2 Old myocardial infarction; J44.9 Chronic obstructive pulmonary disease, unspecified; E66.9 Obesity, unspecified; Z68.39 Body mass index [BMI] 39.0-39.9, adult; Z86.73 Personal history of transient ischemic attack (TIA), and cerebral infarction without residual deficits; Z87.891 Personal history of nicotine dependence; Z20.822 Contact with and (suspected) exposure to COVID-19; Z79.82 Long term (current) use of aspirin; Z79.899 Other long term (current) drug therapy; Z88.5 Allergy status to narcotic agent; Z91.013 Allergy to seafood
CPT/HCPCS: 0240U; 36415; 71045; 80053; 81003; 84484; 85025; 93005; 96372; 99284; A9270; J0561

== ENCOUNTER 2022-07-24 07:44 | Emergency (ER) | payer MEDICARE, OTHER ==
[2022-07-24] MEDS ORDERED: Sodium Chloride 0.9% 1,000 ML IV ONE (08:00)
[2022-07-24] MEDS ORDERED: Sodium Chloride 0.9% 2.5 ML Syringe FLUSH PRN (08:00)
[2022-07-24] MEDS ORDERED: Sodium Chloride 0.9% 10 ML Syringe FLUSH PRN (08:00)
[2022-07-24] MEDS ORDERED: Ketorolac 30 MG/ML SDV IVPUSH ONE (08:01)
[2022-07-24 08:35] LABS: CARBON DIOXIDE,CO2 27.7 mmol/L (21.0-32.0); POTASSIUM,K 4.7 mmol/L (3.5-5.1)
[2022-07-24 09:02] LABS: CORONAVIRUS COVID-19 NAA NEGATIVE (NEGATIVE); INFLUENZA A NAA NEGATIVE (NEGATIVE); INFLUENZA B NAA NEGATIVE (NEGATIVE); RESPIRATORY SYNCYTIAL VIR NAA NEGATIVE (NEGATIVE)
[2022-07-24] MEDS ORDERED: Iopamidol 755 MG/ML 500 ML Multipack Bottle IVPUSH STA (09:15)
[2022-07-24] MEDS ORDERED: Morphine 4 MG/ML Syringe IVPUSH ONE (09:16)
[2022-07-24 11:07] VITALS: BP 193/76; PULSE 65
== END 2022-07-24 11:07 | disposition home or self-care (01) ==
LOC: MW.ED 07:44
DX: R07.89 Other chest pain (principal); R10.9 Unspecified abdominal pain; E78.00 Pure hypercholesterolemia, unspecified; I25.2 Old myocardial infarction; J44.9 Chronic obstructive pulmonary disease, unspecified; I10 Essential (primary) hypertension; E66.9 Obesity, unspecified; Z87.891 Personal history of nicotine dependence; Z68.41 Body mass index [BMI] 40.0-44.9, adult; Z86.73 Personal history of transient ischemic attack (TIA), and cerebral infarction without residual deficits; Z91.013 Allergy to seafood; Z88.5 Allergy status to narcotic agent; Z79.82 Long term (current) use of aspirin; Z79.899 Other long term (current) drug therapy; Z20.822 Contact with and (suspected) exposure to COVID-19
CPT/HCPCS: 0241U; 36415; 51701; 71045; 71275; 74176; 80053; 81003; 85025; 96361; 96374; 96375; 99284; J1885; J2270; J3490; J7030; Q9967

== ENCOUNTER 2023-03-05 14:14 | Observation (INO) | payer MEDICARE, OTHER ==
[2023-03-05 15:30] LABS: BASOPHILS ABSOLUTE AUTO 0.1 K/uL (0.0-0.1); BASOPHILS PERCENT AUTO 0.4 % (0.0-1.5); EOSINOPHILS ABSOLUTE AUTO 0.2 K/uL (0.0-0.7); EOSINOPHILS PERCENT AUTO 1.5 % (0.0-7.0); HEMATOCRIT 44.6 % (36.0-46.0); HEMOGLOBIN 14.1 g/dL (12.0-16.0); LYMPHOCYTES ABSOLUTE AUTO 1.9 K/uL (0.6-2.4); LYMPHOCYTES PERCENT AUTO 13.7 % (16.0-40.0); MEAN CORPUSCULAR HGB CONC 31.6 g/dL (31.0-37.0); MEAN CORPUSCULAR VOLUME 91.6 fL (80.0-98.0); MONOCYTES PERCENT AUTO 7.3 % (0.0-15.0); NEUTROPHILS ABSOLUTE AUTO 10.8 K/uL (1.4-5.7); NEUTROPHILS PERCENT AUTO 77.1 % (48.0-80.0); NRBC ABSOLUTE 0 K/uL; PLATELET COUNT,PLT 300 K/uL (150-400); RED BLOOD CELL COUNT 4.87 M/uL (4.30-5.90); WHITE BLOOD CELL COUNT,WBC 14.02 K/uL (4.0-11.0)
[2023-03-05 16:30] LABS: ALBUMIN 3.6 g/dL (3.4-5.0); BILIRUBIN TOTAL 0.9 mg/dL (0.2-1.0); CALCIUM 9.3 mg/dL (8.5-10.1); CARBON DIOXIDE,CO2 25.5 mmol/L (21.0-32.0); CREATININE 0.8 mg/dL (0.6-1.0); EST CRCL DRUG DOSING (CG) 36.93 mL/min; POTASSIUM,K 4.9 mmol/L (3.5-5.1); PROTEIN TOTAL,TP 7.1 g/dL (6.4-8.2)
[2023-03-05 17:04] LABS: APPEARANCE,URINE CLEAR; BILIRUBIN,URINE NEGATIVE (NEGATIVE); COLOR,URINE YELLOW; GLUCOSE,URINE NEGATIVE (NEGATIVE); KETONES,URINE NEGATIVE (NEGATIVE); LEUKOCYTE ESTERASE,URINE NEGATIVE (NEGATIVE); NITRITE,URINE NEGATIVE (NEGATIVE); OCCULT BLOOD,URINE NEGATIVE (NEGATIVE); PH,URINE 5.5 (5.0-8.0); PROTEIN,URINE NEGATIVE (NEGATIVE); UROBILINOGEN,URINE 0.2 EU/dL (<2.0)
[2023-03-05] MEDS ORDERED: Sodium Chloride 0.9% 500 ML IV SCH (17:30)
[2023-03-05] MEDS ORDERED: Acetaminophen 500 MG Tab PO ONE (17:35)
[2023-03-05] MEDS ORDERED: Lidocaine 4% 1 each Patch TOP PRN (20:13)
[2023-03-05] MEDS ORDERED: Ketorolac 30 MG/ML SDV IVPUSH ONE (20:13)
[2023-03-05] MEDS ORDERED: cefTRIAXone 1 GM in Sodium Chloride 0.9% 50 ML IV ONE (21:09)
[2023-03-05] MEDS ORDERED: traMADol 50 MG Tab PO PRN (22:47)
[2023-03-06 06:05] LABS: BASOPHILS PERCENT AUTO 0.4 % (0.0-1.5); EOSINOPHILS ABSOLUTE AUTO 0.2 K/uL (0.0-0.7); EOSINOPHILS PERCENT AUTO 1.7 % (0.0-7.0); HEMATOCRIT 41.8 % (36.0-46.0); HEMOGLOBIN 12.8 g/dL (12.0-16.0); LYMPHOCYTES ABSOLUTE AUTO 1.5 K/uL (0.6-2.4); LYMPHOCYTES PERCENT AUTO 14.5 % (16.0-40.0); MEAN CORPUSCULAR HEMOGLOBIN 28.3 pg (27.0-32.0); MEAN CORPUSCULAR HGB CONC 30.6 g/dL (31.0-37.0); MEAN CORPUSCULAR VOLUME 92.3 fL (80.0-98.0); MONOCYTES PERCENT AUTO 9.8 % (0.0-15.0); NEUTROPHILS ABSOLUTE AUTO 7.7 K/uL (1.4-5.7); NEUTROPHILS PERCENT AUTO 73.6 % (48.0-80.0); NRBC ABSOLUTE 0 K/uL; PLATELET COUNT,PLT 277 K/uL (150-400); RED BLOOD CELL COUNT 4.53 M/uL (4.30-5.90)
[2023-03-06] MEDS: Acetaminophen 325 MG Tab PO PRN ×2 (06:25→19:36)
[2023-03-06 06:28] LABS: CALCIUM 8.7 mg/dL (8.5-10.1); CARBON DIOXIDE,CO2 24.5 mmol/L (21.0-32.0); CREATININE 1.1 mg/dL (0.6-1.0); EST CRCL DRUG DOSING (CG) 26.86 mL/min
[2023-03-06 07:37] LABS: LACTIC ACID 1.3 mmol/L (0.4-2.0)
[2023-03-06] MEDS ORDERED: Formoterol/Mometasone 200-5 MCG 8.8 GM Inhaler INH SCH (09:00)
[2023-03-06] MEDS ORDERED: atorvaSTATin 20 MG Tab PO SCH (09:00)
[2023-03-06] MEDS ORDERED: Albuterol 8 GM Inhaler INH PRN (09:03)
[2023-03-06] MEDS: Metoprolol Succinate 25 MG Tab.ER PO SCH ×2 (09:07→09:13)
[2023-03-06] MEDS: Ascorbic Acid 500 MG Tab PO SCH (09:11)
[2023-03-06] MEDS: Multivitamins with Iron/Calcium/Folic Acid/Minerals Tab PO SCH (09:11)
[2023-03-06] MEDS: Aspirin 81 MG Tab.Chew PO SCH (09:12)
[2023-03-06] MEDS: Lactated Ringers 1,000 ML IV SCH ×2 (09:13→17:10)
[2023-03-06] MEDS: Budesonide/Formoterol 160-4.5 MCG/Puff 6 GM Inhaler INH SCH ×2 (10:09→21:53)
[2023-03-06] MEDS ORDERED: Polyethylene Glycol 3350 Powder 17 GM Packet PO PRN (22:25)
[2023-03-06] MEDS ORDERED: BUDESONIDE INH ONE (22:30)
[2023-03-06] MEDS ORDERED: FORMOTEROL INH ONE (22:30)
[2023-03-06] MEDS ORDERED: cefTRIAXone 1 GM in Sodium Chloride 0.9% 50 ML IV SCH (23:00)
[2023-03-06] MEDS: FORMOTEROL INH SCH (23:10)
[2023-03-06] MEDS: BUDESONIDE INH SCH (23:10)
[2023-03-07] MEDS: Lactated Ringers 1,000 ML IV SCH ×2 (01:32→09:44)
[2023-03-07 05:58] LABS: BASOPHILS PERCENT AUTO 0.4 % (0.0-1.5); EOSINOPHILS ABSOLUTE AUTO 0.2 K/uL (0.0-0.7); EOSINOPHILS PERCENT AUTO 2.1 % (0.0-7.0); HEMATOCRIT 38.3 % (36.0-46.0); HEMOGLOBIN 11.7 g/dL (12.0-16.0); LYMPHOCYTES ABSOLUTE AUTO 1.4 K/uL (0.6-2.4); LYMPHOCYTES PERCENT AUTO 17.6 % (16.0-40.0); MEAN CORPUSCULAR HGB CONC 30.5 g/dL (31.0-37.0); MEAN CORPUSCULAR VOLUME 91.6 fL (80.0-98.0); MONOCYTES ABSOLUTE AUTO 0.8 K/uL (0.0-0.8); MONOCYTES PERCENT AUTO 9.4 % (0.0-15.0); NEUTROPHILS ABSOLUTE AUTO 5.8 K/uL (1.4-5.7); NEUTROPHILS PERCENT AUTO 70.5 % (48.0-80.0); NRBC ABSOLUTE 0 K/uL; PLATELET COUNT,PLT 247 K/uL (150-400); RED BLOOD CELL COUNT 4.18 M/uL (4.30-5.90); WHITE BLOOD CELL COUNT,WBC 8.19 K/uL (4.0-11.0)
[2023-03-07 06:23] LABS: A/G RATIO 0.8 (0.9-1.6); ALBUMIN 2.6 g/dL (3.4-5.0); BILIRUBIN TOTAL 0.9 mg/dL (0.2-1.0); CALCIUM 8.7 mg/dL (8.5-10.1); CARBON DIOXIDE,CO2 26.5 mmol/L (21.0-32.0); CREATININE 0.8 mg/dL (0.6-1.0); EST CRCL DRUG DOSING (CG) 36.93 mL/min; POTASSIUM,K 4.2 mmol/L (3.5-5.1); PROTEIN TOTAL,TP 5.7 g/dL (6.4-8.2)
[2023-03-07] MEDS: Multivitamins with Iron/Calcium/Folic Acid/Minerals Tab PO SCH (09:28)
[2023-03-07] MEDS: Ascorbic Acid 500 MG Tab PO SCH (09:28)
[2023-03-07] MEDS: Aspirin 81 MG Tab.Chew PO SCH (09:28)
[2023-03-07] MEDS: Metoprolol Succinate 25 MG Tab.ER PO SCH ×2 (09:28→09:32)
[2023-03-07 09:29] VITALS: BP 133/65
[2023-03-07] MEDS: FORMOTEROL INH SCH (09:31)
[2023-03-07] MEDS: BUDESONIDE INH SCH (09:31)
[2023-03-07 11:04] VITALS: PULSE 74
== END 2023-03-07 12:25 | disposition home or self-care (01) ==
LOC: MW.ED 14:14 → MW.MS 21:10
PROVIDERS: ADMIT Internal Medicine; ATTEND Internal Medicine
DX: N28.1 Cyst of kidney, acquired (principal); N12 Tubulo-interstitial nephritis, not specified as acute or chronic; I10 Essential (primary) hypertension; J44.9 Chronic obstructive pulmonary disease, unspecified; I25.2 Old myocardial infarction; Z79.899 Other long term (current) drug therapy; Z79.82 Long term (current) use of aspirin; Z91.013 Allergy to seafood; Z95.5 Presence of coronary angioplasty implant and graft; Z86.73 Personal history of transient ischemic attack (TIA), and cerebral infarction without residual deficits; Z98.890 Other specified postprocedural states; Z87.891 Personal history of nicotine dependence
CPT/HCPCS: 36415; 71045; 74177; 80048; 80053; 81003; 83605; 83690; 84484; 85025; 87040; 87086; 93005; 96361; 96365; 96375; 96376; 99285; A9270; G0378; J0696; J1885; J3490; J7040; J7120; 93010

== ENCOUNTER 2023-05-17 17:14 | Emergency (ER) | payer MEDICARE, OTHER ==
[2023-05-17 20:44] VITALS: BP 145/89; PULSE 67
== END 2023-05-17 20:44 | disposition home or self-care (01) ==
LOC: MW.ED 17:14
DX: M79.604 Pain in right leg (principal); R07.89 Other chest pain; M54.9 Dorsalgia, unspecified; I10 Essential (primary) hypertension; I25.2 Old myocardial infarction; M19.90 Unspecified osteoarthritis, unspecified site; I25.10 Atherosclerotic heart disease of native coronary artery without angina pectoris; J44.9 Chronic obstructive pulmonary disease, unspecified; Z88.5 Allergy status to narcotic agent; Z91.013 Allergy to seafood; Z79.899 Other long term (current) drug therapy; Z79.82 Long term (current) use of aspirin; W18.30XA Fall on same level, unspecified, initial encounter; Y92.002 Bathroom of unspecified non-institutional (private) residence as the place of occurrence of the external cause
CPT/HCPCS: 71250; 71250-26; 72131; 72131-26; 73590-26-RT; 73590-RT; 99282; 99284

== ENCOUNTER 2023-10-17 10:52 | Emergency (ER) | payer MEDICARE, OTHER ==
[2023-10-17 11:17] LABS: BASOPHILS ABSOLUTE AUTO 0.07 K/uL (0.00-0.20); BASOPHILS PERCENT AUTO 0.7 % (0.0-1.0); EOSINOPHILS ABSOLUTE AUTO 0.22 K/uL (0.00-0.45); EOSINOPHILS PERCENT AUTO 2.2 % (0.0-6.0); HEMATOCRIT 41.8 % (37.0-47.0); HEMOGLOBIN 13.4 g/dL (12.0-16.0); IMMATURE GRAN ABSOLUTE AUTO 0.03 K/uL (0.00-0.05); IMMATURE GRAN PERCENT AUTO 0.3 % (0.0-0.4); LYMPHOCYTES ABSOLUTE AUTO 1.83 K/uL (1.00-4.80); LYMPHOCYTES PERCENT AUTO 18.5 % (24.0-44.0); MEAN CORPUSCULAR HEMOGLOBIN 29.3 pg (28.0-32.0); MEAN CORPUSCULAR HGB CONC 32.1 g/dL (32.0-36.0); MEAN CORPUSCULAR VOLUME 91.5 fL (83.0-99.0); MEAN PLATELET VOLUME 10.4 fL (9.4-12.3); MONOCYTES ABSOLUTE AUTO 0.77 K/uL (0.00-0.80); MONOCYTES PERCENT AUTO 7.8 % (0.0-8.0); NEUTROPHILS ABSOLUTE AUTO 6.97 K/uL (1.80-7.70); NEUTROPHILS PERCENT AUTO 70.5 % (41.0-71.0); PLATELET COUNT,PLT 260 K/uL (150-400); RED BLOOD CELL COUNT 4.57 M/uL (4.10-5.30); WHITE BLOOD CELL COUNT,WBC 9.89 K/uL (3.9-11.3)
[2023-10-17] MEDS: Albuterol 0.083% 2.5 MG/3 ML Neb Soln NEB STA (11:22)
[2023-10-17] MEDS: Albuterol/Ipratropium 3.0-0.5 MG/3 ML Neb Soln NEB STA (11:22)
[2023-10-17] MEDS: Sodium Chloride 0.9% 2.5 ML Syringe FLUSH PRN (11:22)
[2023-10-17] MEDS: Sodium Chloride 0.9% 10 ML Syringe FLUSH PRN (11:22)
[2023-10-17 11:52] LABS: A/G RATIO 0.9 (0.9-1.6); ALBUMIN 3.3 g/dL (3.4-5.0); BILIRUBIN TOTAL 0.8 mg/dL (0.2-1.0); CALCIUM 9.4 mg/dL (8.5-10.1); CARBON DIOXIDE,CO2 25.7 mmol/L (21.0-32.0); EST CRCL DRUG DOSING (CG) 34.02 mL/min; MAGNESIUM 2.3 mg/dL (1.8-2.4); POTASSIUM,K 4.9 mmol/L (3.5-5.1); PROTEIN TOTAL,TP 6.9 g/dL (6.4-8.2)
[2023-10-17 12:07] LABS: CORONAVIRUS COVID-19 NAA NEGATIVE (NEGATIVE); INFLUENZA A NAA NEGATIVE (NEGATIVE); INFLUENZA B NAA NEGATIVE (NEGATIVE); RESPIRATORY SYNCYTIAL VIR NAA NEGATIVE (NEGATIVE)
[2023-10-17 12:12] LABS: INR 0.96 (0.86-1.11); PTT,PARTIAL THROMBOPLSTIN TIME 25.6 SEC (23.9-30.7)
[2023-10-17] MEDS: methylPREDNISolone Sodium Succinate 125 MG/2 ML SDV IVPUSH STA (12:20)
[2023-10-17 12:28] VITALS: BP 161/76; PULSE 82
== END 2023-10-17 12:43 | disposition home or self-care (01) ==
LOC: MW.ED 10:52
DX: J41.0 Simple chronic bronchitis (principal); I11.0 Hypertensive heart disease with heart failure; I50.9 Heart failure, unspecified; I25.10 Atherosclerotic heart disease of native coronary artery without angina pectoris; Z95.5 Presence of coronary angioplasty implant and graft; Z75.8 Other problems related to medical facilities and other health care; Z88.8 Allergy status to other drugs, medicaments and biological substances; Z91.013 Allergy to seafood; Z79.82 Long term (current) use of aspirin; Z79.899 Other long term (current) drug therapy; Z79.51 Long term (current) use of inhaled steroids; Z90.49 Acquired absence of other specified parts of digestive tract
CPT/HCPCS: 0241U; 36415; 71046; 80053; 83690; 83735; 83880; 84484; 85025; 85610; 85730; 93005; 96374; 99285; J2930; J3490; 93010; J7620-GY

== ENCOUNTER 2024-03-25 10:37 | Inpatient (IN) | payer MEDICARE, OTHER ==
[2024-03-25] MEDS: Albuterol 0.083% 2.5 MG/3 ML Neb Soln NEB STA (10:51)
[2024-03-25] MEDS: Sodium Chloride 0.9% 10 ML Syringe FLUSH PRN (10:51)
[2024-03-25] MEDS: Sodium Chloride 0.9% 2.5 ML Syringe FLUSH PRN (10:51)
[2024-03-25] MEDS: Albuterol/Ipratropium 3.0-0.5 MG/3 ML Neb Soln NEB STA (10:51)
[2024-03-25 11:06] LABS: BASOPHILS ABSOLUTE AUTO 0.06 K/uL (0.00-0.20); BASOPHILS PERCENT AUTO 0.3 % (0.0-1.0); EOSINOPHILS ABSOLUTE AUTO 0.04 K/uL (0.00-0.45); EOSINOPHILS PERCENT AUTO 0.2 % (0.0-6.0); HEMATOCRIT 38.3 % (37.0-47.0); HEMOGLOBIN 12.6 g/dL (12.0-16.0); IMMATURE GRAN ABSOLUTE AUTO 0.24 K/uL (0.00-0.05); IMMATURE GRAN PERCENT AUTO 1.4 % (0.0-0.4); LYMPHOCYTES ABSOLUTE AUTO 1.74 K/uL (1.00-4.80); LYMPHOCYTES PERCENT AUTO 10.1 % (24.0-44.0); MEAN CORPUSCULAR HEMOGLOBIN 29.4 pg (28.0-32.0); MEAN CORPUSCULAR HGB CONC 32.9 g/dL (32.0-36.0); MEAN CORPUSCULAR VOLUME 89.5 fL (83.0-99.0); MEAN PLATELET VOLUME 9.6 fL (9.4-12.3); MONOCYTES ABSOLUTE AUTO 1.12 K/uL (0.00-0.80); MONOCYTES PERCENT AUTO 6.5 % (0.0-8.0); NEUTROPHILS ABSOLUTE AUTO 14.02 K/uL (1.80-7.70); NEUTROPHILS PERCENT AUTO 81.5 % (41.0-71.0); PLATELET COUNT,PLT 423 K/uL (150-400); RED BLOOD CELL COUNT 4.28 M/uL (4.10-5.30); WHITE BLOOD CELL COUNT,WBC 17.22 K/uL (3.9-11.3)
[2024-03-25 11:16] LABS: BASE EXCESS VENOUS -1.1 (-2.0-3.0); PH,VENOUS 7.39 (7.31-7.41)
[2024-03-25 11:44] LABS: A/G RATIO 0.7 (0.9-1.6); ALBUMIN 2.8 g/dL (3.4-5.0); BILIRUBIN TOTAL 0.6 mg/dL (0.2-1.0); CALCIUM 9.6 mg/dL (8.5-10.1); CARBON DIOXIDE,CO2 25.1 mmol/L (21.0-32.0); CREATININE 1.3 mg/dL (0.6-1.0); EST CRCL DRUG DOSING (CG) 22.31 mL/min; POTASSIUM,K 5.1 mmol/L (3.5-5.1); PROTEIN TOTAL,TP 6.6 g/dL (6.4-8.2)
[2024-03-25 11:52] LABS: CORONAVIRUS COVID-19 NAA NEGATIVE (NEGATIVE); INFLUENZA A NAA NEGATIVE (NEGATIVE); INFLUENZA B NAA NEGATIVE (NEGATIVE); RESPIRATORY SYNCYTIAL VIR NAA NEGATIVE (NEGATIVE)
[2024-03-25 11:57] LABS: MAGNESIUM 2.4 mg/dL (1.8-2.4)
[2024-03-25] MEDS: Furosemide 20 MG/2 ML VIAL IVPUSH STA (12:01)
[2024-03-25] MEDS: methylPREDNISolone Sodium Succinate 125 MG/2 ML SDV IVPUSH STA (12:01)
[2024-03-25] MEDS: Levofloxacin/Dextrose 5%-Water 750 MG in Premix Bag 1 BAG IV STA (12:24)
[2024-03-25 12:27] LABS: LACTIC ACID 2.1 mmol/L (0.4-2.0)
[2024-03-25] MEDS ORDERED: Sodium Chloride 0.9% 2.5 ML Syringe FLUSH PRN (15:33)
[2024-03-25] MEDS ORDERED: Albuterol/Ipratropium 3.0-0.5 MG/3 ML Neb Soln NEB PRN (15:33)
[2024-03-25] MEDS ORDERED: Sodium Chloride 0.9% 10 ML Syringe FLUSH PRN (15:33)
[2024-03-25] MEDS ORDERED: Ondansetron 4 MG/2 ML SDV IVPUSH PRN (15:33)
[2024-03-25] MEDS: Heparin Sodium 5,000 Units/ML Vial SUBCUT SCH ×3 (16:16→23:40)
[2024-03-25] MEDS: Sodium Chloride 0.9% 1,000 ML IV ONE (16:16)
[2024-03-25] MEDS: Acetaminophen 325 MG Tab PO PRN (18:26)
[2024-03-25] MEDS: Formoterol/Mometasone 200-5 MCG 8.8 GM Inhaler INH SCH (20:20)
[2024-03-26] MEDS: Pantoprazole 40 MG Tab.CR PO SCH (05:47)
[2024-03-26] MEDS: Heparin Sodium 5,000 Units/ML Vial SUBCUT SCH (05:47)
[2024-03-26 06:01] LABS: BASOPHILS ABSOLUTE AUTO 0.03 K/uL (0.00-0.20); BASOPHILS PERCENT AUTO 0.2 % (0.0-1.0); HEMATOCRIT 34.7 % (37.0-47.0); HEMOGLOBIN 11.2 g/dL (12.0-16.0); IMMATURE GRAN ABSOLUTE AUTO 0.44 K/uL (0.00-0.05); IMMATURE GRAN PERCENT AUTO 2.8 % (0.0-0.4); LYMPHOCYTES ABSOLUTE AUTO 1.52 K/uL (1.00-4.80); LYMPHOCYTES PERCENT AUTO 9.5 % (24.0-44.0); MEAN CORPUSCULAR HEMOGLOBIN 28.7 pg (28.0-32.0); MEAN CORPUSCULAR HGB CONC 32.3 g/dL (32.0-36.0); MEAN PLATELET VOLUME 9.6 fL (9.4-12.3); MONOCYTES ABSOLUTE AUTO 0.48 K/uL (0.00-0.80); NEUTROPHILS ABSOLUTE AUTO 13.52 K/uL (1.80-7.70); NEUTROPHILS PERCENT AUTO 84.5 % (41.0-71.0); PLATELET COUNT,PLT 425 K/uL (150-400); WHITE BLOOD CELL COUNT,WBC 15.99 K/uL (3.9-11.3)
[2024-03-26 06:21] LABS: CARBON DIOXIDE,CO2 25.1 mmol/L (21.0-32.0); CREATININE 1.3 mg/dL (0.6-1.0); EST CRCL DRUG DOSING (CG) 22.31 mL/min; MAGNESIUM 2.2 mg/dL (1.8-2.4); POTASSIUM,K 4.9 mmol/L (3.5-5.1)
[2024-03-26] MEDS: predniSONE 20 MG Tab PO SCH (08:05)
[2024-03-26] MEDS: cefTRIAXone 2 GM in Sodium Chloride 0.9% 50 ML IV SCH (08:08)
[2024-03-26] MEDS: Azithromycin 500 MG in Sodium Chloride 0.9% 250 ML IV SCH (09:04)
[2024-03-26] MEDS ORDERED: Acetaminophen 500 MG Tab PO PRN (09:08)
[2024-03-26] MEDS: FLU (Fluad Triv) TS24-25 (65UP)/MF59C/PF 45 MCG/0.5 ML Syringe IM ONE (16:47)
[2024-03-26] MEDS: Metoprolol Succinate 50 MG Tab.ER PO SCH (17:11)
[2024-03-27 06:00] LABS: BASOPHILS ABSOLUTE AUTO 0.05 K/uL (0.00-0.20); BASOPHILS PERCENT AUTO 0.3 % (0.0-1.0); EOSINOPHILS ABSOLUTE AUTO 0.01 K/uL (0.00-0.45); EOSINOPHILS PERCENT AUTO 0.1 % (0.0-6.0); HEMATOCRIT 36.1 % (37.0-47.0); HEMOGLOBIN 11.5 g/dL (12.0-16.0); IMMATURE GRAN PERCENT AUTO 1.7 % (0.0-0.4); LYMPHOCYTES ABSOLUTE AUTO 2.34 K/uL (1.00-4.80); LYMPHOCYTES PERCENT AUTO 13.1 % (24.0-44.0); MEAN CORPUSCULAR HEMOGLOBIN 28.7 pg (28.0-32.0); MEAN CORPUSCULAR HGB CONC 31.9 g/dL (32.0-36.0); MEAN PLATELET VOLUME 9.3 fL (9.4-12.3); MONOCYTES ABSOLUTE AUTO 1.21 K/uL (0.00-0.80); MONOCYTES PERCENT AUTO 6.8 % (0.0-8.0); NEUTROPHILS ABSOLUTE AUTO 13.97 K/uL (1.80-7.70); PLATELET COUNT,PLT 449 K/uL (150-400); RED BLOOD CELL COUNT 4.01 M/uL (4.10-5.30); WHITE BLOOD CELL COUNT,WBC 17.88 K/uL (3.9-11.3)
[2024-03-27 06:22] LABS: CALCIUM 10.4 mg/dL (8.5-10.1); CARBON DIOXIDE,CO2 23.8 mmol/L (21.0-32.0); CREATININE 1.3 mg/dL (0.6-1.0); EST CRCL DRUG DOSING (CG) 22.31 mL/min; POTASSIUM,K 4.7 mmol/L (3.5-5.1)
[2024-03-27] MEDS: Hyaluronidase, Human Recomb. 150 Unit/ML Vial SUBCUT ONE (11:13)
[2024-03-27] MEDS: Pneumococcal 20-Valent Conjug 0.5 ML Syringe IM ONE (13:15)
[2024-03-27 13:38] VITALS: BP 152/67; PULSE 76
== END 2024-03-27 13:56 | disposition home health service (06) | DRG 193 ==
LOC: MW.ED 10:37 → MW.MS 14:47
PROVIDERS: ADMIT Internal Medicine; ATTEND Nurse Practitioner Family
DX: J96.01 Acute respiratory failure with hypoxia (principal); J18.9 Pneumonia, unspecified organism; J96.21 Acute and chronic respiratory failure with hypoxia; J44.9 Chronic obstructive pulmonary disease, unspecified; J44.0 Chronic obstructive pulmonary disease with (acute) lower respiratory infection; J44.1 Chronic obstructive pulmonary disease with (acute) exacerbation; I50.9 Heart failure, unspecified; Z66 Do not resuscitate; I11.0 Hypertensive heart disease with heart failure; I25.10 Atherosclerotic heart disease of native coronary artery without angina pectoris; Z75.8 Other problems related to medical facilities and other health care; D72.829 Elevated white blood cell count, unspecified; H91.90 Unspecified hearing loss, unspecified ear; H54.7 Unspecified visual loss; E78.5 Hyperlipidemia, unspecified; Z95.5 Presence of coronary angioplasty implant and graft; Z79.51 Long term (current) use of inhaled steroids; Z79.82 Long term (current) use of aspirin; Z79.2 Long term (current) use of antibiotics; Z79.899 Other long term (current) drug therapy; Z88.5 Allergy status to narcotic agent; Z91.013 Allergy to seafood; Z86.73 Personal history of transient ischemic attack (TIA), and cerebral infarction without residual deficits; Z90.49 Acquired absence of other specified parts of digestive tract; Z98.51 Tubal ligation status; Z99.81 Dependence on supplemental oxygen; I25.2 Old myocardial infarction; Z87.19 Personal history of other diseases of the digestive system
CPT/HCPCS: 0241U; 36415; 71045; 71250; 80048; 80053; 82803; 83605; 83690; 83735; 83880; 84484; 85025; 87040; 90653; 90677; 93005; 94640; 97162; 97530; 93010; 96365; 96375; 99222; 99232; 99238; 99284; 99285-25; A9270-GY; G0009; J0456; J0696; J1644; J1940; J1956; J2919; J3473; J3490; J7030; J7050; J7620-GY

== ENCOUNTER 2024-04-01 20:52 | Inpatient (IN) | payer MEDICARE, OTHER ==
[2024-04-01] MEDS: methylPREDNISolone Sodium Succinate 125 MG/2 ML SDV IVPUSH ONE (21:17)
[2024-04-01] MEDS: Albuterol/Ipratropium 3.0-0.5 MG/3 ML Neb Soln NEB ONE (21:17)
[2024-04-01] MEDS: Sodium Chloride 0.9% 10 ML Syringe FLUSH PRN (21:56)
[2024-04-01 21:58] LABS: BASOPHILS ABSOLUTE AUTO 0.04 K/uL (0.00-0.20); BASOPHILS PERCENT AUTO 0.3 % (0.0-1.0); EOSINOPHILS ABSOLUTE AUTO 0.21 K/uL (0.00-0.45); EOSINOPHILS PERCENT AUTO 1.8 % (0.0-6.0); HEMATOCRIT 40.4 % (37.0-47.0); HEMOGLOBIN 12.7 g/dL (12.0-16.0); IMMATURE GRAN PERCENT AUTO 0.9 % (0.0-0.4); LYMPHOCYTES ABSOLUTE AUTO 2.94 K/uL (1.00-4.80); LYMPHOCYTES PERCENT AUTO 25.5 % (24.0-44.0); MEAN CORPUSCULAR HEMOGLOBIN 28.8 pg (28.0-32.0); MEAN CORPUSCULAR HGB CONC 31.4 g/dL (32.0-36.0); MEAN CORPUSCULAR VOLUME 91.6 fL (83.0-99.0); MEAN PLATELET VOLUME 9.3 fL (9.4-12.3); MONOCYTES ABSOLUTE AUTO 1.02 K/uL (0.00-0.80); MONOCYTES PERCENT AUTO 8.9 % (0.0-8.0); NEUTROPHILS ABSOLUTE AUTO 7.21 K/uL (1.80-7.70); NEUTROPHILS PERCENT AUTO 62.6 % (41.0-71.0); PLATELET COUNT,PLT 421 K/uL (150-400); RED BLOOD CELL COUNT 4.41 M/uL (4.10-5.30); WHITE BLOOD CELL COUNT,WBC 11.52 K/uL (3.9-11.3)
[2024-04-01 21:59] LABS: BASE EXCESS VENOUS -1.2 (-2.0-3.0); PH,VENOUS 7.35 (7.31-7.41)
[2024-04-01 22:12] LABS: INR 0.99 (0.86-1.11)
[2024-04-01 22:31] LABS: A/G RATIO 0.8 (0.9-1.6); ALBUMIN 2.8 g/dL (3.4-5.0); BILIRUBIN TOTAL 0.3 mg/dL (0.2-1.0); CALCIUM 9.4 mg/dL (8.5-10.1); CARBON DIOXIDE,CO2 26.2 mmol/L (21.0-32.0); CREATININE 1.5 mg/dL (0.6-1.0); EST CRCL DRUG DOSING (CG) 22.27 mL/min; MAGNESIUM 2.4 mg/dL (1.8-2.4); POTASSIUM,K 4.8 mmol/L (3.5-5.1); PROTEIN TOTAL,TP 6.4 g/dL (6.4-8.2)
[2024-04-01 22:35] LABS: CORONAVIRUS COVID-19 NAA NEGATIVE (NEGATIVE); INFLUENZA A NAA NEGATIVE (NEGATIVE); INFLUENZA B NAA NEGATIVE (NEGATIVE); RESPIRATORY SYNCYTIAL VIR NAA NEGATIVE (NEGATIVE)
[2024-04-01] MEDS: Acetaminophen 500 MG Tab PO ONE (23:24)
[2024-04-02] MEDS: Albuterol 0.083% 2.5 MG/3 ML Neb Soln NEB STA (01:04)
[2024-04-02] MEDS ORDERED: Albuterol 0.083% 2.5 MG/3 ML Neb Soln NEB PRN (01:05)
[2024-04-02] MEDS: Cefepime 2 GM in Sodium Chloride 0.9% 50 ML IV ONE (01:05)
[2024-04-02] MEDS ORDERED: Polyethylene Glycol 3350 Powder 17 GM Packet PO PRN (01:05)
[2024-04-02] MEDS ORDERED: Ondansetron 4 MG/2 ML SDV IVPUSH PRN (01:05)
[2024-04-02] MEDS ORDERED: Melatonin 3 MG Tab PO PRN (01:05)
[2024-04-02] MEDS ORDERED: Acetaminophen 650 MG Supp RECTAL PRN (01:05)
[2024-04-02] MEDS: Doxycycline 100 MG in Sodium Chloride 0.9% 100 ML IV SCH ×3 (03:57→17:17)
[2024-04-02] MEDS: Cefepime 2 GM in Sodium Chloride 0.9% 50 ML IV SCH ×2 (03:58→13:38)
[2024-04-02] MEDS: cefTRIAXone 2 GM in Sodium Chloride 0.9% 50 ML IV ONE (03:58)
[2024-04-02] MEDS: Albuterol/Ipratropium 3.0-0.5 MG/3 ML Neb Soln NEB SCH (05:00)
[2024-04-02] MEDS: Sodium Chloride 0.9% 1,000 ML IV SCH (05:00)
[2024-04-02] MEDS: Pantoprazole 40 MG Tab.CR PO SCH (06:30)
[2024-04-02] MEDS: Heparin Sodium 5,000 Units/ML Vial SUBCUT SCH (08:35)
[2024-04-02] MEDS: methylPREDNISolone Sodium Succinate 40 MG/1 ML SDV IVPUSH SCH (08:35)
[2024-04-02 08:45] LABS: A/G RATIO 0.8 (0.9-1.6); ALBUMIN 2.8 g/dL (3.4-5.0); BILIRUBIN TOTAL 0.3 mg/dL (0.2-1.0); CALCIUM 9.4 mg/dL (8.5-10.1); CARBON DIOXIDE,CO2 20.6 mmol/L (21.0-32.0); CREATININE 1.7 mg/dL (0.6-1.0); EST CRCL DRUG DOSING (CG) 19.65 mL/min; POTASSIUM,K 4.6 mmol/L (3.5-5.1); PROTEIN TOTAL,TP 6.5 g/dL (6.4-8.2)
[2024-04-02] MEDS ORDERED: Cefepime 2 GM in Sodium Chloride 0.9% 50 ML IV SCH (09:00)
[2024-04-02] MEDS ORDERED: Glucagon,Human Recombinant 1 MG Vial IM PRN (09:59)
[2024-04-02] MEDS ORDERED: 50% Dextrose in Water 50 ML Syringe IVPUSH PRN (09:59)
[2024-04-02] MEDS: Metoprolol Succinate 50 MG Tab.ER PO SCH (10:03)
[2024-04-02] MEDS: atorvaSTATin 20 MG Tab PO SCH (10:03)
[2024-04-02] MEDS: Losartan 25 MG Tab PO SCH (10:06)
[2024-04-02] MEDS: Furosemide 40 MG Tab PO SCH (10:06)
[2024-04-02] MEDS: Formoterol/Mometasone 200-5 MCG 8.8 GM Inhaler INH SCH (10:19)
[2024-04-02 10:31] LABS: BASOPHILS ABSOLUTE AUTO 0.01 K/uL (0.00-0.20); BASOPHILS PERCENT AUTO 0.1 % (0.0-1.0); HEMATOCRIT 38.5 % (37.0-47.0); HEMOGLOBIN 12.4 g/dL (12.0-16.0); IMMATURE GRAN ABSOLUTE AUTO 0.17 K/uL (0.00-0.05); IMMATURE GRAN PERCENT AUTO 1.5 % (0.0-0.4); LYMPHOCYTES PERCENT AUTO 6.1 % (24.0-44.0); MEAN CORPUSCULAR HGB CONC 32.2 g/dL (32.0-36.0); MEAN CORPUSCULAR VOLUME 90.2 fL (83.0-99.0); MEAN PLATELET VOLUME 9.4 fL (9.4-12.3); MONOCYTES ABSOLUTE AUTO 0.04 K/uL (0.00-0.80); MONOCYTES PERCENT AUTO 0.3 % (0.0-8.0); PLATELET COUNT,PLT 420 K/uL (150-400); RED BLOOD CELL COUNT 4.27 M/uL (4.10-5.30); WHITE BLOOD CELL COUNT,WBC 11.52 K/uL (3.9-11.3)
[2024-04-02] MEDS: Insulin Aspart 100 Units/ML 3 ML Pen SUBCUT SCH (12:05)
[2024-04-02] MEDS ORDERED: Doxycycline 100 MG in Sodium Chloride 0.9% 100 ML IV SCH (17:00)
[2024-04-02] MEDS: Sodium Chloride 0.65% Nasal Spray 45 ML Bottle NAS PRN (18:27)
[2024-04-03] MEDS: Pantoprazole 40 MG Tab.CR PO SCH (06:15)
[2024-04-03 07:20] LABS: BASOPHILS ABSOLUTE AUTO 0.02 K/uL (0.00-0.20); BASOPHILS PERCENT AUTO 0.1 % (0.0-1.0); HEMATOCRIT 38.8 % (37.0-47.0); HEMOGLOBIN 12.5 g/dL (12.0-16.0); IMMATURE GRAN ABSOLUTE AUTO 0.23 K/uL (0.00-0.05); IMMATURE GRAN PERCENT AUTO 1.1 % (0.0-0.4); LYMPHOCYTES ABSOLUTE AUTO 1.49 K/uL (1.00-4.80); MEAN CORPUSCULAR HEMOGLOBIN 29.1 pg (28.0-32.0); MEAN CORPUSCULAR HGB CONC 32.2 g/dL (32.0-36.0); MEAN CORPUSCULAR VOLUME 90.2 fL (83.0-99.0); MEAN PLATELET VOLUME 9.8 fL (9.4-12.3); MONOCYTES ABSOLUTE AUTO 0.56 K/uL (0.00-0.80); MONOCYTES PERCENT AUTO 2.6 % (0.0-8.0); NEUTROPHILS ABSOLUTE AUTO 18.84 K/uL (1.80-7.70); NEUTROPHILS PERCENT AUTO 89.2 % (41.0-71.0); PLATELET COUNT,PLT 451 K/uL (150-400); WHITE BLOOD CELL COUNT,WBC 21.14 K/uL (3.9-11.3)
[2024-04-03 07:44] LABS: CALCIUM 10.4 mg/dL (8.5-10.1); CARBON DIOXIDE,CO2 26.5 mmol/L (21.0-32.0); CREATININE 1.5 mg/dL (0.6-1.0); EST CRCL DRUG DOSING (CG) 22.27 mL/min; POTASSIUM,K 4.8 mmol/L (3.5-5.1)
[2024-04-03 10:07] LABS: BORDETELLA PARAPERT IS1001 Not Detected (Not Detected)
[2024-04-03] MEDS: Acetaminophen 325 MG Tab PO PRN (22:08)
[2024-04-04 09:21] LABS: BASOPHILS ABSOLUTE AUTO 0.02 K/uL (0.00-0.20); BASOPHILS PERCENT AUTO 0.1 % (0.0-1.0); EOSINOPHILS ABSOLUTE AUTO 0.03 K/uL (0.00-0.45); EOSINOPHILS PERCENT AUTO 0.2 % (0.0-6.0); HEMATOCRIT 37.5 % (37.0-47.0); HEMOGLOBIN 12.1 g/dL (12.0-16.0); IMMATURE GRAN ABSOLUTE AUTO 0.24 K/uL (0.00-0.05); IMMATURE GRAN PERCENT AUTO 1.3 % (0.0-0.4); LYMPHOCYTES ABSOLUTE AUTO 1.28 K/uL (1.00-4.80); LYMPHOCYTES PERCENT AUTO 6.9 % (24.0-44.0); MEAN CORPUSCULAR HEMOGLOBIN 29.1 pg (28.0-32.0); MEAN CORPUSCULAR HGB CONC 32.3 g/dL (32.0-36.0); MEAN CORPUSCULAR VOLUME 90.1 fL (83.0-99.0); MEAN PLATELET VOLUME 9.6 fL (9.4-12.3); MONOCYTES ABSOLUTE AUTO 0.66 K/uL (0.00-0.80); MONOCYTES PERCENT AUTO 3.5 % (0.0-8.0); NEUTROPHILS ABSOLUTE AUTO 16.37 K/uL (1.80-7.70); PLATELET COUNT,PLT 413 K/uL (150-400); RED BLOOD CELL COUNT 4.16 M/uL (4.10-5.30)
[2024-04-04 09:37] LABS: CARBON DIOXIDE,CO2 21.5 mmol/L (21.0-32.0)
[2024-04-04 09:46] LABS: CALCIUM 10.3 mg/dL (8.5-10.1); CREATININE 1.3 mg/dL (0.6-1.0); EST CRCL DRUG DOSING (CG) 25.7 mL/min; POTASSIUM,K 5.3 mmol/L (3.5-5.1)
[2024-04-04 12:07] VITALS: PULSE 80
[2024-04-04 14:58] VITALS: BP 167/74
== END 2024-04-04 13:40 | disposition home health service (06) | DRG 190 ==
LOC: MW.ED 20:52 → MW.MS 04-02 00:54
PROVIDERS: ADMIT Family Medicine; ATTEND Family Medicine
DX: J44.1 Chronic obstructive pulmonary disease with (acute) exacerbation (principal); R06.82 Tachypnea, not elsewhere classified; J18.9 Pneumonia, unspecified organism; N17.9 Acute kidney failure, unspecified; J44.0 Chronic obstructive pulmonary disease with (acute) lower respiratory infection; Z66 Do not resuscitate; H91.90 Unspecified hearing loss, unspecified ear; Z86.73 Personal history of transient ischemic attack (TIA), and cerebral infarction without residual deficits; I11.0 Hypertensive heart disease with heart failure; I25.2 Old myocardial infarction; I50.9 Heart failure, unspecified; E78.00 Pure hypercholesterolemia, unspecified; M19.90 Unspecified osteoarthritis, unspecified site; D64.9 Anemia, unspecified; K21.9 Gastro-esophageal reflux disease without esophagitis; I25.10 Atherosclerotic heart disease of native coronary artery without angina pectoris; Z88.5 Allergy status to narcotic agent; Z79.82 Long term (current) use of aspirin; Z79.52 Long term (current) use of systemic steroids; Z98.49 Cataract extraction status, unspecified eye; Z91.013 Allergy to seafood; Z79.899 Other long term (current) drug therapy; Z98.51 Tubal ligation status; Z90.49 Acquired absence of other specified parts of digestive tract; Z87.19 Personal history of other diseases of the digestive system; Z98.890 Other specified postprocedural states
CPT/HCPCS: 0241U; 36415; 71045; 80048; 80053; 82803; 82947; 83605; 83690; 83735; 83880; 84484; 85025; 85610; 87040; 87486; 87581; 87633; 87899; 94640; 94664; 94667; 96374; 97110; 97161; 97165; 97530; 99285; A9270-GY; J0692; J1644; J1815-GY; J2919; J3490; J7030; J7620-GY